=== PATIENT | male | born 1970 | race American Indian/Alaskan Native ===

== ENCOUNTER 2017-01-02 17:53 | Emergency (ER) | payer BC ==
[2017-01-02] MEDS ORDERED: Ketorolac 60 MG/2 ML SDV IM ONE (18:23)
--- NOTE | 2017-01-02 18:28 | EDM.PDOC ---
ED HPI GENERAL MEDICAL PROBLEM - General Chief Complaint: General Stated Complaint: PT HURT RT KNEE Time Seen by Provider: 01/02/17 18:15 - History of Present Illness INITIAL COMMENTS - FREE TEXT/NARRATIVE: HISTORY AND PHYSICAL: History of present illness: The patient is a 46-year-old male who has a history of gouty arthritis who gets flareups in his knees hands and wrists and presents with the start of what he believes to be a gouty flareup. The patient states he has right knee pain and feels discomfort but there is not any gross swelling redness or warmth but this is typically how he presents. He was on allopurinol but is off that medication for the last 2 months. He has not had any systemic complaints of fever chills chest pain shortness of breath and has no distal neurosensory changes. He has no tib-fib ankle or foot discomfort and no thigh or hip discomfort . The patient states that he usually is treated for this problem with a steroid injection into the knee Review of systems: As per history of present illness and below otherwise all systems reviewed and negative. Past medical history: As per history of present illness and as reviewed below otherwise noncontributory. Surgical history: As per history of present illness and as reviewed below otherwise noncontributory. Social history: No reported history of drug or alcohol abuse. Family history: As per history of present illness and as reviewed below otherwise noncontributory. Physical exam: General: Well-developed slightly overweight male who is nontoxic and vitals as reviewed by me HEENT: Atraumatic, normocephalic, negative for conjunctival pallor or scleral icterus, mucous membranes moist, throat clear, neck supple, nontender, trachea midline. Lungs: Clear to auscultation, breath sounds equal bilaterally, chest nontender. Heart: S1S2, regular rate and rhythm no overt murmurs Abdomen: Soft, nondistended, nontender. NABS. Pelvis: Stable nontender. No lateral hip tenderness on palpation Genitourinary: Deferred. Rectal: Deferred. Extremities: Atraumatic appearing throughout but there is some tenderness at the anterior aspect of the right knee without warmth erythema joint effusion or soft tissue swelling. There is some arthritic changes appreciated in the bony architecture of the knee. There is no distal tib-fib or ankle discomfort or deformities and no proximal thigh or hip tenderness or deformities., negative for cords or calf pain. Neurovascular unremarkable. Neuro: Awake, alert, oriented. Cranial nerves II through XII unremarkable. Cerebellum unremarkable. Motor and sensory unremarkable throughout. Exam nonfocal. Diagnostics: Therapeutics: Toradol I discussed with the patient that I do not do steroid injections into the knee and that he would have to followup in the clinic to see Dr. Hamilton for that. I will give him the appropriate for reformation. We will do a course of prednisone and diclofenac and I will give him a shot of Toradol here. I offered him an Nathaniel bandage and he declines. Impression: Right knee pain with history of gouty arthritis stable Definitive disposition and diagnosis as appropriate pending reevaluation and review of above. Right Knee Pain Score (Numeric/FACES): 6 - Related Data Allergies Allergy/AdvReac Type Severity Reaction Status Date / Time No Known Allergies Allergy Verified 01/02/17 18:07 Home Meds: Home Meds Allopurinol [Zyloprim] 300 mg PO DAILY 01/02/17 [History] Past Medical History - Infectious Disease History Infectious Disease History: Reports: Chicken pox - Past Surgical History Other Musculoskeletal Surgeries/Procedures:: right hip replacement Social & Family History - Family History Family Medical History: Noncontributory - Tobacco Use Smoking Status *Q: Current Every Day Smoker Years of Tobacco use: 15 Packs/Tins Daily: 0.1 Second Hand Smoke Exposure: No - Caffeine Use Caffeine Use: Reports: Soda Caffeine Use Comment: 2drinks/daily - Alcohol Use Days Per Week of Alcohol Use: 7 Number of Drinks Per Day: 3 Total Drinks Per Week: 21 - Recreational Drug Use Recreational Drug Use: No ED ROS GENERAL - Review of Systems Review Of Systems: ROS reveals no pertinent complaints other than HPI. ED EXAM, GENERAL - Physical Exam Exam: See Below (See dictation) Course - Vital Signs Last Recorded V/S: Last Vital Signs Temp 37.8 C 01/02/17 18:04 Pulse 92 01/02/17 18:04 Resp 18 01/02/17 18:04 BP 167/96 H 01/02/17 18:04 Pulse Ox 94 L 01/02/17 18:04 Departure - Departure Time of Disposition: 18:27 Disposition: Home, Self-Care 01 Condition: good Clinical Impression: Right knee pain Qualifiers: Chronicity: unspecified Qualified Code(s): M25.561 - Pain in right knee Forms: ED Department Discharge Additional Instructions: The following information is given to patients seen in the emergency department who are being discharged to home. This information is to outline your options for follow-up care. We provide all patients seen in our emergency department with a follow-up referral. The need for follow-up, as well as the timing and circumstances, are variable depending upon the specifics of your emergency department visit. If you don't have a primary care physician on staff, we will provide you with a referral. We always advise you to contact your personal physician following an emergency department visit to inform them of the circumstance of the visit and for follow-up with them and/or the need for any referrals to a consulting specialist. The emergency department will also refer you to a specialist when appropriate. This referral assures that you have the opportunity for followup care with a specialist. All of these measure are taken in an effort to provide you with optimal care, which includes your followup. Under all circumstances we always encourage you to contact your private physician who remains a resource for coordinating your care. When calling for followup care, please make the office aware that this follow-up is from your recent emergency room visit. If for any reason you are refused follow-up, please contact the [facility] emergency department at and ask to speak to the emergency department charge nurse. [facility] Primary care- Internal Medicine and Family [facility] [address] [place] [id number] [facility] Specialty Care--Orthopedic clinic Professional Building [address] [place] [id number] Ice and elevate the areas as possible and take medications as prescribed, prednisone and diclofenac. These call and followup in orthopedics clinic as well as primary care for further evaluation and treatment and return to ER as needed and as discussed
[2017-01-02 19:54] VITALS: BP 162/95
== END 2017-01-02 18:50 | disposition home or self-care (01) ==
LOC: MW.ED 17:53
DX: M25.561 Pain in right knee (principal); F17.210 Nicotine dependence, cigarettes, uncomplicated
CPT/HCPCS: 96372; 99283; J1885

== ENCOUNTER 2018-01-26 22:34 | Emergency (ER) | payer BC ==
[2018-01-26] MEDS ORDERED: Ondansetron 4 MG/2 ML SDV IVPUSH ONE (22:45)
[2018-01-26] MEDS ORDERED: Sodium Chloride 0.9% 1,000 ML IV ONE (22:45)
--- NOTE | 2018-01-26 22:54 | EDM.PDOC ---
ED HPI GENERAL MEDICAL PROBLEM - General Stated Complaint: DEHYDRATED/VOMITING/HEADACHE Time Seen by Provider: 01/26/18 22:44 - History of Present Illness INITIAL COMMENTS - FREE TEXT/NARRATIVE: HISTORY AND PHYSICAL: History of present illness: Patient 41 sutural male presents with concern of vomiting over last 2-3 days and dehydration. Similar episodes in the past also complains of mild headache he denies fever chills diarrhea or other concerns. Review of systems: As per history of present illness and below otherwise all systems reviewed and negative. Past medical history: As per history of present illness and as reviewed below otherwise noncontributory. Surgical history: As per history of present illness and as reviewed below otherwise noncontributory. Social history: No reported history of drug or alcohol abuse. Family history: As per history of present illness and as reviewed below otherwise noncontributory. Physical exam: HEENT: Atraumatic, normocephalic, pupils reactive, negative for conjunctival pallor or scleral icterus, mucous membranes dry, throat clear, neck supple, nontender, trachea midline. Lungs: Clear to auscultation, breath sounds equal bilaterally, chest nontender. Heart: S1S2, regular, negative for clicks, rubs, or JVD. Abdomen: Soft, nondistended, nontender. Negative for masses or hepatosplenomegaly. Negative for costovertebral tenderness. Pelvis: Stable nontender. Genitourinary: Deferred. Rectal: Deferred. Extremities: Atraumatic, negative for cords or calf pain. Neurovascular unremarkable. Neuro: Awake, alert, oriented. Cranial nerves II through XII unremarkable. Cerebellum unremarkable. Motor and sensory unremarkable throughout. Exam nonfocal. Diagnostics: CBC CMP lipase UA urine drug screen Therapeutics: Saline 1 L bolus Zofran 4 mg IV Impression: #1 vomiting with dehydration Definitive disposition and diagnosis as appropriate pending reevaluation and review of above. - Related Data Allergies Allergy/AdvReac Type Severity Reaction Status Date / Time No Known Allergies Allergy Verified 01/26/18 22:52 Home Meds: Home Meds Allopurinol [Zyloprim] 300 mg PO DAILY 01/02/17 [History] Past Medical History - Infectious Disease History Infectious Disease History: Reports: Chicken Pox - Past Surgical History Other Musculoskeletal Surgeries/Procedures:: right hip replacement Social & Family History - Family History Family Medical History: Noncontributory - Tobacco Use Smoking Status *Q: Current Every Day Smoker Years of Tobacco use: 15 Packs/Tins Daily: 0.1 Second Hand Smoke Exposure: No - Caffeine Use Caffeine Use: Reports: Soda Caffeine Use Comment: 2drinks/daily - Alcohol Use Days Per Week of Alcohol Use: 7 Number of Drinks Per Day: 3 Total Drinks Per Week: 21 - Recreational Drug Use Recreational Drug Use: No ED ROS GENERAL - Review of Systems Review Of Systems: ROS reveals no pertinent complaints other than HPI. ED EXAM, GENERAL - Physical Exam Exam: See Below (See dictation) Course - Vital Signs Text/Narrative:: I discussed with patient admission for observation IV hydration and further evaluation he declines request discharge states he feels markedly improved follow-up with private medical doctor Last Recorded V/S: Last Vital Signs Temp 36.6 C 01/26/18 22:53 Pulse 121 H 01/26/18 22:53 Resp 19 01/26/18 22:53 BP 158/123 H 01/26/18 22:53 Pulse Ox 98 01/26/18 22:53 - Orders/Labs/Meds Orders: Active Orders 24 hr Category Date Time Status DRUG SCREEN, URINE [URCHEM] Stat Lab 01/26/18 22:46 Ordered UA W/MICROSCOPIC [URIN] Stat Lab 01/26/18 22:45 Ordered Sodium Chloride 0.9% [Normal Saline] 1,000 ml Med 01/27/18 00:15 Active IV .Bolus Medication Orders Sodium Chloride (Normal Saline) 1,000 mls @ 999 mls/hr IV .Bolus ONE Stop: 01/27/18 01:15 Last Admin: 01/27/18 00:21 Dose: 999 mls/hr Labs: Laboratory Tests 01/26/18 01/26/18 01/26/18 Range/Units 22:55 22:55 22:55 WBC 6.30 (4.0-11.0) K/uL RBC 5.64 (4.50-5.90) M/uL Hgb 18.7 H (13.0-17.0) g/dL Hct 51.2 H (38.0-50.0) % MCV 90.8 (80.0-98.0) fL MCH 33.2 H (27.0-32.0) pg MCHC 36.5 (31.0-37.0) g/dL RDW Std Deviation 43.6 (28.0-62.0) fl RDW Coeff of Laney 13 (11.0-15.0) % Plt Count 187 (150-400) K/uL MPV 9.90 (7.40-12.00) fL Neut % (Auto) 49.3 (48.0-80.0) % Lymph % (Auto) 43.0 H (16.0-40.0) % Riley % (Auto) 5.2 (0.0-15.0) % Eos % (Auto) 2.2 (0.0-7.0) % Baso % (Auto) 0.3 (0.0-1.5) % Neut # (Auto) 3.1 (1.4-5.7) K/uL Lymph # (Auto) 2.7 H (0.6-2.4) K/uL Riley # (Auto) 0.3 (0.0-0.8) K/uL Eos # (Auto) 0.1 (0.0-0.7) K/uL Baso # (Auto) 0.0 (0.0-0.1) K/uL Nucleated RBC % 0.0 /100WBC Nucleated RBCs # 0 K/uL INR 1.10 Sodium 143 (136-148) mmol/L Potassium 3.6 (3.5-5.1) mmol/L Chloride 108 H (98-107) mmol/L Carbon Dioxide 23.1 (21.0-32.0) mmol/L BUN 13 (7.0-18.0) mg/dL Creatinine 1.0 (0.8-1.3) mg/dL Est Cr Clr Drug Dosing 89.30 mL/min Estimated GFR (MDRD) > 60.0 ml/min Glucose 128 H (74-106) mg/dL Calcium 8.5 (8.5-10.1) mg/dL Total Bilirubin 1.0 (0.2-1.0) mg/dL AST 85 H (15-37) IU/L ALT 107 H (14-63) IU/L Alkaline Phosphatase 77 (46-116) U/L Total Protein 8.0 (6.4-8.2) g/dL Albumin 4.2 (3.4-5.0) g/dL Globulin 3.8 H (2.0-3.5) g/dL Albumin/Globulin Ratio 1.1 L (1.3-2.8) Lipase 437 H (73-393) U/L Meds: Medications Generic Name Dose Route Start Last Admin Trade Name Justin PRN Reason Stop Dose Admin Sodium Chloride 1,000 mls @ 999 mls/hr 01/27/18 00:15 01/27/18 00:21 Normal Saline IV 01/27/18 01:15 999 mls/hr .Bolus ONE Administration Discontinued Medications Generic Name Dose Route Start Last Admin Trade Name Justin PRN Reason Stop Dose Admin Sodium Chloride 1,000 mls @ 999 mls/hr 01/26/18 22:45 01/26/18 23:16 Normal Saline IV 01/26/18 23:45 999 mls/hr STAT ONE Administration Ondansetron HCl 4 mg 01/26/18 22:45 01/26/18 23:18 Zofran IVPUSH 01/26/18 22:46 4 mg ONETIME ONE Administration Departure - Departure Time of Disposition: 00:36 Disposition: Home, Self-Care 01 Condition: Good Clinical Impression: Vomiting, Pancreatitis, Alcohol abuse, Dehydration - Discharge Information Referrals: PCP,None [Primary Care Provider] - - My Orders Last 24 Hours: My Active Orders 01/26/18 22:45 UA W/MICROSCOPIC [URIN] Stat 01/26/18 22:46 DRUG SCREEN, URINE [URCHEM] Stat 01/27/18 00:15 Sodium Chloride 0.9% [Normal Saline] 1,000 ml IV .Bolus - Assessment/Plan Last 24 Hours: My Active Orders 01/26/18 22:45 UA W/MICROSCOPIC [URIN] Stat 01/26/18 22:46 DRUG SCREEN, URINE [URCHEM] Stat 01/27/18 00:15 Sodium Chloride 0.9% [Normal Saline] 1,000 ml IV .Bolus
[2018-01-26 23:28] LABS: CHLORIDE,CL 108 mmol/L (98-107); SODIUM,NA 143 mmol/L (136-148)
[2018-01-27] MEDS ORDERED: Sodium Chloride 0.9% 1,000 ML IV ONE (00:15)
[2018-01-27 01:34] VITALS: BP 130/90
== END 2018-01-27 01:25 | disposition home or self-care (01) ==
LOC: MW.ED 22:34
DX: E86.0 Dehydration (principal); K85.90 Acute pancreatitis without necrosis or infection, unspecified; F10.10 Alcohol abuse, uncomplicated; F17.210 Nicotine dependence, cigarettes, uncomplicated; Z79.899 Other long term (current) drug therapy
CPT/HCPCS: 36415; 80053; 83690; 85025; 85610; 96361; 96374; 99284; J2405; J7040

== ENCOUNTER 2019-06-21 08:34 | Observation (INO) | payer BC ==
[2019-06-21] MEDS ORDERED: Sodium Chloride 0.9% 10 ML Syringe FLUSH PRN (08:39)
[2019-06-21] MEDS ORDERED: Sodium Chloride 0.9% 2.5 ML Syringe FLUSH PRN (08:39)
[2019-06-21] MEDS ORDERED: Sodium Chloride 0.9% 10 ML SDV IV PRN (08:39)
[2019-06-21] MEDS ORDERED: Labetalol 100 MG/20 ML MDV IVPUSH ONE (08:40)
[2019-06-21] MEDS ORDERED: Labetalol 100 MG/20 ML MDV ONE (08:42)
--- NOTE | 2019-06-21 08:42 | EDM.PDOC ---
ED HPI GENERAL MEDICAL PROBLEM - General Stated Complaint: LEFT ARM NUMBNESS, CHEST DISCOMFORT Time Seen by Provider: 06/21/19 08:35 Source of Information: Reports: Patient History Limitations: Reports: No Limitations - History of Present Illness INITIAL COMMENTS - FREE TEXT/NARRATIVE: History of present illness: []Patient started having numbness in his fingertips yesterday morning went to sleep last night and awoke at 1:00 in the morning with 3-4/10 chest pain radiating to his left arm with left arm tingling and profuse sweating . He shouldn't now complains of 2/10 chest pain and tingling in his left hand and toes. He does have a family history of heart disease. He denies any shortness of breath, dizziness or syncope. Patient did not take any medications throughout the night or when the symptoms began. Review of systems: As per history of present illness and below otherwise all systems reviewed and negative. Past medical history: As per history of present illness and as reviewed below otherwise noncontributory. Surgical history: As per history of present illness and as reviewed below otherwise noncontributory. Social history: No reported history of drug or alcohol abuse. Family history: As per history of present illness and as reviewed below otherwise noncontributory. Physical exam: General: Well developed, well nourished in NAD HEENT: Atraumatic, normocephalic, pupils reactive, negative for conjunctival pallor or scleral icterus, mucous membranes moist, throat clear, neck supple, nontender, trachea midline. Lungs: Clear to auscultation, breath sounds equal bilaterally, chest nontender. Heart: S1S2, regular, negative for clicks, rubs, or JVD. Abdomen: NABS, Soft, nondistended, nontender. Negative for masses or hepatosplenomegaly. Negative for costovertebral tenderness. Pelvis: Stable nontender. Genitourinary: Deferred. Rectal: Deferred. Extremities: Atraumatic, negative for cords or calf pain. Neurovascular unremarkable. Neuro: Awake, alert, oriented. Cranial nerves II through XII unremarkable. Cerebellum unremarkable. Motor and sensory unremarkable throughout. Exam nonfocal. Skin:warm and dry Diagnostics: EKG, CT head, bedside glucose, CBC, chemistry, troponin, TSH, coags Therapeutics: Sublingual nitroglycerin-alleviated chest pain completely ED Course: improved Impression: Chest pain, uncontrolled hypertension, left-sided numbness and tingling Prescriptions: None Plan: Admit to hospitalist with Dr. Lindquist, for observation and further workup Definitive disposition and diagnosis as appropriate pending reevaluation and review of above. - Related Data Allergies Allergy/AdvReac Type Severity Reaction Status Date / Time No Known Allergies Allergy Verified 06/21/19 08:51 Home Meds: Home Meds Allopurinol [Zyloprim] 300 mg PO DAILY 01/02/17 [History] Past Medical History HEENT History: Reports: None Cardiovascular History: Reports: Hypertension Respiratory History: Reports: None Gastrointestinal History: Reports: None Genitourinary History: Reports: None Musculoskeletal History: Reports: Gout Neurological History: Reports: None Psychiatric History: Reports: None Endocrine/Metabolic History: Reports: None Hematologic History: Reports: None Immunologic History: Reports: None Oncologic (Cancer) History: Reports: None Dermatologic History: Reports: None - Infectious Disease History Infectious Disease History: Reports: Chicken Pox - Past Surgical History Other Musculoskeletal Surgeries/Procedures:: right hip replacement Social & Family History - Family History Family Medical History: Noncontributory - Caffeine Use Caffeine Use: Reports: Soda Caffeine Use Comment: 2drinks/daily ED ROS GENERAL - Review of Systems Review Of Systems: See Below ED EXAM, NEURO - Physical Exam Exam: See Below Course - Vital Signs Last Recorded V/S: Last Vital Signs Temp 97.6 F 06/21/19 08:35 Pulse 83 06/21/19 09:22 Resp 18 06/21/19 09:22 BP 159/113 H 06/21/19 09:22 Pulse Ox 97 06/21/19 09:22 - Orders/Labs/Meds Orders: Active Orders 24 hr Category Date Time Status Patient Status [ADT] Stat ADT 06/21/19 09:54 Active Assess Neurological Status [RC] ASDIRECTED Care 06/21/19 08:39 Active Bedrest [RC] ASDIRECTED Care 06/21/19 08:39 Active Cardiac Monitoring [RC] . DIRECTED Care 06/21/19 08:39 Active Cardiac Monitoring [RC] . DIRECTED Care 06/21/19 08:39 Active EKG Documentation Completion [RC] STAT Care 06/21/19 08:39 Active EKG Documentation Completion [RC] STAT Care 06/21/19 08:39 Active Height and Weight [RC] UPON Care 06/21/19 08:39 Active Initiate Acute Stroke Protocol [RC] STAT Care 06/21/19 08:39 Active NIH Stroke Scale [RC] ASDIRECTED Care 06/21/19 08:39 Active Nursing Bedside Swallow Screen [RC] ASDIRECTED Care 06/21/19 08:39 Active Oxygen Therapy [RC] ASDIRECTED Care 06/21/19 08:39 Active Stroke Education, General [] Click to Edit Care 06/21/19 08:39 Active Vital Signs [RC] Q15M Care 06/21/19 08:39 Active Allopurinol [Zyloprim] Med 06/22/19 09:00 Ordered 300 mg PO DAILY Nitroglycerin [Nitrostat] Med 06/21/19 08:44 Active 0.4 mg SL Q5M PRN Sodium Chloride 0.9% [Normal Saline] Med 06/21/19 08:39 Active 10 ml IV ASDIRECTED PRN Sodium Chloride 0.9% [Saline Flush] Med 06/21/19 08:39 Active 10 ml FLUSH ASDIRECTED PRN Sodium Chloride 0.9% [Saline Flush] Med 06/21/19 08:39 Active 2.5 ml FLUSH ASDIRECTED PRN Peripheral IV Insertion Adult [OM.PC] Stat Oth 06/21/19 08:39 Ordered Peripheral IV Insertion Adult [OM.PC] Stat Oth 06/21/19 08:39 Ordered Saline Lock Insert [OM.PC] Stat Oth 06/21/19 08:39 Ordered Medication Orders Allopurinol (Zyloprim) 300 mg PO DAILY LISANDRA Nitroglycerin (Nitrostat) 0.4 mg SL Q5M PRN PRN Reason: Chest Pain Last Admin: 06/21/19 09:02 Dose: 0.4 mg Sodium Chloride (Saline Flush) 10 ml FLUSH ASDIRECTED PRN PRN Reason: Keep Vein Open Last Admin: 06/21/19 09:02 Dose: 10 ml Sodium Chloride (Saline Flush) 2.5 ml FLUSH ASDIRECTED PRN PRN Reason: Keep Vein Open Last Admin: 06/21/19 09:02 Dose: 2.5 ml Sodium Chloride (Normal Saline) 10 ml IV ASDIRECTED PRN PRN Reason: IV Use Labs: Laboratory Tests 09/09/2706/21/19 06/21/19 Range/Units 08:40 08:40 08:40 WBC 7.24 (4.0-11.0) K/uL RBC 5.45 (4.50-5.90) M/uL Hgb 18.2 H (13.0-17.0) g/dL Hct 52.0 H (38.0-50.0) % MCV 95.4 (80.0-98.0) fL MCH 33.4 H (27.0-32.0) pg MCHC 35.0 (31.0-37.0) g/dL RDW Std Deviation 45.4 (28.0-62.0) fl RDW Coeff of Laney 13 (11.0-15.0) % Plt Count 185 (150-400) K/uL MPV 10.10 (7.40-12.00) fL Neut % (Auto) 46.8 L (48.0-80.0) % Lymph % (Auto) 37.7 (16.0-40.0) % Osborne % (Auto) 10.6 (0.0-15.0) % Eos % (Auto) 4.3 (0.0-7.0) % Baso % (Auto) 0.6 (0.0-1.5) % Neut # (Auto) 3.4 (1.4-5.7) K/uL Lymph # (Auto) 2.7 H (0.6-2.4) K/uL Osborne # (Auto) 0.8 (0.0-0.8) K/uL Eos # (Auto) 0.3 (0.0-0.7) K/uL Baso # (Auto) 0.0 (0.0-0.1) K/uL Nucleated RBC % 0.0 /100WBC Nucleated RBCs # 0 K/uL INR 1.03 APTT 26.7 (18.6-31.3) SEC Sodium 142 (136-148) mmol/L Potassium 4.0 (3.5-5.1) mmol/L Chloride 104 (98-107) mmol/L Carbon Dioxide 25.4 (21.0-32.0) mmol/L BUN 12 (7.0-18.0) mg/dL Creatinine 1.3 (0.8-1.3) mg/dL Est Cr Clr Drug Dosing 67.96 mL/min Estimated GFR (MDRD) 59.2 ml/min Glucose 100 (74-106) mg/dL Calcium 8.6 (8.5-10.1) mg/dL Total Bilirubin 1.5 H (0.2-1.0) mg/dL AST 34 (15-37) IU/L ALT 48 (14-63) IU/L Alkaline Phosphatase 91 (46-116) U/L Troponin I < 0.050 (0.000-0.056) ng/mL Total Protein 7.5 (6.4-8.2) g/dL Albumin 3.8 (3.4-5.0) g/dL Globulin 3.7 (2.6-4.0) g/dL Albumin/Globulin Ratio 1.0 (0.9-1.6) TSH 3rd Generation 3.01 (0.36-3.74) uIU/mL Meds: Medications Generic Name Dose Route Start Last Admin Trade Name Freq PRN Reason Stop Dose Admin Allopurinol 300 mg 06/22/19 09:00 Zyloprim PO DAILY LISANDRA Nitroglycerin 0.4 mg 06/21/19 08:44 06/21/19 09:02 Nitrostat SL 0.4 mg Q5M PRN Administration Chest Pain Sodium Chloride 10 ml 06/21/19 08:39 06/21/19 09:02 Saline Flush FLUSH 10 ml ASDIRECTED PRN Administration Keep Vein Open Sodium Chloride 2.5 ml 06/21/19 08:39 06/21/19 09:02 Saline Flush FLUSH 2.5 ml ASDIRECTED PRN Administration Keep Vein Open Sodium Chloride 10 ml 06/21/19 08:39 Normal Saline IV ASDIRECTED PRN IV Use Discontinued Medications Generic Name Dose Route Start Last Admin Trade Name Freq PRN Reason Stop Dose Admin Labetalol HCl 20 mg 06/21/19 08:40 06/21/19 09:02 Normodyne IVPUSH 06/21/19 08:41 Not Given ONETIME ONE Protocol Labetalol HCl Confirm 06/21/19 08:42 06/21/19 09:03 Normodyne Administered 06/21/19 08:43 Not Given Dose 100 mg .ROUTE .STK-MED ONE Departure - Departure Time of Disposition: 10:24 Disposition: Refer to Observation Condition: Good Clinical Impression: Chest pain, Uncontrolled hypertension, Numbness and tingling of left arm and leg Clinical Impression: (Ruled Out): Numbness and tingling of left side of face, Numbness and tingling in left arm - Discharge Information *PRESCRIPTION DRUG MONITORING PROGRAM REVIEWED*: Not Applicable *COPY OF PRESCRIPTION DRUG MONITORING REPORT IN PATIENT YONY: Not Applicable Referrals: PCP,Unobtain [Primary Care Provider] - - My Orders Last 24 Hours: My Active Orders 06/21/19 08:39 Assess Neurological Status [RC] ASDIRECTED Bedrest [RC] ASDIRECTED Cardiac Monitoring [RC] . DIRECTED Cardiac Monitoring [RC] . DIRECTED EKG Documentation Completion [RC] STAT EKG Documentation Completion [RC] STAT Height and Weight [RC] UPON Initiate Acute Stroke Protocol [RC] STAT NIH Stroke Scale [RC] ASDIRECTED Nursing Bedside Swallow Screen [RC] ASDIRECTED Oxygen Therapy [RC] ASDIRECTED Stroke Education, General [RC] Click to Edit Vital Signs [RC] Q15M Sodium Chloride 0.9% [Normal Saline] 10 ml IV ASDIRECTED PRN Sodium Chloride 0.9% [Saline Flush] 10 ml FLUSH ASDIRECTED PRN Sodium Chloride 0.9% [Saline Flush] 2.5 ml FLUSH ASDIRECTED PRN Peripheral IV Insertion Adult [OM.PC] Stat Peripheral IV Insertion Adult [OM.PC] Stat Saline Lock Insert [OM.PC] Stat 06/21/19 08:44 Nitroglycerin [Nitrostat] 0.4 mg SL Q5M PRN 06/21/19 09:54 Patient Status [ADT] Stat - Assessment/Plan Last 24 Hours: My Active Orders 06/21/19 08:39 Assess Neurological Status [RC] ASDIRECTED Bedrest [RC] ASDIRECTED Cardiac Monitoring [RC] . DIRECTED Cardiac Monitoring [RC] . DIRECTED EKG Documentation Completion [RC] STAT EKG Documentation Completion [RC] STAT Height and Weight [RC] UPON Initiate Acute Stroke Protocol [RC] STAT NIH Stroke Scale [RC] ASDIRECTED Nursing Bedside Swallow Screen [RC] ASDIRECTED Oxygen Therapy [RC] ASDIRECTED Stroke Education, General [RC] Click to Edit Vital Signs [RC] Q15M Sodium Chloride 0.9% [Normal Saline] 10 ml IV ASDIRECTED PRN Sodium Chloride 0.9% [Saline Flush] 10 ml FLUSH ASDIRECTED PRN Sodium Chloride 0.9% [Saline Flush] 2.5 ml FLUSH ASDIRECTED PRN Peripheral IV Insertion Adult [OM.PC] Stat Peripheral IV Insertion Adult [OM.PC] Stat Saline Lock Insert [OM.PC] Stat 06/21/19 08:44 Nitroglycerin [Nitrostat] 0.4 mg SL Q5M PRN 06/21/19 09:54 Patient Status [ADT] Stat
[2019-06-21] MEDS ORDERED: Nitroglycerin 0.4 MG Tab.SL SL PRN (08:44)
--- NOTE | 2019-06-21 09:10 | CT ---
INDICATION: Left arm numbness the chest pain; stroke. COMPARISON: None. TECHNIQUE: CT head without intravenous contrast; coronal and sagittal reformats. FINDINGS: No evidence of intracranial hemorrhage. No mass lesions. No evidence of shift of the midline structures. The calvarium is unremarkable. The ventricular system, the subarachnoid cisterns and the cerebral sulci are unremarkable. IMPRESSION: Negative unenhanced head CT. Please note that all CT scans at this facility use dose modulation, iterative reconstruction, and/or weight-based dosing when appropriate to reduce radiation dose to as low as reasonably achievable. Dictated by Ana Sol MD @ Jun 21 2019 9:06AM Signed by Dr. Ana Sol @ Jun 21 2019 9:08AM
[2019-06-21 09:34] LABS: BLOOD UREA NITROGEN,BUN 12 mg/dL (7.0-18.0); CARBON DIOXIDE,CO2 25.4 mmol/L (21.0-32.0); CHLORIDE,CL 104 mmol/L (98-107); GLUCOSE RANDOM 100 mg/dL (74-106); SODIUM,NA 142 mmol/L (136-148)
--- NOTE | 2019-06-21 10:20 | PCM.HP.2 ---
H&P History of Present Illness - General Date of Service: 06/21/19 Admit Problem/Dx: Admission Diagnosis/Problem Admission Diagnosis/Problem Chest pain, atypical Source of Information: Patient History Limitations: Reports: No Limitations - History of Present Illness Initial Comments - Free Text/Narative: The patient is a 48-year-old gentleman who presented to the emergency department with a complaint of left-sided chest pain as well as tingling in his fingers. The patient reports that yesterday evening he started to have numbness of his fingers and toes while getting ready for bed. The patient reported that this had resolved and he had gone back to sleep. Patient woke up this morning with similar symptoms in addition to having left-sided chest pain. He also had been complaining of left arm numbness. The patient was admitted through the emergency department as a stroke code initially. The patient has said that his chest pain is resolved. The patient does have a previous history of alcohol consumption although he has denied any withdrawal type symptoms. The patient has denied any fever or chills. He's had no dizziness or lightheadedness. The patient also has a history of gout and is taking allopurinol as a home medication. Onset of Symptoms: Reports: Sudden Duration of Symptoms: Reports: Hour(s): Location: Reports: Chest Quality: Reports: Dull Severity: Mild Improves with: Reports: None Worsens with: Reports: None Associated Symptoms: Reports: No Other Symptoms - Related Data Allergies/Adverse Reactions: Allergies Allergy/AdvReac Type Severity Reaction Status Date / Time No Known Allergies Allergy Verified 06/21/19 08:51 Home Medications: Home Meds Allopurinol [Zyloprim] 300 mg PO DAILY 01/02/17 [History] Past Medical History HEENT History: Reports: None Cardiovascular History: Reports: Hypertension Respiratory History: Reports: None Gastrointestinal History: Reports: None Genitourinary History: Reports: None Musculoskeletal History: Reports: Gout Neurological History: Reports: None Psychiatric History: Reports: None Endocrine/Metabolic History: Reports: None Hematologic History: Reports: None Immunologic History: Reports: None Oncologic (Cancer) History: Reports: None Dermatologic History: Reports: None - Infectious Disease History Infectious Disease History: Reports: Chicken Pox - Past Surgical History Other Musculoskeletal Surgeries/Procedures:: right hip replacement Social & Family History - Family History Family Medical History: Noncontributory - Tobacco Use Smoking Status *Q: Unknown Ever Smoked - Caffeine Use Caffeine Use: Reports: Soda Caffeine Use Comment: 2drinks/daily - Recreational Drug Use Recreational Drug Use: No - Living Situation & Occupation Living situation: Reports: , with Family Occupation: Employed H&P Review of Systems - Review of Systems: Review Of Systems: See Below General: Reports: Diaphoresis HEENT: Reports: No Symptoms Pulmonary: Reports: Shortness of Breath Cardiovascular: Reports: Chest Pain Gastrointestinal: Reports: No Symptoms Genitourinary: Reports: No Symptoms Musculoskeletal: Reports: No Symptoms Skin: Reports: No Symptoms Psychiatric: Reports: No Symptoms Neurological: Reports: No Symptoms Hematologic/Lymphatic: Reports: No Symptoms Immunologic: Reports: No Symptoms Exam - Exam Exam: See Below - Vital Signs Vital Signs: Last Vital Signs Temp 36.4 C 06/21/19 08:35 Pulse 83 06/21/19 09:22 Resp 18 06/21/19 09:22 BP 159/113 H 06/21/19 09:22 Pulse Ox 97 06/21/19 09:22 Weight: 117.934 kg - Exam Quality Assessment: No: Supplemental Oxygen General: Alert, Oriented, Cooperative HEENT: Conjunctiva Clear, EACs Clear, EOMI, Hearing Intact, Pupils Equal, PERRLA. No: Mucosa Moist & [place] (Dry) Neck: Supple, Trachea Midline Lungs: Clear to Auscultation, Normal Respiratory Effort Cardiovascular: Regular Rate, Regular Rhythm, Other (Tender left-sided pectoralis) GI/Abdominal Exam: Normal Bowel Sounds, Soft, Non-Tender, No Distention. No: Guarding, Rigid, Rebound Back Exam: Normal Inspection, Full Range of Motion Extremities: Normal Inspection, No Pedal Edema Skin: Warm, Dry, Intact Neurological: Cranial Nerves Intact, Normal Gait, Normal Speech Neuro Extensive - Mental Status: Alert, Oriented x3 Psychiatric: Alert, Normal Affect, Normal Mood - Patient Data Lab Results Last 24 hrs: Laboratory Results - last 24 hr 06/21/19 06/21/19 06/21/19 Range/Units 08:40 08:40 08:40 WBC 7.24 (4.0-11.0) K/uL RBC 5.45 (4.50-5.90) M/uL Hgb 18.2 H (13.0-17.0) g/dL Hct 52.0 H (38.0-50.0) % MCV 95.4 (80.0-98.0) fL MCH 33.4 H (27.0-32.0) pg MCHC 35.0 (31.0-37.0) g/dL RDW Std Deviation 45.4 (28.0-62.0) fl RDW Coeff of [place] 13 (11.0-15.0) % Plt Count 185 (150-400) K/uL MPV 10.10 (7.40-12.00) fL Neut % (Auto) 46.8 L (48.0-80.0) % Lymph % (Auto) 37.7 (16.0-40.0) % [place] % (Auto) 10.6 (0.0-15.0) % Eos % (Auto) 4.3 (0.0-7.0) % Baso % (Auto) 0.6 (0.0-1.5) % Neut # (Auto) 3.4 (1.4-5.7) K/uL Lymph # (Auto) 2.7 H (0.6-2.4) K/uL [place] # (Auto) 0.8 (0.0-0.8) K/uL Eos # (Auto) 0.3 (0.0-0.7) K/uL Baso # (Auto) 0.0 (0.0-0.1) K/uL Nucleated RBC % 0.0 /100WBC Nucleated RBCs # 0 K/uL INR 1.03 APTT 26.7 (18.6-31.3) SEC Sodium 142 (136-148) mmol/L Potassium 4.0 (3.5-5.1) mmol/L Chloride 104 (98-107) mmol/L Carbon Dioxide 25.4 (21.0-32.0) mmol/L BUN 12 (7.0-18.0) mg/dL Creatinine 1.3 (0.8-1.3) mg/dL Est Cr Clr Drug Dosing 67.96 mL/min Estimated GFR (MDRD) 59.2 ml/min Glucose 100 (74-106) mg/dL Calcium 8.6 (8.5-10.1) mg/dL Total Bilirubin 1.5 H (0.2-1.0) mg/dL AST 34 (15-37) IU/L ALT 48 (14-63) IU/L Alkaline Phosphatase 91 (46-116) U/L Troponin I < 0.050 (0.000-0.056) ng/mL Total Protein 7.5 (6.4-8.2) g/dL Albumin 3.8 (3.4-5.0) g/dL Globulin 3.7 (2.6-4.0) g/dL Albumin/Globulin Ratio 1.0 (0.9-1.6) TSH 3rd Generation 3.01 (0.36-3.74) uIU/mL Result Diagrams: 06/21/19 08:40 06/21/19 08:40 - Problem List (1) Atypical chest pain SNOMED Code(s): 590862815 ICD Code: R07.89 - OTHER CHEST PAIN Status: Acute Priority: High Current Visit: Yes (2) Gout SNOMED Code(s): 16601920 ICD Code: M10.9 - GOUT, UNSPECIFIED Status: Chronic Priority: Medium Current Visit: Yes Qualifiers: Gout site: multiple sites Gout etiology: other secondary cause Chronicity : chronic Presence of tophus: without tophus Qualified Code(s): M1A.49X0 - Other secondary chronic gout, multiple sites, without tophus (tophi) (3) Hyperuricemia SNOMED Code(s): 54180821 ICD Code: E79.0 - HYPERURICEMIA W/O SIGNS OF INFLAM ARTHRIT AND TOPHACEOUS DIS Status: Chronic Priority: High Current Visit: Yes (4) Numbness and tingling of left arm and leg SNOMED Code(s): 00755851, 081264050, 528058949362 ICD Code: R20.0 - ANESTHESIA OF SKIN; R20.2 - PARESTHESIA OF SKIN Status: Acute Priority: High Current Visit: Yes (5) Obesity (BMI 30-39.9) SNOMED Code(s): 484198849, 396623139 ICD Code: E66.9 - OBESITY, UNSPECIFIED Status: Chronic Priority: High Current Visit: Yes (6) Uncontrolled hypertension SNOMED Code(s): 42156613, 53990189 ICD Code: I10 - ESSENTIAL (PRIMARY) HYPERTENSION Status: Chronic Priority : High Current Visit: Yes Problem List Initiated/Reviewed/Updated: Yes Orders Last 24hrs: Active Orders 24 hr Category Date Time Status Patient Status [ADT] Stat ADT 06/21/19 09:54 Active Assess Neurological Status [RC] ASDIRECTED Care 06/21/19 08:39 Active Bedrest [RC] ASDIRECTED Care 06/21/19 08:39 Active Cardiac Monitoring [RC] . DIRECTED Care 06/21/19 08:39 Active Cardiac Monitoring [RC] . DIRECTED Care 06/21/19 08:39 Active EKG Documentation Completion [RC] STAT Care 06/21/19 08:39 Active EKG Documentation Completion [RC] STAT Care 06/21/19 08:39 Active Height and Weight [RC] UPON Care 06/21/19 08:39 Active Initiate Acute Stroke Protocol [RC] STAT Care 06/21/19 08:39 Active NIH Stroke Scale [RC] ASDIRECTED Care 06/21/19 08:39 Active Nursing Bedside Swallow Screen [RC] ASDIRECTED Care 06/21/19 08:39 Active Oxygen Therapy [RC] ASDIRECTED Care 06/21/19 08:39 Active Stroke Education, General [RC] Click to Edit Care 06/21/19 08:39 Active Vital Signs [RC] Q15M Care 06/21/19 08:39 Active Nitroglycerin [Nitrostat] Med 06/21/19 08:44 Active 0.4 mg SL Q5M PRN Sodium Chloride 0.9% [Normal Saline] Med 06/21/19 08:39 Active 10 ml IV ASDIRECTED PRN Sodium Chloride 0.9% [Saline Flush] Med 06/21/19 08:39 Active 10 ml FLUSH ASDIRECTED PRN Sodium Chloride 0.9% [Saline Flush] Med 06/21/19 08:39 Active 2.5 ml FLUSH ASDIRECTED PRN Peripheral IV Insertion Adult [OM.PC] Stat Oth 06/21/19 08:39 Ordered Peripheral IV Insertion Adult [OM.PC] Stat Oth 06/21/19 08:39 Ordered Saline Lock Insert [OM.PC] Stat Oth 06/21/19 08:39 Ordered Medication Orders Nitroglycerin (Nitrostat) 0.4 mg SL Q5M PRN PRN Reason: Chest Pain Last Admin: 06/21/19 09:02 Dose: 0.4 mg Sodium Chloride (Saline Flush) 10 ml FLUSH ASDIRECTED PRN PRN Reason: Keep Vein Open Last Admin: 06/21/19 09:02 Dose: 10 ml Sodium Chloride (Saline Flush) 2.5 ml FLUSH ASDIRECTED PRN PRN Reason: Keep Vein Open Last Admin: 06/21/19 09:02 Dose: 2.5 ml Sodium Chloride (Normal Saline) 10 ml IV ASDIRECTED PRN PRN Reason: IV Use Assessment/Plan Comment:: The patient is an otherwise healthy 48-year-old gentleman who will be admitted to observation secondary to chest pain workup. I've ordered to other troponins 6 hours apart. Patient be kept on telemetry. I've also ordered the patient be kept on IV fluids normal saline at 100 milliliters per hour. The patient is somewhat dehydrated and he'll have repeat laboratory studies in the morning. Patient also be anticoagulated with the use of heparin as his creatinine is currently minimally elevated and I suspect this will resolve with the use of IV fluids. The patient will be kept on a heart healthy diet. I've also ordered repeat EKG for the morning. I suspect that the patient should be appropriate for discharge tomorrow. - Mortality Measure Prognosis:: Good
[2019-06-21] MEDS ORDERED: oxyCODONE 5 MG Tab PO PRN (10:21)
[2019-06-21] MEDS ORDERED: Acetaminophen 325 MG Tab PO PRN (10:21)
[2019-06-21] MEDS ORDERED: Docusate Sodium 100 MG Cap PO PRN (10:21)
[2019-06-21] MEDS ORDERED: Ondansetron 4 MG Tab.DIS PO PRN (10:21)
[2019-06-21] MEDS ORDERED: Sodium Chloride 0.9% 1,000 ML IV SCH (10:30)
[2019-06-21] MEDS ORDERED: Heparin Sodium 5,000 Units/ML Vial SUBCUT SCH (10:30)
--- NOTE | 2019-06-21 14:56 | CR ---
INDICATION: Stroke. COMPARISON: None. TECHNIQUE: Portable AP chest. FINDINGS: Normal size cardiac silhouette. Clear lung alegre with no evidence of acute pneumonic infiltrates or CHF. No pneumothorax or pleural effusion. IMPRESSION: Negative chest. Dictated by Ana Sol MD @ Jun 21 2019 2:53PM Signed by Dr. Ana Sol @ Jun 21 2019 2:54PM
[2019-06-21 16:02] VITALS: BP 144/97; PULSE 82
[2019-06-22] MEDS ORDERED: Allopurinol 300 MG Tab PO SCH (09:00)
== END 2019-06-21 18:01 | disposition left against medical advice (07) ==
LOC: MW.ED 08:34 → MW.MS 09:54
PROVIDERS: ADMIT Internal Medicine; ATTEND Internal Medicine
DX: R07.89 Other chest pain (principal); R20.0 Anesthesia of skin; R20.2 Paresthesia of skin; I10 Essential (primary) hypertension; M10.9 Gout, unspecified; Z82.49 Family history of ischemic heart disease and other diseases of the circulatory system; Z79.899 Other long term (current) drug therapy
CPT/HCPCS: 36415; 70450; 70450-26; 71045; 71045-26; 80053; 83735; 84443; 84484; 84550; 85025; 85610; 85730; 93005; 96372; 99285-25; A9270-GY; G0378; J1644; J7040

== ENCOUNTER 2020-04-20 09:16 | Emergency (ER) | payer BC, OTHER ==
[2020-04-20] MEDS ORDERED: Albuterol 8 GM Inhaler INH ONE (10:56)
--- NOTE | 2020-04-20 10:56 | EDM.PDOC ---
ED HPI GENERAL MEDICAL PROBLEM - General Chief Complaint: Respiratory Problem Stated Complaint: COUGH SOB Time Seen by Provider: 04/20/20 09:36 - History of Present Illness INITIAL COMMENTS - FREE TEXT/NARRATIVE: History of present illness: Patient presents with 3 or 4 days of cough congestion runny nose and difficulty breathing he has been around some other people who have similar illness he denies smoking he thinks he has a bronchitis he says he has had it before there is been no leg pain or leg swelling no chest pain nothing seems to make it better or worse Review of systems: As per history of present illness and below otherwise all systems reviewed and negative. Past medical history: As per history of present illness and as reviewed below otherwise noncontributory. Surgical history: As per history of present illness and as reviewed below otherwise noncontributory. Social history: No reported history of drug or alcohol abuse. Family history: As per history of present illness and as reviewed below otherwise noncontributory. Physical exam: HEENT: Atraumatic, normocephalic, pupils reactive, negative for conjunctival pallor or scleral icterus, mucous membranes moist, throat clear, neck supple, nontender, trachea midline. Nasal congestion is present Lungs: Clear to auscultation, breath sounds equal bilaterally, chest nontender. Heart: S1S2, regular, negative for clicks, rubs, or JVD. Abdomen: Soft, nondistended, nontender. Negative for masses or hepatosplenomegaly. Negative for costovertebral tenderness. Pelvis: Stable nontender. Genitourinary: Deferred. Rectal: Deferred. Extremities: Atraumatic, negative for cords or calf pain. Neurovascular unremarkable. Neuro: Awake, alert, oriented. Cranial nerves II through XII unremarkable. Cerebellum unremarkable. Motor and sensory unremarkable throughout. Exam nonfocal. Diagnostics: [] Therapeutics: [] Impression: [] Plan: Patient is counseled to remain home Motrin Tylenol for pain and fever provide him with an albuterol inhaler for his dyspnea and testing for COVID. [] Definitive disposition and diagnosis as appropriate pending reevaluation and review of above. Headache Pain Score (Numeric/FACES): 6 - Related Data Allergies Allergy/AdvReac Type Severity Reaction Status Date / Time No Known Allergies Allergy Verified 04/20/20 09:29 Home Meds: Home Meds Allopurinol [Zyloprim] 300 mg PO DAILY 01/02/17 [History] Multivitamin [Multivitamins] 1 each PO DAILY 04/20/20 [History] Past Medical History HEENT History: Reports: None Cardiovascular History: Reports: Hypertension Respiratory History: Reports: None Gastrointestinal History: Reports: None Genitourinary History: Reports: None Musculoskeletal History: Reports: Gout Neurological History: Reports: None Psychiatric History: Reports: None Endocrine/Metabolic History: Reports: None Hematologic History: Reports: None Immunologic History: Reports: None Oncologic (Cancer) History: Reports: None Dermatologic History: Reports: None - Infectious Disease History Infectious Disease History: Reports: Chicken Pox - Past Surgical History Head Surgeries/Procedures: Reports: None HEENT Surgical History: Reports: LASIK Respiratory Surgical History: Reports: None GI Surgical History: Reports: Appendectomy Male Surgical History: Reports: None Endocrine Surgical History: Reports: None Neurological Surgical History: Reports: None Other Musculoskeletal Surgeries/Procedures:: right hip replacement Oncologic Surgical History: Reports: None Dermatological Surgical History: Reports: None Social & Family History - Family History Family Medical History: Noncontributory - Tobacco Use Smoking Status *Q: Never Smoker Second Hand Smoke Exposure: No - Caffeine Use Caffeine Use: Reports: Coffee Caffeine Use Comment: 2drinks/daily - Alcohol Use Days Per Week of Alcohol Use: 7 Number of Drinks Per Day: 5 Total Drinks Per Week: 35 - Recreational Drug Use Recreational Drug Use: No - Living Situation & Occupation Living situation: Reports: , with Family Occupation: Employed ED ROS GENERAL - Review of Systems Review Of Systems: See Below ED EXAM, GENERAL - Physical Exam Exam: See Below Course - Vital Signs Text/Narrative:: COVID test is negative will order him an albuterol inhaler he is to isolate at home Motrin Tylenol for pain albuterol as needed return to the ED for respiratory distress. Last Recorded V/S: Last Vital Signs Temp 37.1 C 04/20/20 09:31 Pulse 100 04/20/20 09:31 Resp 16 04/20/20 09:31 BP 147/90 H 04/20/20 09:31 Pulse Ox 94 L 04/20/20 09:31 - Orders/Labs/Meds Labs: Laboratory Tests 04/20/20 Range/Units 09:58 COVID-19 ([facility]) NEGATIVE (NEGATIVE) Departure - Departure Time of Disposition: 10:53 Disposition: Home, Self-Care 01 Condition: Good Clinical Impression: Upper respiratory infection, viral - Discharge Information *PRESCRIPTION DRUG MONITORING PROGRAM REVIEWED*: Not Applicable *COPY OF PRESCRIPTION DRUG MONITORING REPORT IN PATIENT YONY: Not Applicable Instructions: Viral Respiratory Infection, [id number] Referrals: PCP,Not In Area [Primary Care Provider] - Sepsis Event Note (ED) - Evaluation Sepsis Screening Result: No Definite Risk - Focused Exam Vital Signs: Vital Signs Temp Pulse Resp BP Pulse Ox 04/20/20 09:31 37.1 C 100 16 147/90 H 94 L
[2020-04-20 11:08] VITALS: BP 133/89; PULSE 107
== END 2020-04-20 11:09 | disposition home or self-care (01) ==
LOC: MW.ED 09:16
DX: J06.9 Acute upper respiratory infection, unspecified (principal); I10 Essential (primary) hypertension; M10.9 Gout, unspecified; Z79.899 Other long term (current) drug therapy; Z20.828 Contact with and (suspected) exposure to other viral communicable diseases
CPT/HCPCS: 87635; 99283; A9270; 99282; U0002

== ENCOUNTER 2020-09-10 18:57 | Emergency (ER) | payer BC ==
[2020-09-10] MEDS ORDERED: Sodium Chloride 0.9% 2.5 ML Syringe FLUSH PRN (19:23)
[2020-09-10] MEDS ORDERED: Acetaminophen 500 MG Tab PO ONE (19:23)
[2020-09-10] MEDS ORDERED: Dexamethasone 10 MG/ML SDV IVPUSH ONE (19:23)
[2020-09-10] MEDS ORDERED: Sodium Chloride 0.9% 10 ML Syringe FLUSH PRN (19:23)
[2020-09-10] MEDS ORDERED: Sodium Chloride 0.9% 1,000 ML IV ONE ×2 (19:23→20:46)
[2020-09-10] MEDS ORDERED: Ondansetron 4 MG/2 ML SDV IVPUSH ONE (19:23)
[2020-09-10] MEDS ORDERED: Ketorolac 30 MG/ML SDV IVPUSH ONE (19:23)
[2020-09-10] MEDS: Albuterol HFA 18 Gm Inhaler INH SCH ×3 (19:56→21:49)
--- NOTE | 2020-09-10 19:59 | CR ---
INDICATION: Dyspnea COMPARISON: June 21, 2019 TECHNIQUE: Single-view portable chest as an AP upright study FINDINGS: TUBES AND LINES: None. HEART AND MEDIASTINUM: The heart size is normal. The mediastinal contour appears normal for patient age. LUNGS AND PLEURAL SPACES: Given apical lordotic positioning and poor inspiratory effort, the lungs are grossly clear.The pleural spaces are unremarkable. OSSEOUS STRUCTURES: Age-appropriate appearance. No acute focal finding. IMPRESSION: Limited study but grossly clear lungs. Dictated by Laron Maldonado MD @ Sep 10 2020 7:56PM Signed by Dr. Laron Maldonado @ Sep 10 2020 7:58PM
[2020-09-10 20:06] LABS: CARBON DIOXIDE,CO2 24.7 mmol/L (21.0-32.0); POTASSIUM,K 3.7 mmol/L (3.5-5.1)
[2020-09-10] MEDS ORDERED: Iopamidol 755 MG/ML 500 ML Multipack Bottle IVPUSH STA (21:07)
--- NOTE | 2020-09-10 21:46 | EDM.PDOC ---
ED HPI GENERAL MEDICAL PROBLEM - General Chief Complaint: Respiratory Problem Stated Complaint: COVID POSITIVE COMPLICATIONS Time Seen by Provider: 09/10/20 19:14 - History of Present Illness INITIAL COMMENTS - FREE TEXT/NARRATIVE: HISTORY AND PHYSICAL: History of present illness: Is a 49-year-old gentleman with no significant past medical history who presents ER today secondary to shortness of breath. Patient reports that he was diagnosed with coronavirus earlier today. Patient reports that he is been sick for several days now. Patient reports that he came into the ER today secondary to pain to his left and right sides as well as increasing shortness of breath. Patient reports that when his symptoms started he had a slight cough with rhinorrhea. Patient reports that yesterday he started feeling increasing shortn ess of breath while he was sleeping and therefore went to get his coronavirus test today. Patient reports that this evening his breathing got worse so he came to the ER. Patient reports tactile fevers at home. Patient reports decreased p.o. intake. Patient reports multiple episodes of diarrhea. Patient denies any dysuria, frequency, urgency, hematuria. Patient reports diminished urinary output secondary to multiple episodes of diarrhea today. Review of systems: As per history of present illness and below otherwise all systems reviewed and negative. Past medical history: As per history of present illness and as reviewed below otherwise noncontributory. Surgical history: As per history of present illness and as reviewed below otherwise noncontributory. Social history: No reported history of drug or alcohol abuse. Family history: As per history of present illness and as reviewed below otherwise noncontributory. Physical exam: HEENT: Atraumatic, normocephalic, pupils reactive, negative for conjunctival pallor or scleral icterus, mucous membranes moist, throat clear, neck supple, nontender, trachea midline. Lungs: breath sounds equal bilaterally, chest nontender. Slight end expiratory wheezing bilaterally Heart: S1S2, regular, negative for clicks, rubs, or JVD. Abd: Soft, nondistended, no rebound/guarding, no psoas or obturator signs, no tenderness at Mcberney's point, no Song's sign. Pt does not present with an exam that would be consistent with an acute surgical abdomen at this time Pelvis: Stable nontender. Genitourinary: Deferred. Rectal: Deferred. Extremities: Atraumatic, negative for cords or calf pain. Neurovascular unremarkable. Neuro: Awake, alert, oriented. Cranial nerves II through XII unremarkable. Cerebellum unremarkable. Motor and sensory unremarkable throughout. Exam nonfocal. Diagnostics: CBC, CMP within normal limits. Patient's lipase is slightly elevated but within acceptable range and not consistent with acute pancreatitis. Patient's presentation does not appear to be consistent with acute pancreatitis. D-dimer elevated. CTA reveals no evidence of PE. Chest x-ray unremarkable but with poor inspiratory effort. Patient's pulse ox 93 to 95% on room air after receiving albuterol MDI. Patient's pulse ox was 90 to 93% upon initial presentation to the ED. Therapeutics: 2 L NSS secondary to elevated BUN/creatinine which is likely secondary to dehydration from multiple episodes of diarrhea and decreased p.o. intake. Albuterol MDI Decadron IV Assessment and plan: This is a 49-year-old gentleman who presents ER today secondary to shortness of breath who is positive for coronavirus. Patient is clinically and hemodynamically stable with improved oxygenation after albuterol MDI. Patient has been given Decadron IV and will be discharged home with p.o. Decadron to take x5 days. Patient be given the albuterol MDI to take home with him and has been instructed to take 2 puffs every 4-6 hours as needed for shortness of b reath. Patient be started on Zithromax here in the ED and will be discharged with a Z-Javy. Patient is ambulating the ED without difficulty at this time and without shortness of breath. Patient no longer exhibits any evidence of hypoxia and his oxygenation is improved from 92% upon arrival now he is 93 to 95%. Reassessment at the time of disposition demonstrates that the patient is in no acute distress. The patient has remained stable throughout the entire ED visit and is without objective evidence for acute process requiring urgent intervention or hospitalization. The patient is stable for discharge, counseling is provided as documented above, discussed symptomatic treatment and specific conditions for return. I have spoken with the patient/caregiver and discussed todays findings, in addition to providing specific details for the plan of care. Questions are answered and there is agreement with the plan. Definitive disposition and diagnosis as appropriate pending reevaluation and review of above. R abdomen Pain Score (Numeric/FACES): 10 - Related Data Allergies Allergy/AdvReac Type Severity Reaction Status Date / Time No Known Allergies Allergy Verified 04/20/20 09:29 Home Meds: Home Meds Azithromycin [Zithromax] 250 mg PO DAILY #4 tablet 09/10/20 [Rx] Ibuprofen 600 mg PO Q6HR PRN #30 tablet 09/10/20 [Rx] Ondansetron [Zofran ODT] 4 mg PO Q6H PRN #12 tab.dis 09/10/20 [Rx] dexAMETHasone [Decadron] 6 mg PO DAILY #6 tablet 09/10/20 [Rx] Past Medical History HEENT History: Reports: None Cardiovascular History: Reports: Hypertension Respiratory History: Reports: None Gastrointestinal History: Reports: None Genitourinary History: Reports: None Musculoskeletal History: Reports: Gout Neurological History: Reports: None Psychiatric History: Reports: None Endocrine/Metabolic History: Reports: None Hematologic History: Reports: None Immunologic History: Reports: None Oncologic (Cancer) History: Reports: None Dermatologic History: Reports: None - Infectious Disease History Infectious Disease History: Reports: Chicken Pox - Past Surgical History Head Surgeries/Procedures: Reports: None HEENT Surgical History: Reports: LASIK Respiratory Surgical History: Reports: None GI Surgical History: Reports: Appendectomy Male Surgical History: Reports: None Endocrine Surgical History: Reports: None Neurological Surgical History: Reports: None Musculoskeletal Surgical History: Reports: Other (See Below) Other Musculoskeletal Surgeries/Procedures:: right hip replacement Oncologic Surgical History: Reports: None Dermatological Surgical History: Reports: None Social & Family History - Family History Family Medical History: No Pertinent Family History - Caffeine Use Caffeine Use: Reports: Energy Drinks, Tea Caffeine Use Comment: 2drinks/daily - Recreational Drug Use Recreational Drug Use: No - Living Situation & Occupation Living situation: Reports: , with Family Occupation: Employed ED ROS GENERAL - Review of Systems Review Of Systems: See Below ED EXAM, GENERAL - Physical Exam Exam: See Below Course - Vital Signs Last Recorded V/S: Last Vital Signs Temp 98.7 F 09/10/20 19:41 Pulse 98 09/10/20 19:55 Resp 20 09/10/20 19:55 BP 129/77 09/10/20 19:55 Pulse Ox 93 L 09/10/20 19:55 - Orders/Labs/Meds Orders: Active Orders 24 hr Category Date Time Status RT Post Treatment Assessment [RC] Click to Edit Care 09/10/20 19:28 Active RT Pre-Treatment Assessment [RC] Click to Edit Care 09/10/20 19:28 Active Ang Chest [CT] Stat Exams 09/10/20 20:14 Taken UA W/STEFANIE RFLX IF INDICATED [URIN] Stat Lab 09/10/20 19:23 Ordered Albuterol [Ventolin HFA] Med 09/10/20 19:30 Active 2 gm INH Q2H Sodium Chloride 0.9% [Normal Saline] 1,000 ml Med 09/10/20 20:46 Active IV .Bolus Sodium Chloride 0.9% [Saline Flush] Med 09/10/20 19:23 Active 10 ml FLUSH ASDIRECTED PRN Sodium Chloride 0.9% [Saline Flush] Med 09/10/20 19:23 Active 2.5 ml FLUSH ASDIRECTED PRN Saline Lock Insert [OM.PC] Stat Oth 09/10/20 19:23 Ordered Medication Orders Albuterol (Ventolin Hfa) 2 gm INH Q2H LISANDRA Last Admin: 09/10/20 19:56 Dose: 2 puff Documented by: JYOTHI Sodium Chloride (Normal Saline) 1,000 mls @ 999 mls/hr IV .Bolus ONE Stop: 09/10/20 21:46 Last Admin: 09/10/20 21:07 Dose: 999 mls/hr Documented by: JYOTHI Sodium Chloride (Saline Flush) 10 ml FLUSH ASDIRECTED PRN PRN Reason: Keep Vein Open Sodium Chloride (Saline Flush) 2.5 ml FLUSH ASDIRECTED PRN PRN Reason: Keep Vein Open Labs: Laboratory Tests 09/10/20 09/10/20 09/10/20 Range/Units 19:40 19:40 19:40 WBC 5.12 (4.0-11.0) K/uL RBC 5.21 (4.50-5.90) M/uL Hgb 17.2 H (13.0-17.0) g/dL Hct 48.3 (38.0-50.0) % MCV 92.7 (80.0-98.0) fL MCH 33.0 H (27.0-32.0) pg MCHC 35.6 (31.0-37.0) g/dL RDW Std Deviation 44.1 (28.0-62.0) fl RDW Coeff of Laney 13 (11.0-15.0) % Plt Count 111 L (150-400) K/uL MPV 10.40 (7.40-12.00) fL Neut % (Auto) 54.5 (48.0-80.0) % Lymph % (Auto) 29.5 (16.0-40.0) % [place] % (Auto) 15.8 H (0.0-15.0) % Eos % (Auto) 0.0 (0.0-7.0) % Baso % (Auto) 0.2 (0.0-1.5) % Neut # (Auto) 2.8 (1.4-5.7) K/uL Lymph # (Auto) 1.5 (0.6-2.4) K/uL [place] # (Auto) 0.8 (0.0-0.8) K/uL Eos # (Auto) 0.0 (0.0-0.7) K/uL Baso # (Auto) 0.0 (0.0-0.1) K/uL Nucleated RBC % 0.0 /100WBC Nucleated RBCs # 0 K/uL D-Dimer, Quantitative 0.89 H (0.0-0.50) mg/L FEU Sodium 128 L (136-148) mmol/L Potassium 3.7 (3.5-5.1) mmol/L Chloride 94 L (98-107) mmol/L Carbon Dioxide 24.7 (21.0-32.0) mmol/L BUN 25 H (7.0-18.0) mg/dL Creatinine 1.8 H (0.8-1.3) mg/dL Est Cr Clr Drug Dosing 48.56 mL/min Estimated GFR (MDRD) 40.5 ml/min Glucose 134 H (74-106) mg/dL Calcium 8.2 L (8.5-10.1) mg/dL Total Bilirubin 1.1 H (0.2-1.0) mg/dL AST 122 H (15-37) IU/L ALT 107 H (14-63) IU/L Alkaline Phosphatase 42 L (46-116) U/L Total Protein 7.9 (6.4-8.2) g/dL Albumin 3.5 (3.4-5.0) g/dL Globulin 4.4 H (2.6-4.0) g/dL Albumin/Globulin Ratio 0.8 L (0.9-1.6) Lipase 464 H (73-393) U/L Meds: Medications Generic Name Dose Route Start Last Admin Trade Name Freq PRN Reason Stop Dose Admin Albuterol 2 gm 09/10/20 19:30 09/10/20 19:56 Ventolin Hfa INH 2 puff Q2H LISANDRA Administration Sodium Chloride 1,000 mls @ 999 mls/hr 09/10/20 20:46 09/10/20 21:07 Normal Saline IV 09/10/20 21:46 999 mls/hr .Bolus ONE Administration Sodium Chloride 10 ml 09/10/20 19:23 Saline Flush FLUSH ASDIRECTED PRN Keep Vein Open Sodium Chloride 2.5 ml 09/10/20 19:23 Saline Flush FLUSH ASDIRECTED PRN Keep Vein Open Discontinued Medications Generic Name Dose Route Start Last Admin Trade Name Freq PRN Reason Stop Dose Admin Acetaminophen 1,000 mg 09/10/20 19:23 09/10/20 19:43 Tylenol Extra Strength PO 09/10/20 19:24 1,000 mg ONETIME ONE Administration Dexamethasone 6 mg 09/10/20 19:23 09/10/20 19:43 Decadron IVPUSH 09/10/20 19:24 6 mg ONETIME ONE Administration Sodium Chloride 1,000 mls @ 999 mls/hr 09/10/20 19:23 09/10/20 19:42 Normal Saline IV 09/10/20 20:23 999 mls/hr .Bolus ONE Administration Iopamidol 50 ml 09/10/20 21:07 09/10/20 21:09 Isovue Multipack-370 (76%) IVPUSH 09/10/20 21:08 50 ml ONETIME STA Administration Ketorolac Tromethamine 30 mg 09/10/20 19:23 09/10/20 19:43 Toradol IVPUSH 09/10/20 19:24 30 mg ONETIME ONE Administration Ondansetron HCl 4 mg 09/10/20 19:23 09/10/20 19:43 Zofran IVPUSH 09/10/20 19:24 4 mg ONETIME ONE Administration Departure - Departure Time of Disposition: 21:45 Disposition: Home, Self-Care 01 Condition: Good Clinical Impression: 2019 novel coronavirus disease (COVID-19), Dyspnea - Discharge Information Instructions: COVID-19 Frequently Asked Questions, COVID-19, Prevent the Spread of COVID-19 if You Are Sick - CDC, COVID-19: How to Protect Yourself and Others - [facility] Referrals: PCP,None [Primary Care Provider] - Additional Instructions: You were seen and evaluated in the ER today secondary to your shortness of breath and your coronavirus infection. Your work-up in the ER has been unremarkable except for evidence of dehydration that was identified on your kidney function test. Please take all medications as prescribed. You have been prescribed ibuprofen to assist you with muscle aches and pains as well as fevers. 600 mg every 6 hours as needed. You have been prescribed Zofran to assist you with nausea. You can take 1 tablet sublingual every 6 hours as needed for nausea. You have been prescribed Zithromax 1 pill daily for 4 more days. This is an antibiotic. You have prescribed Decadron 6 mg daily for 6 more days. This is a steroid You will be given an albuterol inhaler. Take 2 puffs every 4-6 hours as needed for shortness of breath. Please return to the ER if your shortness of breath worsens or if you have any new or concerning symptoms. The following information is given to patients seen in the emergency department who are being discharged to home. This information is to outline your options for follow-up care. We provide all patients seen in our emergency department with a follow-up referral. The need for follow-up, as well as the timing and circumstances, are variable depending upon the specifics of your emergency department visit. If you don't have a primary care physician on staff, we will provide you with a referral. We always advise you to contact your personal physician following an emergency department visit to inform them of the circumstance of the visit and for follow-up with them and/or the need for any referrals to a consulting specialist. The emergency department will also refer you to a specialist when appropriate. This referral assures that you have the opportunity for follow-up care with a specialist. All of these measure are taken in an effort to provide you with optimal care, which includes your follow-up. Under all circumstances we always encourage you to contact your private physician who remains a resource for coordinating your care. When calling for follow-up care, please make the office aware that this follow-up is from your recent emergency room visit. If for any reason you are refused follow-up, please contact the [facility] Emergency Department at and asked to speak to the emergency department charge nurse. [facility] - [facility] [address], [place] [address] [facility] [address] [place] [id number] Sepsis Event Note (ED) - Evaluation Sepsis Screening Result: No Definite Risk - Focused Exam Vital Signs: Vital Signs Temp Pulse Resp BP Pulse Ox 09/10/20 19:55 98 20 129/77 93 L 09/10/20 19:41 98.7 F 100 18 140/97 H 94 L - My Orders Last 24 Hours: My Active Orders 09/10/20 19:23 UA W/STEFANIE RFLX IF INDICATED [URIN] Stat Sodium Chloride 0.9% [Saline Flush] 10 ml FLUSH ASDIRECTED PRN Sodium Chloride 0.9% [Saline Flush] 2.5 ml FLUSH ASDIRECTED PRN Saline Lock Insert [OM.PC] Stat 09/10/20 19:28 RT Post Treatment Assessment [RC] Click to Edit RT Pre-Treatment Assessment [RC] Click to Edit 09/10/20 19:30 Albuterol [Ventolin HFA] 2 gm INH Q2H 09/10/20 20:14 Ang Chest [CT] Stat 09/10/20 20:46 Sodium Chloride 0.9% [Normal Saline] 1,000 ml IV .Bolus - Assessment/Plan Last 24 Hours: My Active Orders 09/10/20 19:23 UA W/STEFANIE RFLX IF INDICATED [URIN] Stat Sodium Chloride 0.9% [Saline Flush] 10 ml FLUSH ASDIRECTED PRN Sodium Chloride 0.9% [Saline Flush] 2.5 ml FLUSH ASDIRECTED PRN Saline Lock Insert [OM.PC] Stat 09/10/20 19:28 RT Post Treatment Assessment [RC] Click to Edit RT Pre-Treatment Assessment [RC] Click to Edit 09/10/20 19:30 Albuterol [Ventolin HFA] 2 gm INH Q2H 09/10/20 20:14 Ang Chest [CT] Stat 09/10/20 20:46 Sodium Chloride 0.9% [Normal Saline] 1,000 ml IV .Bolus
--- NOTE | 2020-09-10 21:47 | CT ---
INDICATION: Shortness of breath, positive D-dimer, COVID positive TECHNIQUE: CT chest pulmonary angiogram acquired with IV contrast. Approximately 50 cc of Isovue 370 contrast was administered intravenously. COMPARISON: Chest x-ray earlier same date 09/10/2020 FINDINGS: The heart is normal in size. There is no bowing of the intraventricular septum. The main pulmonary artery is normal in caliber.No large central filling defect is visualized, however evaluation of the segmental and subsegmental branches is essentially nondiagnostic due to poor opacification of the pulmonary arteries, respiratory motion and underlying lung pathology. There are bilateral ground glass opacities, predominantly peripheral based. There is mild enters septal lobular thickening within the bilateral lung bases. Negative for pleural effusion or pneumothorax. There are a few mildly prominent mediastinal lymph nodes, for example a right paratracheal node measures 1.0 cm in short axis. Within the partially visualized upper abdomen the liver demonstrates marked diffuse decreased attenuation, suggestive of hepatic steatosis. The remainder of the visualized upper abdomen is unremarkable. IMPRESSION: 1. No large central filling defect is visualized. Evaluation of the segmental and subsegmental branches is significantly limited due to poor opacification of the arteries, respiratory motion and underlying lung pathology. 2. Bilateral patchy peripheral based ground-glass opacities are consistent with patient history of COVID-19. 3. Mildly prominent mediastinal lymph nodes are nonspecific and may be reactive. 4. Hepatic steatosis. Please note that all CT scans at this facility use dose modulation, iterative reconstruction, and/or weight-based dosing when appropriate to reduce radiation dose to as low as reasonably achievable. Dictated by Felipa Sifuentes MD @ Sep 10 2020 9:35PM Signed by Dr. Felipa Sifuentes @ Sep 10 2020 9:45PM
[2020-09-10 21:50] VITALS: BP 125/79; PULSE 88
== END 2020-09-10 22:00 | disposition home or self-care (01) ==
LOC: MW.ED 18:57
DX: U07.1 COVID-19 (principal); I10 Essential (primary) hypertension; Z79.899 Other long term (current) drug therapy
CPT/HCPCS: 36415; 71045; 71275; 80053; 83690; 85025; 85379; 96374; 96375; 99285; A9270; J1100; J1885; J2405; J7030; Q9967; 99283; J3535-GY

== ENCOUNTER 2020-09-15 11:46 | Inpatient (IN) | payer BC ==
--- NOTE | 2020-09-15 11:56 | EDM.PDOC ---
ED HPI GENERAL MEDICAL PROBLEM - General Stated Complaint: TROUBLE BREATHING, COVID POSITIVE Time Seen by Provider: 09/15/20 11:52 Source of Information: Reports: Patient History Limitations: Reports: No Limitations - History of Present Illness INITIAL COMMENTS - FREE TEXT/NARRATIVE: HISTORY AND PHYSICAL: History of present illness: Patient is a 49-year-old male who presents to the emergency room with complaints of SOB related to his recent COVID-19 diagnosis. Patient was seen in the ER on 09/10/2020 when was diagnosed with COVID-19. He had basic lab work done; ultimately he was discharged to home with Albuterol inhaler, Dexamethasone and a Z-sheila. He states since his symptoms such as the sinus headache, body ache and cough have improved but the shortness of breath has worsened. Upon arrival the patient's oxygen saturation is 70 to 72% on room air. Asking him to take in deep breaths causes him to have "coughing fits". He states he has had these "coughing fits" to the point where he feels like he is going to pass out. He has never fallen or had any injury from these near syncopal events. He has a constant chest pressure which he believes is from his shortness of breath. This pressure does not radiate and nothing makes it better or worse. Patient denies any fever, chills, headache, change in vision, syncope or near syncope. Denies any abdominal pain, nausea, vomiting, diarrhea, constipation or dysuria. Has not noted any blood in urine or stool. Patient has been eating and drinking appropriately. Review of systems: As per history of present illness and below otherwise all systems reviewed and negative. Past medical history: As per history of present illness and as reviewed below otherwise noncontributory. Surgical history: As per history of present illness and as reviewed below otherwise noncontributory. Social history: See social history for further information Family history: As per history of present illness and as reviewed below otherwise noncontributory. Physical exam: General: Well developed and well nourished. Alert and orientated x 3. Nontoxic in appearance and in no acute distress. Vital signs are stable and have been reviewed by me. Nursing notes were reviewed. HEENT: Atraumatic, normocephalic, pupils equal and reactive bilaterally, negative for conjunctival pallor or scleral icterus, mucous membranes moist, trachea midline. No drooling or trismus noted. No meningeal signs. No hot potato voice noted. Lungs: Diminished to auscultation with poor air exchange throughout, chest nontender. Slightly work of breathing is noted. Heart: S1S2, regular rate and rhythm without overt murmur Abdomen: Soft, obese, nontender. Negative for masses or hepatosplenomegaly. Negative for costovertebral tenderness. Pelvis: Stable nontender. Skin: Intact, warm, dry. No lesions or rashes noted. Hematologic: No petechiae or purpra. Mucosa appropriate color and normal nail bed color and refill. Extremities: Atraumatic, moves all extremities per self without difficulty or deficits, negative for cords or calf pain. Neurovascular unremarkable. Neuro: Awake, alert, oriented. Cranial nerves II through XII unremarkable. Cerebellum unremarkable. Motor and sensory unremarkable throughout. Exam nonfocal. Psychiatric: Mood and affect are appropriate. Normal thought process. Answering questions appropriately. Notes: 09/10/2020: CTA of chest showed bilateral patchy groundglass opacities consistent with COVID-19 history. No evidence of PE. Reactive lymph nodes noted. Lab work is unremarkable with the exception of slightly elevated lipase. Upon arrival the patient is 70 to 72% on room air. RT has come down with the Vapotherm oxygen apparatus and he is now saturating above 90%. He states he does feel improved with the oxygen supplemental therapy. He is aware that he will likely have to be admitted due to his hypoxemia and sequela of COVID-19. He is agreeable to diagnostics and the likelihood of admission. Patient states he feels improved with the Vapotherm in place. His vital signs are stable. Chest x-ray shows overall diffusely increasing interstitial and airspace opacities likely representing worsening multifocal infiltrates versus pulmonary edema in the COVID-19 diagnoses. Patient has a leukocytosis. D-dimer is elevated, more elevated than the previous D-dimer that was drawn on 09/10/2020. I will repeat the CTA of the chest. The hospitalist, Dr. Abbott was consulted on this case as patient will need to be admitted for oxygen therapy and antibiotics. Would like Cordell haq at this time. Chest CT results are pending. Cori Bustillos NP - there to evaluate/talk with patient for admission. CT of the chest shows no evidence of PE. Moderate to severe diffuse multifocal groundglass opacification of the lungs which is significantly worse from the prior study, consistent with COVID related lung disease. Patient will be admitted, IV antibiotics are running. Patient remained stable, will continue to monitor. Diagnostics: CBC, CMP, Troponin, EKG, CXR, D.Dimer, CTA chest, lactate Therapeutics: VaporTherm (per RT), Levaquin Impression: Hypoxemia COVID-19 Plan: Inpatient admission with telemetry Definitive disposition and diagnosis as appropriate pending reevaluation and review of above. chest Pain Score (Numeric/FACES): 4 - Related Data Allergies Allergy/AdvReac Type Severity Reaction Status Date / Time No Known Allergies Allergy Verified 04/20/20 09:29 Home Meds: Home Meds Azithromycin [Zithromax] 250 mg PO DAILY #4 tablet 09/10/20 [Rx] Ibuprofen 600 mg PO Q6HR PRN #30 tablet 09/10/20 [Rx] Ondansetron [Zofran ODT] 4 mg PO Q6H PRN #12 tab.dis 09/10/20 [Rx] dexAMETHasone [Decadron] 6 mg PO DAILY #6 tablet 09/10/20 [Rx] Past Medical History HEENT History: Reports: None Cardiovascular History: Reports: Hypertension Respiratory History: Reports: None Gastrointestinal History: Reports: None Genitourinary History: Reports: None Musculoskeletal History: Reports: Gout Neurological History: Reports: None Psychiatric History: Reports: None Endocrine/Metabolic History: Reports: None Hematologic History: Reports: None Immunologic History: Reports: None Oncologic (Cancer) History: Reports: None Dermatologic History: Reports: None - Infectious Disease History Infectious Disease History: Reports: Chicken Pox - Past Surgical History Head Surgeries/Procedures: Reports: None HEENT Surgical History: Reports: LASIK Respiratory Surgical History: Reports: None GI Surgical History: Reports: Appendectomy Male Surgical History: Reports: None Endocrine Surgical History: Reports: None Neurological Surgical History: Reports: None Musculoskeletal Surgical History: Reports: Other (See Below) Other Musculoskeletal Surgeries/Procedures:: right hip replacement Oncologic Surgical History: Reports: None Dermatological Surgical History: Reports: None Social & Family History - Family History Family Medical History: No Pertinent Family History - Caffeine Use Caffeine Use: Reports: Energy Drinks, Tea Caffeine Use Comment: 2drinks/daily - Living Situation & Occupation Living situation: Reports: , with Family Occupation: Employed ED ROS GENERAL - Review of Systems Review Of Systems: Comprehensive ROS is negative, except as noted in HPI. ED EXAM, GENERAL - Physical Exam Exam: See Below (See dictation) Course - Vital Signs Last Recorded V/S: Last Vital Signs Temp 96.8 F L 09/15/20 11:50 Pulse 66 09/15/20 13:23 Resp 18 09/15/20 13:23 BP 126/59 L 09/15/20 13:23 Pulse Ox 95 09/15/20 13:23 - Orders/Labs/Meds Orders: Active Orders 24 hr Category Date Time Status Admission Status [Patient Status] [ADT] Stat ADT 09/15/20 13:31 Active Cardiac Monitoring [RC] . DIRECTED Care 09/15/20 13:31 Active EKG Documentation Completion [RC] STAT Care 09/15/20 12:13 Active Oxygen Therapy, ED [RC] ASDIRECTED Care 09/15/20 12:13 Active Verify Patient Consent Obtain [RC] ASDIRECTED Care 09/15/20 14:40 Active FRESH FROZEN PLASMA [BBK] Routine Lab 09/15/20 14:40 Ordered TYPE AND SCREEN [BBK] Routine Lab 09/15/20 14:40 Ordered UA RFX STEFANIE AND CULT IF INDIC [URIN] Stat Lab 09/15/20 12:13 Ordered Levofloxacin/Dextrose 5%-Water [Levaquin in D5W 750 MG/ Med 09/15/20 13:31 Active 150 ML] 750 mg Premix Bag 1 bag IV ONETIME Remdesivir 100 mg Med 09/16/20 14:45 Active Sodium Chloride 0.9% [Normal Saline] 100 ml IV Q24H Sodium Chloride 0.9% [Saline Flush] Med 09/15/20 12:15 Active 10 ml FLUSH ASDIRECTED PRN Sodium Chloride 0.9% [Saline Flush] Med 09/15/20 12:15 Active 2.5 ml FLUSH ASDIRECTED PRN Saline Lock Insert [OM.PC] Stat Oth 09/15/20 12:15 Ordered Transfuse Fresh Frozen Plasma [COMM] Routine Oth 09/15/20 14:40 Ordered Medication Orders Levofloxacin/Dextrose 750 mg/ (Premix) 150 mls @ 100 mls/hr IV ONETIME ONE Stop: 09/15/20 15:00 Remdesivir 100 mg/ Sodium (Chloride) 100 mls @ 100 mls/hr IV Q24H LISANDRA Stop: 09/19/20 15:44 Sodium Chloride (Saline Flush) 10 ml FLUSH ASDIRECTED PRN PRN Reason: Keep Vein Open Sodium Chloride (Saline Flush) 2.5 ml FLUSH ASDIRECTED PRN PRN Reason: Keep Vein Open Labs: Laboratory Tests 09/15/20 09/15/20 09/15/20 Range/Units 12:05 12:05 12:05 WBC 14.87 H (4.0-11.0) K/uL RBC 5.28 (4.50-5.90) M/uL Hgb 17.4 H (13.0-17.0) g/dL Hct 50.0 (38.0-50.0) % MCV 94.7 (80.0-98.0) fL MCH 33.0 H (27.0-32.0) pg MCHC 34.8 (31.0-37.0) g/dL RDW Std Deviation 46.6 (28.0-62.0) fl RDW Coeff of Laney 14 (11.0-15.0) % Plt Count 275 (150-400) K/uL MPV 10.60 (7.40-12.00) fL Add Manual Diff YES Neutrophils % (Manual) 68 (48.0-80.0) % Band Neutrophils % 3 % Lymphocytes % (Manual) 22 (16.0-40.0) % Monocytes % (Manual) 7 (0.0-15.0) % Nucleated RBC % 0.6 /100WBC Absolute Seg Neuts 10.1 H (1.4-5.7) Band Neutrophils # 0.4 Lymphocytes # (Manual) 3.3 H (0.6-2.4) Monocytes # (Manual) 1.0 H (0.0-0.8) Nucleated RBCs # 0 K/uL D-Dimer, Quantitative 3.48 H (0.0-0.50) mg/L FEU Lactate (0.20-2.00) mmol/L Sodium 142 (136-148) mmol/L Potassium 3.9 (3.5-5.1) mmol/L Chloride 105 (98-107) mmol/L Carbon Dioxide 24.5 (21.0-32.0) mmol/L BUN 19 H (7.0-18.0) mg/dL Creatinine 1.2 (0.8-1.3) mg/dL Est Cr Clr Drug Dosing 72.83 mL/min Estimated GFR (MDRD) > 60.0 ml/min Glucose 96 (74-106) mg/dL Calcium 8.8 (8.5-10.1) mg/dL Total Bilirubin 1.0 (0.2-1.0) mg/dL AST 46 H (15-37) IU/L ALT 67 H (14-63) IU/L Alkaline Phosphatase 69 (46-116) U/L Troponin I < 0.050 (0.000-0.056) ng/mL Total Protein 7.2 (6.4-8.2) g/dL Albumin 3.0 L (3.4-5.0) g/dL Globulin 4.2 H (2.6-4.0) g/dL Albumin/Globulin Ratio 0.7 L (0.9-1.6) 09/15/20 Range/Units 14:05 WBC (4.0-11.0) K/uL RBC (4.50-5.90) M/uL Hgb (13.0-17.0) g/dL Hct (38.0-50.0) % MCV (80.0-98.0) fL MCH (27.0-32.0) pg MCHC (31.0-37.0) g/dL RDW Std Deviation (28.0-62.0) fl RDW Coeff of Laney (11.0-15.0) % Plt Count (150-400) K/uL MPV (7.40-12.00) fL Add Manual Diff Neutrophils % (Manual) (48.0-80.0) % Band Neutrophils % % Lymphocytes % (Manual) (16.0-40.0) % Monocytes % (Manual) (0.0-15.0) % Nucleated RBC % /100WBC Absolute Seg Neuts (1.4-5.7) Band Neutrophils # Lymphocytes # (Manual) (0.6-2.4) Monocytes # (Manual) (0.0-0.8) Nucleated RBCs # K/uL D-Dimer, Quantitative (0.0-0.50) mg/L FEU Lactate 1.4 (0.20-2.00) mmol/L Sodium (136-148) mmol/L Potassium (3.5-5.1) mmol/L Chloride (98-107) mmol/L Carbon Dioxide (21.0-32.0) mmol/L BUN (7.0-18.0) mg/dL Creatinine (0.8-1.3) mg/dL Est Cr Clr Drug Dosing mL/min Estimated GFR (MDRD) ml/min Glucose (74-106) mg/dL Calcium (8.5-10.1) mg/dL Total Bilirubin (0.2-1.0) mg/dL AST (15-37) IU/L ALT (14-63) IU/L Alkaline Phosphatase (46-116) U/L Troponin I (0.000-0.056) ng/mL Total Protein (6.4-8.2) g/dL Albumin (3.4-5.0) g/dL Globulin (2.6-4.0) g/dL Albumin/Globulin Ratio (0.9-1.6) Meds: Medications Generic Name Dose Route Start Last Admin Trade Name Freq PRN Reason Stop Dose Admin Levofloxacin/Dextrose 750 mg/ 150 mls @ 100 mls/hr 09/15/20 13:31 Premix IV 09/15/20 15:00 ONETIME ONE Remdesivir 100 mg/ Sodium 100 mls @ 100 mls/hr 09/16/20 14:45 Chloride IV 09/19/20 15:44 Q24H LISANDRA Sodium Chloride 10 ml 09/15/20 12:15 Saline Flush FLUSH ASDIRECTED PRN Keep Vein Open Sodium Chloride 2.5 ml 09/15/20 12:15 Saline Flush FLUSH ASDIRECTED PRN Keep Vein Open Discontinued Medications Generic Name Dose Route Start Last Admin Trade Name Freq PRN Reason Stop Dose Admin Remdesivir 200 mg/ Sodium 250 mls @ 250 mls/hr 09/15/20 14:39 Chloride IV 09/15/20 14:40 ONETIME ONE Iopamidol 75 ml 09/15/20 14:18 09/15/20 14:19 Isovue Multipack-370 (76%) IVPUSH 09/15/20 14:19 75 ml ONETIME STA Administration Departure - Departure Time of Disposition: 14:56 Disposition: Admitted As Inpatient 67 Clinical Impression: Hypoxemia, COVID-19 - Discharge Information Sepsis Event Note (ED) - Focused Exam Vital Signs: Vital Signs Temp Pulse Resp BP Pulse Ox Pulse Ox 09/15/20 13:23 66 18 126/59 L 95 09/15/20 13:07 62 18 132/85 95 09/15/20 12:37 71 18 148/82 H 94 L 09/15/20 12:13 96 09/15/20 11:50 96.8 F L 77 20 131/77 72 L - My Orders Last 24 Hours: My Active Orders 09/15/20 12:13 EKG Documentation Completion [RC] STAT Oxygen Therapy, ED [RC] ASDIRECTED UA RFX STEFANIE AND CULT IF INDIC [URIN] Stat 09/15/20 12:15 Sodium Chloride 0.9% [Saline Flush] 10 ml FLUSH ASDIRECTED PRN Sodium Chloride 0.9% [Saline Flush] 2.5 ml FLUSH ASDIRECTED PRN Saline Lock Insert [OM.PC] Stat 09/15/20 13:31 Admission Status [Patient Status] [ADT] Stat Cardiac Monitoring [RC] . DIRECTED Levofloxacin/Dextrose 5%-Water [Levaquin in D5W 750 MG/150 ML] 750 mg Premix Bag 1 bag IV ONETIME - Assessment/Plan Last 24 Hours: My Active Orders 09/15/20 12:13 EKG Documentation Completion [RC] STAT Oxygen Therapy, ED [RC] ASDIRECTED UA RFX STEFANIE AND CULT IF INDIC [URIN] Stat 09/15/20 12:15 Sodium Chloride 0.9% [Saline Flush] 10 ml FLUSH ASDIRECTED PRN Sodium Chloride 0.9% [Saline Flush] 2.5 ml FLUSH ASDIRECTED PRN Saline Lock Insert [OM.PC] Stat 09/15/20 13:31 Admission Status [Patient Status] [ADT] Stat Cardiac Monitoring [RC] . DIRECTED Levofloxacin/Dextrose 5%-Water [Levaquin in D5W 750 MG/150 ML] 750 mg Premix Bag 1 bag IV ONETIME
[2020-09-15] MEDS ORDERED: Sodium Chloride 0.9% 2.5 ML Syringe FLUSH PRN ×2 (12:15→15:36)
[2020-09-15] MEDS ORDERED: Sodium Chloride 0.9% 10 ML Syringe FLUSH PRN (12:15)
[2020-09-15 12:57] LABS: BLOOD UREA NITROGEN,BUN 19 mg/dL (7.0-18.0); CARBON DIOXIDE,CO2 24.5 mmol/L (21.0-32.0); CHLORIDE,CL 105 mmol/L (98-107); GLUCOSE RANDOM 96 mg/dL (74-106); POTASSIUM,K 3.9 mmol/L (3.5-5.1); SODIUM,NA 142 mmol/L (136-148)
--- NOTE | 2020-09-15 13:13 | CR ---
Indication: Shortness of breath Comparison: Single view chest September 10, 2020 Technique: Single AP view chest Findings: There is hyperinflation and chronic interstitial change. There are overall diffusely increasing interstitial and airspace opacities seen throughout the bilateral hemithoraces likely representing worsening infiltrates and/or pulmonary edema. Stable cardiac silhouette enlargement. The bony thorax is grossly intact. Impression: Overall diffusely increasing interstitial and airspace opacities likely representing worsening multifocal infiltrates versus pulmonary edema in the setting of locke virus 19. Dictated by Ruben Leggett MD @ Sep 15 2020 1:10PM Signed by Dr. Ruben Leggett @ Sep 15 2020 1:12PM
[2020-09-15] MEDS ORDERED: Levofloxacin/Dextrose 5%-Water 750 MG in Premix Bag 1 BAG IV ONE (13:31)
[2020-09-15] MEDS ORDERED: Iopamidol 755 MG/ML 500 ML Multipack Bottle IVPUSH STA (14:18)
[2020-09-15] MEDS ORDERED: REMDESIVIR 200 MG in Sodium Chloride 0.9% 250 ML IV ONE ×2 (14:39→16:00)
--- NOTE | 2020-09-15 14:47 | PCM.HP.2 ---
H&P History of Present Illness - General Date of Service: 09/15/20 Admit Problem/Dx: Admission Diagnosis/Problem Admission Diagnosis/Problem acute hypoxic respiratory failure, COVID-19 pneumonia, possible CAP Source of Information: Patient History Limitations: Reports: No Limitations - History of Present Illness Initial Comments - Free Text/Narative: This 41-year-old male with past medical history of obesity presented to the ER with complaints of worsening shortness of breath. He reports he was diagnosed with COVID-19 on 09/10/2020. He was discharged home with albuterol inhaler along with dexamethasone and azithromycin. He reports that the fatigue malaise and fevers seem to improve. But over the last day the cough and shortness of breath have become very significant including having difficulties doing anything in the house without severe shortness of breath and coughing fits. He reports with the coughing fits he has noted hemoptysis. Reports chest heaviness all over along with back pain. He denies any abdominal pain or nausea vomiting. No diarrhea. No dysuria or frequency urgency. Denies any focal neurological deficits. He reports he had some history of hypertension but lost approximately 25 pounds which has appeared to help. He does not smoke on a regular basis. He does smoke immediately when he is out. Denies any chewing tobacco, no recreational drug use. Reports he does drink 3-4 beers nightly. But has not drank since before . Denies any withdrawal symptoms. CTA from 09/10 revealed no PE but did show bilateral groundglass opacities consistent with COVID-19 infection. In the ER leukocytosis noted at 14,000 hemoglobin 17.4, D-dimer elevated at 3.48. BUN 19 creatinine 1.2 AST ALT mildly elevated at 46 and 67 respectively. Troponin negative. Chest x-ray reveals worsening bilateral interstitial disease representing either COVID-19 or pulmonary edema. CTA obtained which reveals . On arrival to the ER he was noted to have oxygen saturations in the 70s. He was placed on Vapotherm 66% oxygen, sats increased to mid 90s. He was started on Levaquin for leukocytosis. He will be admitted inpatient for acute hypoxic respiratory failure secondary to COVID-19 and possible CAP. chest Pain Score (Numeric/FACES): 4 - Related Data Allergies/Adverse Reactions: Allergies Allergy/AdvReac Type Severity Reaction Status Date / Time No Known Allergies Allergy Verified 04/20/20 09:29 Home Medications: Home Meds Ibuprofen 600 mg PO Q6HR PRN #30 tablet 09/10/20 [Rx] Ondansetron [Zofran ODT] 4 mg PO Q6H PRN #12 tab.dis 09/10/20 [Rx] dexAMETHasone [Decadron] 6 mg PO DAILY #6 tablet 09/10/20 [Rx] Past Medical History HEENT History: Reports: None Cardiovascular History: Reports: Hypertension Respiratory History: Reports: None Gastrointestinal History: Reports: None Genitourinary History: Reports: None Musculoskeletal History: Reports: Gout Neurological History: Reports: None Psychiatric History: Reports: None Endocrine/Metabolic History: Reports: None Hematologic History: Reports: None Immunologic History: Reports: None Oncologic (Cancer) History: Reports: None Dermatologic History: Reports: None - Infectious Disease History Infectious Disease History: Reports: Chicken Pox - Past Surgical History Head Surgeries/Procedures: Reports: None HEENT Surgical History: Reports: LASIK Respiratory Surgical History: Reports: None GI Surgical History: Reports: Appendectomy Male Surgical History: Reports: None Endocrine Surgical History: Reports: None Neurological Surgical History: Reports: None Musculoskeletal Surgical History: Reports: Other (See Below) Other Musculoskeletal Surgeries/Procedures:: right hip replacement Oncologic Surgical History: Reports: None Dermatological Surgical History: Reports: None Social & Family History - Family History Family Medical History: No Pertinent Family History - Tobacco Use Tobacco Use Status *Q: Current Some Day Tobacco User Years of Tobacco use: 30 Packs/Tins Daily: 0.1 - Caffeine Use Caffeine Use: Reports: Soda Caffeine Use Comment: 2drinks/daily - Recreational Drug Use Recreational Drug Use: No - Living Situation & Occupation Living situation: Reports: , with Family Occupation: Employed H&P Review of Systems - Review of Systems: Review Of Systems: See Below General: Reports: Malaise, Weakness, Fatigue Pulmonary: Reports: Shortness of Breath, Pleuritic Chest Pain, Cough, Hemoptysis Cardiovascular: Reports: Dyspnea on Exertion, Lightheadedness. Denies: Chest Pain, Edema Gastrointestinal: Reports: No Symptoms. Denies: Abdominal Pain, Black Stool, Bloody Stool, Nausea, Vomiting Genitourinary: Reports: No Symptoms. Denies: Dysuria, Frequency, Burning Musculoskeletal: Reports: Back Pain (Upper back). Denies: Neck Pain Skin: Reports: No Symptoms Psychiatric: Reports: No Symptoms Neurological: Reports: No Symptoms Hematologic/Lymphatic: Reports: No Symptoms Immunologic: Reports: No Symptoms Exam - Exam Exam: See Below - Vital Signs Vital Signs: Last Vital Signs Temp 96.8 F L 09/15/20 11:50 Pulse 66 09/15/20 13:23 Resp 18 09/15/20 13:23 BP 126/59 L 09/15/20 13:23 Pulse Ox 95 09/15/20 13:23 Weight: 74.843 kg - Exam Quality Assessment: Supplemental Oxygen (Vapotherm 6 L 66% FiO2) General: Alert, Oriented, Cooperative HEENT: Conjunctiva Clear, Posterior Pharynx Clear. No: Mucosa Moist & Farina (Dry cracked oral mucosa) Lungs: Decreased Breath Sounds, Crackles (Fine crackles bibasilar). No: Normal Respiratory Effort (Dyspnea with exertion as well as speech) Cardiovascular: Regular Rate, Regular Rhythm GI/Abdominal Exam: Normal Bowel Sounds, Soft, Non-Tender Back Exam: Normal Inspection, Full Range of Motion Skin: Warm, Dry Neuro Extensive - Mental Status: Alert, Oriented x3 Neuro Extensive - Motor, Sensory, Reflexes: CN II-XII Intact Psychiatric: Alert, Normal Affect, Normal Mood - Patient Data Lab Results Last 24 hrs: Laboratory Results - last 24 hr 09/15/20 09/15/20 09/15/20 Range/Units 12:05 12:05 12:05 WBC 14.87 H (4.0-11.0) K/uL RBC 5.28 (4.50-5.90) M/uL Hgb 17.4 H (13.0-17.0) g/dL Hct 50.0 (38.0-50.0) % MCV 94.7 (80.0-98.0) fL MCH 33.0 H (27.0-32.0) pg MCHC 34.8 (31.0-37.0) g/dL RDW Std Deviation 46.6 (28.0-62.0) fl RDW Coeff of Laney 14 (11.0-15.0) % Plt Count 275 (150-400) K/uL MPV 10.60 (7.40-12.00) fL Add Manual Diff YES Neutrophils % (Manual) 68 (48.0-80.0) % Band Neutrophils % 3 % Lymphocytes % (Manual) 22 (16.0-40.0) % Monocytes % (Manual) 7 (0.0-15.0) % Nucleated RBC % 0.6 /100WBC Absolute Seg Neuts 10.1 H (1.4-5.7) Band Neutrophils # 0.4 Lymphocytes # (Manual) 3.3 H (0.6-2.4) Monocytes # (Manual) 1.0 H (0.0-0.8) Nucleated RBCs # 0 K/uL D-Dimer, Quantitative 3.48 H (0.0-0.50) mg/L FEU Lactate (0.20-2.00) mmol/L Sodium 142 (136-148) mmol/L Potassium 3.9 (3.5-5.1) mmol/L Chloride 105 (98-107) mmol/L Carbon Dioxide 24.5 (21.0-32.0) mmol/L BUN 19 H (7.0-18.0) mg/dL Creatinine 1.2 (0.8-1.3) mg/dL Est Cr Clr Drug Dosing 72.83 mL/min Estimated GFR (MDRD) > 60.0 ml/min Glucose 96 (74-106) mg/dL Calcium 8.8 (8.5-10.1) mg/dL Total Bilirubin 1.0 (0.2-1.0) mg/dL AST 46 H (15-37) IU/L ALT 67 H (14-63) IU/L Alkaline Phosphatase 69 (46-116) U/L Troponin I < 0.050 (0.000-0.056) ng/mL Total Protein 7.2 (6.4-8.2) g/dL Albumin 3.0 L (3.4-5.0) g/dL Globulin 4.2 H (2.6-4.0) g/dL Albumin/Globulin Ratio 0.7 L (0.9-1.6) 09/15/20 Range/Units 14:05 WBC (4.0-11.0) K/uL RBC (4.50-5.90) M/uL Hgb (13.0-17.0) g/dL Hct (38.0-50.0) % MCV (80.0-98.0) fL MCH (27.0-32.0) pg MCHC (31.0-37.0) g/dL RDW Std Deviation (28.0-62.0) fl RDW Coeff of Laney (11.0-15.0) % Plt Count (150-400) K/uL MPV (7.40-12.00) fL Add Manual Diff Neutrophils % (Manual) (48.0-80.0) % Band Neutrophils % % Lymphocytes % (Manual) (16.0-40.0) % Monocytes % (Manual) (0.0-15.0) % Nucleated RBC % /100WBC Absolute Seg Neuts (1.4-5.7) Band Neutrophils # Lymphocytes # (Manual) (0.6-2.4) Monocytes # (Manual) (0.0-0.8) Nucleated RBCs # K/uL D-Dimer, Quantitative (0.0-0.50) mg/L FEU Lactate 1.4 (0.20-2.00) mmol/L Sodium (136-148) mmol/L Potassium (3.5-5.1) mmol/L Chloride (98-107) mmol/L Carbon Dioxide (21.0-32.0) mmol/L BUN (7.0-18.0) mg/dL Creatinine (0.8-1.3) mg/dL Est Cr Clr Drug Dosing mL/min Estimated GFR (MDRD) ml/min Glucose (74-106) mg/dL Calcium (8.5-10.1) mg/dL Total Bilirubin (0.2-1.0) mg/dL AST (15-37) IU/L ALT (14-63) IU/L Alkaline Phosphatase (46-116) U/L Troponin I (0.000-0.056) ng/mL Total Protein (6.4-8.2) g/dL Albumin (3.4-5.0) g/dL Globulin (2.6-4.0) g/dL Albumin/Globulin Ratio (0.9-1.6) Result Diagrams: 09/15/20 12:05 09/15/20 12:05 Sepsis Event Note - Evaluation Sepsis Screening Result: No Definite Risk - Focused Exam Vital Signs: Vital Signs Temp Pulse Resp BP Pulse Ox Pulse Ox 09/15/20 13:23 66 18 126/59 L 95 09/15/20 13:07 62 18 132/85 95 09/15/20 12:37 71 18 148/82 H 94 L 09/15/20 12:13 96 09/15/20 11:50 96.8 F L 77 20 131/77 72 L - Problem List (1) Acute respiratory failure with hypoxia SNOMED Code(s): 58738413, 234134424 ICD Code: J96.01 - ACUTE RESPIRATORY FAILURE WITH HYPOXIA Status: Acute Current Visit: Yes (2) 2019 novel coronavirus disease (COVID-19) SNOMED Code(s): 570080689 ICD Code: U07.1 - COVID-19 Status: Acute Current Visit: No (3) Hemoptysis SNOMED Code(s): 45764021 ICD Code: R04.2 - HEMOPTYSIS Status: Acute Current Visit: Yes (4) Obesity (BMI 30-39.9) SNOMED Code(s): 592186653, 807815266 ICD Code: E66.9 - OBESITY, UNSPECIFIED Status: Chronic Priority: High Current Visit: No Problem List Initiated/Reviewed/Updated: Yes Orders Last 24hrs: Active Orders 24 hr Category Date Time Status Admission Status [Patient Status] [ADT] Stat ADT 09/15/20 13:31 Active Cardiac Monitoring [RC] . DIRECTED Care 09/15/20 13:31 Active EKG Documentation Completion [RC] STAT Care 09/15/20 12:13 Active Oxygen Therapy, ED [RC] ASDIRECTED Care 09/15/20 12:13 Active Verify Patient Consent Obtain [RC] ASDIRECTED Care 09/15/20 14:40 Active PE Chest [Ang Chest] [CT] Stat Exams 09/15/20 12:57 Taken FRESH FROZEN PLASMA [BBK] Routine Lab 09/15/20 14:40 Ordered INR,PT,PROTHROMBIN TIME [COAG] Routine Lab 09/15/20 14:40 Ordered PTT,PARTIAL THROMBOPLSTIN TIME [COAG] Routine Lab 09/15/20 14:40 Ordered TYPE AND SCREEN [BBK] Routine Lab 09/15/20 14:40 Ordered UA RFX STEFANIE AND CULT IF INDIC [URIN] Stat Lab 09/15/20 12:13 Ordered Levofloxacin/Dextrose 5%-Water [Levaquin in D5W 750 MG/ Med 09/15/20 13:31 Active 150 ML] 750 mg Premix Bag 1 bag IV ONETIME Remdesivir 100 mg Med 09/16/20 14:45 Active Sodium Chloride 0.9% [Normal Saline] 100 ml IV Q24H Sodium Chloride 0.9% [Saline Flush] Med 09/15/20 12:15 Active 10 ml FLUSH ASDIRECTED PRN Sodium Chloride 0.9% [Saline Flush] Med 09/15/20 12:15 Active 2.5 ml FLUSH ASDIRECTED PRN Saline Lock Insert [OM.PC] Stat Oth 09/15/20 12:15 Ordered Transfuse Fresh Frozen Plasma [COMM] Routine Oth 09/15/20 14:40 Ordered Medication Orders Levofloxacin/Dextrose 750 mg/ (Premix) 150 mls @ 100 mls/hr IV ONETIME ONE Stop: 09/15/20 15:00 Remdesivir 100 mg/ Sodium (Chloride) 100 mls @ 100 mls/hr IV Q24H LISANDRA Stop: 09/19/20 15:44 Sodium Chloride (Saline Flush) 10 ml FLUSH ASDIRECTED PRN PRN Reason: Keep Vein Open Sodium Chloride (Saline Flush) 2.5 ml FLUSH ASDIRECTED PRN PRN Reason: Keep Vein Open Assessment/Plan Comment:: This 49-year-old male admitted with acute hypoxic respiratory failure secondary to COVID-19 pneumonia and CAP 1. Acute hypoxic respiratory failure secondary to COVID-19 and CAP - We will start remdesivir 200 mg IV x1 then 400 mg IV daily x4 days - Dexamethasone 6 mg p.o. daily - Convalescent plasma 2 units to be given. I have spoken with Joao and provided information regarding convalescent plasma. I offered him the "fact sheet for patients and parents/caregivers" for COVID-19 convalescent plasma to read and review. As stated the therapy has been approved by emergency use authorization process and has not fully been FDA reviewed or approved. I shared potential risks from the therapy including transmission of blood-borne pathogen such as HIV and hepatitis C, allergic and transfusion related reactions, post transfusion purpura. Additionally theoretical risks include a phenomenon called antibody dependent enhancement of infection such as seen in dengue or attenuation of immune response that may make patients more susceptible to reinfection. I discussed there are other potential treatments options that are currently not FDA approved to treat COVID-19. All questions and concerns addressed and answered. Patient voiced understanding and agreed to proceed with treatment with convalescent plasma. Consent signed and placed in chart. -Continue Levaquin 750 IV daily -I-S and Acapella use encouraged coughing and deep breathing -Encouraged prone positioning or at least left side-lying 12 to 16 hours daily. -Combivent inhaler 4 times daily -Monitor sputum -Mild transaminitis not present 5 times normal limit. Will monitor daily with remdesivir treatments. VTE prophylaxis: Lovenox 40 daily CODE STATUS: Full code Dispo 2 to 3 days pending improvement - Mortality Measure Prognosis:: Good
--- NOTE | 2020-09-15 14:49 | CT ---
INDICATION: COVID positive. Hypoxemia. Positive D-dimer COMPARISON: September 10, 2020 TECHNIQUE: : CT examination of the chest was performed with the uneventful intravenous administration of 75 cc of Isovue 370 while thin axial sections were obtained from above the apices of the lungs to the lung bases. Please note that all CT scans at this facility use dose modulation, iterative reconstruction, and/or weight-based dosing when appropriate to reduce radiation dose to as low as reasonably achievable. FINDINGS: : HEART and MEDIASTINUM: The heart size is normal. Prominent mediastinal lymph nodes unchanged. These are likely reactive. PULMONARY ARTERIAL CIRCULATION: There is no visible intraluminal filling defect to suggest pulmonary embolus. LUNGS: Moderate to severe diffuse multifocal ground-glass opacification of the lungs. This has worsened significantly. PLEURAL SPACES: There is no pleural effusion, pneumothorax or pleural based mass. No pleural effusion or pneumothorax. VISUALIZED UPPER ABDOMEN: Hepatic steatosis. Otherwise, the limited visualized upper abdominal structures appear normal. OSSEOUS STRUCTURES: Age-appropriate appearance. No acute fracture or destructive process. TUBES and LINES: None. IMPRESSION: 1. No findings of pulmonary embolus. 2. Moderate to severe diffuse multifocal ground-glass opacification of the lungs significantly worsened since the prior study consistent with COVID related lung disease. 3. Hepatic steatosis Please note that all CT scans at this facility use dose modulation, iterative reconstruction, and/or weight-based dosing when appropriate to reduce radiation dose to as low as reasonably achievable. Dictated by Laron Maldonado MD @ Sep 15 2020 2:33PM Signed by Dr. Laron Maldonado @ Sep 15 2020 2:47PM
[2020-09-15] MEDS ORDERED: Ondansetron 4 MG/2 ML SDV IVPUSH PRN (15:36)
[2020-09-15] MEDS ORDERED: Benzonatate 100 MG Cap PO PRN (15:41)
[2020-09-15] MEDS ORDERED: Levofloxacin/Dextrose 5%-Water 150 ML IV ONE (15:53)
[2020-09-15] MEDS ORDERED: Dexamethasone 10 MG/ML SDV ONE (15:54)
[2020-09-15] MEDS ORDERED: Enoxaparin 40 MG/0.4 ML Syringe SUBCUT SCH ×2 (16:00→21:00)
[2020-09-15] MEDS ORDERED: Sodium Chloride 0.9% 500 ML IV SCH (16:00)
--- NOTE | 2020-09-15 16:16 | PCM.SN.2 ---
- Free Text/Narrative Note: Heart rate = 75 bpm, normal sinus rhythm, normal QRS interval, no STEMI. EKG and rhythm strip interpreted by me at 1615
[2020-09-15] MEDS: Dexamethasone 4 MG Tab PO SCH (16:44)
[2020-09-15] MEDS: Pantoprazole 40 MG in Sodium Chloride 0.9% 10 ML IV SCH (16:45)
[2020-09-15] MEDS: Albuterol/Ipratropium 4 GM Inhalation Spray INH SCH ×2 (17:43→23:22)
[2020-09-15] MEDS: Acetaminophen 325 MG Tab PO PRN (23:29)
[2020-09-16] MEDS: Albuterol/Ipratropium 4 GM Inhalation Spray INH SCH ×3 (06:18→18:59)
[2020-09-16 06:55] LABS: BLOOD UREA NITROGEN,BUN 18 mg/dL (7.0-18.0); CARBON DIOXIDE,CO2 25.2 mmol/L (21.0-32.0); CHLORIDE,CL 107 mmol/L (98-107); GLUCOSE RANDOM 105 mg/dL (74-106); POTASSIUM,K 4.7 mmol/L (3.5-5.1); SODIUM,NA 140 mmol/L (136-148)
--- NOTE | 2020-09-16 07:56 | PCM.PN ---
- General Info Date of Service: 09/16/20 Admission Dx/Problem (Free Text): Admission Diagnosis/Problem Admission Diagnosis/Problem acute hypoxic respiratory failure, COVID-19 pneumonia, possible CAP Subjective Update: Feeling mildly improved today. Continues to have coughing. Hemoptysis has improved there are times that he has just white mucus that he produces from cough. Otherwise the mucus is blood-tinged. No blood clots. No chest pain. Continues to have shortness of breath especially with any exertion. Denies any fevers chills. Confirms loss of smell and taste. Denies nausea or vomiting, he ate breakfast this morning which he was very hungry. Denies any other concerns. Functional Status: Reports: Pain Controlled, Tolerating Diet, Ambulating, Urinating - Review of Systems General: Reports: Weakness, Fatigue, Malaise HEENT: Reports: Sinus Congestion, Sore Throat Pulmonary: Reports: Shortness of Breath, Cough, Sputum, Hemoptysis (Continues to improve) Cardiovascular: Reports: Dyspnea on Exertion. Denies: Chest Pain, Palpitations Gastrointestinal: Reports: No Symptoms. Denies: Abdominal Pain, Nausea, Vomiting Genitourinary: Reports: No Symptoms. Denies: Dysuria, Frequency Musculoskeletal: Reports: Back Pain. Denies: Neck Pain Skin: Reports: No Symptoms Neurological: Reports: No Symptoms Psychiatric: Reports: No Symptoms - Patient Data Vitals - Most Recent: Last Vital Signs Temp 97.9 F 09/16/20 03:59 Pulse 55 L 09/16/20 03:59 Resp 19 09/16/20 03:59 BP 117/71 09/16/20 03:59 Pulse Ox 91 L 09/16/20 03:59 Weight - Most Recent: 122.6 kg I&O - Last 24 Hours: Intake & Output 09/15/20 09/16/20 09/16/20 22:59 06:59 14:59 Intake Total 1400 Output Total 1050 Balance 350 Lab Results Last 24 Hours: Laboratory Results - last 24 hr 09/15/20 09/15/20 09/15/20 Range/Units 12:05 12:05 12:05 WBC 14.87 H (4.0-11.0) K/uL RBC 5.28 (4.50-5.90) M/uL Hgb 17.4 H (13.0-17.0) g/dL Hct 50.0 (38.0-50.0) % MCV 94.7 (80.0-98.0) fL MCH 33.0 H (27.0-32.0) pg MCHC 34.8 (31.0-37.0) g/dL RDW Std Deviation 46.6 (28.0-62.0) fl RDW Coeff of [place] 14 (11.0-15.0) % Plt Count 275 (150-400) K/uL MPV 10.60 (7.40-12.00) fL Add Manual Diff YES Neutrophils % (Manual) 68 (48.0-80.0) % Band Neutrophils % 3 % Lymphocytes % (Manual) 22 (16.0-40.0) % Monocytes % (Manual) 7 (0.0-15.0) % Metamyelocytes % % Nucleated RBC % 0.6 /100WBC Absolute Seg Neuts 10.1 H (1.4-5.7) Band Neutrophils # 0.4 Lymphocytes # (Manual) 3.3 H (0.6-2.4) Monocytes # (Manual) 1.0 H (0.0-0.8) Absolute Metamyelocyte Nucleated RBCs # 0 K/uL D-Dimer, Quantitative 3.48 H (0.0-0.50) mg/L FEU Lactate (0.20-2.00) mmol/L Sodium 142 (136-148) mmol/L Potassium 3.9 (3.5-5.1) mmol/L Chloride 105 (98-107) mmol/L Carbon Dioxide 24.5 (21.0-32.0) mmol/L BUN 19 H (7.0-18.0) mg/dL Creatinine 1.2 (0.8-1.3) mg/dL Est Cr Clr Drug Dosing 72.83 mL/min Estimated GFR (MDRD) > 60.0 ml/min Glucose 96 (74-106) mg/dL Calcium 8.8 (8.5-10.1) mg/dL Magnesium (1.8-2.4) mg/dL Total Bilirubin 1.0 (0.2-1.0) mg/dL AST 46 H (15-37) IU/L ALT 67 H (14-63) IU/L Alkaline Phosphatase 69 (46-116) U/L Troponin I < 0.050 (0.000-0.056) ng/mL Total Protein 7.2 (6.4-8.2) g/dL Albumin 3.0 L (3.4-5.0) g/dL Globulin 4.2 H (2.6-4.0) g/dL Albumin/Globulin Ratio 0.7 L (0.9-1.6) Urine Color Urine Appearance Urine pH (5.0-8.0) Ur Specific [place] (1.001-1.035) Urine Protein (NEGATIVE) mg/dL Urine Glucose (UA) (NEGATIVE) mg/dL Urine Ketones (NEGATIVE) mg/dL Urine Occult Blood (NEGATIVE) Urine Nitrite (NEGATIVE) Urine Bilirubin (NEGATIVE) Urine Urobilinogen (<2.0) EU/dL Ur Leukocyte Esterase (NEGATIVE) Blood Type Antibody Screen 09/15/20 09/15/20 09/15/20 Range/Units 14:05 15:02 15:11 WBC (4.0-11.0) K/uL RBC (4.50-5.90) M/uL Hgb (13.0-17.0) g/dL Hct (38.0-50.0) % MCV (80.0-98.0) fL MCH (27.0-32.0) pg MCHC (31.0-37.0) g/dL RDW Std Deviation (28.0-62.0) fl RDW Coeff of [place] (11.0-15.0) % Plt Count (150-400) K/uL MPV (7.40-12.00) fL Add Manual Diff Neutrophils % (Manual) (48.0-80.0) % Band Neutrophils % % Lymphocytes % (Manual) (16.0-40.0) % Monocytes % (Manual) (0.0-15.0) % Metamyelocytes % % Nucleated RBC % /100WBC Absolute Seg Neuts (1.4-5.7) Band Neutrophils # Lymphocytes # (Manual) (0.6-2.4) Monocytes # (Manual) (0.0-0.8) Absolute Metamyelocyte Nucleated RBCs # K/uL D-Dimer, Quantitative (0.0-0.50) mg/L FEU Lactate 1.4 (0.20-2.00) mmol/L Sodium (136-148) mmol/L Potassium (3.5-5.1) mmol/L Chloride (98-107) mmol/L Carbon Dioxide (21.0-32.0) mmol/L BUN (7.0-18.0) mg/dL Creatinine (0.8-1.3) mg/dL Est Cr Clr Drug Dosing mL/min Estimated GFR (MDRD) ml/min Glucose (74-106) mg/dL Calcium (8.5-10.1) mg/dL Magnesium (1.8-2.4) mg/dL Total Bilirubin (0.2-1.0) mg/dL AST (15-37) IU/L ALT (14-63) IU/L Alkaline Phosphatase (46-116) U/L Troponin I (0.000-0.056) ng/mL Total Protein (6.4-8.2) g/dL Albumin (3.4-5.0) g/dL Globulin (2.6-4.0) g/dL Albumin/Globulin Ratio (0.9-1.6) Urine Color YELLOW Urine Appearance CLEAR Urine pH 7.0 (5.0-8.0) Ur Specific [place] <= 1.005 (1.001-1.035) Urine Protein NEGATIVE (NEGATIVE) mg/dL Urine Glucose (UA) NEGATIVE (NEGATIVE) mg/dL Urine Ketones NEGATIVE (NEGATIVE) mg/dL Urine Occult Blood NEGATIVE (NEGATIVE) Urine Nitrite NEGATIVE (NEGATIVE) Urine Bilirubin NEGATIVE (NEGATIVE) Urine Urobilinogen 0.2 (<2.0) EU/dL Ur Leukocyte Esterase NEGATIVE (NEGATIVE) Blood Type B POSITIVE Antibody Screen NEGATIVE 09/16/20 09/16/20 Range/Units 05:47 05:47 WBC 11.70 H (4.0-11.0) K/uL RBC 4.93 (4.50-5.90) M/uL Hgb 16.1 (13.0-17.0) g/dL Hct 47.2 (38.0-50.0) % MCV 95.7 (80.0-98.0) fL MCH 32.7 H (27.0-32.0) pg MCHC 34.1 (31.0-37.0) g/dL RDW Std Deviation 47.6 (28.0-62.0) fl RDW Coeff of [place] 14 (11.0-15.0) % Plt Count 260 (150-400) K/uL MPV 10.40 (7.40-12.00) fL Add Manual Diff YES Neutrophils % (Manual) 68 (48.0-80.0) % Band Neutrophils % 2 % Lymphocytes % (Manual) 20 (16.0-40.0) % Monocytes % (Manual) 9 (0.0-15.0) % Metamyelocytes % 1 % Nucleated RBC % 0.0 /100WBC Absolute Seg Neuts 8.0 H (1.4-5.7) Band Neutrophils # 0.2 Lymphocytes # (Manual) 2.3 (0.6-2.4) Monocytes # (Manual) 1.1 H (0.0-0.8) Absolute Metamyelocyte 0.1 Nucleated RBCs # 0 K/uL D-Dimer, Quantitative (0.0-0.50) mg/L FEU Lactate (0.20-2.00) mmol/L Sodium 140 (136-148) mmol/L Potassium 4.7 (3.5-5.1) mmol/L Chloride 107 (98-107) mmol/L Carbon Dioxide 25.2 (21.0-32.0) mmol/L BUN 18 (7.0-18.0) mg/dL Creatinine 1.2 (0.8-1.3) mg/dL Est Cr Clr Drug Dosing 72.83 mL/min Estimated GFR (MDRD) > 60.0 ml/min Glucose 105 (74-106) mg/dL Calcium 8.3 L (8.5-10.1) mg/dL Magnesium 2.4 (1.8-2.4) mg/dL Total Bilirubin 0.9 (0.2-1.0) mg/dL AST 32 (15-37) IU/L ALT 59 (14-63) IU/L Alkaline Phosphatase 58 (46-116) U/L Troponin I (0.000-0.056) ng/mL Total Protein 6.4 (6.4-8.2) g/dL Albumin 2.5 L (3.4-5.0) g/dL Globulin 3.9 (2.6-4.0) g/dL Albumin/Globulin Ratio 0.6 L (0.9-1.6) Urine Color Urine Appearance Urine pH (5.0-8.0) Ur Specific [place] (1.001-1.035) Urine Protein (NEGATIVE) mg/dL Urine Glucose (UA) (NEGATIVE) mg/dL Urine Ketones (NEGATIVE) mg/dL Urine Occult Blood (NEGATIVE) Urine Nitrite (NEGATIVE) Urine Bilirubin (NEGATIVE) Urine Urobilinogen (<2.0) EU/dL Ur Leukocyte Esterase (NEGATIVE) Blood Type Antibody Screen Med Orders - Current: Current Medications Acetaminophen (Tylenol) 650 mg PO Q4H PRN PRN Reason: Pain (Mild 1-3)/fever Last Admin: 09/15/20 23:29 Dose: 650 mg Documented by: Albuterol/Ipratropium (Combivent Respimat) 0 gm INH QID [facility] Last Admin: 09/16/20 06:18 Dose: 1 puff Documented by: Benzonatate (Tessalon Perles) 200 mg PO TID PRN PRN Reason: Cough Dexamethasone (Dexamethasone) 6 mg PO DAILY [facility] Last Admin: 09/15/20 16:44 Dose: 6 mg Documented by: Enoxaparin Sodium (Lovenox) 40 mg SUBCUT Q24H [facility] Guaifenesin/Codeine Phosphate (Robitussin Ac) 5 ml PO Q6H PRN PRN Reason: Cough Remdesivir 100 mg/ Sodium (Chloride) 100 mls @ 100 mls/hr IV Q24H [facility] Stop: 09/19/20 15:44 Levofloxacin/Dextrose 750 mg/ (Premix) 150 mls @ 100 mls/hr IV Q24H [facility] Pantoprazole Sodium 40 mg/ (Sodium Chloride) 10 mls @ 300 mls/hr IV Q24H [facility] Last Admin: 09/15/20 16:45 Dose: 300 mls/hr Documented by: Sodium Chloride (Normal Saline) 500 mls @ 999 mls/hr IV .BOLUS [facility] Ondansetron HCl (Zofran) 4 mg IVPUSH Q4H PRN PRN Reason: Nausea Sodium Chloride (Saline Flush) 2.5 ml FLUSH ASDIRECTED PRN PRN Reason: Keep Vein Open Discontinued Medications Dexamethasone (Decadron) Confirm Administered Dose 10 mg .ROUTE .STK-MED ONE Stop: 09/15/20 15:55 Last Admin: 09/15/20 15:58 Dose: Not Given Documented by: Enoxaparin Sodium (Lovenox) 40 mg SUBCUT Q12HR LISANDRA Enoxaparin Sodium (Lovenox) 40 mg SUBCUT DAILY [facility] Last Admin: 09/15/20 16:45 Dose: 40 mg Documented by: Levofloxacin/Dextrose 750 mg/ (Premix) 150 mls @ 100 mls/hr IV ONETIME ONE Stop: 09/15/20 15:00 Last Admin: 09/15/20 15:55 Dose: 100 mls/hr Documented by: Remdesivir 200 mg/ Sodium (Chloride) 250 mls @ 250 mls/hr IV ONETIME ONE Stop: 09/15/20 16:59 Last Admin: 09/15/20 17:54 Dose: 250 mls/hr Documented by: Levofloxacin/Dextrose (Levaquin In D5w 750 Mg/150 Ml) Confirm Administered Dose 150 mls @ as directed IV .STK-MED ONE Stop: 09/15/20 15:54 Last Admin: 09/15/20 16:46 Dose: Not Given Documented by: Iopamidol (Isovue Multipack-370 (76%)) 75 ml IVPUSH ONETIME STA Stop: 09/15/20 14:19 Last Admin: 09/15/20 14:19 Dose: 75 ml Documented by: Sodium Chloride (Saline Flush) 10 ml FLUSH ASDIRECTED PRN PRN Reason: Keep Vein Open Sodium Chloride (Saline Flush) 2.5 ml FLUSH ASDIRECTED PRN PRN Reason: Keep Vein Open - Exam Quality Assessment: Supplemental Oxygen (Remains on Vapotherm's 40 L flow 79% FiO2) General: Alert, Oriented Lungs: Decreased Breath Sounds (But is slightly improved from yesterday), Crackles. No: Normal Respiratory Effort (Dyspnea noted with speech) Cardiovascular: Regular Rate, Regular Rhythm GI/Abdominal Exam: Normal Bowel Sounds, Soft, Non-Tender Back Exam: Normal Inspection, Full Range of Motion Extremities: Normal Inspection, Normal Range of Motion, Non-Tender, No Pedal Edema Skin: Warm, Dry, Intact Neurological: No New Focal Deficit Psy/Mental Status: Alert, Normal Affect, Normal Mood Sepsis Event Note - Evaluation Sepsis Screening Result: No Definite Risk - Focused Exam Vital Signs: Vital Signs Temp Pulse Resp BP Pulse Ox 09/16/20 03:59 97.9 F 55 L 19 117/71 91 L 09/15/20 23:22 97.0 F 58 L 19 122/60 93 L 09/15/20 20:00 96.9 F 68 17 114/69 96 - Problem List & Annotations (1) Acute respiratory failure with hypoxia SNOMED Code(s): 20087867, 333620105 Code(s): J96.01 - ACUTE RESPIRATORY FAILURE WITH HYPOXIA Status: Acute Current Visit: Yes (2) 2019 novel coronavirus disease (COVID-19) SNOMED Code(s): 540302944 Code(s): U07.1 - COVID-19 Status: Acute Current Visit: No (3) Hemoptysis SNOMED Code(s): 50573613 Code(s): R04.2 - HEMOPTYSIS Status: Acute Current Visit: Yes (4) Obesity (BMI 30-39.9) SNOMED Code(s): 135577956, 368182127 Code(s): E66.9 - OBESITY, UNSPECIFIED Status: Chronic Priority: High Current Visit: No - Problem List Review Problem List Initiated/Reviewed/Updated: Yes - My Orders Last 24 Hours: My Active Orders 09/15/20 Lunch Regular Diet [DIET] 09/15/20 14:40 Verify Patient Consent Obtain [RC] ASDIRECTED Transfuse Fresh Frozen Plasma [COMM] Routine 09/15/20 15:02 FRESH FROZEN PLASMA [BBK] Routine TYPE AND SCREEN [BBK] Routine 09/15/20 15:36 Oxygen Therapy [RC] PRN Up With Assistance [RC] ASDIRECTED VTE/DVT Education [RC] PER UNIT ROUTINE Vital Signs [RC] Q4H Acetaminophen [TylenoL] 650 mg PO Q4H PRN Ondansetron [Zofran] 4 mg IVPUSH Q4H PRN Sodium Chloride 0.9% [Saline Flush] 2.5 ml FLUSH ASDIRECTED PRN Saline Lock Insert [OM.PC] Routine Resuscitation Status Routine 09/15/20 15:37 Intake and Output [RC] Q12H Pulse Oximetry [RC] CONTINUOUS 09/15/20 15:41 Benzonatate [Tessalon Perles] 200 mg PO TID PRN Codeine/guaiFENesin [Robitussin AC] 5 ml PO Q6H PRN 09/15/20 15:42 RT Incentive Spirometry [RC] Q1HWA RT Post Treatment Assessment [RC] Click to Edit RT Pre-Treatment Assessment [RC] Click to Edit RT Acapella [RESPCARE] Routine 09/15/20 15:45 dexAMETHasone 6 mg PO DAILY 09/15/20 15:57 Telemetry Monitoring [Cardiac Monitoring] [RC] Q8H 09/15/20 16:00 Pantoprazole [ProTONIX IV] 40 mg Sodium Chloride 0.9% [Normal Saline] 10 ml IV Q24H Sodium Chloride 0.9% [Normal Saline] 500 ml IV .BOLUS 09/15/20 18:00 Albuterol/Ipratropium [Combivent Respimat] See Dose Instructions INH QID 09/16/20 12:00 Levofloxacin/Dextrose 5%-Water [Levaquin in D5W 750 MG/150 ML] 750 mg Premix Bag 1 bag IV Q24H 09/16/20 14:45 Remdesivir 100 mg Sodium Chloride 0.9% [Normal Saline] 100 ml IV Q24H 09/16/20 16:00 Enoxaparin [Lovenox] 40 mg SUBCUT Q24H 09/17/20 05:11 CBC WITH AUTO DIFF [HEME] AM COMPREHENSIVE METABOLIC PN,CMP [CHEM] AM MAGNESIUM [CHEM] AM 09/18/20 05:11 CBC WITH AUTO DIFF [HEME] AM COMPREHENSIVE METABOLIC PN,CMP [CHEM] AM MAGNESIUM [CHEM] AM 09/19/20 05:11 CBC WITH AUTO DIFF [HEME] AM COMPREHENSIVE METABOLIC PN,CMP [CHEM] AM MAGNESIUM [CHEM] AM 09/20/20 05:11 CBC WITH AUTO DIFF [HEME] AM COMPREHENSIVE METABOLIC PN,CMP [CHEM] AM MAGNESIUM [CHEM] AM - Plan Plan:: This 49-year-old male admitted with acute hypoxic respiratory failure secondary to COVID-19 pneumonia and CAP 1. Acute hypoxic respiratory failure secondary to COVID-19 and CAP - Remains on vapotherm 79% FIO2, 40 L flow - Continue remdesivir 100 mg IV daily x4 days - Dexamethasone 6 mg p.o. daily - Convalescent plasma 2 units to be given. I have spoken with Joao and provided information regarding convalescent plasma. I offered him the "fact sheet for patients and parents/caregivers" for COVID-19 convalescent plasma to read and review. As stated the therapy has been approved by emergency use authorization process and has not fully been FDA reviewed or approved. I shared potential risks from the therapy including transmission of blood-borne pathogen such as HIV and hepatitis C, allergic and transfusion related reactions, post transfusion purpura. Additionally theoretical risks include a phenomenon called antibody dependent enhancement of infection such as seen in dengue or attenuation of immune response that may make patients more susceptible to reinfection. I discussed there are other potential treatments options that are currently not FDA approved to treat COVID-19. All questions and concerns addressed and answered. Patient voiced understanding and agreed to proceed with treatment with convalescent plasma. Consent signed and placed in chart. -Continue Levaquin 750 IV daily -I-S and Acapella use encouraged coughing and deep breathing. He reports the I- S worsens his cough. We discussed that the I-S is used for this as well as increasing lung movement. He should try to use this 10 times every 1 hour. -Encouraged prone positioning or at least left side-lying 12 to 16 hours daily. -Combivent inhaler 4 times daily -Monitor sputum -Mild transaminitis improved continue to monitor daily -Increase Lovenox to 40 mg twice daily as hemoptysis is improving. Continue to monitor closely VTE prophylaxis: Lovenox 40 twice daily CODE STATUS: Full code Dispo 2 to 3 days pending improvement
[2020-09-16] MEDS: Dexamethasone 4 MG Tab PO SCH (08:02)
[2020-09-16] MEDS: Benzonatate 100 MG Cap PO SCH ×3 (11:14→21:09)
[2020-09-16] MEDS: Enoxaparin 40 MG/0.4 ML Syringe SUBCUT SCH ×2 (11:15→21:09)
[2020-09-16] MEDS: Levofloxacin/Dextrose 5%-Water 750 MG in Premix Bag 1 BAG IV SCH (11:16)
[2020-09-16] MEDS: REMDESIVIR 100 MG in Sodium Chloride 0.9% 100 ML IV SCH (14:44)
[2020-09-16] MEDS: Pantoprazole 40 MG in Sodium Chloride 0.9% 10 ML IV SCH (15:52)
[2020-09-16] MEDS ORDERED: Enoxaparin 40 MG/0.4 ML Syringe SUBCUT SCH (16:00)
[2020-09-17] MEDS: Albuterol/Ipratropium 4 GM Inhalation Spray INH SCH ×5 (00:59→23:25)
[2020-09-17 05:52] LABS: BLOOD UREA NITROGEN,BUN 21 mg/dL (7.0-18.0); CARBON DIOXIDE,CO2 25.2 mmol/L (21.0-32.0); CHLORIDE,CL 106 mmol/L (98-107); GLUCOSE RANDOM 113 mg/dL (74-106); POTASSIUM,K 4.4 mmol/L (3.5-5.1); SODIUM,NA 139 mmol/L (136-148)
--- NOTE | 2020-09-17 08:03 | PCM.PN ---
- General Info Date of Service: 09/17/20 Admission Dx/Problem (Free Text): Admission Diagnosis/Problem Admission Diagnosis/Problem acute hypoxic respiratory failure, COVID-19 pneumonia, possible CAP Subjective Update: Appears in respiratory distress this morning, RR 35-40, RT in room to assist with Vapotherm. Currently on 50 L flow 85% FIO, just satting 92%. Patient reporting he feels tired and breathing heavily. He was just up to the bathroom and this is when saturations decreased. He denies chest pain. Continues to have mild blood streaking in sputum. No other concerns currently. - Review of Systems General: Reports: Fatigue, Malaise HEENT: Reports: No Symptoms. Denies: Headaches, Sinus Congestion, Sore Throat Pulmonary: Reports: Shortness of Breath, Cough, Sputum Cardiovascular: Reports: Dyspnea on Exertion. Denies: Chest Pain Gastrointestinal: Reports: No Symptoms. Denies: Abdominal Pain, Nausea, Vomiting Genitourinary: Reports: No Symptoms. Denies: Dysuria, Frequency, Burning Musculoskeletal: Reports: No Symptoms Skin: Reports: No Symptoms Neurological: Reports: No Symptoms Psychiatric: Reports: No Symptoms - Patient Data Vitals - Most Recent: Last Vital Signs Temp 97.9 F 09/17/20 05:00 Pulse 58 L 09/17/20 05:00 Resp 20 09/17/20 05:00 BP 119/73 09/17/20 05:00 Pulse Ox 91 L 09/17/20 05:00 Weight - Most Recent: 122.6 kg I&O - Last 24 Hours: Intake & Output 09/16/20 09/17/20 09/17/20 22:59 06:59 14:59 Intake Total 1042 701 Output Total 900 1300 Balance 142 -599 Lab Results Last 24 Hours: Laboratory Results - last 24 hr 09/15/20 09/17/20 09/17/20 Range/Units 15:02 05:02 05:02 WBC 11.54 H (4.0-11.0) K/uL RBC 4.98 (4.50-5.90) M/uL Hgb 16.1 (13.0-17.0) g/dL Hct 47.7 (38.0-50.0) % MCV 95.8 (80.0-98.0) fL MCH 32.3 H (27.0-32.0) pg MCHC 33.8 (31.0-37.0) g/dL RDW Std Deviation 47.3 (28.0-62.0) fl RDW Coeff of Laney 14 (11.0-15.0) % Plt Count 232 (150-400) K/uL MPV 10.30 (7.40-12.00) fL Add Manual Diff YES Neutrophils % (Manual) 71 (48.0-80.0) % Band Neutrophils % 13 % Lymphocytes % (Manual) 13 L (16.0-40.0) % Monocytes % (Manual) 3 (0.0-15.0) % Nucleated RBC % 0.0 /100WBC Absolute Seg Neuts 8.2 H (1.4-5.7) Band Neutrophils # 1.5 Lymphocytes # (Manual) 1.5 (0.6-2.4) Monocytes # (Manual) 0.3 (0.0-0.8) Nucleated RBCs # 0 K/uL Sodium 139 (136-148) mmol/L Potassium 4.4 (3.5-5.1) mmol/L Chloride 106 (98-107) mmol/L Carbon Dioxide 25.2 (21.0-32.0) mmol/L BUN 21 H (7.0-18.0) mg/dL Creatinine 1.0 (0.8-1.3) mg/dL Est Cr Clr Drug Dosing 87.40 mL/min Estimated GFR (MDRD) > 60.0 ml/min Glucose 113 H (74-106) mg/dL Calcium 8.8 (8.5-10.1) mg/dL Magnesium 2.2 (1.8-2.4) mg/dL Total Bilirubin 0.6 (0.2-1.0) mg/dL AST 24 (15-37) IU/L ALT 46 (14-63) IU/L Alkaline Phosphatase 71 (46-116) U/L Total Protein 6.5 (6.4-8.2) g/dL Albumin 2.6 L (3.4-5.0) g/dL Globulin 3.9 (2.6-4.0) g/dL Albumin/Globulin Ratio 0.7 L (0.9-1.6) Blood Type B POSITIVE Antibody Screen NEGATIVE Med Orders - Current: Current Medications Acetaminophen (Tylenol) 650 mg PO Q4H PRN PRN Reason: Pain (Mild 1-3)/fever Last Admin: 09/15/20 23:29 Dose: 650 mg Documented by: Albuterol/Ipratropium (Combivent Respimat) 0 gm INH QID [facility] Last Admin: 09/17/20 00:59 Dose: Not Given Documented by: Benzonatate (Tessalon Perles) 200 mg PO TID [facility] Last Admin: 09/16/20 21:09 Dose: 200 mg Documented by: Dexamethasone (Dexamethasone) 6 mg PO DAILY [facility] Last Admin: 09/16/20 08:02 Dose: 6 mg Documented by: Enoxaparin Sodium (Lovenox) 40 mg SUBCUT BID [facility] Last Admin: 09/16/20 21:09 Dose: 40 mg Documented by: Guaifenesin/Codeine Phosphate (Robitussin Ac) 5 ml PO Q6H PRN PRN Reason: Cough Remdesivir 100 mg/ Sodium (Chloride) 100 mls @ 100 mls/hr IV Q24H [facility] Stop: 09/19/20 15:44 Last Admin: 09/16/20 14:44 Dose: 100 mls/hr Documented by: Levofloxacin/Dextrose 750 mg/ (Premix) 150 mls @ 100 mls/hr IV Q24H [facility] Last Admin: 09/16/20 11:16 Dose: 100 mls/hr Documented by: Pantoprazole Sodium 40 mg/ (Sodium Chloride) 10 mls @ 300 mls/hr IV Q24H [facility] Last Admin: 09/16/20 15:52 Dose: 300 mls/hr Documented by: Sodium Chloride (Normal Saline) 500 mls @ 999 mls/hr IV .BOLUS [facility] Ondansetron HCl (Zofran) 4 mg IVPUSH Q4H PRN PRN Reason: Nausea Sodium Chloride (Saline Flush) 2.5 ml FLUSH ASDIRECTED PRN PRN Reason: Keep Vein Open Discontinued Medications Benzonatate (Tessalon Perles) 200 mg PO TID PRN PRN Reason: Cough Dexamethasone (Decadron) Confirm Administered Dose 10 mg .ROUTE .STK-MED ONE Stop: 09/15/20 15:55 Last Admin: 09/15/20 15:58 Dose: Not Given Documented by: Enoxaparin Sodium (Lovenox) 40 mg SUBCUT Q12HR [facility] Enoxaparin Sodium (Lovenox) 40 mg SUBCUT DAILY [facility] Last Admin: 09/15/20 16:45 Dose: 40 mg Documented by: Enoxaparin Sodium (Lovenox) 40 mg SUBCUT Q24H [facility] Levofloxacin/Dextrose 750 mg/ (Premix) 150 mls @ 100 mls/hr IV ONETIME ONE Stop: 09/15/20 15:00 Last Admin: 09/15/20 15:55 Dose: 100 mls/hr Documented by: Remdesivir 200 mg/ Sodium (Chloride) 250 mls @ 250 mls/hr IV ONETIME ONE Stop: 09/15/20 16:59 Last Admin: 09/15/20 17:54 Dose: 250 mls/hr Documented by: Levofloxacin/Dextrose (Levaquin In D5w 750 Mg/150 Ml) Confirm Administered Dose 150 mls @ as directed IV .STK-MED ONE Stop: 09/15/20 15:54 Last Admin: 09/15/20 16:46 Dose: Not Given Documented by: Iopamidol (Isovue Multipack-370 (76%)) 75 ml IVPUSH ONETIME STA Stop: 09/15/20 14:19 Last Admin: 09/15/20 14:19 Dose: 75 ml Documented by: Sodium Chloride (Saline Flush) 10 ml FLUSH ASDIRECTED PRN PRN Reason: Keep Vein Open Sodium Chloride (Saline Flush) 2.5 ml FLUSH ASDIRECTED PRN PRN Reason: Keep Vein Open - Exam General: Alert, Oriented, Cooperative, Moderate Distress Lungs: Decreased Breath Sounds (throughout). No: Normal Respiratory Effort (dyspnea) Cardiovascular: Regular Rate, Regular Rhythm, No Murmurs GI/Abdominal Exam: Normal Bowel Sounds, Soft, Non-Tender Back Exam: Normal Inspection, Full Range of Motion Extremities: Normal Inspection, Normal Range of Motion, Non-Tender, No Pedal Edema Neurological: No New Focal Deficit Psy/Mental Status: Alert, Normal Affect, Normal Mood Sepsis Event Note - Evaluation Sepsis Screening Result: No Definite Risk - Focused Exam Vital Signs: Vital Signs Temp Temp Pulse Resp BP Pulse Ox 09/17/20 05:00 97.9 F 58 L 20 119/73 91 L 09/17/20 00:43 97.1 F 50 L 18 131/82 94 L 09/16/20 23:02 97.0 F 56 L 18 128/72 93 L 09/16/20 22:40 97.1 F 19 113/70 95 09/16/20 21:16 97.0 F 66 20 131/65 91 L - Problem List & Annotations (1) Acute respiratory failure with hypoxia SNOMED Code(s): 35634953, 756930622 Code(s): J96.01 - ACUTE RESPIRATORY FAILURE WITH HYPOXIA Status: Acute Current Visit: Yes (2) 2019 novel coronavirus disease (COVID-19) SNOMED Code(s): 706781696 Code(s): U07.1 - COVID-19 Status: Acute Current Visit: No (3) Hemoptysis SNOMED Code(s): 51264681 Code(s): R04.2 - HEMOPTYSIS Status: Acute Current Visit: Yes (4) Obesity (BMI 30-39.9) SNOMED Code(s): 721703131, 931018030 Code(s): E66.9 - OBESITY, UNSPECIFIED Status: Chronic Priority: High Current Visit: No - Problem List Review Problem List Initiated/Reviewed/Updated: Yes - My Orders Last 24 Hours: My Active Orders 09/16/20 10:30 Enoxaparin [Lovenox] 40 mg SUBCUT BID 09/16/20 10:32 Benzonatate [Tessalon Perles] 200 mg PO TID 09/16/20 12:00 Levofloxacin/Dextrose 5%-Water [Levaquin in D5W 750 MG/150 ML] 750 mg Premix Bag 1 bag IV Q24H 09/16/20 14:45 Remdesivir 100 mg Sodium Chloride 0.9% [Normal Saline] 100 ml IV Q24H 09/18/20 05:11 CBC WITH AUTO DIFF [HEME] AM COMPREHENSIVE METABOLIC PN,CMP [CHEM] AM MAGNESIUM [CHEM] AM 09/19/20 05:11 CBC WITH AUTO DIFF [HEME] AM COMPREHENSIVE METABOLIC PN,CMP [CHEM] AM MAGNESIUM [CHEM] AM 09/20/20 05:11 CBC WITH AUTO DIFF [HEME] AM COMPREHENSIVE METABOLIC PN,CMP [CHEM] AM MAGNESIUM [CHEM] AM - Plan Plan:: This 49-year-old male admitted with acute hypoxic respiratory failure secondary to COVID-19 pneumonia and CAP 1. Acute hypoxic respiratory failure secondary to COVID-19 and CAP -Patient had worsening respiratory distress this morning Vapotherm was increased to 50 L flow with FiO2 85 to 90%. Patient was reporting significant shortness of breath and feeling tired. -Placed on BiPAP 10/ initially, increased to 12/. Patient was transferred to ICU for further monitoring. -ABG obtained which shows mild increase in pH likely secondary to hyperventilation. We will continue to monitor -Repeat chest x-ray shows worsening groundglass opacities bilaterally but greater in the right base. - Continue remdesivir 100 mg IV daily x4 days - Dexamethasone 6 mg p.o. daily - Convalescent plasma 2 units to be given, received 1 unit 09/16/2022, will receive another one this afternoon -Continue Levaquin 750 IV daily -I-S and Acapella use encouraged coughing and deep breathing. -He has been unable to tolerate self proning but has tried laying on his left side. I have continued to encouraged prone positioning or at least left side- lying 12 to 16 hours daily. -Combivent inhaler 4 times daily -Monitor sputum -Transaminitis continues to improve -Continue Lovenox to 40 mg twice daily as hemoptysis is improving. Continue to monitor closely VTE prophylaxis: Lovenox 40 twice daily CODE STATUS: Full code Dispo 2 to 3 days pending improvement We will contact eICU for update on patient as well as any recommendations they may have.
[2020-09-17] MEDS: Dexamethasone 4 MG Tab PO SCH (09:20)
[2020-09-17] MEDS: Benzonatate 100 MG Cap PO SCH ×3 (09:20→21:17)
[2020-09-17] MEDS: Enoxaparin 40 MG/0.4 ML Syringe SUBCUT SCH ×2 (09:21→21:16)
[2020-09-17] MEDS ORDERED: LORazepam 2 MG/ML SDV IVPUSH ONE (11:09)
[2020-09-17] MEDS: Levofloxacin/Dextrose 5%-Water 750 MG in Premix Bag 1 BAG IV SCH (11:39)
--- NOTE | 2020-09-17 11:54 | CR ---
INDICATION: Worsening hypoxia COMPARISON: A chest radiograph dated September 15, 2020 TECHNIQUE: Single-view portable study FINDINGS: TUBES AND LINES: None. HEART AND MEDIASTINUM: The heart size is normal. The mediastinal contour appears normal for patient age. LUNGS AND PLEURAL SPACES: Moderate to severe diffuse multifocal ground-glass opacification. The appearance has slightly worsened especially at the right base.The pleural spaces are unremarkable. OSSEOUS STRUCTURES: Age-appropriate appearance. No acute focal finding. IMPRESSION: Moderate to severe diffuse multifocal ground-glass opacification. The appearance is slightly worsened especially at the right base.. The findings are likely inflammatory Dictated by Laron Maldonado MD @ Sep 17 2020 11:50AM Signed by Dr. Laron Maldonado @ Sep 17 2020 11:52AM
[2020-09-17] MEDS ORDERED: Furosemide 20 MG/2 ML VIAL IVPUSH ONE (12:47)
--- NOTE | 2020-09-17 12:52 | PN ---
THC Physician - Brief Progress KxryJENYILHMY63/09/2020 12:44[facility] [place], JOVANNI [facility] - IFEANYI RUANOGERTRUDIS EcheverriaPreciousDate of Service 09/17/2020 12:44HPI/Events of Note eICU admission [id number] male with past history significant for HTN who presented [facility] with acute hypoxic respiratory failure secondary to COVID-19 on 02/14/2020. Since admission alexis t has been initiated on Decadron, remdesivir, convalescent plasma as well as Levaquin. Patient has h ad continued worsening in regards to hypoxia initially requiring heated high flow nasal cannula and s ubsequently being placed on BiPAP this morning given significant work of breathing with persistent hy poxia. After being placed on BiPAP 07/14 patient did report improvement in work of breathing but does remain overall tachypneic while on BiPAP.Patient seen on camera, sitting up in bed and does not appe ar to be in acute distress but is tachypneic at this time.Vital signs reviewedLab/EMR reviewedAcute h ypoxic respiratory failure-Secondary to COVID-19 infection. -PPE and isolation per institution policy -Agree with BiPAP given work of breathing. Currently on 07/14 recommend increasing to 09/15 if patient is able to tolerate given PaO2 of 65.-Agree with empiric antibiotic coverage for superimposed bacter ial infection-Agree with Decadron and Remdesivir to complete courses. Patient currently receiving pl asma as well.-Agree with self proning/laying on side if tolerated-Recommend keeping patient euvolemic as much as possible. Recommend trial of Lasix 20 mg a day to see if there is any improvement-Contin ue with DVT/GI prophylaxisThank you for allowing us to participate in the care of this patient.Interv entions Major-Hypoxemia - evaluation and management, Infection - evaluation and management, Respirato ry failure - evaluation and management 12 :51
[2020-09-17] MEDS: REMDESIVIR 100 MG in Sodium Chloride 0.9% 100 ML IV SCH (14:26)
[2020-09-17] MEDS: Pantoprazole 40 MG in Sodium Chloride 0.9% 10 ML IV SCH (15:51)
[2020-09-18] MEDS: Codeine/guaiFENesin 10-100 MG/5 ML Syrup 5 ML Cup PO PRN ×2 (02:32→19:55)
[2020-09-18] MEDS: Albuterol/Ipratropium 4 GM Inhalation Spray INH SCH (06:13)
[2020-09-18 06:55] LABS: BLOOD UREA NITROGEN,BUN 25 mg/dL (7.0-18.0); CARBON DIOXIDE,CO2 26.5 mmol/L (21.0-32.0); CHLORIDE,CL 103 mmol/L (98-107); GLUCOSE RANDOM 114 mg/dL (74-106); POTASSIUM,K 4.4 mmol/L (3.5-5.1); SODIUM,NA 138 mmol/L (136-148)
[2020-09-18] MEDS: Benzonatate 100 MG Cap PO SCH ×3 (07:01→21:34)
--- NOTE | 2020-09-18 07:55 | PCM.PN ---
- General Info Date of Service: 09/18/20 Admission Dx/Problem (Free Text): Admission Diagnosis/Problem Admission Diagnosis/Problem acute hypoxic respiratory failure, COVID-19 pneumonia, possible CAP Subjective Update: Appears improved today. Respirations have decreased to mid 20s. Continues to feel short of breath. Coughing with no sputum production now. Denies any chest pain or abdominal pain, no nausea or vomiting. Eating well. Tolerates Vapotherm for short periods of time while eating. Continues to be encouraged to self prone which he reports he is unable to. Functional Status: Reports: Pain Controlled, Tolerating Diet, Ambulating, Urinating - Review of Systems General: Reports: Fatigue, Malaise HEENT: Reports: No Symptoms. Denies: Headaches, Visual Changes Pulmonary: Reports: Shortness of Breath, Cough. Denies: Sputum, Hemoptysis, Wheezing Cardiovascular: Reports: Dyspnea on Exertion. Denies: Chest Pain Gastrointestinal: Reports: No Symptoms. Denies: Abdominal Pain, Nausea, Vomiting Genitourinary: Reports: No Symptoms. Denies: Dysuria, Frequency, Burning Musculoskeletal: Reports: No Symptoms Skin: Reports: No Symptoms Neurological: Reports: No Symptoms Psychiatric: Reports: No Symptoms - Patient Data Vitals - Most Recent: Last Vital Signs Temp 97.0 F 09/18/20 04:00 Pulse 63 09/17/20 09:13 Resp 26 H 09/18/20 06:00 BP 118/67 09/18/20 06:00 Pulse Ox 91 L 09/18/20 06:00 Weight - Most Recent: 122.6 kg I&O - Last 24 Hours: Intake & Output 09/17/20 09/18/20 09/18/20 22:59 06:59 14:59 Intake Total 680 450 Output Total 2460 800 Balance -1780 -350 Lab Results Last 24 Hours: Laboratory Results - last 24 hr 09/17/20 09/18/20 09/18/20 Range/Units 09:58 05:55 05:55 WBC 13.47 H (4.0-11.0) K/uL RBC 4.86 (4.50-5.90) M/uL Hgb 15.8 (13.0-17.0) g/dL Hct 46.7 (38.0-50.0) % MCV 96.1 (80.0-98.0) fL MCH 32.5 H (27.0-32.0) pg MCHC 33.8 (31.0-37.0) g/dL RDW Std Deviation 47.7 (28.0-62.0) fl RDW Coeff of Laney 14 (11.0-15.0) % Plt Count 185 (150-400) K/uL MPV 10.10 (7.40-12.00) fL Add Manual Diff YES Neutrophils % (Manual) 76 (48.0-80.0) % Band Neutrophils % 8 % Lymphocytes % (Manual) 9 L (16.0-40.0) % Monocytes % (Manual) 7 (0.0-15.0) % Nucleated RBC % 0.0 /100WBC Absolute Seg Neuts 10.2 H (1.4-5.7) Band Neutrophils # 1.1 Lymphocytes # (Manual) 1.2 (0.6-2.4) Monocytes # (Manual) 0.9 H (0.0-0.8) Nucleated RBCs # 0 K/uL ABG pH 7.483 H (7.35-7.45) ABG pCO2 32 L (35-45) mmHG ABG pO2 65 L (75-100) mmHG ABG HCO3 24 (22-26) mEq/L ABG Total CO2 19.8 ABG Base Excess 1.2 (-2.0-2.0) Sodium 138 (136-148) mmol/L Potassium 4.4 (3.5-5.1) mmol/L Chloride 103 (98-107) mmol/L Carbon Dioxide 26.5 (21.0-32.0) mmol/L BUN 25 H (7.0-18.0) mg/dL Creatinine 1.1 (0.8-1.3) mg/dL Est Cr Clr Drug Dosing 79.45 mL/min Estimated GFR (MDRD) > 60.0 ml/min Glucose 114 H (74-106) mg/dL Calcium 8.8 (8.5-10.1) mg/dL Magnesium 2.4 (1.8-2.4) mg/dL Total Bilirubin 0.8 (0.2-1.0) mg/dL AST 29 (15-37) IU/L ALT 34 (14-63) IU/L Alkaline Phosphatase 62 (46-116) U/L Total Protein 6.7 (6.4-8.2) g/dL Albumin 2.6 L (3.4-5.0) g/dL Globulin 4.1 H (2.6-4.0) g/dL Albumin/Globulin Ratio 0.6 L (0.9-1.6) Med Orders - Current: Current Medications Acetaminophen (Tylenol) 650 mg PO Q4H PRN PRN Reason: Pain (Mild 1-3)/fever Last Admin: 09/15/20 23:29 Dose: 650 mg Documented by: Albuterol/Ipratropium (Duoneb 3.0-0.5 Mg/3 Ml) 3 ml NEB Q4HRRT [facility] Benzonatate (Tessalon Perles) 200 mg PO TID [facility] Last Admin: 09/18/20 07:01 Dose: 200 mg Documented by: Dexamethasone (Dexamethasone) 6 mg PO DAILY [facility] Last Admin: 09/17/20 09:20 Dose: 6 mg Documented by: Enoxaparin Sodium (Lovenox) 40 mg SUBCUT BID [facility] Last Admin: 09/17/20 21:16 Dose: 40 mg Documented by: Guaifenesin/Codeine Phosphate (Robitussin Ac) 5 ml PO Q6H PRN PRN Reason: Cough Last Admin: 09/18/20 02:32 Dose: 5 ml Documented by: Remdesivir 100 mg/ Sodium (Chloride) 100 mls @ 100 mls/hr IV Q24H [facility] Stop: 09/19/20 15:44 Last Admin: 09/17/20 14:26 Dose: 100 mls/hr Documented by: Levofloxacin/Dextrose 750 mg/ (Premix) 150 mls @ 100 mls/hr IV Q24H [facility] Last Admin: 09/17/20 11:39 Dose: 100 mls/hr Documented by: Pantoprazole Sodium 40 mg/ (Sodium Chloride) 10 mls @ 300 mls/hr IV Q24H [facility] Last Admin: 09/17/20 15:51 Dose: 300 mls/hr Documented by: Sodium Chloride (Normal Saline) 500 mls @ 999 mls/hr IV .BOLUS [facility] Ondansetron HCl (Zofran) 4 mg IVPUSH Q4H PRN PRN Reason: Nausea Sodium Chloride (Saline Flush) 2.5 ml FLUSH ASDIRECTED PRN PRN Reason: Keep Vein Open Discontinued Medications Albuterol/Ipratropium (Combivent Respimat) 0 gm INH QID [facility] Last Admin: 09/18/20 06:13 Dose: 1 puff Documented by: Benzonatate (Tessalon Perles) 200 mg PO TID PRN PRN Reason: Cough Dexamethasone (Decadron) Confirm Administered Dose 10 mg .ROUTE .STK-MED ONE Stop: 09/15/20 15:55 Last Admin: 09/15/20 15:58 Dose: Not Given Documented by: Enoxaparin Sodium (Lovenox) 40 mg SUBCUT Q12HR [facility] Enoxaparin Sodium (Lovenox) 40 mg SUBCUT DAILY [facility] Last Admin: 09/15/20 16:45 Dose: 40 mg Documented by: Enoxaparin Sodium (Lovenox) 40 mg SUBCUT Q24H [facility] Furosemide (Lasix) 20 mg IVPUSH ONETIME ONE Stop: 09/17/20 12:48 Last Admin: 09/17/20 13:00 Dose: 20 mg Documented by: Levofloxacin/Dextrose 750 mg/ (Premix) 150 mls @ 100 mls/hr IV ONETIME ONE Stop: 09/15/20 15:00 Last Admin: 09/15/20 15:55 Dose: 100 mls/hr Documented by: Remdesivir 200 mg/ Sodium (Chloride) 250 mls @ 250 mls/hr IV ONETIME ONE Stop: 09/15/20 16:59 Last Admin: 09/15/20 17:54 Dose: 250 mls/hr Documented by: Levofloxacin/Dextrose (Levaquin In D5w 750 Mg/150 Ml) Confirm Administered Dose 150 mls @ as directed IV .STK-MED ONE Stop: 09/15/20 15:54 Last Admin: 09/15/20 16:46 Dose: Not Given Documented by: Iopamidol (Isovue Multipack-370 (76%)) 75 ml IVPUSH ONETIME STA Stop: 09/15/20 14:19 Last Admin: 09/15/20 14:19 Dose: 75 ml Documented by: Lorazepam (Ativan) 0.5 mg IVPUSH ONETIME ONE Stop: 09/17/20 11:10 Last Admin: 09/17/20 11:25 Dose: 0.5 mg Documented by: Sodium Chloride (Saline Flush) 10 ml FLUSH ASDIRECTED PRN PRN Reason: Keep Vein Open Sodium Chloride (Saline Flush) 2.5 ml FLUSH ASDIRECTED PRN PRN Reason: Keep Vein Open - Exam General: Alert, Oriented, Cooperative, No Acute Distress Lungs: Decreased Breath Sounds (Bibasilar). No: Normal Respiratory Effort (Dyspnea noted but improved since yesterday), Wheezing Cardiovascular: Regular Rate, Regular Rhythm GI/Abdominal Exam: Normal Bowel Sounds, Soft, Non-Tender Extremities: Normal Inspection, Normal Range of Motion, Non-Tender, No Pedal Edema Wound/Incisions: Healing Well Neurological: No New Focal Deficit Psy/Mental Status: Alert, Normal Affect, Normal Mood Sepsis Event Note - Evaluation Sepsis Screening Result: No Definite Risk - Focused Exam Vital Signs: Vital Signs Temp Resp BP Pulse Ox 09/18/20 06:00 26 H 118/67 91 L 09/18/20 05:00 26 H 116/69 87 L 09/18/20 04:00 97.0 F 25 H 116/51 L 90 L 09/18/20 03:00 20 124/74 92 L 09/18/20 02:00 18 128/78 89 L 09/18/20 01:00 28 H 108/67 91 L 09/18/20 00:00 96.8 F L 24 H 121/77 92 L 09/17/20 23:00 30 H 122/64 92 L 09/17/20 22:00 31 H 119/76 94 L 09/17/20 21:00 31 H 137/87 92 L 09/17/20 20:00 96.8 F L 26 H 120/69 93 L - Problem List & Annotations (1) Acute respiratory failure with hypoxia SNOMED Code(s): 04321242, 146934272 Code(s): J96.01 - ACUTE RESPIRATORY FAILURE WITH HYPOXIA Status: Acute Current Visit: Yes (2) 2019 novel coronavirus disease (COVID-19) SNOMED Code(s): 609705222 Code(s): U07.1 - COVID-19 Status: Acute Current Visit: No (3) Hemoptysis SNOMED Code(s): 81295802 Code(s): R04.2 - HEMOPTYSIS Status: Acute Current Visit: Yes (4) Obesity (BMI 30-39.9) SNOMED Code(s): 998699817, 839882985 Code(s): E66.9 - OBESITY, UNSPECIFIED Status: Chronic Priority: High Current Visit: No - Problem List Review Problem List Initiated/Reviewed/Updated: Yes - My Orders Last 24 Hours: My Active Orders 09/17/20 09:35 Transfer Patient (Change bed) [ADT] Routine 09/17/20 09:37 BIPAP Adult [RT BiPAP/CPAP] [RC] ASDIRECTED 09/18/20 07:48 RT Aerosol Therapy [RC] ASDIRECTED 09/18/20 10:00 Albuterol/Ipratropium [DuoNeb 3.0-0.5 MG/3 ML] 3 ml NEB Q4HRRT 09/19/20 05:11 CBC WITH AUTO DIFF [HEME] AM COMPREHENSIVE METABOLIC PN,CMP [CHEM] AM MAGNESIUM [CHEM] AM 09/20/20 05:11 CBC WITH AUTO DIFF [HEME] AM COMPREHENSIVE METABOLIC PN,CMP [CHEM] AM MAGNESIUM [CHEM] AM - Plan Plan:: This 49-year-old male admitted with acute hypoxic respiratory failure secondary to COVID-19 pneumonia and CAP 1. Acute hypoxic respiratory failure secondary to COVID-19 and CAP -Remains on BiPAP this morning, 09/15 60% FiO2 oxygen saturations above 90% and respiratory rate mid 20s to low 30s. Appears more comfortable than yesterday. - Continue remdesivir 100 mg IV daily x4 days, today is day 3 - Dexamethasone 6 mg p.o. daily -Has received 2 units of convalescent plasma on 09/16/2020 -Continue Levaquin 750 IV daily -I-S and Acapella use encouraged coughing and deep breathing. -He has been unable to tolerate self proning but has tried laying on his left side. I have continued to encouraged prone positioning or at least left side- lying 12 to 16 hours daily. -We will discontinue Combivent inhaler will add duo nebs which would be easier to deliver via BiPAP - Lovenox to 40 mg twice daily VTE prophylaxis: Lovenox 40 twice daily CODE STATUS: Full code Dispo 2 to 3 days pending improvement Appreciate eICU's recommendations and assistance with this patient. I will contact patient's stepmother Jaycee Nelson per request of patient. [phone]. I did speak with Ex- Donald, this morning upon request of Joao, she is updated on current condition.
[2020-09-18] MEDS: Enoxaparin 40 MG/0.4 ML Syringe SUBCUT SCH ×2 (08:49→21:35)
[2020-09-18] MEDS: Dexamethasone 4 MG Tab PO SCH (08:49)
[2020-09-18] MEDS: Albuterol/Ipratropium 3.0-0.5 MG/3 ML Neb Soln NEB SCH ×4 (09:34→21:12)
[2020-09-18] MEDS: Levofloxacin/Dextrose 5%-Water 750 MG in Premix Bag 1 BAG IV SCH (11:44)
[2020-09-18] MEDS: REMDESIVIR 100 MG in Sodium Chloride 0.9% 100 ML IV SCH (14:35)
[2020-09-18] MEDS: Pantoprazole 40 MG in Sodium Chloride 0.9% 10 ML IV SCH (15:45)
[2020-09-18] MEDS: Acetaminophen 325 MG Tab PO PRN (19:55)
[2020-09-19] MEDS: Albuterol/Ipratropium 3.0-0.5 MG/3 ML Neb Soln NEB SCH ×6 (01:54→21:06)
[2020-09-19] MEDS: Codeine/guaiFENesin 10-100 MG/5 ML Syrup 5 ML Cup PO PRN (03:08)
[2020-09-19] MEDS: Benzonatate 100 MG Cap PO SCH ×3 (05:58→21:07)
[2020-09-19 07:05] LABS: BLOOD UREA NITROGEN,BUN 23 mg/dL (7.0-18.0); CHLORIDE,CL 103 mmol/L (98-107); GLUCOSE RANDOM 126 mg/dL (74-106); POTASSIUM,K 4.2 mmol/L (3.5-5.1); SODIUM,NA 138 mmol/L (136-148)
[2020-09-19] MEDS ORDERED: Furosemide 20 MG/2 ML VIAL IVPUSH ONE (08:46)
--- NOTE | 2020-09-19 08:47 | PCM.PN ---
- General Info Date of Service: 09/19/20 Admission Dx/Problem (Free Text): Admission Diagnosis/Problem Admission Diagnosis/Problem acute hypoxic respiratory failure, COVID-19 pneumonia, possible CAP Subjective Update: Feeling a little bit improved. Denies any overt fatigue or tiredness. Reports shortness of breath. Reports cough has worsened no further hemoptysis but does have scant white to clear sputum production. Reports feeling congested in his chest. Denies any abdominal pain nausea vomiting. No fevers or chills. It is noted with any activity saturations do decrease to low 80s. Did not have any tachycardia along with this. Functional Status: Reports: Pain Controlled, Tolerating Diet, Ambulating, Urinating - Review of Systems General: Reports: Malaise. Denies: Fatigue HEENT: Reports: No Symptoms. Denies: Headaches, Visual Changes Pulmonary: Reports: Shortness of Breath, Cough, Sputum (Clear to light). Denies: Hemoptysis Cardiovascular: Reports: Dyspnea on Exertion. Denies: Chest Pain Gastrointestinal: Reports: No Symptoms. Denies: Abdominal Pain, Constipation, Nausea, Vomiting Genitourinary: Reports: No Symptoms. Denies: Dysuria, Frequency Musculoskeletal: Reports: No Symptoms Skin: Reports: No Symptoms Neurological: Reports: No Symptoms Psychiatric: Reports: No Symptoms - Patient Data Vitals - Most Recent: Last Vital Signs Temp 97.5 F 09/19/20 04:00 Pulse 74 09/19/20 06:47 Resp 32 H 09/19/20 06:47 BP 131/82 09/19/20 06:47 Pulse Ox 92 L 09/19/20 06:47 Weight - Most Recent: 120.157 kg I&O - Last 24 Hours: Intake & Output 09/18/20 09/19/20 09/19/20 22:59 06:59 14:59 Intake Total 1580 750 Output Total 1870 770 Balance -290 -20 Lab Results Last 24 Hours: Laboratory Results - last 24 hr 09/15/20 09/19/20 09/19/20 Range/Units 15:02 06:08 06:08 WBC 13.02 H (4.0-11.0) K/uL RBC 4.91 (4.50-5.90) M/uL Hgb 15.6 (13.0-17.0) g/dL Hct 47.1 (38.0-50.0) % MCV 95.9 (80.0-98.0) fL MCH 31.8 (27.0-32.0) pg MCHC 33.1 (31.0-37.0) g/dL RDW Std Deviation 47.6 (28.0-62.0) fl RDW Coeff of Laney 14 (11.0-15.0) % Plt Count 189 (150-400) K/uL MPV 10.20 (7.40-12.00) fL Neut % (Auto) 85.0 H (48.0-80.0) % Lymph % (Auto) 8.6 L (16.0-40.0) % [place] % (Auto) 6.2 (0.0-15.0) % Eos % (Auto) 0.0 (0.0-7.0) % Baso % (Auto) 0.2 (0.0-1.5) % Neut # (Auto) 11.1 H (1.4-5.7) K/uL Lymph # (Auto) 1.1 (0.6-2.4) K/uL [place] # (Auto) 0.8 (0.0-0.8) K/uL Eos # (Auto) 0.0 (0.0-0.7) K/uL Baso # (Auto) 0.0 (0.0-0.1) K/uL Nucleated RBC % 0.0 /100WBC Nucleated RBCs # 0 K/uL Sodium 138 (136-148) mmol/L Potassium 4.2 (3.5-5.1) mmol/L Chloride 103 (98-107) mmol/L Carbon Dioxide 26.0 (21.0-32.0) mmol/L BUN 23 H (7.0-18.0) mg/dL Creatinine 1.1 (0.8-1.3) mg/dL Est Cr Clr Drug Dosing 79.45 mL/min Estimated GFR (MDRD) > 60.0 ml/min Glucose 126 H (74-106) mg/dL Calcium 8.6 (8.5-10.1) mg/dL Magnesium 2.3 (1.8-2.4) mg/dL Total Bilirubin 0.8 (0.2-1.0) mg/dL AST 31 (15-37) IU/L ALT 31 (14-63) IU/L Alkaline Phosphatase 61 (46-116) U/L Total Protein 6.7 (6.4-8.2) g/dL Albumin 2.6 L (3.4-5.0) g/dL Globulin 4.1 H (2.6-4.0) g/dL Albumin/Globulin Ratio 0.6 L (0.9-1.6) Blood Type B POSITIVE Antibody Screen NEGATIVE Med Orders - Current: Current Medications Acetaminophen (Tylenol) 650 mg PO Q4H PRN PRN Reason: Pain (Mild 1-3)/fever Last Admin: 09/18/20 19:55 Dose: 650 mg Documented by: Albuterol/Ipratropium (Duoneb 3.0-0.5 Mg/3 Ml) 3 ml NEB Q4HRRT [facility] Last Admin: 09/19/20 05:47 Dose: 3 ml Documented by: Benzonatate (Tessalon Perles) 200 mg PO TID [facility] Last Admin: 09/19/20 05:58 Dose: 200 mg Documented by: Dexamethasone (Dexamethasone) 6 mg PO DAILY [facility] Stop: 09/24/20 09:01 Last Admin: 09/18/20 08:49 Dose: 6 mg Documented by: Enoxaparin Sodium (Lovenox) 40 mg SUBCUT BID [facility] Last Admin: 09/18/20 21:35 Dose: 40 mg Documented by: Furosemide (Lasix) 20 mg IVPUSH ONETIME ONE Stop: 09/19/20 08:47 Guaifenesin/Codeine Phosphate (Robitussin Ac) 5 ml PO Q6H PRN PRN Reason: Cough Last Admin: 09/19/20 03:08 Dose: 5 ml Documented by: Remdesivir 100 mg/ Sodium (Chloride) 100 mls @ 100 mls/hr IV Q24H [facility] Stop: 09/19/20 15:44 Last Admin: 09/18/20 14:35 Dose: 100 mls/hr Documented by: Levofloxacin/Dextrose 750 mg/ (Premix) 150 mls @ 100 mls/hr IV Q24H [facility] Last Admin: 09/18/20 11:44 Dose: 100 mls/hr Documented by: Pantoprazole Sodium 40 mg/ (Sodium Chloride) 10 mls @ 300 mls/hr IV Q24H [facility] Last Admin: 09/18/20 15:45 Dose: 300 mls/hr Documented by: Sodium Chloride (Normal Saline) 500 mls @ 999 mls/hr IV .BOLUS [facility] Ondansetron HCl (Zofran) 4 mg IVPUSH Q4H PRN PRN Reason: Nausea Sodium Chloride (Saline Flush) 2.5 ml FLUSH ASDIRECTED PRN PRN Reason: Keep Vein Open Discontinued Medications Albuterol/Ipratropium (Combivent Respimat) 0 gm INH QID [facility] Last Admin: 09/18/20 06:13 Dose: 1 puff Documented by: Benzonatate (Tessalon Perles) 200 mg PO TID PRN PRN Reason: Cough Dexamethasone (Decadron) Confirm Administered Dose 10 mg .ROUTE .STK-MED ONE Stop: 09/15/20 15:55 Last Admin: 09/15/20 15:58 Dose: Not Given Documented by: Enoxaparin Sodium (Lovenox) 40 mg SUBCUT Q12HR [facility] Enoxaparin Sodium (Lovenox) 40 mg SUBCUT DAILY [facility] Last Admin: 09/15/20 16:45 Dose: 40 mg Documented by: Enoxaparin Sodium (Lovenox) 40 mg SUBCUT Q24H [facility] Furosemide (Lasix) 20 mg IVPUSH ONETIME ONE Stop: 09/17/20 12:48 Last Admin: 09/17/20 13:00 Dose: 20 mg Documented by: Levofloxacin/Dextrose 750 mg/ (Premix) 150 mls @ 100 mls/hr IV ONETIME ONE Stop: 09/15/20 15:00 Last Admin: 09/15/20 15:55 Dose: 100 mls/hr Documented by: Remdesivir 200 mg/ Sodium (Chloride) 250 mls @ 250 mls/hr IV ONETIME ONE Stop: 09/15/20 16:59 Last Admin: 09/15/20 17:54 Dose: 250 mls/hr Documented by: Levofloxacin/Dextrose (Levaquin In D5w 750 Mg/150 Ml) Confirm Administered Dose 150 mls @ as directed IV .STK-MED ONE Stop: 09/15/20 15:54 Last Admin: 09/15/20 16:46 Dose: Not Given Documented by: Iopamidol (Isovue Multipack-370 (76%)) 75 ml IVPUSH ONETIME STA Stop: 09/15/20 14:19 Last Admin: 09/15/20 14:19 Dose: 75 ml Documented by: Lorazepam (Ativan) 0.5 mg IVPUSH ONETIME ONE Stop: 09/17/20 11:10 Last Admin: 09/17/20 11:25 Dose: 0.5 mg Documented by: Sodium Chloride (Saline Flush) 10 ml FLUSH ASDIRECTED PRN PRN Reason: Keep Vein Open Sodium Chloride (Saline Flush) 2.5 ml FLUSH ASDIRECTED PRN PRN Reason: Keep Vein Open - Exam Quality Assessment: Supplemental Oxygen (Currently remains on BiPAP settings 09/15 60% FiO2), DVT Prophylaxis (Lovenox twice daily) General: Alert, Oriented, Cooperative, No Acute Distress Lungs: Decreased Breath Sounds (Bibasilar), Crackles (Fine crackles bibasilar). No: Normal Respiratory Effort (Dyspnea noted) Cardiovascular: Regular Rate, Regular Rhythm, No Murmurs GI/Abdominal Exam: Normal Bowel Sounds, Soft, Non-Tender Extremities: Normal Inspection, Normal Range of Motion, Non-Tender, No Pedal Edema Neurological: No New Focal Deficit Psy/Mental Status: Alert, Normal Affect, Normal Mood Sepsis Event Note - Evaluation Sepsis Screening Result: Severe Sepsis Risk - Focused Exam Vital Signs: Vital Signs Temp Pulse Resp BP Pulse Ox 09/19/20 06:47 74 32 H 131/82 92 L 09/19/20 05:59 74 32 H 116/77 90 L 09/19/20 05:00 63 30 H 91 L 09/19/20 04:00 97.5 F 67 28 H 128/79 90 L 09/19/20 03:06 65 33 H 134/78 89 L 09/19/20 01:56 64 26 H 135/88 90 L 09/19/20 01:00 65 28 H 127/78 91 L 09/19/20 00:20 97.9 F 58 L 25 H 110/65 90 L 09/19/20 00:00 90 L 09/18/20 22:54 61 28 H 128/75 93 L 09/18/20 21:46 67 29 H 127/63 93 L - Problem List & Annotations (1) Acute respiratory failure with hypoxia SNOMED Code(s): 72887326, 668969204 Code(s): J96.01 - ACUTE RESPIRATORY FAILURE WITH HYPOXIA Status: Acute Current Visit: Yes (2) 2019 novel coronavirus disease (COVID-19) SNOMED Code(s): 380430001 Code(s): U07.1 - COVID-19 Status: Acute Current Visit: No (3) Hemoptysis SNOMED Code(s): 52335644 Code(s): R04.2 - HEMOPTYSIS Status: Acute Current Visit: Yes (4) Obesity (BMI 30-39.9) SNOMED Code(s): 789762488, 895215438 Code(s): E66.9 - OBESITY, UNSPECIFIED Status: Chronic Priority: High Current Visit: No - Problem List Review Problem List Initiated/Reviewed/Updated: Yes - My Orders Last 24 Hours: My Active Orders 09/18/20 07:48 RT Aerosol Therapy [RC] ASDIRECTED 09/18/20 10:00 Albuterol/Ipratropium [DuoNeb 3.0-0.5 MG/3 ML] 3 ml NEB Q4HRRT 09/19/20 08:46 Furosemide [Lasix] 20 mg IVPUSH ONETIME ONE 09/20/20 05:11 CBC WITH AUTO DIFF [HEME] AM COMPREHENSIVE METABOLIC PN,CMP [CHEM] AM MAGNESIUM [CHEM] AM - Plan Plan:: This 49-year-old male admitted with acute hypoxic respiratory failure secondary to COVID-19 pneumonia and CAP 1. Acute hypoxic respiratory failure secondary to COVID-19 and CAP - Remains on BiPAP this morning, 09/15 60% FiO2 oxygen saturations above 90% and respiratory rate mid 20s to low 30s. Appears more comfortable than yesterday. - Transitioned to Vapotherm heat high flow and appears much more relaxed and RR decreased. satting mid 90s 40 L flow FIO2 86% - Continue remdesivir 100 mg IV daily x4 days, today is day 4 - Dexamethasone 6 mg p.o. daily -Has received 2 units of convalescent plasma on 09/16/2020 -Continue Levaquin 750 IV daily -I-S and Acapella use encouraged coughing and deep breathing. -He has been unable to tolerate self proning but has tried laying on his left side. I have continued to encouraged prone positioning or at least left side- lying 12 to 16 hours daily. -We will discontinue Combivent inhaler will add duo nebs which would be easier to deliver via BiPAP - Lovenox to 40 mg twice daily - Will give another Lasix 20 mg IV today and monitor improvement VTE prophylaxis: Lovenox 40 twice daily CODE STATUS: Full code Dispo 2 to 3 days pending improvement Appreciate Ania's recommendations and assistance with this patient. stepmother Jaycee Nelson, .
[2020-09-19] MEDS: Dexamethasone 4 MG Tab PO SCH (08:49)
[2020-09-19] MEDS: Enoxaparin 40 MG/0.4 ML Syringe SUBCUT SCH ×2 (08:51→21:06)
[2020-09-19] MEDS: Levofloxacin/Dextrose 5%-Water 750 MG in Premix Bag 1 BAG IV SCH (12:46)
[2020-09-19] MEDS: REMDESIVIR 100 MG in Sodium Chloride 0.9% 100 ML IV SCH (14:50)
[2020-09-19] MEDS: Pantoprazole 40 MG in Sodium Chloride 0.9% 10 ML IV SCH (15:54)
[2020-09-19] MEDS: Acetaminophen 325 MG Tab PO PRN (15:59)
[2020-09-20] MEDS: Albuterol/Ipratropium 3.0-0.5 MG/3 ML Neb Soln NEB SCH ×6 (01:24→21:18)
[2020-09-20] MEDS: Codeine/guaiFENesin 10-100 MG/5 ML Syrup 5 ML Cup PO PRN ×3 (01:24→23:15)
[2020-09-20] MEDS: Benzonatate 100 MG Cap PO SCH ×3 (05:39→21:00)
[2020-09-20 06:43] LABS: BLOOD UREA NITROGEN,BUN 24 mg/dL (7.0-18.0); CARBON DIOXIDE,CO2 28.6 mmol/L (21.0-32.0); CHLORIDE,CL 102 mmol/L (98-107); GLUCOSE RANDOM 129 mg/dL (74-106); POTASSIUM,K 4.5 mmol/L (3.5-5.1); SODIUM,NA 136 mmol/L (136-148)
[2020-09-20] MEDS: Dexamethasone 4 MG Tab PO SCH (08:31)
[2020-09-20] MEDS: Enoxaparin 40 MG/0.4 ML Syringe SUBCUT SCH ×2 (08:32→20:57)
--- NOTE | 2020-09-20 10:25 | PCM.PN ---
- General Info Date of Service: 09/20/20 Subjective Update: Patient states right back pain due to coughing. Patient denies fever, chills, nausea, vomiting abdominal pain. Patient still states significant short of breath with ambulation. Patient also states significant coughing especially when using the incentive spirometer - Review of Systems General: Denies: Fever, Chills Pulmonary: Reports: Shortness of Breath, Cough Cardiovascular: Denies: Chest Pain Gastrointestinal: Denies: Abdominal Pain, Nausea, Vomiting Musculoskeletal: Reports: Back Pain (with coughing) Neurological: Denies: Confusion, Dizziness, Headache - Patient Data Vitals - Most Recent: Last Vital Signs Temp 98 F 09/20/20 08:24 Pulse 60 09/19/20 08:00 Resp 23 H 09/20/20 08:24 BP 126/90 09/20/20 08:24 Pulse Ox 85 L 09/20/20 08:24 Weight - Most Recent: 264 lb 14.4 oz I&O - Last 24 Hours: Intake & Output 09/19/20 09/20/20 09/20/20 22:59 06:59 14:59 Intake Total 1650 500 Output Total 1100 700 Balance 550 -200 Lab Results Last 24 Hours: Laboratory Results - last 24 hr 09/20/20 09/20/20 Range/Units 06:15 06:15 WBC 13.69 H (4.0-11.0) K/uL RBC 4.89 (4.50-5.90) M/uL Hgb 15.9 (13.0-17.0) g/dL Hct 46.6 (38.0-50.0) % MCV 95.3 (80.0-98.0) fL MCH 32.5 H (27.0-32.0) pg MCHC 34.1 (31.0-37.0) g/dL RDW Std Deviation 46.0 (28.0-62.0) fl RDW Coeff of Laney 13 (11.0-15.0) % Plt Count 221 (150-400) K/uL MPV 10.00 (7.40-12.00) fL Neut % (Auto) 88.0 H (48.0-80.0) % Lymph % (Auto) 5.7 L (16.0-40.0) % [place] % (Auto) 6.2 (0.0-15.0) % Eos % (Auto) 0.0 (0.0-7.0) % Baso % (Auto) 0.1 (0.0-1.5) % Neut # (Auto) 12.1 H (1.4-5.7) K/uL Lymph # (Auto) 0.8 (0.6-2.4) K/uL [place] # (Auto) 0.9 H (0.0-0.8) K/uL Eos # (Auto) 0.0 (0.0-0.7) K/uL Baso # (Auto) 0.0 (0.0-0.1) K/uL Nucleated RBC % 0.0 /100WBC Nucleated RBCs # 0 K/uL Sodium 136 (136-148) mmol/L Potassium 4.5 (3.5-5.1) mmol/L Chloride 102 (98-107) mmol/L Carbon Dioxide 28.6 (21.0-32.0) mmol/L BUN 24 H (7.0-18.0) mg/dL Creatinine 1.0 (0.8-1.3) mg/dL Est Cr Clr Drug Dosing 87.40 mL/min Estimated GFR (MDRD) > 60.0 ml/min Glucose 129 H (74-106) mg/dL Calcium 8.7 (8.5-10.1) mg/dL Magnesium 2.4 (1.8-2.4) mg/dL Total Bilirubin 0.7 (0.2-1.0) mg/dL AST 24 (15-37) IU/L ALT 29 (14-63) IU/L Alkaline Phosphatase 70 (46-116) U/L Total Protein 6.6 (6.4-8.2) g/dL Albumin 2.5 L (3.4-5.0) g/dL Globulin 4.1 H (2.6-4.0) g/dL Albumin/Globulin Ratio 0.6 L (0.9-1.6) Med Orders - Current: Current Medications Acetaminophen (Tylenol) 650 mg PO Q4H PRN PRN Reason: Pain (Mild 1-3)/fever Last Admin: 09/19/20 15:59 Dose: 650 mg Documented by: Albuterol/Ipratropium (Duoneb 3.0-0.5 Mg/3 Ml) 3 ml NEB Q4HRRT [facility] Last Admin: 09/20/20 09:52 Dose: 3 ml Documented by: Benzonatate (Tessalon Perles) 200 mg PO TID [facility] Last Admin: 09/20/20 05:39 Dose: 200 mg Documented by: Dexamethasone (Dexamethasone) 6 mg PO DAILY [facility] Stop: 09/24/20 09:01 Last Admin: 09/20/20 08:31 Dose: 6 mg Documented by: Enoxaparin Sodium (Lovenox) 40 mg SUBCUT BID [facility] Last Admin: 09/20/20 08:32 Dose: 40 mg Documented by: Guaifenesin/Codeine Phosphate (Robitussin Ac) 5 ml PO Q6H PRN PRN Reason: Cough Last Admin: 09/20/20 08:35 Dose: 5 ml Documented by: Levofloxacin/Dextrose 750 mg/ (Premix) 150 mls @ 100 mls/hr IV Q24H [facility] Last Admin: 09/19/20 12:46 Dose: 100 mls/hr Documented by: Pantoprazole Sodium 40 mg/ (Sodium Chloride) 10 mls @ 300 mls/hr IV Q24H [facility] Last Admin: 09/19/20 15:54 Dose: 300 mls/hr Documented by: Sodium Chloride (Normal Saline) 500 mls @ 999 mls/hr IV .BOLUS [facility] Ondansetron HCl (Zofran) 4 mg IVPUSH Q4H PRN PRN Reason: Nausea Sodium Chloride (Saline Flush) 2.5 ml FLUSH ASDIRECTED PRN PRN Reason: Keep Vein Open Discontinued Medications Albuterol/Ipratropium (Combivent Respimat) 0 gm INH QID [facility] Last Admin: 09/18/20 06:13 Dose: 1 puff Documented by: Benzonatate (Tessalon Perles) 200 mg PO TID PRN PRN Reason: Cough Dexamethasone (Decadron) Confirm Administered Dose 10 mg .ROUTE .STK-MED ONE Stop: 09/15/20 15:55 Last Admin: 09/15/20 15:58 Dose: Not Given Documented by: Enoxaparin Sodium (Lovenox) 40 mg SUBCUT Q12HR [facility] Enoxaparin Sodium (Lovenox) 40 mg SUBCUT DAILY [facility] Last Admin: 09/15/20 16:45 Dose: 40 mg Documented by: Enoxaparin Sodium (Lovenox) 40 mg SUBCUT Q24H [facility] Furosemide (Lasix) 20 mg IVPUSH ONETIME ONE Stop: 09/17/20 12:48 Last Admin: 09/17/20 13:00 Dose: 20 mg Documented by: Furosemide (Lasix) 20 mg IVPUSH ONETIME ONE Stop: 09/19/20 08:47 Last Admin: 09/19/20 08:56 Dose: 20 mg Documented by: Levofloxacin/Dextrose 750 mg/ (Premix) 150 mls @ 100 mls/hr IV ONETIME ONE Stop: 09/15/20 15:00 Last Admin: 09/15/20 15:55 Dose: 100 mls/hr Documented by: Remdesivir 100 mg/ Sodium (Chloride) 100 mls @ 100 mls/hr IV Q24H [facility] Stop: 09/19/20 15:44 Last Admin: 09/19/20 14:50 Dose: 100 mls/hr Documented by: Remdesivir 200 mg/ Sodium (Chloride) 250 mls @ 250 mls/hr IV ONETIME ONE Stop: 09/15/20 16:59 Last Admin: 09/15/20 17:54 Dose: 250 mls/hr Documented by: Levofloxacin/Dextrose (Levaquin In D5w 750 Mg/150 Ml) Confirm Administered Dose 150 mls @ as directed IV .STK-MED ONE Stop: 09/15/20 15:54 Last Admin: 09/15/20 16:46 Dose: Not Given Documented by: Iopamidol (Isovue Multipack-370 (76%)) 75 ml IVPUSH ONETIME STA Stop: 09/15/20 14:19 Last Admin: 09/15/20 14:19 Dose: 75 ml Documented by: Lorazepam (Ativan) 0.5 mg IVPUSH ONETIME ONE Stop: 09/17/20 11:10 Last Admin: 09/17/20 11:25 Dose: 0.5 mg Documented by: Sodium Chloride (Saline Flush) 10 ml FLUSH ASDIRECTED PRN PRN Reason: Keep Vein Open Sodium Chloride (Saline Flush) 2.5 ml FLUSH ASDIRECTED PRN PRN Reason: Keep Vein Open - Exam Quality Assessment: Supplemental Oxygen (BiPap) General: Alert, Oriented Lungs: Clear to Auscultation, Other (decreased inspiratory effort) Cardiovascular: Regular Rate, Regular Rhythm GI/Abdominal Exam: Normal Bowel Sounds, Soft, Non-Tender Back Exam: No: CVA Tenderness (L), CVA Tenderness (R) Extremities: No Pedal Edema Psy/Mental Status: Alert Sepsis Event Note - Evaluation Sepsis Screening Result: Severe Sepsis Risk - Focused Exam Vital Signs: Vital Signs Temp Resp BP Pulse Ox 09/20/20 08:24 98 F 23 H 126/90 85 L 09/20/20 07:00 19 95 09/20/20 06:00 35 H 94 L 09/20/20 05:00 33 H 137/80 92 L 09/20/20 04:00 20 119/81 92 L 09/20/20 03:00 31 H 90 L 09/20/20 02:00 32 H 89 L 09/20/20 01:00 27 H 91 L 09/20/20 00:00 97.8 F 33 H 134/79 93 L 09/19/20 23:00 31 H 92 L - Problem List & Annotations (1) Acute respiratory failure with hypoxia SNOMED Code(s): 50315865, 417446012 Code(s): J96.01 - ACUTE RESPIRATORY FAILURE WITH HYPOXIA Status: Acute Current Visit: Yes (2) COVID-19 SNOMED Code(s): 635540792 Code(s): U07.1 - COVID-19 Status: Acute Current Visit: Yes (3) Hypoxemia SNOMED Code(s): 971194024 Code(s): R09.02 - HYPOXEMIA Status: Acute Current Visit: Yes (4) Dyspnea SNOMED Code(s): 949316749 Code(s): R06.00 - DYSPNEA, UNSPECIFIED Status: Acute Current Visit: No (5) Upper respiratory infection, viral SNOMED Code(s): 668940862 Code(s): J06.9 - ACUTE UPPER RESPIRATORY INFECTION, UNSPECIFIED Status: Acute Current Visit: No (6) Obesity (BMI 30-39.9) SNOMED Code(s): 773686467, 013761633 Code(s): E66.9 - OBESITY, UNSPECIFIED Status: Chronic Priority: High Current Visit: No (7) Uncontrolled hypertension SNOMED Code(s): 06450967, 33569942 Code(s): I10 - ESSENTIAL (PRIMARY) HYPERTENSION Status: Chronic Priority: High Current Visit: No - Problem List Review Problem List Initiated/Reviewed/Updated: Yes - Plan Plan:: Acute hypoxic respiratory failure secondary to COVID-19 and CAP- BiPAP this morning, 09/15 55% FiO2 oxygen saturations above 90%, Continue remdesivir, Dexamethasone 6 mg p.o. daily, Has received 2 units of convalescent plasma on 09/16/2020, Continue Levaquin 750 IV daily, I-S and Acapella use encouraged coughing and deep breathing, continued to encouraged prone positioning,, Combivent inhaler, Lovenox to 40 mg twice daily
[2020-09-20] MEDS: Levofloxacin/Dextrose 5%-Water 750 MG in Premix Bag 1 BAG IV SCH (11:23)
[2020-09-20] MEDS: Pantoprazole 40 MG in Sodium Chloride 0.9% 10 ML IV SCH (15:07)
[2020-09-21] MEDS: Albuterol/Ipratropium 3.0-0.5 MG/3 ML Neb Soln NEB SCH ×6 (01:43→21:02)
[2020-09-21] MEDS: Benzonatate 100 MG Cap PO SCH ×3 (05:00→21:01)
[2020-09-21 06:19] LABS: BLOOD UREA NITROGEN,BUN 23 mg/dL (7.0-18.0); CHLORIDE,CL 104 mmol/L (98-107); GLUCOSE RANDOM 239 mg/dL (74-106); POTASSIUM,K 4.5 mmol/L (3.5-5.1); SODIUM,NA 139 mmol/L (136-148)
[2020-09-21] MEDS: Dexamethasone 4 MG Tab PO SCH (08:05)
[2020-09-21] MEDS: Enoxaparin 40 MG/0.4 ML Syringe SUBCUT SCH ×2 (08:07→21:02)
[2020-09-21] MEDS: Levofloxacin/Dextrose 5%-Water 750 MG in Premix Bag 1 BAG IV SCH (11:47)
--- NOTE | 2020-09-21 14:43 | PCM.PN ---
- General Info Date of Service: 09/21/20 - Review of Systems Systems Review Comment:: feeling better - Patient Data Vitals - Most Recent: Last Vital Signs Temp 36.6 C 09/21/20 12:00 Pulse 60 09/19/20 08:00 Resp 28 H 09/21/20 13:46 BP 134/81 09/21/20 12:00 Pulse Ox 95 09/21/20 13:46 Weight - Most Recent: 120.157 kg I&O - Last 24 Hours: Intake & Output 09/20/20 09/21/20 09/21/20 22:59 06:59 14:59 Intake Total 1072 1100 Output Total 750 800 Balance 322 300 Lab Results Last 24 Hours: Laboratory Results - last 24 hr 09/21/20 09/21/20 Range/Units 05:40 05:40 WBC 9.48 (4.0-11.0) K/uL RBC 4.66 (4.50-5.90) M/uL Hgb 15.1 (13.0-17.0) g/dL Hct 44.9 (38.0-50.0) % MCV 96.4 (80.0-98.0) fL MCH 32.4 H (27.0-32.0) pg MCHC 33.6 (31.0-37.0) g/dL RDW Std Deviation 47.3 (28.0-62.0) fl RDW Coeff of [place] 13 (11.0-15.0) % Plt Count 196 (150-400) K/uL MPV 10.10 (7.40-12.00) fL Neut % (Auto) 86.5 H (48.0-80.0) % Lymph % (Auto) 6.4 L (16.0-40.0) % [place] % (Auto) 7.0 (0.0-15.0) % Eos % (Auto) 0.0 (0.0-7.0) % Baso % (Auto) 0.1 (0.0-1.5) % Neut # (Auto) 8.2 H (1.4-5.7) K/uL Lymph # (Auto) 0.6 (0.6-2.4) K/uL [place] # (Auto) 0.7 (0.0-0.8) K/uL Eos # (Auto) 0.0 (0.0-0.7) K/uL Baso # (Auto) 0.0 (0.0-0.1) K/uL Nucleated RBC % 0.0 /100WBC Nucleated RBCs # 0 K/uL Sodium 139 (136-148) mmol/L Potassium 4.5 (3.5-5.1) mmol/L Chloride 104 (98-107) mmol/L Carbon Dioxide 29.0 (21.0-32.0) mmol/L BUN 23 H (7.0-18.0) mg/dL Creatinine 1.1 (0.8-1.3) mg/dL Est Cr Clr Drug Dosing 79.45 mL/min Estimated GFR (MDRD) > 60.0 ml/min Glucose 239 H (74-106) mg/dL Calcium 8.5 (8.5-10.1) mg/dL Magnesium 2.3 (1.8-2.4) mg/dL Total Bilirubin 0.5 (0.2-1.0) mg/dL AST 20 (15-37) IU/L ALT 31 (14-63) IU/L Alkaline Phosphatase 84 (46-116) U/L Total Protein 6.3 L (6.4-8.2) g/dL Albumin 2.4 L (3.4-5.0) g/dL Globulin 3.9 (2.6-4.0) g/dL Albumin/Globulin Ratio 0.6 L (0.9-1.6) Med Orders - Current: Current Medications Acetaminophen (Tylenol) 650 mg PO Q4H PRN PRN Reason: Pain (Mild 1-3)/fever Last Admin: 09/19/20 15:59 Dose: 650 mg Documented by: Albuterol/Ipratropium (Duoneb 3.0-0.5 Mg/3 Ml) 3 ml NEB Q4HRRT [facility] Last Admin: 09/21/20 13:38 Dose: 3 ml Documented by: Benzonatate (Tessalon Perles) 200 mg PO TID [facility] Last Admin: 09/21/20 14:13 Dose: 200 mg Documented by: Dexamethasone (Dexamethasone) 6 mg PO DAILY [facility] Stop: 09/24/20 09:01 Last Admin: 09/21/20 08:05 Dose: 6 mg Documented by: Enoxaparin Sodium (Lovenox) 40 mg SUBCUT BID [facility] Last Admin: 09/21/20 08:07 Dose: 40 mg Documented by: Guaifenesin/Codeine Phosphate (Robitussin Ac) 5 ml PO Q6H PRN PRN Reason: Cough Last Admin: 09/20/20 23:15 Dose: 5 ml Documented by: Levofloxacin/Dextrose 750 mg/ (Premix) 150 mls @ 100 mls/hr IV Q24H [facility] Last Admin: 09/21/20 11:47 Dose: 100 mls/hr Documented by: Pantoprazole Sodium 40 mg/ (Sodium Chloride) 10 mls @ 300 mls/hr IV Q24H [facility] Last Admin: 09/20/20 15:07 Dose: 300 mls/hr Documented by: Sodium Chloride (Normal Saline) 500 mls @ 999 mls/hr IV .BOLUS [facility] Ondansetron HCl (Zofran) 4 mg IVPUSH Q4H PRN PRN Reason: Nausea Sodium Chloride (Saline Flush) 2.5 ml FLUSH ASDIRECTED PRN PRN Reason: Keep Vein Open Discontinued Medications Albuterol/Ipratropium (Combivent Respimat) 0 gm INH QID [facility] Last Admin: 09/18/20 06:13 Dose: 1 puff Documented by: Benzonatate (Tessalon Perles) 200 mg PO TID PRN PRN Reason: Cough Dexamethasone (Decadron) Confirm Administered Dose 10 mg .ROUTE .STK-MED ONE Stop: 09/15/20 15:55 Last Admin: 09/15/20 15:58 Dose: Not Given Documented by: Enoxaparin Sodium (Lovenox) 40 mg SUBCUT Q12HR [facility] Enoxaparin Sodium (Lovenox) 40 mg SUBCUT DAILY [facility] Last Admin: 09/15/20 16:45 Dose: 40 mg Documented by: Enoxaparin Sodium (Lovenox) 40 mg SUBCUT Q24H [facility] Furosemide (Lasix) 20 mg IVPUSH ONETIME ONE Stop: 09/17/20 12:48 Last Admin: 09/17/20 13:00 Dose: 20 mg Documented by: Furosemide (Lasix) 20 mg IVPUSH ONETIME ONE Stop: 09/19/20 08:47 Last Admin: 09/19/20 08:56 Dose: 20 mg Documented by: Levofloxacin/Dextrose 750 mg/ (Premix) 150 mls @ 100 mls/hr IV ONETIME ONE Stop: 09/15/20 15:00 Last Admin: 09/15/20 15:55 Dose: 100 mls/hr Documented by: Remdesivir 100 mg/ Sodium (Chloride) 100 mls @ 100 mls/hr IV Q24H [facility] Stop: 09/19/20 15:44 Last Admin: 09/19/20 14:50 Dose: 100 mls/hr Documented by: Remdesivir 200 mg/ Sodium (Chloride) 250 mls @ 250 mls/hr IV ONETIME ONE Stop: 09/15/20 16:59 Last Admin: 09/15/20 17:54 Dose: 250 mls/hr Documented by: Levofloxacin/Dextrose (Levaquin In D5w 750 Mg/150 Ml) Confirm Administered Dose 150 mls @ as directed IV .STK-MED ONE Stop: 09/15/20 15:54 Last Admin: 09/15/20 16:46 Dose: Not Given Documented by: Iopamidol (Isovue Multipack-370 (76%)) 75 ml IVPUSH ONETIME STA Stop: 09/15/20 14:19 Last Admin: 09/15/20 14:19 Dose: 75 ml Documented by: Lorazepam (Ativan) 0.5 mg IVPUSH ONETIME ONE Stop: 09/17/20 11:10 Last Admin: 09/17/20 11:25 Dose: 0.5 mg Documented by: Sodium Chloride (Saline Flush) 10 ml FLUSH ASDIRECTED PRN PRN Reason: Keep Vein Open Sodium Chloride (Saline Flush) 2.5 ml FLUSH ASDIRECTED PRN PRN Reason: Keep Vein Open - Exam General: Alert, Oriented Neck: Supple Lungs: Clear to Auscultation, Decreased Breath Sounds Cardiovascular: Regular Rate, Regular Rhythm GI/Abdominal Exam: Soft, Non-Tender, No Distention Extremities: Non-Tender, No Pedal Edema Skin: Warm, Dry, Intact Neurological: No New Focal Deficit Sepsis Event Note - Evaluation Sepsis Screening Result: No Definite Risk - Focused Exam Vital Signs: Vital Signs Temp Resp BP Pulse Ox Pulse Ox 09/21/20 13:46 28 H 95 09/21/20 13:00 28 H 96 09/21/20 12:00 36.6 C 24 H 134/81 93 L 09/21/20 11:00 20 94 L 09/21/20 09:56 28 H 91 L 09/21/20 08:13 14 95 09/21/20 08:11 95 09/21/20 08:00 36.3 C 17 118/72 92 L 09/21/20 07:00 20 93 L 09/21/20 06:00 31 H 96 09/21/20 05:00 28 H 93 L 09/21/20 04:00 36.4 C 22 H 132/80 89 L 09/21/20 03:00 24 H 91 L - Problem List Review Problem List Initiated/Reviewed/Updated: Yes - Plan Plan:: 49 yo male admitted for acute hypoxic respiraotry failure due to COVID COVID: completed remdesivir and plasma therapy. Continue Levaquin and dexamethasone Weaning of BIPAP to high flow
[2020-09-21] MEDS: Pantoprazole 40 MG in Sodium Chloride 0.9% 10 ML IV SCH (15:53)
[2020-09-22] MEDS: Codeine/guaiFENesin 10-100 MG/5 ML Syrup 5 ML Cup PO PRN ×4 (00:45→23:32)
[2020-09-22] MEDS: Albuterol/Ipratropium 3.0-0.5 MG/3 ML Neb Soln NEB SCH ×6 (01:01→21:08)
[2020-09-22] MEDS: Benzonatate 100 MG Cap PO SCH ×3 (05:03→21:01)
--- NOTE | 2020-09-22 08:00 | PCM.PN ---
- General Info Date of Service: 09/22/20 Admission Dx/Problem (Free Text): Admission Diagnosis/Problem Admission Diagnosis/Problem acute hypoxic respiratory failure, COVID-19 pneumonia, possible CAP Subjective Update: Feeling improved today. Continues to have significant shortness of breath but overall better. Has dry congested cough. No chest pain. He is eating and drinking well. He is up to the bathroom. Functional Status: Reports: Pain Controlled, Tolerating Diet, Ambulating, Urinating - Review of Systems General: Reports: Weakness, Fatigue (improving) Pulmonary: Reports: Shortness of Breath, Cough Cardiovascular: Reports: No Symptoms. Denies: Chest Pain, Dyspnea on Exertion Gastrointestinal: Reports: No Symptoms. Denies: Abdominal Pain, Nausea, Vomiting Genitourinary: Reports: No Symptoms. Denies: Dysuria, Frequency, Burning Musculoskeletal: Reports: No Symptoms. Denies: Neck Pain, Back Pain Skin: Reports: No Symptoms Neurological: Reports: No Symptoms Psychiatric: Reports: No Symptoms - Patient Data Vitals - Most Recent: Last Vital Signs Temp 97.5 F 09/22/20 00:00 Pulse 60 09/19/20 08:00 Resp 18 09/22/20 07:00 BP 123/80 09/22/20 04:00 Pulse Ox 95 09/22/20 07:00 Weight - Most Recent: 120.157 kg I&O - Last 24 Hours: Intake & Output 09/21/20 09/22/20 09/22/20 22:59 06:59 14:59 Intake Total 1300 800 Output Total 1250 700 Balance 50 100 Med Orders - Current: Current Medications Acetaminophen (Tylenol) 650 mg PO Q4H PRN PRN Reason: Pain (Mild 1-3)/fever Last Admin: 09/19/20 15:59 Dose: 650 mg Documented by: Albuterol/Ipratropium (Duoneb 3.0-0.5 Mg/3 Ml) 3 ml NEB Q4HRRT [facility] Last Admin: 09/22/20 05:57 Dose: 3 ml Documented by: Benzonatate (Tessalon Perles) 200 mg PO TID [facility] Last Admin: 09/22/20 05:03 Dose: 200 mg Documented by: Dexamethasone (Dexamethasone) 6 mg PO DAILY [facility] Stop: 09/24/20 09:01 Last Admin: 09/21/20 08:05 Dose: 6 mg Documented by: Enoxaparin Sodium (Lovenox) 40 mg SUBCUT BID [facility] Last Admin: 09/21/20 21:02 Dose: 40 mg Documented by: Guaifenesin/Codeine Phosphate (Robitussin Ac) 5 ml PO Q6H PRN PRN Reason: Cough Last Admin: 09/22/20 00:45 Dose: 5 ml Documented by: Levofloxacin/Dextrose 750 mg/ (Premix) 150 mls @ 100 mls/hr IV Q24H [facility] Last Admin: 09/21/20 11:47 Dose: 100 mls/hr Documented by: Pantoprazole Sodium 40 mg/ (Sodium Chloride) 10 mls @ 300 mls/hr IV Q24H [facility] Last Admin: 09/21/20 15:53 Dose: 300 mls/hr Documented by: Sodium Chloride (Normal Saline) 500 mls @ 999 mls/hr IV .BOLUS [facility] Ondansetron HCl (Zofran) 4 mg IVPUSH Q4H PRN PRN Reason: Nausea Sodium Chloride (Saline Flush) 2.5 ml FLUSH ASDIRECTED PRN PRN Reason: Keep Vein Open Discontinued Medications Albuterol/Ipratropium (Combivent Respimat) 0 gm INH QID [facility] Last Admin: 09/18/20 06:13 Dose: 1 puff Documented by: Benzonatate (Tessalon Perles) 200 mg PO TID PRN PRN Reason: Cough Dexamethasone (Decadron) Confirm Administered Dose 10 mg .ROUTE .STK-MED ONE Stop: 09/15/20 15:55 Last Admin: 09/15/20 15:58 Dose: Not Given Documented by: Enoxaparin Sodium (Lovenox) 40 mg SUBCUT Q12HR [facility] Enoxaparin Sodium (Lovenox) 40 mg SUBCUT DAILY [facility] Last Admin: 09/15/20 16:45 Dose: 40 mg Documented by: Enoxaparin Sodium (Lovenox) 40 mg SUBCUT Q24H [facility] Furosemide (Lasix) 20 mg IVPUSH ONETIME ONE Stop: 09/17/20 12:48 Last Admin: 09/17/20 13:00 Dose: 20 mg Documented by: Furosemide (Lasix) 20 mg IVPUSH ONETIME ONE Stop: 09/19/20 08:47 Last Admin: 09/19/20 08:56 Dose: 20 mg Documented by: Levofloxacin/Dextrose 750 mg/ (Premix) 150 mls @ 100 mls/hr IV ONETIME ONE Stop: 09/15/20 15:00 Last Admin: 09/15/20 15:55 Dose: 100 mls/hr Documented by: Remdesivir 100 mg/ Sodium (Chloride) 100 mls @ 100 mls/hr IV Q24H [facility] Stop: 09/19/20 15:44 Last Admin: 09/19/20 14:50 Dose: 100 mls/hr Documented by: Remdesivir 200 mg/ Sodium (Chloride) 250 mls @ 250 mls/hr IV ONETIME ONE Stop: 09/15/20 16:59 Last Admin: 09/15/20 17:54 Dose: 250 mls/hr Documented by: Levofloxacin/Dextrose (Levaquin In D5w 750 Mg/150 Ml) Confirm Administered Dose 150 mls @ as directed IV .STK-MED ONE Stop: 09/15/20 15:54 Last Admin: 09/15/20 16:46 Dose: Not Given Documented by: Iopamidol (Isovue Multipack-370 (76%)) 75 ml IVPUSH ONETIME STA Stop: 09/15/20 14:19 Last Admin: 09/15/20 14:19 Dose: 75 ml Documented by: Lorazepam (Ativan) 0.5 mg IVPUSH ONETIME ONE Stop: 09/17/20 11:10 Last Admin: 09/17/20 11:25 Dose: 0.5 mg Documented by: Sodium Chloride (Saline Flush) 10 ml FLUSH ASDIRECTED PRN PRN Reason: Keep Vein Open Sodium Chloride (Saline Flush) 2.5 ml FLUSH ASDIRECTED PRN PRN Reason: Keep Vein Open - Exam Quality Assessment: Supplemental Oxygen, DVT Prophylaxis General: Alert, Oriented, Cooperative, No Acute Distress Lungs: Decreased Breath Sounds. No: Normal Respiratory Effort (dyspnea) Cardiovascular: Regular Rate, Regular Rhythm GI/Abdominal Exam: Normal Bowel Sounds, Soft, Non-Tender Back Exam: Normal Inspection, Full Range of Motion Extremities: Normal Inspection, Normal Range of Motion, Non-Tender Neurological: No New Focal Deficit Psy/Mental Status: Alert, Normal Affect, Normal Mood Sepsis Event Note - Evaluation Sepsis Screening Result: No Definite Risk - Focused Exam Vital Signs: Vital Signs Temp Resp BP Pulse Ox 09/22/20 07:00 18 95 09/22/20 06:00 27 H 90 L 09/22/20 05:00 22 H 96 09/22/20 04:00 27 H 123/80 95 09/22/20 03:00 20 95 09/22/20 02:00 30 H 92 L 09/22/20 01:00 31 H 126/77 92 L 09/22/20 00:00 97.5 F 19 89 L 09/21/20 23:00 21 H 122/75 88 L 09/21/20 22:00 29 H 95 09/21/20 21:00 31 H 93 L - Problem List & Annotations (1) Acute respiratory failure with hypoxia SNOMED Code(s): 05001201, 839048592 Code(s): J96.01 - ACUTE RESPIRATORY FAILURE WITH HYPOXIA Status: Acute Current Visit: Yes (2) 2019 novel coronavirus disease (COVID-19) SNOMED Code(s): 299215026 Code(s): U07.1 - COVID-19 Status: Acute Current Visit: No (3) Hemoptysis SNOMED Code(s): 06419194 Code(s): R04.2 - HEMOPTYSIS Status: Acute Current Visit: Yes (4) Obesity (BMI 30-39.9) SNOMED Code(s): 639035334, 929719579 Code(s): E66.9 - OBESITY, UNSPECIFIED Status: Chronic Priority: High Current Visit: No - Problem List Review Problem List Initiated/Reviewed/Updated: Yes - Plan Plan:: This 49-year-old male admitted with acute hypoxic respiratory failure secondary to COVID-19 pneumonia and CAP 1. Acute hypoxic respiratory failure secondary to COVID-19 and CAP - Has been weaned to heated high flow 40 L FiO2 50%, feeling much improved. - Completed Remdesivir course and received CCP - Continue Dexamethasone 6 mg p.o. daily - Continue Levaquin 750 IV daily, will continue for now - I-S and Acapella use encouraged coughing and deep breathing. - Prone as possible - Duonebs PRN - Lovenox to 40 mg twice daily VTE prophylaxis: Lovenox 40 twice daily CODE STATUS: Full code Dispo 2 to 3 days pending improvement, transition to Med/Surg status. [email or web address] Nelson, .
[2020-09-22] MEDS: Enoxaparin 40 MG/0.4 ML Syringe SUBCUT SCH ×2 (08:14→20:49)
[2020-09-22] MEDS: Dexamethasone 4 MG Tab PO SCH (08:14)
[2020-09-22 11:54] LABS: BLOOD UREA NITROGEN,BUN 21 mg/dL (7.0-18.0); CARBON DIOXIDE,CO2 25.7 mmol/L (21.0-32.0); CHLORIDE,CL 103 mmol/L (98-107); GLUCOSE RANDOM 252 mg/dL (74-106); POTASSIUM,K 4.4 mmol/L (3.5-5.1); SODIUM,NA 138 mmol/L (136-148)
[2020-09-22] MEDS: Levofloxacin/Dextrose 5%-Water 750 MG in Premix Bag 1 BAG IV SCH (12:51)
[2020-09-23] MEDS ORDERED: Albuterol/Ipratropium 3.0-0.5 MG/3 ML Neb Soln NEB ONE (02:12)
[2020-09-23] MEDS: Benzonatate 100 MG Cap PO SCH ×3 (06:19→22:09)
[2020-09-23] MEDS: Codeine/guaiFENesin 10-100 MG/5 ML Syrup 5 ML Cup PO PRN ×3 (06:19→22:10)
[2020-09-23] MEDS: Albuterol/Ipratropium 4 GM Inhalation Spray INH PRN ×4 (06:20→22:10)
[2020-09-23 06:47] LABS: BLOOD UREA NITROGEN,BUN 25 mg/dL (7.0-18.0); CARBON DIOXIDE,CO2 26.8 mmol/L (21.0-32.0); CHLORIDE,CL 103 mmol/L (98-107); GLUCOSE RANDOM 242 mg/dL (74-106); POTASSIUM,K 4.2 mmol/L (3.5-5.1); SODIUM,NA 138 mmol/L (136-148)
[2020-09-23] MEDS ORDERED: Glucagon,Human Recombinant 1 MG Vial IM PRN (08:08)
[2020-09-23] MEDS ORDERED: 50% Dextrose in Water 50 ML Syringe IV PRN (08:08)
[2020-09-23] MEDS: Pantoprazole 40 MG Tab.CR PO SCH (08:11)
[2020-09-23] MEDS: Enoxaparin 40 MG/0.4 ML Syringe SUBCUT SCH ×2 (08:12→22:09)
[2020-09-23] MEDS: Dexamethasone 4 MG Tab PO SCH (08:12)
--- NOTE | 2020-09-23 08:12 | PCM.PN ---
- General Info Date of Service: 09/23/20 Admission Dx/Problem (Free Text): Admission Diagnosis/Problem Admission Diagnosis/Problem acute hypoxic respiratory failure, COVID-19 pneumonia, possible CAP Subjective Update: Feeling improved today, continues to feel improved each day now. Continues to have mild cough nonproductive. No chest pain. Shortness of breath continues especially with exertion but reports recovery time is near a minute not greater than 5 minutes like it was previously. He is alert and oriented doing well asking about donating plasma in the future to help other Covid patients. We will find him information regarding this. Denies fevers chills abdominal pain he is eating and drinking well voiding well no diarrhea. Functional Status: Reports: Pain Controlled, Tolerating Diet, Ambulating, Urinating - Review of Systems General: Reports: Malaise (Continues to improve daily) HEENT: Reports: Other (Continues to have no distress mouth). Denies: Headaches, Sore Throat, Visual Changes Pulmonary: Reports: Shortness of Breath. Denies: Cough, Sputum Cardiovascular: Reports: Dyspnea on Exertion. Denies: Chest Pain Gastrointestinal: Reports: No Symptoms. Denies: Abdominal Pain, Diarrhea, Nausea, Vomiting Genitourinary: Reports: No Symptoms. Denies: Dysuria, Frequency Musculoskeletal: Reports: No Symptoms Skin: Reports: No Symptoms Neurological: Reports: No Symptoms Psychiatric: Reports: No Symptoms - Patient Data Vitals - Most Recent: Last Vital Signs Temp 97.5 F 09/23/20 07:59 Pulse 82 09/23/20 07:59 Resp 20 09/23/20 07:59 BP 137/78 09/23/20 07:59 Pulse Ox 92 L 09/23/20 08:03 Weight - Most Recent: 120.157 kg I&O - Last 24 Hours: Intake & Output 09/22/20 09/23/20 09/23/20 22:59 06:59 14:59 Intake Total 900 1200 Output Total 880 950 Balance 20 250 Lab Results Last 24 Hours: Laboratory Results - last 24 hr 09/22/20 09/22/20 09/23/20 Range/Units 11:05 11:05 06:23 WBC 12.34 H 10.99 (4.0-11.0) K/uL RBC 4.67 4.64 (4.50-5.90) M/uL Hgb 15.1 15.1 (13.0-17.0) g/dL Hct 45.4 44.5 (38.0-50.0) % MCV 97.2 95.9 (80.0-98.0) fL MCH 32.3 H 32.5 H (27.0-32.0) pg MCHC 33.3 33.9 (31.0-37.0) g/dL RDW Std Deviation 48.2 46.2 (28.0-62.0) fl RDW Coeff of [place] 14 13 (11.0-15.0) % Plt Count 196 197 (150-400) K/uL MPV 10.10 9.80 (7.40-12.00) fL Neut % (Auto) 89.9 H 85.8 H (48.0-80.0) % Lymph % (Auto) 4.0 L 7.7 L (16.0-40.0) % [place] % (Auto) 6.0 6.4 (0.0-15.0) % Eos % (Auto) 0.1 0.0 (0.0-7.0) % Baso % (Auto) 0.0 0.1 (0.0-1.5) % Neut # (Auto) 11.1 H 9.4 H (1.4-5.7) K/uL Lymph # (Auto) 0.5 L 0.9 (0.6-2.4) K/uL [place] # (Auto) 0.7 0.7 (0.0-0.8) K/uL Eos # (Auto) 0.0 0.0 (0.0-0.7) K/uL Baso # (Auto) 0.0 0.0 (0.0-0.1) K/uL Nucleated RBC % 0.0 0.1 /100WBC Nucleated RBCs # 0 0 K/uL Sodium 138 (136-148) mmol/L Potassium 4.4 (3.5-5.1) mmol/L Chloride 103 (98-107) mmol/L Carbon Dioxide 25.7 (21.0-32.0) mmol/L BUN 21 H (7.0-18.0) mg/dL Creatinine 1.1 (0.8-1.3) mg/dL Est Cr Clr Drug Dosing 79.45 mL/min Estimated GFR (MDRD) > 60.0 ml/min Glucose 252 H (74-106) mg/dL Calcium 8.2 L (8.5-10.1) mg/dL Magnesium (1.8-2.4) mg/dL Total Bilirubin 0.5 (0.2-1.0) mg/dL AST 32 (15-37) IU/L ALT 53 (14-63) IU/L Alkaline Phosphatase 74 (46-116) U/L Total Protein 6.1 L (6.4-8.2) g/dL Albumin 2.4 L (3.4-5.0) g/dL Globulin 3.7 (2.6-4.0) g/dL Albumin/Globulin Ratio 0.7 L (0.9-1.6) 09/23/20 Range/Units 06:23 WBC (4.0-11.0) K/uL RBC (4.50-5.90) M/uL Hgb (13.0-17.0) g/dL Hct (38.0-50.0) % MCV (80.0-98.0) fL MCH (27.0-32.0) pg MCHC (31.0-37.0) g/dL RDW Std Deviation (28.0-62.0) fl RDW Coeff of [place] (11.0-15.0) % Plt Count (150-400) K/uL MPV (7.40-12.00) fL Neut % (Auto) (48.0-80.0) % Lymph % (Auto) (16.0-40.0) % [place] % (Auto) (0.0-15.0) % Eos % (Auto) (0.0-7.0) % Baso % (Auto) (0.0-1.5) % Neut # (Auto) (1.4-5.7) K/uL Lymph # (Auto) (0.6-2.4) K/uL [place] # (Auto) (0.0-0.8) K/uL Eos # (Auto) (0.0-0.7) K/uL Baso # (Auto) (0.0-0.1) K/uL Nucleated RBC % /100WBC Nucleated RBCs # K/uL Sodium 138 (136-148) mmol/L Potassium 4.2 (3.5-5.1) mmol/L Chloride 103 (98-107) mmol/L Carbon Dioxide 26.8 (21.0-32.0) mmol/L BUN 25 H (7.0-18.0) mg/dL Creatinine 1.1 (0.8-1.3) mg/dL Est Cr Clr Drug Dosing 79.45 mL/min Estimated GFR (MDRD) > 60.0 ml/min Glucose 242 H (74-106) mg/dL Calcium 8.6 (8.5-10.1) mg/dL Magnesium 2.3 (1.8-2.4) mg/dL Total Bilirubin (0.2-1.0) mg/dL AST (15-37) IU/L ALT (14-63) IU/L Alkaline Phosphatase (46-116) U/L Total Protein (6.4-8.2) g/dL Albumin (3.4-5.0) g/dL Globulin (2.6-4.0) g/dL Albumin/Globulin Ratio (0.9-1.6) Med Orders - Current: Current Medications Acetaminophen (Tylenol) 650 mg PO Q4H PRN PRN Reason: Pain (Mild 1-3)/fever Last Admin: 09/19/20 15:59 Dose: 650 mg Documented by: Albuterol/Ipratropium (Combivent Respimat) 1 gm INH Q4H PRN PRN Reason: Dyspnea Last Admin: 09/23/20 06:20 Dose: 1 puff Documented by: Benzonatate (Tessalon Perles) 200 mg PO TID [facility] Last Admin: 09/23/20 06:19 Dose: 200 mg Documented by: Dexamethasone (Dexamethasone) 6 mg PO DAILY [facility] Stop: 09/24/20 09:01 Last Admin: 09/22/20 08:14 Dose: 6 mg Documented by: Dextrose/Water (Dextrose 50% In Water) 50 ml IV ASDIRECTED PRN PRN Reason: Hypoglycemia Enoxaparin Sodium (Lovenox) 40 mg SUBCUT BID [facility] Last Admin: 09/22/20 20:49 Dose: 40 mg Documented by: Glucagon (Glucagen) 1 mg IM ASDIRECTED PRN PRN Reason: Hypoglycemia Guaifenesin/Codeine Phosphate (Robitussin Ac) 5 ml PO Q6H PRN PRN Reason: Cough Last Admin: 09/23/20 06:19 Dose: 5 ml Documented by: Levofloxacin/Dextrose 750 mg/ (Premix) 150 mls @ 100 mls/hr IV Q24H [facility] Last Admin: 09/22/20 12:51 Dose: 100 mls/hr Documented by: Insulin Aspart (Novolog) 0 unit SUBCUT TIDAC [facility]; Protocol Ondansetron HCl (Zofran) 4 mg IVPUSH Q4H PRN PRN Reason: Nausea Pantoprazole Sodium (Protonix) 40 mg PO ACBREAKFAST [facility] Sodium Chloride (Saline Flush) 2.5 ml FLUSH ASDIRECTED PRN PRN Reason: Keep Vein Open Last Admin: 09/22/20 21:01 Dose: 2.5 ml Documented by: Discontinued Medications Albuterol/Ipratropium (Combivent Respimat) 0 gm INH QID [facility] Last Admin: 09/18/20 06:13 Dose: 1 puff Documented by: Albuterol/Ipratropium (Duoneb 3.0-0.5 Mg/3 Ml) 3 ml NEB Q4HRRT [facility] Stop: 09/22/20 23:59 Last Admin: 09/22/20 21:08 Dose: 3 ml Documented by: Albuterol/Ipratropium (Duoneb 3.0-0.5 Mg/3 Ml) 3 ml NEB ONETIME ONE Stop: 09/23/20 02:13 Last Admin: 09/23/20 02:29 Dose: 3 ml Documented by: Benzonatate (Tessalon Perles) 200 mg PO TID PRN PRN Reason: Cough Dexamethasone (Decadron) Confirm Administered Dose 10 mg .ROUTE .STK-MED ONE Stop: 09/15/20 15:55 Last Admin: 09/15/20 15:58 Dose: Not Given Documented by: Enoxaparin Sodium (Lovenox) 40 mg SUBCUT Q12HR [facility] Enoxaparin Sodium (Lovenox) 40 mg SUBCUT DAILY [facility] Last Admin: 09/15/20 16:45 Dose: 40 mg Documented by: Enoxaparin Sodium (Lovenox) 40 mg SUBCUT Q24H [facility] Furosemide (Lasix) 20 mg IVPUSH ONETIME ONE Stop: 09/17/20 12:48 Last Admin: 09/17/20 13:00 Dose: 20 mg Documented by: Furosemide (Lasix) 20 mg IVPUSH ONETIME ONE Stop: 09/19/20 08:47 Last Admin: 09/19/20 08:56 Dose: 20 mg Documented by: Levofloxacin/Dextrose 750 mg/ (Premix) 150 mls @ 100 mls/hr IV ONETIME ONE Stop: 09/15/20 15:00 Last Admin: 09/15/20 15:55 Dose: 100 mls/hr Documented by: Remdesivir 100 mg/ Sodium (Chloride) 100 mls @ 100 mls/hr IV Q24H [facility] Stop: 09/19/20 15:44 Last Admin: 09/19/20 14:50 Dose: 100 mls/hr Documented by: Pantoprazole Sodium 40 mg/ (Sodium Chloride) 10 mls @ 300 mls/hr IV Q24H [facility] Last Admin: 09/21/20 15:53 Dose: 300 mls/hr Documented by: Remdesivir 200 mg/ Sodium (Chloride) 250 mls @ 250 mls/hr IV ONETIME ONE Stop: 09/15/20 16:59 Last Admin: 09/15/20 17:54 Dose: 250 mls/hr Documented by: Levofloxacin/Dextrose (Levaquin In D5w 750 Mg/150 Ml) Confirm Administered Dose 150 mls @ as directed IV .STK-MED ONE Stop: 09/15/20 15:54 Last Admin: 09/15/20 16:46 Dose: Not Given Documented by: Sodium Chloride (Normal Saline) 500 mls @ 999 mls/hr IV .BOLUS [facility] Iopamidol (Isovue Multipack-370 (76%)) 75 ml IVPUSH ONETIME STA Stop: 09/15/20 14:19 Last Admin: 09/15/20 14:19 Dose: 75 ml Documented by: Lorazepam (Ativan) 0.5 mg IVPUSH ONETIME ONE Stop: 09/17/20 11:10 Last Admin: 09/17/20 11:25 Dose: 0.5 mg Documented by: Sodium Chloride (Saline Flush) 10 ml FLUSH ASDIRECTED PRN PRN Reason: Keep Vein Open Sodium Chloride (Saline Flush) 2.5 ml FLUSH ASDIRECTED PRN PRN Reason: Keep Vein Open - Exam Quality Assessment: Supplemental Oxygen (Continues on Vapotherm 35 L with 48% FiO2) General: Alert, Oriented, Cooperative HEENT: Pupils Equal Neck: Supple Lungs: Clear to Auscultation, Normal Respiratory Effort, Other (Nonproductive cough noted) Cardiovascular: Regular Rate, Regular Rhythm, No Murmurs GI/Abdominal Exam: Normal Bowel Sounds, Soft, Non-Tender Back Exam: Normal Inspection, Full Range of Motion Extremities: Normal Inspection, Normal Range of Motion, Non-Tender, No Pedal Edema Wound/Incisions: Healing Well Neurological: No New Focal Deficit Psy/Mental Status: Alert, Normal Affect, Normal Mood Sepsis Event Note - Evaluation Sepsis Screening Result: No Definite Risk - Focused Exam Vital Signs: Vital Signs Temp Pulse Resp BP BP Pulse Ox 09/23/20 08:03 92 L 09/23/20 07:59 97.5 F 82 20 137/78 90 L 09/23/20 04:19 98.1 F 88 17 138/86 91 L 09/23/20 02:59 90 L 09/22/20 23:33 97.1 F 92 20 133/89 93 L 09/22/20 20:50 96.6 F L 84 17 131/81 89 L - Problem List & Annotations (1) Acute respiratory failure with hypoxia SNOMED Code(s): 23853979, 371138136 Code(s): J96.01 - ACUTE RESPIRATORY FAILURE WITH HYPOXIA Status: Acute Current Visit: Yes (2) 2019 novel coronavirus disease (COVID-19) SNOMED Code(s): 981435405 Code(s): U07.1 - COVID-19 Status: Acute Current Visit: No (3) Hemoptysis SNOMED Code(s): 13241890 Code(s): R04.2 - HEMOPTYSIS Status: Acute Current Visit: Yes (4) Obesity (BMI 30-39.9) SNOMED Code(s): 489886180, 272565968 Code(s): E66.9 - OBESITY, UNSPECIFIED Status: Chronic Priority: High Current Visit: No - Problem List Review Problem List Initiated/Reviewed/Updated: Yes - My Orders Last 24 Hours: My Active Orders 09/22/20 10:51 Transfer Patient (Change bed) [ADT] Routine Cardiac Monitoring Discontinue [RC] Click to Edit 09/23/20 07:30 Pantoprazole [ProTONIX] 40 mg PO ACBREAKFAST 09/23/20 08:08 Blood Glucose Check, Bedside [RC] TIDAC Dextrose 50% in Water 50 ml IV ASDIRECTED PRN Glucagon,Human Recombinant [GlucaGen] 1 mg IM ASDIRECTED PRN Insulin Aspart [NovoLOG] See Protocol SUBCUT TIDAC 09/24/20 05:11 BASIC METABOLIC PANEL,BMP [CHEM] AM CBC WITH AUTO DIFF [HEME] AM MG [MAGNESIUM] [CHEM] AM 09/25/20 05:11 BASIC METABOLIC PANEL,BMP [CHEM] AM CBC WITH AUTO DIFF [HEME] AM MG [MAGNESIUM] [CHEM] AM 09/26/20 05:11 BASIC METABOLIC PANEL,BMP [CHEM] AM CBC WITH AUTO DIFF [HEME] AM MG [MAGNESIUM] [CHEM] AM 09/27/20 05:11 BASIC METABOLIC PANEL,BMP [CHEM] AM CBC WITH AUTO DIFF [HEME] AM MG [MAGNESIUM] [CHEM] AM - Plan Plan:: This 49-year-old male admitted with acute hypoxic respiratory failure secondary to COVID-19 pneumonia and CAP 1. Acute hypoxic respiratory failure secondary to COVID-19 and CAP - Has been weaned to heated high flow 35 L FiO2 40% feeling much improved. Continue to wean as possible - Completed Remdesivir course and received CCP S2 - Continue Dexamethasone 6 mg p.o. daily - Continue Levaquin 750 IV daily, will continue for now - I-S and Acapella use encouraged coughing and deep breathing. - Prone as possible - Duonebs PRN - Lovenox to 40 mg twice daily VTE prophylaxis: Lovenox 40 twice daily CODE STATUS: Full code Dispo 2 to 3 days pending improvement palma Nelson, .
[2020-09-23] MEDS: Insulin Aspart 100 Units/ML 3 ML Pen SUBCUT SCH ×3 (08:27→17:24)
[2020-09-23] MEDS: Levofloxacin/Dextrose 5%-Water 750 MG in Premix Bag 1 BAG IV SCH (11:28)
[2020-09-24] MEDS: Albuterol/Ipratropium 4 GM Inhalation Spray INH PRN ×2 (03:15→11:22)
[2020-09-24] MEDS: Codeine/guaiFENesin 10-100 MG/5 ML Syrup 5 ML Cup PO PRN (03:16)
[2020-09-24 06:11] LABS: BLOOD UREA NITROGEN,BUN 25 mg/dL (7.0-18.0); CARBON DIOXIDE,CO2 27.7 mmol/L (21.0-32.0); CHLORIDE,CL 107 mmol/L (98-107); GLUCOSE RANDOM 137 mg/dL (74-106); POTASSIUM,K 4.3 mmol/L (3.5-5.1); SODIUM,NA 143 mmol/L (136-148)
--- NOTE | 2020-09-24 07:53 | PCM.PN ---
- General Info Date of Service: 09/24/20 Admission Dx/Problem (Free Text): Admission Diagnosis/Problem Admission Diagnosis/Problem acute hypoxic respiratory failure, COVID-19 pneumonia, possible CAP Subjective Update: Reports he is continuing to feel improved today. Continues to have shortness of breath with exertion and nonproductive cough. No chest pain abdominal pain he is eating and drinking well. Remains on heated high flow nasal cannula tolerating this well Functional Status: Reports: Pain Controlled, Tolerating Diet, Ambulating, Urinating - Review of Systems General: Reports: Fatigue (Improving) HEENT: Reports: No Symptoms. Denies: Headaches, Sore Throat, Visual Changes Pulmonary: Reports: Shortness of Breath (Reports that shortness of breath with exertion is resolving quicker.), Cough. Denies: Sputum, Hemoptysis, Wheezing Cardiovascular: Reports: Dyspnea on Exertion. Denies: Chest Pain, Palpitations Gastrointestinal: Reports: No Symptoms. Denies: Abdominal Pain, Nausea, Vomiting Genitourinary: Reports: No Symptoms. Denies: Dysuria, Frequency, Burning Musculoskeletal: Reports: No Symptoms Skin: Reports: No Symptoms Neurological: Reports: No Symptoms Psychiatric: Reports: No Symptoms - Patient Data Vitals - Most Recent: Last Vital Signs Temp 98.1 F 09/23/20 23:41 Pulse 79 09/24/20 03:16 Resp 19 09/24/20 03:16 BP 144/90 H 09/24/20 03:16 Pulse Ox 90 L 09/24/20 03:16 Weight - Most Recent: 120.202 kg I&O - Last 24 Hours: Intake & Output 09/23/20 09/24/20 09/24/20 22:59 06:59 14:59 Intake Total 1740 Output Total 1120 Balance 620 Lab Results Last 24 Hours: Laboratory Results - last 24 hr 09/23/20 09/23/20 09/23/20 Range/Units 08:19 11:32 17:22 WBC (4.0-11.0) K/uL RBC (4.50-5.90) M/uL Hgb (13.0-17.0) g/dL Hct (38.0-50.0) % MCV (80.0-98.0) fL MCH (27.0-32.0) pg MCHC (31.0-37.0) g/dL RDW Std Deviation (28.0-62.0) fl RDW Coeff of [place] (11.0-15.0) % Plt Count (150-400) K/uL MPV (7.40-12.00) fL Neut % (Auto) (48.0-80.0) % Lymph % (Auto) (16.0-40.0) % [place] % (Auto) (0.0-15.0) % Eos % (Auto) (0.0-7.0) % Baso % (Auto) (0.0-1.5) % Neut # (Auto) (1.4-5.7) K/uL Lymph # (Auto) (0.6-2.4) K/uL [place] # (Auto) (0.0-0.8) K/uL Eos # (Auto) (0.0-0.7) K/uL Baso # (Auto) (0.0-0.1) K/uL Nucleated RBC % /100WBC Nucleated RBCs # K/uL Sodium (136-148) mmol/L Potassium (3.5-5.1) mmol/L Chloride (98-107) mmol/L Carbon Dioxide (21.0-32.0) mmol/L BUN (7.0-18.0) mg/dL Creatinine (0.8-1.3) mg/dL Est Cr Clr Drug Dosing mL/min Estimated GFR (MDRD) ml/min Glucose (74-106) mg/dL POC Glucose 239 H 238 H 317 H (60-110) mg/dL Calcium (8.5-10.1) mg/dL Magnesium (1.8-2.4) mg/dL 09/24/20 09/24/20 Range/Units 05:45 05:45 WBC 13.00 H (4.0-11.0) K/uL RBC 4.85 (4.50-5.90) M/uL Hgb 15.3 (13.0-17.0) g/dL Hct 46.2 (38.0-50.0) % MCV 95.3 (80.0-98.0) fL MCH 31.5 (27.0-32.0) pg MCHC 33.1 (31.0-37.0) g/dL RDW Std Deviation 45.9 (28.0-62.0) fl RDW Coeff of [place] 13 (11.0-15.0) % Plt Count 228 (150-400) K/uL MPV 9.60 (7.40-12.00) fL Neut % (Auto) 84.1 H (48.0-80.0) % Lymph % (Auto) 8.3 L (16.0-40.0) % [place] % (Auto) 7.5 (0.0-15.0) % Eos % (Auto) 0.0 (0.0-7.0) % Baso % (Auto) 0.1 (0.0-1.5) % Neut # (Auto) 10.9 H (1.4-5.7) K/uL Lymph # (Auto) 1.1 (0.6-2.4) K/uL [place] # (Auto) 1.0 H (0.0-0.8) K/uL Eos # (Auto) 0.0 (0.0-0.7) K/uL Baso # (Auto) 0.0 (0.0-0.1) K/uL Nucleated RBC % 0.0 /100WBC Nucleated RBCs # 0 K/uL Sodium 143 (136-148) mmol/L Potassium 4.3 (3.5-5.1) mmol/L Chloride 107 (98-107) mmol/L Carbon Dioxide 27.7 (21.0-32.0) mmol/L BUN 25 H (7.0-18.0) mg/dL Creatinine 1.0 (0.8-1.3) mg/dL Est Cr Clr Drug Dosing 87.40 mL/min Estimated GFR (MDRD) > 60.0 ml/min Glucose 137 H (74-106) mg/dL POC Glucose (60-110) mg/dL Calcium 8.3 L (8.5-10.1) mg/dL Magnesium 2.4 (1.8-2.4) mg/dL Med Orders - Current: Current Medications Acetaminophen (Tylenol) 650 mg PO Q4H PRN PRN Reason: Pain (Mild 1-3)/fever Last Admin: 09/19/20 15:59 Dose: 650 mg Documented by: Albuterol/Ipratropium (Combivent Respimat) 1 gm INH Q4H PRN PRN Reason: Dyspnea Last Admin: 09/24/20 03:15 Dose: 1 puff Documented by: Benzonatate (Tessalon Perles) 200 mg PO TID [facility] Last Admin: 09/23/20 22:09 Dose: 200 mg Documented by: Dexamethasone (Dexamethasone) 6 mg PO DAILY [facility] Stop: 09/24/20 09:01 Last Admin: 09/23/20 08:12 Dose: 6 mg Documented by: Dextrose/Water (Dextrose 50% In Water) 50 ml IV ASDIRECTED PRN PRN Reason: Hypoglycemia Enoxaparin Sodium (Lovenox) 40 mg SUBCUT BID [facility] Last Admin: 09/23/20 22:09 Dose: 40 mg Documented by: Glucagon (Glucagen) 1 mg IM ASDIRECTED PRN PRN Reason: Hypoglycemia Guaifenesin/Codeine Phosphate (Robitussin Ac) 5 ml PO Q6H PRN PRN Reason: Cough Last Admin: 09/24/20 03:16 Dose: 5 ml Documented by: Levofloxacin/Dextrose 750 mg/ (Premix) 150 mls @ 100 mls/hr IV Q24H [facility] Last Admin: 09/23/20 11:28 Dose: 100 mls/hr Documented by: Insulin Aspart (Novolog) 0 unit SUBCUT TIDAC [facility]; Protocol Last Admin: 09/23/20 17:24 Dose: 4 units Documented by: Ondansetron HCl (Zofran) 4 mg IVPUSH Q4H PRN PRN Reason: Nausea Pantoprazole Sodium (Protonix) 40 mg PO ACBREAKFAST [facility] Last Admin: 09/23/20 08:11 Dose: 40 mg Documented by: Sodium Chloride (Saline Flush) 2.5 ml FLUSH ASDIRECTED PRN PRN Reason: Keep Vein Open Last Admin: 09/22/20 21:01 Dose: 2.5 ml Documented by: Discontinued Medications Albuterol/Ipratropium (Combivent Respimat) 0 gm INH QID [facility] Last Admin: 09/18/20 06:13 Dose: 1 puff Documented by: Albuterol/Ipratropium (Duoneb 3.0-0.5 Mg/3 Ml) 3 ml NEB Q4HRRT [facility] Stop: 09/22/20 23:59 Last Admin: 09/22/20 21:08 Dose: 3 ml Documented by: Albuterol/Ipratropium (Duoneb 3.0-0.5 Mg/3 Ml) 3 ml NEB ONETIME ONE Stop: 09/23/20 02:13 Last Admin: 09/23/20 02:29 Dose: 3 ml Documented by: Benzonatate (Tessalon Perles) 200 mg PO TID PRN PRN Reason: Cough Dexamethasone (Decadron) Confirm Administered Dose 10 mg .ROUTE .STK-MED ONE Stop: 09/15/20 15:55 Last Admin: 09/15/20 15:58 Dose: Not Given Documented by: Enoxaparin Sodium (Lovenox) 40 mg SUBCUT Q12HR [facility] Enoxaparin Sodium (Lovenox) 40 mg SUBCUT DAILY [facility] Last Admin: 09/15/20 16:45 Dose: 40 mg Documented by: Enoxaparin Sodium (Lovenox) 40 mg SUBCUT Q24H [facility] Furosemide (Lasix) 20 mg IVPUSH ONETIME ONE Stop: 09/17/20 12:48 Last Admin: 09/17/20 13:00 Dose: 20 mg Documented by: Furosemide (Lasix) 20 mg IVPUSH ONETIME ONE Stop: 09/19/20 08:47 Last Admin: 09/19/20 08:56 Dose: 20 mg Documented by: Levofloxacin/Dextrose 750 mg/ (Premix) 150 mls @ 100 mls/hr IV ONETIME ONE Stop: 09/15/20 15:00 Last Admin: 09/15/20 15:55 Dose: 100 mls/hr Documented by: Remdesivir 100 mg/ Sodium (Chloride) 100 mls @ 100 mls/hr IV Q24H [facility] Stop: 09/19/20 15:44 Last Admin: 09/19/20 14:50 Dose: 100 mls/hr Documented by: Pantoprazole Sodium 40 mg/ (Sodium Chloride) 10 mls @ 300 mls/hr IV Q24H [facility] Last Admin: 09/21/20 15:53 Dose: 300 mls/hr Documented by: Remdesivir 200 mg/ Sodium (Chloride) 250 mls @ 250 mls/hr IV ONETIME ONE Stop: 09/15/20 16:59 Last Admin: 09/15/20 17:54 Dose: 250 mls/hr Documented by: Levofloxacin/Dextrose (Levaquin In D5w 750 Mg/150 Ml) Confirm Administered Dose 150 mls @ as directed IV .STK-MED ONE Stop: 09/15/20 15:54 Last Admin: 09/15/20 16:46 Dose: Not Given Documented by: Sodium Chloride (Normal Saline) 500 mls @ 999 mls/hr IV .BOLUS [facility] Iopamidol (Isovue Multipack-370 (76%)) 75 ml IVPUSH ONETIME [facility] Stop: 09/15/20 14:19 Last Admin: 09/15/20 14:19 Dose: 75 ml Documented by: Lorazepam (Ativan) 0.5 mg IVPUSH ONETIME ONE Stop: 09/17/20 11:10 Last Admin: 09/17/20 11:25 Dose: 0.5 mg Documented by: Sodium Chloride (Saline Flush) 10 ml FLUSH ASDIRECTED PRN PRN Reason: Keep Vein Open Sodium Chloride (Saline Flush) 2.5 ml FLUSH ASDIRECTED PRN PRN Reason: Keep Vein Open - Exam Quality Assessment: Supplemental Oxygen (Remains on heated high flow Vapotherm 48% FiO2 35 L flow) General: Alert, Oriented, Cooperative HEENT: Pupils Equal, Pupils Reactive Lungs: Decreased Breath Sounds. No: Normal Respiratory Effort (Noted dyspnea with exertion.) Cardiovascular: Regular Rate, Regular Rhythm GI/Abdominal Exam: Normal Bowel Sounds, Soft, Non-Tender Back Exam: Normal Inspection, Full Range of Motion Extremities: Normal Inspection, Normal Range of Motion, Non-Tender, No Pedal Edema Neurological: No New Focal Deficit Psy/Mental Status: Alert, Normal Affect, Normal Mood Sepsis Event Note - Evaluation Sepsis Screening Result: No Definite Risk - Focused Exam Vital Signs: Vital Signs Temp Pulse Resp BP BP Pulse Ox 09/24/20 03:16 79 19 144/90 H 90 L 09/24/20 02:00 90 L 09/23/20 23:41 98.1 F 77 19 147/91 H 91 L 09/23/20 20:12 22 H 90 L 09/23/20 20:00 97.6 F 96 22 H 144/79 H 79 L - Problem List & Annotations (1) Acute respiratory failure with hypoxia SNOMED Code(s): 85590361, 988443087 Code(s): J96.01 - ACUTE RESPIRATORY FAILURE WITH HYPOXIA Status: Acute Current Visit: Yes (2) 2019 novel coronavirus disease (COVID-19) SNOMED Code(s): 585652877 Code(s): U07.1 - COVID-19 Status: Acute Current Visit: No (3) Hemoptysis SNOMED Code(s): 95993221 Code(s): R04.2 - HEMOPTYSIS Status: Acute Current Visit: Yes (4) Obesity (BMI 30-39.9) SNOMED Code(s): 019372695, 967027394 Code(s): E66.9 - OBESITY, UNSPECIFIED Status: Chronic Priority: High Current Visit: No - Problem List Review Problem List Initiated/Reviewed/Updated: Yes - My Orders Last 24 Hours: My Active Orders 09/23/20 07:30 Pantoprazole [ProTONIX] 40 mg PO ACBREAKFAST 09/23/20 08:08 Blood Glucose Check, Bedside [RC] TIDAC Dextrose 50% in Water 50 ml IV ASDIRECTED PRN Glucagon,Human Recombinant [GlucaGen] 1 mg IM ASDIRECTED PRN Insulin Aspart [NovoLOG] See Protocol SUBCUT TIDAC 09/25/20 05:11 BASIC METABOLIC PANEL,BMP [CHEM] AM CBC WITH AUTO DIFF [HEME] AM MG [MAGNESIUM] [CHEM] AM 09/26/20 05:11 BASIC METABOLIC PANEL,BMP [CHEM] AM CBC WITH AUTO DIFF [HEME] AM MG [MAGNESIUM] [CHEM] AM 09/27/20 05:11 BASIC METABOLIC PANEL,BMP [CHEM] AM CBC WITH AUTO DIFF [HEME] AM MG [MAGNESIUM] [CHEM] AM - Plan Plan:: This 49-year-old male admitted with acute hypoxic respiratory failure secondary to COVID-19 pneumonia and CAP 1. Acute hypoxic respiratory failure secondary to COVID-19 and CAP - Has been weaned to heated high flow 35 L FiO2 40% feeling much improved. Continue to wean as possible - Completed Remdesivir course and received CCP S2 -Completed dexamethasone course - Continue Levaquin 750 IV daily, will continue for now, will continue for total of 10 days 2 doses left. - I-S and Acapella use encouraged coughing and deep breathing. - Prone as possible - Duonebs PRN - Lovenox to 40 mg twice daily -Continue NovoLog for elevated blood sugars not diabetic likely secondary to dexamethasone -Did some education on him removing high flow nasal cannula. He reports he been removing it and seeing how he does. Saturations have dropped to 70%. He was counseled this is stressing his body too much and he should not do this needs to remain on oxygen unless low in his nose. He verbalized understanding VTE prophylaxis: Lovenox 40 twice daily CODE STATUS: Full code Dispo 2 to 3 days pending improvement stepmother Jaycee Nelson, .
[2020-09-24] MEDS: Pantoprazole 40 MG Tab.CR PO SCH (08:28)
[2020-09-24] MEDS: Dexamethasone 4 MG Tab PO SCH (08:28)
[2020-09-24] MEDS: Enoxaparin 40 MG/0.4 ML Syringe SUBCUT SCH ×2 (08:28→20:47)
[2020-09-24] MEDS: Benzonatate 100 MG Cap PO SCH ×3 (08:28→22:05)
[2020-09-24] MEDS: Insulin Aspart 100 Units/ML 3 ML Pen SUBCUT SCH ×3 (08:29→16:08)
[2020-09-24] MEDS: Levofloxacin/Dextrose 5%-Water 750 MG in Premix Bag 1 BAG IV SCH (12:27)
--- NOTE | 2020-09-24 14:25 | ECHO ---
EXAM DATE: 09/15/20 PATIENT'S AGE: 49 The ECHO report has been scanned into [employer] and can be seen in this patient's EMR (Electronic Medical Record) under the REPORTS section. The report has also been scanned into PACS. [facility]
[2020-09-24] MEDS: Albuterol/Ipratropium 4 GM Inhalation Spray INH SCH ×2 (17:18→21:05)
[2020-09-25] MEDS: Albuterol/Ipratropium 4 GM Inhalation Spray INH SCH ×6 (01:42→21:16)
[2020-09-25] MEDS: Codeine/guaiFENesin 10-100 MG/5 ML Syrup 5 ML Cup PO PRN (01:42)
[2020-09-25] MEDS: Benzonatate 100 MG Cap PO SCH ×3 (04:59→21:16)
[2020-09-25 05:57] LABS: BLOOD UREA NITROGEN,BUN 23 mg/dL (7.0-18.0); CARBON DIOXIDE,CO2 25.3 mmol/L (21.0-32.0); CHLORIDE,CL 103 mmol/L (98-107); GLUCOSE RANDOM 309 mg/dL (74-106); POTASSIUM,K 4.2 mmol/L (3.5-5.1); SODIUM,NA 139 mmol/L (136-148)
[2020-09-25 05:58] LABS: HEMOGLOBIN A1C 6.5 %
[2020-09-25] MEDS: Insulin Aspart 100 Units/ML 3 ML Pen SUBCUT SCH ×3 (06:30→16:15)
[2020-09-25] MEDS: Pantoprazole 40 MG Tab.CR PO SCH (07:38)
--- NOTE | 2020-09-25 07:56 | PCM.PN ---
- General Info Date of Service: 09/25/20 Admission Dx/Problem (Free Text): Admission Diagnosis/Problem Admission Diagnosis/Problem acute hypoxic respiratory failure, COVID-19 pneumonia, possible CAP Subjective Update: Continues to feel improved. Breathing remains approximately the same recovery is much improved. He reports when he removes oxygen he does feel lightheaded from low oxygen saturations. Denies any chest pain. Reports shortness of breath with exertion especially. Reports continued nonproductive cough. Feels slightly congested in his chest. No diarrhea, he is eating and drinking well and urinating well with no concerns. Functional Status: Reports: Pain Controlled, Tolerating Diet, Ambulating, Urinating - Review of Systems General: Reports: Malaise (Continue to improve every day) Pulmonary: Reports: Shortness of Breath, Cough. Denies: Sputum, Hemoptysis, Wheezing Cardiovascular: Reports: Dyspnea on Exertion, Lightheadedness (When he removes oxygen) Gastrointestinal: Reports: No Symptoms. Denies: Abdominal Pain, Nausea, Vomiting Genitourinary: Reports: No Symptoms. Denies: Dysuria, Frequency, Burning Musculoskeletal: Reports: No Symptoms Skin: Reports: No Symptoms Neurological: Reports: No Symptoms Psychiatric: Reports: No Symptoms - Patient Data Vitals - Most Recent: Last Vital Signs Temp 96.8 F L 09/25/20 07:45 Pulse 70 09/25/20 07:45 Resp 20 09/25/20 07:45 BP 121/82 09/25/20 07:45 Pulse Ox 98 09/25/20 07:45 Weight - Most Recent: 120.202 kg I&O - Last 24 Hours: Intake & Output 09/24/20 09/25/20 09/25/20 22:59 06:59 14:59 Intake Total 1999 1300 Balance 1999 1300 Lab Results Last 24 Hours: Laboratory Results - last 24 hr 09/24/20 09/24/20 09/24/20 Range/Units 08:22 12:04 16:05 WBC (4.0-11.0) K/uL RBC (4.50-5.90) M/uL Hgb (13.0-17.0) g/dL Hct (38.0-50.0) % MCV (80.0-98.0) fL MCH (27.0-32.0) pg MCHC (31.0-37.0) g/dL RDW Std Deviation (28.0-62.0) fl RDW Coeff of Laney (11.0-15.0) % Plt Count (150-400) K/uL MPV (7.40-12.00) fL Neut % (Auto) (48.0-80.0) % Lymph % (Auto) (16.0-40.0) % [place] % (Auto) (0.0-15.0) % Eos % (Auto) (0.0-7.0) % Baso % (Auto) (0.0-1.5) % Neut # (Auto) (1.4-5.7) K/uL Lymph # (Auto) (0.6-2.4) K/uL [place] # (Auto) (0.0-0.8) K/uL Eos # (Auto) (0.0-0.7) K/uL Baso # (Auto) (0.0-0.1) K/uL Nucleated RBC % /100WBC Nucleated RBCs # K/uL Sodium (136-148) mmol/L Potassium (3.5-5.1) mmol/L Chloride (98-107) mmol/L Carbon Dioxide (21.0-32.0) mmol/L BUN (7.0-18.0) mg/dL Creatinine (0.8-1.3) mg/dL Est Cr Clr Drug Dosing mL/min Estimated GFR (MDRD) ml/min Glucose (74-106) mg/dL POC Glucose 110 236 H 340 H (60-110) mg/dL Hemoglobin A1c (4.5 - 6.2) % Calcium (8.5-10.1) mg/dL Magnesium (1.8-2.4) mg/dL 09/25/20 09/25/20 09/25/20 Range/Units 05:14 05:23 05:23 WBC 10.25 (4.0-11.0) K/uL RBC 4.71 (4.50-5.90) M/uL Hgb 15.2 (13.0-17.0) g/dL Hct 45.2 (38.0-50.0) % MCV 96.0 (80.0-98.0) fL MCH 32.3 H (27.0-32.0) pg MCHC 33.6 (31.0-37.0) g/dL RDW Std Deviation 47.2 (28.0-62.0) fl RDW Coeff of Laney 13 (11.0-15.0) % Plt Count 204 (150-400) K/uL MPV 10.00 (7.40-12.00) fL Neut % (Auto) 83.2 H (48.0-80.0) % Lymph % (Auto) 9.0 L (16.0-40.0) % [place] % (Auto) 7.7 (0.0-15.0) % Eos % (Auto) 0.0 (0.0-7.0) % Baso % (Auto) 0.1 (0.0-1.5) % Neut # (Auto) 8.5 H (1.4-5.7) K/uL Lymph # (Auto) 0.9 (0.6-2.4) K/uL [place] # (Auto) 0.8 (0.0-0.8) K/uL Eos # (Auto) 0.0 (0.0-0.7) K/uL Baso # (Auto) 0.0 (0.0-0.1) K/uL Nucleated RBC % 0.0 /100WBC Nucleated RBCs # 0 K/uL Sodium 139 (136-148) mmol/L Potassium 4.2 (3.5-5.1) mmol/L Chloride 103 (98-107) mmol/L Carbon Dioxide 25.3 (21.0-32.0) mmol/L BUN 23 H (7.0-18.0) mg/dL Creatinine 1.2 (0.8-1.3) mg/dL Est Cr Clr Drug Dosing 72.83 mL/min Estimated GFR (MDRD) > 60.0 ml/min Glucose 309 H (74-106) mg/dL POC Glucose 295 H (60-110) mg/dL Hemoglobin A1c (4.5 - 6.2) % Calcium 8.4 L (8.5-10.1) mg/dL Magnesium 2.4 (1.8-2.4) mg/dL 09/25/20 Range/Units 05:23 WBC (4.0-11.0) K/uL RBC (4.50-5.90) M/uL Hgb (13.0-17.0) g/dL Hct (38.0-50.0) % MCV (80.0-98.0) fL MCH (27.0-32.0) pg MCHC (31.0-37.0) g/dL RDW Std Deviation (28.0-62.0) fl RDW Coeff of Laney (11.0-15.0) % Plt Count (150-400) K/uL MPV (7.40-12.00) fL Neut % (Auto) (48.0-80.0) % Lymph % (Auto) (16.0-40.0) % [place] % (Auto) (0.0-15.0) % Eos % (Auto) (0.0-7.0) % Baso % (Auto) (0.0-1.5) % Neut # (Auto) (1.4-5.7) K/uL Lymph # (Auto) (0.6-2.4) K/uL [place] # (Auto) (0.0-0.8) K/uL Eos # (Auto) (0.0-0.7) K/uL Baso # (Auto) (0.0-0.1) K/uL Nucleated RBC % /100WBC Nucleated RBCs # K/uL Sodium (136-148) mmol/L Potassium (3.5-5.1) mmol/L Chloride (98-107) mmol/L Carbon Dioxide (21.0-32.0) mmol/L BUN (7.0-18.0) mg/dL Creatinine (0.8-1.3) mg/dL Est Cr Clr Drug Dosing mL/min Estimated GFR (MDRD) ml/min Glucose (74-106) mg/dL POC Glucose (60-110) mg/dL Hemoglobin A1c 6.5 H (4.5 - 6.2) % Calcium (8.5-10.1) mg/dL Magnesium (1.8-2.4) mg/dL Med Orders - Current: Current Medications Acetaminophen (Tylenol) 650 mg PO Q4H PRN PRN Reason: Pain (Mild 1-3)/fever Last Admin: 09/19/20 15:59 Dose: 650 mg Documented by: Albuterol/Ipratropium (Combivent Respimat) 0 gm INH Q4HRRT [facility] Last Admin: 09/25/20 04:59 Dose: 1 puff Documented by: Benzonatate (Tessalon Perles) 200 mg PO TID [facility] Last Admin: 09/25/20 04:59 Dose: 200 mg Documented by: Dextrose/Water (Dextrose 50% In Water) 50 ml IV ASDIRECTED PRN PRN Reason: Hypoglycemia Enoxaparin Sodium (Lovenox) 40 mg SUBCUT BID [facility] Last Admin: 09/24/20 20:47 Dose: 40 mg Documented by: Glucagon (Glucagen) 1 mg IM ASDIRECTED PRN PRN Reason: Hypoglycemia Guaifenesin/Codeine Phosphate (Robitussin Ac) 5 ml PO Q6H PRN PRN Reason: Cough Last Admin: 09/25/20 01:42 Dose: 5 ml Documented by: Levofloxacin/Dextrose 750 mg/ (Premix) 150 mls @ 100 mls/hr IV Q24H [facility] Stop: 09/25/20 13:29 Last Admin: 09/24/20 12:27 Dose: 100 mls/hr Documented by: Insulin Aspart (Novolog) 0 unit SUBCUT TIDAC [facility]; Protocol Last Admin: 09/25/20 06:30 Dose: 3 units Documented by: Ondansetron HCl (Zofran) 4 mg IVPUSH Q4H PRN PRN Reason: Nausea Pantoprazole Sodium (Protonix) 40 mg PO ACBREAKFAST [facility] Last Admin: 09/25/20 07:38 Dose: 40 mg Documented by: Sodium Chloride (Saline Flush) 2.5 ml FLUSH ASDIRECTED PRN PRN Reason: Keep Vein Open Last Admin: 09/22/20 21:01 Dose: 2.5 ml Documented by: Discontinued Medications Albuterol/Ipratropium (Combivent Respimat) 0 gm INH QID [facility] Last Admin: 09/18/20 06:13 Dose: 1 puff Documented by: Albuterol/Ipratropium (Duoneb 3.0-0.5 Mg/3 Ml) 3 ml NEB Q4HRRT [facility] Stop: 09/22/20 23:59 Last Admin: 09/22/20 21:08 Dose: 3 ml Documented by: Albuterol/Ipratropium (Combivent Respimat) 1 gm INH Q4H PRN PRN Reason: Dyspnea Last Admin: 09/24/20 11:22 Dose: 1 puff Documented by: Albuterol/Ipratropium (Duoneb 3.0-0.5 Mg/3 Ml) 3 ml NEB ONETIME ONE Stop: 09/23/20 02:13 Last Admin: 09/23/20 02:29 Dose: 3 ml Documented by: Benzonatate (Tessalon Perles) 200 mg PO TID PRN PRN Reason: Cough Dexamethasone (Dexamethasone) 6 mg PO DAILY [facility] Stop: 09/24/20 09:01 Last Admin: 09/24/20 08:28 Dose: 6 mg Documented by: Dexamethasone (Decadron) Confirm Administered Dose 10 mg .ROUTE .STK-MED ONE Stop: 09/15/20 15:55 Last Admin: 09/15/20 15:58 Dose: Not Given Documented by: Enoxaparin Sodium (Lovenox) 40 mg SUBCUT Q12HR [facility] Enoxaparin Sodium (Lovenox) 40 mg SUBCUT DAILY [facility] Last Admin: 09/15/20 16:45 Dose: 40 mg Documented by: Enoxaparin Sodium (Lovenox) 40 mg SUBCUT Q24H [facility] Furosemide (Lasix) 20 mg IVPUSH ONETIME ONE Stop: 09/17/20 12:48 Last Admin: 09/17/20 13:00 Dose: 20 mg Documented by: Furosemide (Lasix) 20 mg IVPUSH ONETIME ONE Stop: 09/19/20 08:47 Last Admin: 09/19/20 08:56 Dose: 20 mg Documented by: Levofloxacin/Dextrose 750 mg/ (Premix) 150 mls @ 100 mls/hr IV ONETIME ONE Stop: 09/15/20 15:00 Last Admin: 09/15/20 15:55 Dose: 100 mls/hr Documented by: Remdesivir 100 mg/ Sodium (Chloride) 100 mls @ 100 mls/hr IV Q24H [facility] Stop: 09/19/20 15:44 Last Admin: 09/19/20 14:50 Dose: 100 mls/hr Documented by: Pantoprazole Sodium 40 mg/ (Sodium Chloride) 10 mls @ 300 mls/hr IV Q24H [facility] Last Admin: 09/21/20 15:53 Dose: 300 mls/hr Documented by: Remdesivir 200 mg/ Sodium (Chloride) 250 mls @ 250 mls/hr IV ONETIME ONE Stop: 09/15/20 16:59 Last Admin: 09/15/20 17:54 Dose: 250 mls/hr Documented by: Levofloxacin/Dextrose (Levaquin In D5w 750 Mg/150 Ml) Confirm Administered Dose 150 mls @ as directed IV .STK-MED ONE Stop: 09/15/20 15:54 Last Admin: 09/15/20 16:46 Dose: Not Given Documented by: Sodium Chloride (Normal Saline) 500 mls @ 999 mls/hr IV .BOLUS [facility] Iopamidol (Isovue Multipack-370 (76%)) 75 ml IVPUSH ONETIME STA Stop: 09/15/20 14:19 Last Admin: 09/15/20 14:19 Dose: 75 ml Documented by: Lorazepam (Ativan) 0.5 mg IVPUSH ONETIME ONE Stop: 09/17/20 11:10 Last Admin: 09/17/20 11:25 Dose: 0.5 mg Documented by: Sodium Chloride (Saline Flush) 10 ml FLUSH ASDIRECTED PRN PRN Reason: Keep Vein Open Sodium Chloride (Saline Flush) 2.5 ml FLUSH ASDIRECTED PRN PRN Reason: Keep Vein Open - Exam Quality Assessment: Supplemental Oxygen (Remains on heated high flow 35 L flow and 40% FiO2) General: Alert, Oriented, Cooperative Lungs: Decreased Breath Sounds, Crackles (Fine crackles noted to right and left lower bases), Other (Nonproductive cough noted) Cardiovascular: Regular Rate, Regular Rhythm, No Murmurs GI/Abdominal Exam: Normal Bowel Sounds, Soft, Non-Tender Back Exam: Normal Inspection, Full Range of Motion Extremities: Normal Inspection, Normal Range of Motion, Non-Tender Neurological: No New Focal Deficit Psy/Mental Status: Alert, Normal Affect, Normal Mood Sepsis Event Note - Evaluation Sepsis Screening Result: No Definite Risk - Focused Exam Vital Signs: Vital Signs Temp Pulse Resp BP Pulse Ox 09/25/20 07:45 96.8 F L 70 20 121/82 98 09/25/20 04:00 97.0 F 81 19 122/72 93 L 09/25/20 02:00 95 09/25/20 00:00 97.5 F 82 19 119/75 95 09/24/20 20:00 97.5 F 84 20 141/84 H 91 L - Problem List & Annotations (1) Acute respiratory failure with hypoxia SNOMED Code(s): 92320000, 773421182 Code(s): J96.01 - ACUTE RESPIRATORY FAILURE WITH HYPOXIA Status: Acute Current Visit: Yes (2) 2019 novel coronavirus disease (COVID-19) SNOMED Code(s): 608018289 Code(s): U07.1 - COVID-19 Status: Acute Current Visit: No (3) Hemoptysis SNOMED Code(s): 56374861 Code(s): R04.2 - HEMOPTYSIS Status: Acute Current Visit: Yes (4) Obesity (BMI 30-39.9) SNOMED Code(s): 884453649, 976324815 Code(s): E66.9 - OBESITY, UNSPECIFIED Status: Chronic Priority: High Current Visit: No - Problem List Review Problem List Initiated/Reviewed/Updated: Yes - My Orders Last 24 Hours: My Active Orders 09/24/20 18:00 Albuterol/Ipratropium [Combivent Respimat] See Dose Instructions INH Q4HRRT 09/26/20 05:11 BASIC METABOLIC PANEL,BMP [CHEM] AM CBC WITH AUTO DIFF [HEME] AM MG [MAGNESIUM] [CHEM] AM 09/27/20 05:11 BASIC METABOLIC PANEL,BMP [CHEM] AM CBC WITH AUTO DIFF [HEME] AM MG [MAGNESIUM] [CHEM] AM - Plan Plan:: This 49-year-old male admitted with acute hypoxic respiratory failure secondary to COVID-19 pneumonia and CAP 1. Acute hypoxic respiratory failure secondary to COVID-19 and CAP - Has been weaned to heated high flow 35 L FiO2 40% feeling much improved. Continue to wean as possible - Completed Remdesivir course, received CCP x2, dexamethasone 10-day course - Continue Levaquin 750 IV daily, will continue for now, will continue for total of 10 days 2 doses left. - I-S and Acapella use encouraged coughing and deep breathing. - Prone as possible -Combivent scheduled - Lovenox to 40 mg twice daily -We will give Lasix 40 mg IV today and monitor output. Along with monitoring ability to wean oxygen further. -Echo results returned no significant findings. Poor windows made for poor quality study. 2. New onset diabetes type 2 -A1c 6.5 -He was counseled on diet changes along with blood sugars being elevated likely secondary to dexamethasone therapy -Continue NovoLog sliding scale -Monitor blood sugars 3 times daily AC -We will also consider discharge home with Metformin. VTE prophylaxis: Lovenox 40 twice daily CODE STATUS: Full code Dispo 2 to 3 days pending improvement stepmother Jaycee Nelson, .
[2020-09-25] MEDS: Enoxaparin 40 MG/0.4 ML Syringe SUBCUT SCH ×2 (08:01→21:17)
[2020-09-25] MEDS ORDERED: Furosemide 40 MG/4 ML VIAL IVPUSH ONE (10:53)
[2020-09-25] MEDS: Levofloxacin/Dextrose 5%-Water 750 MG in Premix Bag 1 BAG IV SCH (12:04)
[2020-09-26] MEDS: Codeine/guaiFENesin 10-100 MG/5 ML Syrup 5 ML Cup PO PRN (00:46)
[2020-09-26] MEDS: Albuterol/Ipratropium 4 GM Inhalation Spray INH SCH ×6 (02:11→21:09)
[2020-09-26] MEDS: Benzonatate 100 MG Cap PO SCH ×3 (05:27→21:09)
[2020-09-26 06:18] LABS: CARBON DIOXIDE,CO2 29.7 mmol/L (21.0-32.0); POTASSIUM,K 3.7 mmol/L (3.5-5.1)
--- NOTE | 2020-09-26 07:55 | PCM.PN ---
- General Info Date of Service: 09/26/20 Admission Dx/Problem (Free Text): Admission Diagnosis/Problem Admission Diagnosis/Problem acute hypoxic respiratory failure, COVID-19 pneumonia, possible CAP Subjective Update: Continues to need heated high flow nasal cannula. He repeatedly takes this off and has been educated to keep this on no matter what. We again reeducated him and counseled that continued or intermittent hypoxia can be detrimental and worsen his course. He then verbally understood that he should be keeping nasal cannula on entire time even with getting up to the bathroom. He is continuing to cough no chest pain continues to have shortness of breath with activity. Feeling like he is not getting a lot of sleep at night has requested medication to help him sleep. No other complaints Functional Status: Reports: Pain Controlled, Tolerating Diet, Ambulating, Urinating - Review of Systems General: Reports: Fatigue HEENT: Reports: No Symptoms. Denies: Headaches, Visual Changes Pulmonary: Reports: Shortness of Breath, Cough. Denies: Sputum Cardiovascular: Reports: Dyspnea on Exertion. Denies: Chest Pain, Edema, Lightheadedness Gastrointestinal: Reports: No Symptoms. Denies: Abdominal Pain, Nausea, Vomiting Genitourinary: Reports: No Symptoms. Denies: Dysuria, Frequency Musculoskeletal: Reports: No Symptoms Skin: Reports: No Symptoms Neurological: Reports: No Symptoms Psychiatric: Reports: No Symptoms - Patient Data Vitals - Most Recent: Last Vital Signs Temp 97.5 F 09/26/20 04:00 Pulse 89 09/26/20 04:00 Resp 19 09/26/20 04:00 BP 117/76 09/26/20 00:45 Pulse Ox 95 09/26/20 04:00 Weight - Most Recent: 120.202 kg I&O - Last 24 Hours: Intake & Output 09/25/20 09/26/20 09/26/20 22:59 06:59 14:59 Intake Total 3000 1650 Balance 3000 1650 Lab Results Last 24 Hours: Laboratory Results - last 24 hr 09/25/20 09/25/20 09/26/20 Range/Units 12:01 16:13 05:40 WBC 10.13 (4.0-11.0) K/uL RBC 4.76 (4.50-5.90) M/uL Hgb 15.5 (13.0-17.0) g/dL Hct 45.8 (38.0-50.0) % MCV 96.2 (80.0-98.0) fL MCH 32.6 H (27.0-32.0) pg MCHC 33.8 (31.0-37.0) g/dL RDW Std Deviation 48.0 (28.0-62.0) fl RDW Coeff of Laney 14 (11.0-15.0) % Plt Count 191 (150-400) K/uL MPV 9.50 (7.40-12.00) fL Neut % (Auto) 73.5 (48.0-80.0) % Lymph % (Auto) 14.9 L (16.0-40.0) % [place] % (Auto) 9.7 (0.0-15.0) % Eos % (Auto) 1.8 (0.0-7.0) % Baso % (Auto) 0.1 (0.0-1.5) % Neut # (Auto) 7.5 H (1.4-5.7) K/uL Lymph # (Auto) 1.5 (0.6-2.4) K/uL Howard # (Auto) 1.0 H (0.0-0.8) K/uL Eos # (Auto) 0.2 (0.0-0.7) K/uL Baso # (Auto) 0.0 (0.0-0.1) K/uL Nucleated RBC % 0.0 /100WBC Nucleated RBCs # 0 K/uL Sodium (136-148) mmol/L Potassium (3.5-5.1) mmol/L Chloride (98-107) mmol/L Carbon Dioxide (21.0-32.0) mmol/L BUN (7.0-18.0) mg/dL Creatinine (0.8-1.3) mg/dL Est Cr Clr Drug Dosing mL/min Estimated GFR (MDRD) ml/min Glucose (74-106) mg/dL POC Glucose 164 H 165 H (60-110) mg/dL Calcium (8.5-10.1) mg/dL Magnesium (1.8-2.4) mg/dL 09/26/20 Range/Units 05:40 WBC (4.0-11.0) K/uL RBC (4.50-5.90) M/uL Hgb (13.0-17.0) g/dL Hct (38.0-50.0) % MCV (80.0-98.0) fL MCH (27.0-32.0) pg MCHC (31.0-37.0) g/dL RDW Std Deviation (28.0-62.0) fl RDW Coeff of Laney (11.0-15.0) % Plt Count (150-400) K/uL MPV (7.40-12.00) fL Neut % (Auto) (48.0-80.0) % Lymph % (Auto) (16.0-40.0) % [place] % (Auto) (0.0-15.0) % Eos % (Auto) (0.0-7.0) % Baso % (Auto) (0.0-1.5) % Neut # (Auto) (1.4-5.7) K/uL Lymph # (Auto) (0.6-2.4) K/uL Howard # (Auto) (0.0-0.8) K/uL Eos # (Auto) (0.0-0.7) K/uL Baso # (Auto) (0.0-0.1) K/uL Nucleated RBC % /100WBC Nucleated RBCs # K/uL Sodium 141 (136-148) mmol/L Potassium 3.7 (3.5-5.1) mmol/L Chloride 105 (98-107) mmol/L Carbon Dioxide 29.7 (21.0-32.0) mmol/L BUN 26 H (7.0-18.0) mg/dL Creatinine 1.3 (0.8-1.3) mg/dL Est Cr Clr Drug Dosing 67.23 mL/min Estimated GFR (MDRD) 58.9 ml/min Glucose 97 (74-106) mg/dL POC Glucose (60-110) mg/dL Calcium 8.2 L (8.5-10.1) mg/dL Magnesium 2.3 (1.8-2.4) mg/dL Med Orders - Current: Current Medications Acetaminophen (Tylenol) 650 mg PO Q4H PRN PRN Reason: Pain (Mild 1-3)/fever Last Admin: 09/19/20 15:59 Dose: 650 mg Documented by: Albuterol/Ipratropium (Combivent Respimat) 0 gm INH Q4HRRT [facility] Last Admin: 09/26/20 05:27 Dose: 1 puff Documented by: Benzonatate (Tessalon Perles) 200 mg PO TID [facility] Last Admin: 09/26/20 05:27 Dose: 200 mg Documented by: Dextrose/Water (Dextrose 50% In Water) 50 ml IV ASDIRECTED PRN PRN Reason: Hypoglycemia Enoxaparin Sodium (Lovenox) 40 mg SUBCUT BID [facility] Last Admin: 09/25/20 21:17 Dose: 40 mg Documented by: Glucagon (Glucagen) 1 mg IM ASDIRECTED PRN PRN Reason: Hypoglycemia Guaifenesin/Codeine Phosphate (Robitussin Ac) 5 ml PO Q6H PRN PRN Reason: Cough Last Admin: 09/26/20 00:46 Dose: 5 ml Documented by: Insulin Aspart (Novolog) 0 unit SUBCUT TIDAC [facility]; Protocol Last Admin: 09/25/20 16:15 Dose: 1 units Documented by: Ondansetron HCl (Zofran) 4 mg IVPUSH Q4H PRN PRN Reason: Nausea Pantoprazole Sodium (Protonix) 40 mg PO ACBREAKFAST [facility] Last Admin: 09/25/20 07:38 Dose: 40 mg Documented by: Sodium Chloride (Saline Flush) 2.5 ml FLUSH ASDIRECTED PRN PRN Reason: Keep Vein Open Last Admin: 09/22/20 21:01 Dose: 2.5 ml Documented by: Discontinued Medications Albuterol/Ipratropium (Combivent Respimat) 0 gm INH QID [facility] Last Admin: 09/18/20 06:13 Dose: 1 puff Documented by: Albuterol/Ipratropium (Duoneb 3.0-0.5 Mg/3 Ml) 3 ml NEB Q4HRRT [facility] Stop: 09/22/20 23:59 Last Admin: 09/22/20 21:08 Dose: 3 ml Documented by: Albuterol/Ipratropium (Combivent Respimat) 1 gm INH Q4H PRN PRN Reason: Dyspnea Last Admin: 09/24/20 11:22 Dose: 1 puff Documented by: Albuterol/Ipratropium (Duoneb 3.0-0.5 Mg/3 Ml) 3 ml NEB ONETIME ONE Stop: 09/23/20 02:13 Last Admin: 09/23/20 02:29 Dose: 3 ml Documented by: Benzonatate (Tessalon Perlsom) 200 mg PO TID PRN PRN Reason: Cough Dexamethasone (Dexamethasone) 6 mg PO DAILY [facility] Stop: 09/24/20 09:01 Last Admin: 09/24/20 08:28 Dose: 6 mg Documented by: Dexamethasone (Decadron) Confirm Administered Dose 10 mg .ROUTE .STK-MED ONE Stop: 09/15/20 15:55 Last Admin: 09/15/20 15:58 Dose: Not Given Documented by: Enoxaparin Sodium (Lovenox) 40 mg SUBCUT Q12HR [facility] Enoxaparin Sodium (Lovenox) 40 mg SUBCUT DAILY [facility] Last Admin: 09/15/20 16:45 Dose: 40 mg Documented by: Enoxaparin Sodium (Lovenox) 40 mg SUBCUT Q24H [facility] Furosemide (Lasix) 20 mg IVPUSH ONETIME ONE Stop: 09/17/20 12:48 Last Admin: 09/17/20 13:00 Dose: 20 mg Documented by: Furosemide (Lasix) 20 mg IVPUSH ONETIME ONE Stop: 09/19/20 08:47 Last Admin: 09/19/20 08:56 Dose: 20 mg Documented by: Furosemide (Lasix) 40 mg IVPUSH NOW ONE Stop: 09/25/20 10:54 Last Admin: 09/25/20 12:03 Dose: 40 mg Documented by: Levofloxacin/Dextrose 750 mg/ (Premix) 150 mls @ 100 mls/hr IV ONETIME ONE Stop: 09/15/20 15:00 Last Admin: 09/15/20 15:55 Dose: 100 mls/hr Documented by: Remdesivir 100 mg/ Sodium (Chloride) 100 mls @ 100 mls/hr IV Q24H [facility] Stop: 09/19/20 15:44 Last Admin: 09/19/20 14:50 Dose: 100 mls/hr Documented by: Levofloxacin/Dextrose 750 mg/ (Premix) 150 mls @ 100 mls/hr IV Q24H [facility] Stop: 09/25/20 13:29 Last Admin: 09/25/20 12:04 Dose: 100 mls/hr Documented by: Pantoprazole Sodium 40 mg/ (Sodium Chloride) 10 mls @ 300 mls/hr IV Q24H [facility] Last Admin: 09/21/20 15:53 Dose: 300 mls/hr Documented by: Remdesivir 200 mg/ Sodium (Chloride) 250 mls @ 250 mls/hr IV ONETIME ONE Stop: 09/15/20 16:59 Last Admin: 09/15/20 17:54 Dose: 250 mls/hr Documented by: Levofloxacin/Dextrose (Levaquin In D5w 750 Mg/150 Ml) Confirm Administered Dose 150 mls @ as directed IV .STK-MED ONE Stop: 09/15/20 15:54 Last Admin: 09/15/20 16:46 Dose: Not Given Documented by: Sodium Chloride (Normal Saline) 500 mls @ 999 mls/hr IV .BOLUS [facility]ISANDRA Iopamidol (Isovue Multipack-370 (76%)) 75 ml IVPUSH ONETIME STA Stop: 09/15/20 14:19 Last Admin: 09/15/20 14:19 Dose: 75 ml Documented by: Lorazepam (Ativan) 0.5 mg IVPUSH ONETIME ONE Stop: 09/17/20 11:10 Last Admin: 09/17/20 11:25 Dose: 0.5 mg Documented by: Sodium Chloride (Saline Flush) 10 ml FLUSH ASDIRECTED PRN PRN Reason: Keep Vein Open Sodium Chloride (Saline Flush) 2.5 ml FLUSH ASDIRECTED PRN PRN Reason: Keep Vein Open - Exam Quality Assessment: Supplemental Oxygen, DVT Prophylaxis General: Alert, Oriented, Cooperative, No Acute Distress Lungs: Decreased Breath Sounds, Crackles (5 crackles bibasilar). No: Normal Respiratory Effort (Dyspnea noted) Cardiovascular: Regular Rate, Regular Rhythm GI/Abdominal Exam: Normal Bowel Sounds, Soft, Non-Tender Back Exam: Normal Inspection, Full Range of Motion Extremities: Normal Inspection, Normal Range of Motion, Non-Tender, No Pedal Edema Neurological: No New Focal Deficit Psy/Mental Status: Alert, Normal Affect, Normal Mood Sepsis Event Note - Evaluation Sepsis Screening Result: No Definite Risk - Focused Exam Vital Signs: Vital Signs Temp Pulse Resp BP Pulse Ox 09/26/20 04:00 97.5 F 89 19 95 09/26/20 02:00 92 L 09/26/20 00:45 97.2 F 87 20 117/76 94 L 09/25/20 23:00 97.2 F 87 20 123/48 L 90 L - Problem List & Annotations (1) Acute respiratory failure with hypoxia SNOMED Code(s): 79313045, 080519313 Code(s): J96.01 - ACUTE RESPIRATORY FAILURE WITH HYPOXIA Status: Acute Current Visit: Yes (2) 2019 novel coronavirus disease (COVID-19) SNOMED Code(s): 900543192 Code(s): U07.1 - COVID-19 Status: Acute Current Visit: No (3) Hemoptysis SNOMED Code(s): 75535534 Code(s): R04.2 - HEMOPTYSIS Status: Acute Current Visit: Yes (4) Obesity (BMI 30-39.9) SNOMED Code(s): 578438447, 490961589 Code(s): E66.9 - OBESITY, UNSPECIFIED Status: Chronic Priority: High Current Visit: No - Problem List Review Problem List Initiated/Reviewed/Updated: Yes - My Orders Last 24 Hours: My Active Orders 09/27/20 05:11 BASIC METABOLIC PANEL,BMP [CHEM] AM CBC WITH AUTO DIFF [HEME] AM MG [MAGNESIUM] [CHEM] AM - Plan Plan:: This 49-year-old male admitted with acute hypoxic respiratory failure secondary to COVID-19 pneumonia and CAP 1. Acute hypoxic respiratory failure secondary to COVID-19 and CAP - Has been weaned to heated high flow 35 L FiO2 40% feeling much improved. Continue to wean as possible - Completed Remdesivir course, received CCP x2, dexamethasone 10-day course -Has completed 10 days of Levaquin 750 milligrams - I-S and Acapella use encouraged coughing and deep breathing. - Prone as possible -Combivent scheduled - Lovenox to 40 mg twice daily -We will give Lasix 20 mg IV and monitor output today. -Echo results returned no significant findings. Poor windows made for poor quality study. 2. New onset diabetes type 2 -A1c 6.5 -He was counseled on diet changes along with blood sugars being elevated likely secondary to dexamethasone therapy -Continue NovoLog sliding scale -Monitor blood sugars 3 times daily AC -We will also consider discharge home with Metformin. VTE prophylaxis: Lovenox 40 twice daily CODE STATUS: Full code Dispo 2 to 3 days pending improvement stepmother Jaycee Nelson, .
[2020-09-26] MEDS: Insulin Aspart 100 Units/ML 3 ML Pen SUBCUT SCH ×3 (08:12→21:07)
[2020-09-26] MEDS: Pantoprazole 40 MG Tab.CR PO SCH (08:13)
[2020-09-26] MEDS: Enoxaparin 40 MG/0.4 ML Syringe SUBCUT SCH ×2 (08:14→21:09)
[2020-09-26] MEDS ORDERED: Furosemide 20 MG/2 ML VIAL IVPUSH ONE (10:55)
[2020-09-26] MEDS: Melatonin 3 MG Tab PO SCH (21:09)
[2020-09-26] MEDS: Acetaminophen 325 MG Tab PO PRN (21:11)
[2020-09-27] MEDS: Albuterol/Ipratropium 4 GM Inhalation Spray INH SCH ×6 (02:39→21:56)
[2020-09-27 06:27] LABS: CARBON DIOXIDE,CO2 30.7 mmol/L (21.0-32.0); POTASSIUM,K 3.6 mmol/L (3.5-5.1)
[2020-09-27] MEDS: Benzonatate 100 MG Cap PO SCH ×3 (06:39→21:55)
[2020-09-27] MEDS: Acetaminophen 325 MG Tab PO PRN (06:39)
[2020-09-27] MEDS: Pantoprazole 40 MG Tab.CR PO SCH (06:39)
[2020-09-27] MEDS: Insulin Aspart 100 Units/ML 3 ML Pen SUBCUT SCH ×3 (07:55→16:12)
[2020-09-27] MEDS: Enoxaparin 40 MG/0.4 ML Syringe SUBCUT SCH ×2 (08:14→20:29)
--- NOTE | 2020-09-27 15:14 | PCM.PN ---
- General Info Date of Service: 09/27/20 - Review of Systems Systems Review Comment:: feeling the same over the past three days, reports dyspnea with walking to bathroom. - Patient Data Vitals - Most Recent: Last Vital Signs Temp 36.3 C 09/27/20 14:47 Pulse 80 09/27/20 14:47 Resp 20 09/27/20 14:47 BP 123/80 09/27/20 14:47 Pulse Ox 94 L 09/27/20 14:47 Weight - Most Recent: 120.202 kg I&O - Last 24 Hours: Intake & Output 09/27/20 09/27/20 09/27/20 06:59 14:59 22:59 Intake Total 700 Output Total 1600 Balance -900 Lab Results Last 24 Hours: Laboratory Results - last 24 hr 09/26/20 09/27/20 09/27/20 Range/Units 17:34 05:52 05:52 WBC 7.39 (4.0-11.0) K/uL RBC 4.66 (4.50-5.90) M/uL Hgb 14.9 (13.0-17.0) g/dL Hct 45.1 (38.0-50.0) % MCV 96.8 (80.0-98.0) fL MCH 32.0 (27.0-32.0) pg MCHC 33.0 (31.0-37.0) g/dL RDW Std Deviation 49.0 (28.0-62.0) fl RDW Coeff of [place] 14 (11.0-15.0) % Plt Count 169 (150-400) K/uL MPV 9.70 (7.40-12.00) fL Neut % (Auto) 67.8 (48.0-80.0) % Lymph % (Auto) 19.9 (16.0-40.0) % [place] % (Auto) 9.2 (0.0-15.0) % Eos % (Auto) 3.1 (0.0-7.0) % Baso % (Auto) 0.0 (0.0-1.5) % Neut # (Auto) 5.0 (1.4-5.7) K/uL Lymph # (Auto) 1.5 (0.6-2.4) K/uL [place] # (Auto) 0.7 (0.0-0.8) K/uL Eos # (Auto) 0.2 (0.0-0.7) K/uL Baso # (Auto) 0.0 (0.0-0.1) K/uL Nucleated RBC % 0.0 /100WBC Nucleated RBCs # 0 K/uL Sodium 142 (136-148) mmol/L Potassium 3.6 (3.5-5.1) mmol/L Chloride 105 (98-107) mmol/L Carbon Dioxide 30.7 (21.0-32.0) mmol/L BUN 24 H (7.0-18.0) mg/dL Creatinine 1.3 (0.8-1.3) mg/dL Est Cr Clr Drug Dosing 67.23 mL/min Estimated GFR (MDRD) 58.9 ml/min Glucose 141 H (74-106) mg/dL POC Glucose 92 (60-110) mg/dL Calcium 8.3 L (8.5-10.1) mg/dL Magnesium 2.3 (1.8-2.4) mg/dL 09/27/20 09/27/20 Range/Units 06:45 11:11 WBC (4.0-11.0) K/uL RBC (4.50-5.90) M/uL Hgb (13.0-17.0) g/dL Hct (38.0-50.0) % MCV (80.0-98.0) fL MCH (27.0-32.0) pg MCHC (31.0-37.0) g/dL RDW Std Deviation (28.0-62.0) fl RDW Coeff of [place] (11.0-15.0) % Plt Count (150-400) K/uL MPV (7.40-12.00) fL Neut % (Auto) (48.0-80.0) % Lymph % (Auto) (16.0-40.0) % [place] % (Auto) (0.0-15.0) % Eos % (Auto) (0.0-7.0) % Baso % (Auto) (0.0-1.5) % Neut # (Auto) (1.4-5.7) K/uL Lymph # (Auto) (0.6-2.4) K/uL [place] # (Auto) (0.0-0.8) K/uL Eos # (Auto) (0.0-0.7) K/uL Baso # (Auto) (0.0-0.1) K/uL Nucleated RBC % /100WBC Nucleated RBCs # K/uL Sodium (136-148) mmol/L Potassium (3.5-5.1) mmol/L Chloride (98-107) mmol/L Carbon Dioxide (21.0-32.0) mmol/L BUN (7.0-18.0) mg/dL Creatinine (0.8-1.3) mg/dL Est Cr Clr Drug Dosing mL/min Estimated GFR (MDRD) ml/min Glucose (74-106) mg/dL POC Glucose 122 H 150 H (60-110) mg/dL Calcium (8.5-10.1) mg/dL Magnesium (1.8-2.4) mg/dL Med Orders - Current: Current Medications Acetaminophen (Tylenol) 650 mg PO Q4H PRN PRN Reason: Pain (Mild 1-3)/fever Last Admin: 09/27/20 06:39 Dose: 650 mg Documented by: Albuterol/Ipratropium (Combivent Respimat) 0 gm INH Q4HRRT [facility] Last Admin: 09/27/20 13:14 Dose: 1 puff Documented by: Benzonatate (Tessalon Perles) 200 mg PO TID [facility] Last Admin: 09/27/20 13:14 Dose: 200 mg Documented by: Dextrose/Water (Dextrose 50% In Water) 50 ml IV ASDIRECTED PRN PRN Reason: Hypoglycemia Enoxaparin Sodium (Lovenox) 40 mg SUBCUT BID [facility] Last Admin: 09/27/20 08:14 Dose: 40 mg Documented by: Glucagon (Glucagen) 1 mg IM ASDIRECTED PRN PRN Reason: Hypoglycemia Guaifenesin/Codeine Phosphate (Robitussin Ac) 5 ml PO Q6H PRN PRN Reason: Cough Last Admin: 09/26/20 00:46 Dose: 5 ml Documented by: Insulin Aspart (Novolog) 0 unit SUBCUT TIDAC [facility]; Protocol Last Admin: 09/27/20 11:12 Dose: 1 units Documented by: Melatonin (Melatonin) 6 mg PO BEDTIME [facility] Last Admin: 09/26/20 21:09 Dose: 6 mg Documented by: Ondansetron HCl (Zofran) 4 mg IVPUSH Q4H PRN PRN Reason: Nausea Pantoprazole Sodium (Protonix) 40 mg PO ACBREAKFAST [facility] Last Admin: 09/27/20 06:39 Dose: 40 mg Documented by: Sodium Chloride (Saline Flush) 2.5 ml FLUSH ASDIRECTED PRN PRN Reason: Keep Vein Open Last Admin: 09/22/20 21:01 Dose: 2.5 ml Documented by: Discontinued Medications Albuterol/Ipratropium (Combivent Respimat) 0 gm INH QID [facility] Last Admin: 09/18/20 06:13 Dose: 1 puff Documented by: Albuterol/Ipratropium (Duoneb 3.0-0.5 Mg/3 Ml) 3 ml NEB Q4HRRT [facility] Stop: 09/22/20 23:59 Last Admin: 09/22/20 21:08 Dose: 3 ml Documented by: Albuterol/Ipratropium (Combivent Respimat) 1 gm INH Q4H PRN PRN Reason: Dyspnea Last Admin: 09/24/20 11:22 Dose: 1 puff Documented by: Albuterol/Ipratropium (Duoneb 3.0-0.5 Mg/3 Ml) 3 ml NEB ONETIME ONE Stop: 09/23/20 02:13 Last Admin: 09/23/20 02:29 Dose: 3 ml Documented by: Benzonatate (Tessalon Perles) 200 mg PO TID PRN PRN Reason: Cough Dexamethasone (Dexamethasone) 6 mg PO DAILY [facility] Stop: 09/24/20 09:01 Last Admin: 09/24/20 08:28 Dose: 6 mg Documented by: Dexamethasone (Decadron) Confirm Administered Dose 10 mg .ROUTE .STK-MED ONE Stop: 09/15/20 15:55 Last Admin: 09/15/20 15:58 Dose: Not Given Documented by: Enoxaparin Sodium (Lovenox) 40 mg SUBCUT Q12HR [facility] Enoxaparin Sodium (Lovenox) 40 mg SUBCUT DAILY [facility] Last Admin: 09/15/20 16:45 Dose: 40 mg Documented by: Enoxaparin Sodium (Lovenox) 40 mg SUBCUT Q24H [facility] Furosemide (Lasix) 20 mg IVPUSH ONETIME ONE Stop: 09/17/20 12:48 Last Admin: 09/17/20 13:00 Dose: 20 mg Documented by: Furosemide (Lasix) 20 mg IVPUSH ONETIME ONE Stop: 09/19/20 08:47 Last Admin: 09/19/20 08:56 Dose: 20 mg Documented by: Furosemide (Lasix) 40 mg IVPUSH NOW ONE Stop: 09/25/20 10:54 Last Admin: 09/25/20 12:03 Dose: 40 mg Documented by: Furosemide (Lasix) 20 mg IVPUSH NOW ONE Stop: 09/26/20 10:56 Last Admin: 09/26/20 11:47 Dose: 20 mg Documented by: Levofloxacin/Dextrose 750 mg/ (Premix) 150 mls @ 100 mls/hr IV ONETIME ONE Stop: 09/15/20 15:00 Last Admin: 09/15/20 15:55 Dose: 100 mls/hr Documented by: Remdesivir 100 mg/ Sodium (Chloride) 100 mls @ 100 mls/hr IV Q24H [facility] Stop: 09/19/20 15:44 Last Admin: 09/19/20 14:50 Dose: 100 mls/hr Documented by: Levofloxacin/Dextrose 750 mg/ (Premix) 150 mls @ 100 mls/hr IV Q24H [facility] Stop: 09/25/20 13:29 Last Admin: 09/25/20 12:04 Dose: 100 mls/hr Documented by: Pantoprazole Sodium 40 mg/ (Sodium Chloride) 10 mls @ 300 mls/hr IV Q24H [facility] Last Admin: 09/21/20 15:53 Dose: 300 mls/hr Documented by: Remdesivir 200 mg/ Sodium (Chloride) 250 mls @ 250 mls/hr IV ONETIME ONE Stop: 09/15/20 16:59 Last Admin: 09/15/20 17:54 Dose: 250 mls/hr Documented by: Levofloxacin/Dextrose (Levaquin In D5w 750 Mg/150 Ml) Confirm Administered Dose 150 mls @ as directed IV .STK-MED ONE Stop: 09/15/20 15:54 Last Admin: 09/15/20 16:46 Dose: Not Given Documented by: Sodium Chloride (Normal Saline) 500 mls @ 999 mls/hr IV .BOLUS [facility] Iopamidol (Isovue Multipack-370 (76%)) 75 ml IVPUSH ONETIME STA Stop: 09/15/20 14:19 Last Admin: 09/15/20 14:19 Dose: 75 ml Documented by: Lorazepam (Ativan) 0.5 mg IVPUSH ONETIME ONE Stop: 09/17/20 11:10 Last Admin: 09/17/20 11:25 Dose: 0.5 mg Documented by: Sodium Chloride (Saline Flush) 10 ml FLUSH ASDIRECTED PRN PRN Reason: Keep Vein Open Sodium Chloride (Saline Flush) 2.5 ml FLUSH ASDIRECTED PRN PRN Reason: Keep Vein Open - Exam General: Alert, Oriented Neck: Supple Lungs: Clear to Auscultation, Normal Respiratory Effort Cardiovascular: Regular Rate, Regular Rhythm GI/Abdominal Exam: Normal Bowel Sounds, Soft, Non-Tender Extremities: Non-Tender, No Pedal Edema Skin: Warm, Dry, Intact Neurological: No New Focal Deficit Sepsis Event Note - Evaluation Sepsis Screening Result: No Definite Risk - Focused Exam Vital Signs: Vital Signs Temp Pulse Resp BP Pulse Ox Pulse Ox 09/27/20 14:47 36.3 C 80 20 123/80 94 L 09/27/20 11:16 36.3 C 78 20 99/65 96 09/27/20 08:00 36.1 C 86 20 126/53 L 96 09/27/20 07:21 90 L 09/27/20 04:00 36.1 C 88 20 105/68 96 - Problem List Review Problem List Initiated/Reviewed/Updated: Yes - Plan Plan:: This 49-year-old male admitted with acute hypoxic respiratory failure secondary to COVID-19 pneumonia and CAP 1. Acute hypoxic respiratory failure secondary to COVID-19 and CAP - Has been weaned to heated high flow 30 L FiO2 90% feeling much improved. Continue to wean as possible - Completed Remdesivir course, received CCP x2, dexamethasone 10-day course -Has completed 10 days of Levaquin 750 milligrams - I-S and Acapella use encouraged coughing and deep breathing. - Prone as possible -Combivent scheduled - Lovenox to 40 mg twice daily 2. New onset diabetes type 2 -A1c 6.5 -He was counseled on diet changes along with blood sugars being elevated likely secondary to dexamethasone therapy -Continue NovoLog sliding scale -Monitor blood sugars 3 times daily AC -We will also consider discharge home with Metformin. VTE prophylaxis: Lovenox 40 twice daily CODE STATUS: Full code Dispo 2 to 3 days pending improvement stepmother Jaycee Nelson, .
[2020-09-27] MEDS: Codeine/guaiFENesin 10-100 MG/5 ML Syrup 5 ML Cup PO PRN ×2 (16:20→22:49)
[2020-09-27] MEDS: Melatonin 3 MG Tab PO SCH (21:56)
[2020-09-28] MEDS: Albuterol/Ipratropium 4 GM Inhalation Spray INH SCH ×6 (02:56→21:38)
[2020-09-28] MEDS: Benzonatate 100 MG Cap PO SCH ×3 (05:52→21:38)
[2020-09-28 06:45] LABS: BLOOD UREA NITROGEN,BUN 19 mg/dL (7.0-18.0); CARBON DIOXIDE,CO2 30.6 mmol/L (21.0-32.0); CHLORIDE,CL 104 mmol/L (98-107); GLUCOSE RANDOM 127 mg/dL (74-106); POTASSIUM,K 4.4 mmol/L (3.5-5.1); SODIUM,NA 141 mmol/L (136-148)
--- NOTE | 2020-09-28 09:15 | PCM.PN ---
- General Info Date of Service: 09/28/20 - Review of Systems Systems Review Comment:: reports shortness of breath with exertion - Patient Data Vitals - Most Recent: Last Vital Signs Temp 37.0 C 09/28/20 03:04 Pulse 99 09/28/20 03:04 Resp 19 09/28/20 03:04 BP 112/70 09/28/20 03:04 Pulse Ox 94 L 09/28/20 03:04 Weight - Most Recent: 120.202 kg I&O - Last 24 Hours: Intake & Output 09/27/20 09/28/20 09/28/20 22:59 06:59 14:59 Intake Total 2000 1800 Output Total 1500 1000 Balance 500 800 Lab Results Last 24 Hours: Laboratory Results - last 24 hr 09/27/20 09/27/20 09/28/20 Range/Units 11:11 16:11 05:58 WBC 8.48 (4.0-11.0) K/uL RBC 4.50 (4.50-5.90) M/uL Hgb 14.3 (13.0-17.0) g/dL Hct 43.9 (38.0-50.0) % MCV 97.6 (80.0-98.0) fL MCH 31.8 (27.0-32.0) pg MCHC 32.6 (31.0-37.0) g/dL RDW Std Deviation 48.8 (28.0-62.0) fl RDW Coeff of [place] 14 (11.0-15.0) % Plt Count 150 (150-400) K/uL MPV 9.90 (7.40-12.00) fL Neut % (Auto) 69.5 (48.0-80.0) % Lymph % (Auto) 17.1 (16.0-40.0) % [place] % (Auto) 9.3 (0.0-15.0) % Eos % (Auto) 4.0 (0.0-7.0) % Baso % (Auto) 0.1 (0.0-1.5) % Neut # (Auto) 5.9 H (1.4-5.7) K/uL Lymph # (Auto) 1.5 (0.6-2.4) K/uL [place] # (Auto) 0.8 (0.0-0.8) K/uL Eos # (Auto) 0.3 (0.0-0.7) K/uL Baso # (Auto) 0.0 (0.0-0.1) K/uL Nucleated RBC % 0.0 /100WBC Nucleated RBCs # 0 K/uL Sodium (136-148) mmol/L Potassium (3.5-5.1) mmol/L Chloride (98-107) mmol/L Carbon Dioxide (21.0-32.0) mmol/L BUN (7.0-18.0) mg/dL Creatinine (0.8-1.3) mg/dL Est Cr Clr Drug Dosing mL/min Estimated GFR (MDRD) ml/min Glucose (74-106) mg/dL POC Glucose 150 H 183 H (60-110) mg/dL Calcium (8.5-10.1) mg/dL 09/28/20 Range/Units 05:58 WBC (4.0-11.0) K/uL RBC (4.50-5.90) M/uL Hgb (13.0-17.0) g/dL Hct (38.0-50.0) % MCV (80.0-98.0) fL MCH (27.0-32.0) pg MCHC (31.0-37.0) g/dL RDW Std Deviation (28.0-62.0) fl RDW Coeff of [place] (11.0-15.0) % Plt Count (150-400) K/uL MPV (7.40-12.00) fL Neut % (Auto) (48.0-80.0) % Lymph % (Auto) (16.0-40.0) % [place] % (Auto) (0.0-15.0) % Eos % (Auto) (0.0-7.0) % Baso % (Auto) (0.0-1.5) % Neut # (Auto) (1.4-5.7) K/uL Lymph # (Auto) (0.6-2.4) K/uL [place] # (Auto) (0.0-0.8) K/uL Eos # (Auto) (0.0-0.7) K/uL Baso # (Auto) (0.0-0.1) K/uL Nucleated RBC % /100WBC Nucleated RBCs # K/uL Sodium 141 (136-148) mmol/L Potassium 4.4 (3.5-5.1) mmol/L Chloride 104 (98-107) mmol/L Carbon Dioxide 30.6 (21.0-32.0) mmol/L BUN 19 H (7.0-18.0) mg/dL Creatinine 1.2 (0.8-1.3) mg/dL Est Cr Clr Drug Dosing 72.83 mL/min Estimated GFR (MDRD) > 60.0 ml/min Glucose 127 H (74-106) mg/dL POC Glucose (60-110) mg/dL Calcium 8.6 (8.5-10.1) mg/dL Med Orders - Current: Current Medications Acetaminophen (Tylenol) 650 mg PO Q4H PRN PRN Reason: Pain (Mild 1-3)/fever Last Admin: 09/27/20 06:39 Dose: 650 mg Documented by: Albuterol/Ipratropium (Combivent Respimat) 0 gm INH Q4HRRT [facility] Last Admin: 09/28/20 05:52 Dose: 1 puff Documented by: Benzonatate (Tessalon Perles) 200 mg PO TID [facility] Last Admin: 09/28/20 05:52 Dose: 200 mg Documented by: Dextrose/Water (Dextrose 50% In Water) 50 ml IV ASDIRECTED PRN PRN Reason: Hypoglycemia Enoxaparin Sodium (Lovenox) 40 mg SUBCUT BID [facility] Last Admin: 09/27/20 20:29 Dose: 40 mg Documented by: Glucagon (Glucagen) 1 mg IM ASDIRECTED PRN PRN Reason: Hypoglycemia Guaifenesin/Dextromethorphan (Robitussin Dm) 10 ml PO Q6H PRN PRN Reason: COUGH Insulin Aspart (Novolog) 0 unit SUBCUT TIDAC [facility]; Protocol Last Admin: 09/27/20 16:12 Dose: 1 units Documented by: Melatonin (Melatonin) 6 mg PO BEDTIME [facility] Last Admin: 09/27/20 21:56 Dose: 6 mg Documented by: Ondansetron HCl (Zofran) 4 mg IVPUSH Q4H PRN PRN Reason: Nausea Pantoprazole Sodium (Protonix) 40 mg PO ACBREAKFAST [facility] Last Admin: 09/27/20 06:39 Dose: 40 mg Documented by: Sodium Chloride (Saline Flush) 2.5 ml FLUSH ASDIRECTED PRN PRN Reason: Keep Vein Open Last Admin: 09/22/20 21:01 Dose: 2.5 ml Documented by: Discontinued Medications Albuterol/Ipratropium (Combivent Respimat) 0 gm INH QID [facility] Last Admin: 09/18/20 06:13 Dose: 1 puff Documented by: Albuterol/Ipratropium (Duoneb 3.0-0.5 Mg/3 Ml) 3 ml NEB Q4HRRT [facility] Stop: 09/22/20 23:59 Last Admin: 09/22/20 21:08 Dose: 3 ml Documented by: Albuterol/Ipratropium (Combivent Respimat) 1 gm INH Q4H PRN PRN Reason: Dyspnea Last Admin: 09/24/20 11:22 Dose: 1 puff Documented by: Albuterol/Ipratropium (Duoneb 3.0-0.5 Mg/3 Ml) 3 ml NEB ONETIME ONE Stop: 09/23/20 02:13 Last Admin: 09/23/20 02:29 Dose: 3 ml Documented by: Benzonatate (Tessalon Perles) 200 mg PO TID PRN PRN Reason: Cough Dexamethasone (Dexamethasone) 6 mg PO DAILY [facility] Stop: 09/24/20 09:01 Last Admin: 09/24/20 08:28 Dose: 6 mg Documented by: Dexamethasone (Decadron) Confirm Administered Dose 10 mg .ROUTE .STK-MED ONE Stop: 09/15/20 15:55 Last Admin: 09/15/20 15:58 Dose: Not Given Documented by: Enoxaparin Sodium (Lovenox) 40 mg SUBCUT Q12HR [facility] Enoxaparin Sodium (Lovenox) 40 mg SUBCUT DAILY [facility] Last Admin: 09/15/20 16:45 Dose: 40 mg Documented by: Enoxaparin Sodium (Lovenox) 40 mg SUBCUT Q24H [facility] Furosemide (Lasix) 20 mg IVPUSH ONETIME ONE Stop: 09/17/20 12:48 Last Admin: 09/17/20 13:00 Dose: 20 mg Documented by: Furosemide (Lasix) 20 mg IVPUSH ONETIME ONE Stop: 09/19/20 08:47 Last Admin: 09/19/20 08:56 Dose: 20 mg Documented by: Furosemide (Lasix) 40 mg IVPUSH NOW ONE Stop: 09/25/20 10:54 Last Admin: 09/25/20 12:03 Dose: 40 mg Documented by: Furosemide (Lasix) 20 mg IVPUSH NOW ONE Stop: 09/26/20 10:56 Last Admin: 09/26/20 11:47 Dose: 20 mg Documented by: Guaifenesin/Codeine Phosphate (Robitussin Ac) 5 ml PO Q6H PRN PRN Reason: Cough Last Admin: 09/27/20 22:49 Dose: 5 ml Documented by: Levofloxacin/Dextrose 750 mg/ (Premix) 150 mls @ 100 mls/hr IV ONETIME ONE Stop: 09/15/20 15:00 Last Admin: 09/15/20 15:55 Dose: 100 mls/hr Documented by: Remdesivir 100 mg/ Sodium (Chloride) 100 mls @ 100 mls/hr IV Q24H [facility] Stop: 09/19/20 15:44 Last Admin: 09/19/20 14:50 Dose: 100 mls/hr Documented by: Levofloxacin/Dextrose 750 mg/ (Premix) 150 mls @ 100 mls/hr IV Q24H [facility] Stop: 09/25/20 13:29 Last Admin: 09/25/20 12:04 Dose: 100 mls/hr Documented by: Pantoprazole Sodium 40 mg/ (Sodium Chloride) 10 mls @ 300 mls/hr IV Q24H [facility] Last Admin: 09/21/20 15:53 Dose: 300 mls/hr Documented by: Remdesivir 200 mg/ Sodium (Chloride) 250 mls @ 250 mls/hr IV ONETIME ONE Stop: 09/15/20 16:59 Last Admin: 09/15/20 17:54 Dose: 250 mls/hr Documented by: Levofloxacin/Dextrose (Levaquin In D5w 750 Mg/150 Ml) Confirm Administered Dose 150 mls @ as directed IV .STK-MED ONE Stop: 09/15/20 15:54 Last Admin: 09/15/20 16:46 Dose: Not Given Documented by: Sodium Chloride (Normal Saline) 500 mls @ 999 mls/hr IV .BOLUS [facility] Iopamidol (Isovue Multipack-370 (76%)) 75 ml IVPUSH ONETIME STA Stop: 09/15/20 14:19 Last Admin: 09/15/20 14:19 Dose: 75 ml Documented by: Lorazepam (Ativan) 0.5 mg IVPUSH ONETIME ONE Stop: 09/17/20 11:10 Last Admin: 09/17/20 11:25 Dose: 0.5 mg Documented by: Sodium Chloride (Saline Flush) 10 ml FLUSH ASDIRECTED PRN PRN Reason: Keep Vein Open Sodium Chloride (Saline Flush) 2.5 ml FLUSH ASDIRECTED PRN PRN Reason: Keep Vein Open - Exam General: Alert, Oriented Neck: Supple Lungs: Clear to Auscultation, Normal Respiratory Effort Cardiovascular: Regular Rate, Regular Rhythm GI/Abdominal Exam: Soft, Non-Tender, No Distention Extremities: Non-Tender, No Pedal Edema Sepsis Event Note - Evaluation Sepsis Screening Result: No Definite Risk - Focused Exam Vital Signs: Vital Signs Temp Pulse Resp BP Pulse Ox 09/28/20 03:04 37.0 C 99 19 112/70 94 L 09/28/20 02:00 95 09/27/20 23:27 36.4 C 88 19 101/52 L 96 - Problem List Review Problem List Initiated/Reviewed/Updated: Yes - My Orders Last 24 Hours: My Active Orders 09/28/20 09:00 Dextromethorphan/guaiFENesin [Robitussin DM] 10 ml PO Q6H PRN 09/29/20 05:11 BASIC METABOLIC PANEL,BMP [CHEM] AM CBC WITH AUTO DIFF [HEME] AM - Plan Plan:: This 49-year-old male admitted with acute hypoxic respiratory failure secondary to COVID-19 pneumonia and CAP 1. Acute hypoxic respiratory failure secondary to COVID-19 and CAP - Has been weaned to heated high flow 30 L FiO2 90% feeling much improved. Continue to wean as possible - Completed Remdesivir course, received CCP x2, dexamethasone 10-day course -Has completed 10 days of Levaquin 750 milligrams - I-S and Acapella use encouraged coughing and deep breathing. - Prone as possible -Combivent scheduled - Lovenox to 40 mg twice daily 2. New onset diabetes type 2 -A1c 6.5 -He was counseled on diet changes along with blood sugars being elevated likely secondary to dexamethasone therapy -Continue NovoLog sliding scale -Monitor blood sugars 3 times daily AC -We will also consider discharge home with Metformin. VTE prophylaxis: Lovenox 40 twice daily CODE STATUS: Full code Dispo 2 to 3 days pending improvement stepmother Jaycee Nelson, .
[2020-09-28] MEDS: Enoxaparin 40 MG/0.4 ML Syringe SUBCUT SCH ×2 (10:19→21:37)
[2020-09-28] MEDS: Pantoprazole 40 MG Tab.CR PO SCH (10:19)
[2020-09-28] MEDS: Insulin Aspart 100 Units/ML 3 ML Pen SUBCUT SCH ×3 (10:22→16:20)
[2020-09-28] MEDS: guaiFENesin/Dextromethorphan 100-10 MG/5 ML Soln 10 ML Cup PO PRN ×2 (12:31→23:43)
[2020-09-28] MEDS: Melatonin 3 MG Tab PO SCH (21:38)
[2020-09-29] MEDS: Albuterol/Ipratropium 4 GM Inhalation Spray INH SCH ×6 (02:26→21:16)
[2020-09-29] MEDS: Benzonatate 100 MG Cap PO SCH ×3 (05:08→21:16)
[2020-09-29 06:43] LABS: BLOOD UREA NITROGEN,BUN 14 mg/dL (7.0-18.0); CARBON DIOXIDE,CO2 29.4 mmol/L (21.0-32.0); CHLORIDE,CL 104 mmol/L (98-107); GLUCOSE RANDOM 120 mg/dL (74-106); POTASSIUM,K 4.2 mmol/L (3.5-5.1); SODIUM,NA 139 mmol/L (136-148)
[2020-09-29] MEDS: Enoxaparin 40 MG/0.4 ML Syringe SUBCUT SCH ×2 (08:54→20:34)
[2020-09-29] MEDS: Pantoprazole 40 MG Tab.CR PO SCH (08:54)
[2020-09-29] MEDS: Insulin Aspart 100 Units/ML 3 ML Pen SUBCUT SCH ×2 (08:54→11:13)
[2020-09-29] MEDS: guaiFENesin/Dextromethorphan 100-10 MG/5 ML Soln 10 ML Cup PO PRN ×2 (09:40→22:22)
--- NOTE | 2020-09-29 10:04 | CR ---
Indication: Hypoxia. COVID positive. Technique: Chest 1 view Comparison: September 17, 2020. Findings/Impression: Cardiovascular and mediastinum: Heart size remains normal. Lungs and pleural space: Interval worsening of severe diffuse bilateral pulmonary infiltrates. No significant effusion and no pneumothorax. Bones and soft tissues: No acute findings. Dictated by Magdy Nix MD @ Sep 29 2020 10:00AM Signed by Dr. Mgady Nix @ Sep 29 2020 10:02AM
--- NOTE | 2020-09-29 10:17 | PCM.PN ---
- General Info Date of Service: 09/29/20 Admission Dx/Problem (Free Text): Admission Diagnosis/Problem Admission Diagnosis/Problem acute hypoxic respiratory failure, COVID-19 pneumonia, possible CAP Subjective Update: Reports he is having some worsening shortness of breath. Cough continues but is productive. Denies any fevers or chills. He does report that he is very tired and has not been able to sleep longer than 30 minutes at a time in the last multiple days. Denies any chest pain. No diarrhea. He is eating and drinking well. Has not been able to prone for extended period times. He has been good about using I-S and flutter valve. Functional Status: Reports: Pain Controlled, Tolerating Diet, Ambulating, Urinating - Review of Systems General: Reports: Fatigue, Malaise HEENT: Reports: No Symptoms. Denies: Headaches, Sore Throat, Visual Changes Pulmonary: Reports: Shortness of Breath, Cough, Sputum (Clear to yellow) Cardiovascular: Reports: No Symptoms. Denies: Chest Pain Gastrointestinal: Reports: No Symptoms. Denies: Abdominal Pain, Nausea, Vomiting Genitourinary: Reports: No Symptoms. Denies: Dysuria, Frequency Musculoskeletal: Reports: No Symptoms Skin: Reports: No Symptoms Neurological: Reports: No Symptoms Psychiatric: Reports: No Symptoms - Patient Data Vitals - Most Recent: Last Vital Signs Temp 97.8 F 09/29/20 05:05 Pulse 89 09/29/20 05:05 Resp 19 09/29/20 05:05 BP 118/72 09/29/20 05:05 Pulse Ox 94 L 09/29/20 05:05 Weight - Most Recent: 120.202 kg I&O - Last 24 Hours: Intake & Output 09/28/20 09/29/20 09/29/20 22:59 06:59 14:59 Intake Total 2000 1350 Output Total 1300 1100 Balance 700 250 Lab Results Last 24 Hours: Laboratory Results - last 24 hr 09/28/20 09/28/20 09/28/20 Range/Units 10:22 12:32 16:20 WBC (4.0-11.0) K/uL RBC (4.50-5.90) M/uL Hgb (13.0-17.0) g/dL Hct (38.0-50.0) % MCV (80.0-98.0) fL MCH (27.0-32.0) pg MCHC (31.0-37.0) g/dL RDW Std Deviation (28.0-62.0) fl RDW Coeff of Laney (11.0-15.0) % Plt Count (150-400) K/uL MPV (7.40-12.00) fL Neut % (Auto) (48.0-80.0) % Lymph % (Auto) (16.0-40.0) % Slope % (Auto) (0.0-15.0) % Eos % (Auto) (0.0-7.0) % Baso % (Auto) (0.0-1.5) % Neut # (Auto) (1.4-5.7) K/uL Lymph # (Auto) (0.6-2.4) K/uL Slope # (Auto) (0.0-0.8) K/uL Eos # (Auto) (0.0-0.7) K/uL Baso # (Auto) (0.0-0.1) K/uL Nucleated RBC % /100WBC Nucleated RBCs # K/uL Sodium (136-148) mmol/L Potassium (3.5-5.1) mmol/L Chloride (98-107) mmol/L Carbon Dioxide (21.0-32.0) mmol/L BUN (7.0-18.0) mg/dL Creatinine (0.8-1.3) mg/dL Est Cr Clr Drug Dosing mL/min Estimated GFR (MDRD) ml/min Glucose (74-106) mg/dL POC Glucose 118 H 104 128 H (60-110) mg/dL Calcium (8.5-10.1) mg/dL 09/29/20 09/29/20 09/29/20 Range/Units 06:02 06:02 08:52 WBC 7.16 (4.0-11.0) K/uL RBC 4.46 L (4.50-5.90) M/uL Hgb 14.3 (13.0-17.0) g/dL Hct 43.1 (38.0-50.0) % MCV 96.6 (80.0-98.0) fL MCH 32.1 H (27.0-32.0) pg MCHC 33.2 (31.0-37.0) g/dL RDW Std Deviation 48.8 (28.0-62.0) fl RDW Coeff of Laney 14 (11.0-15.0) % Plt Count 132 L (150-400) K/uL MPV 9.40 (7.40-12.00) fL Neut % (Auto) 67.5 (48.0-80.0) % Lymph % (Auto) 19.0 (16.0-40.0) % Slope % (Auto) 8.5 (0.0-15.0) % Eos % (Auto) 4.9 (0.0-7.0) % Baso % (Auto) 0.1 (0.0-1.5) % Neut # (Auto) 4.8 (1.4-5.7) K/uL Lymph # (Auto) 1.4 (0.6-2.4) K/uL Slope # (Auto) 0.6 (0.0-0.8) K/uL Eos # (Auto) 0.4 (0.0-0.7) K/uL Baso # (Auto) 0.0 (0.0-0.1) K/uL Nucleated RBC % 0.0 /100WBC Nucleated RBCs # 0 K/uL Sodium 139 (136-148) mmol/L Potassium 4.2 (3.5-5.1) mmol/L Chloride 104 (98-107) mmol/L Carbon Dioxide 29.4 (21.0-32.0) mmol/L BUN 14 (7.0-18.0) mg/dL Creatinine 1.1 (0.8-1.3) mg/dL Est Cr Clr Drug Dosing 79.45 mL/min Estimated GFR (MDRD) > 60.0 ml/min Glucose 120 H (74-106) mg/dL POC Glucose 95 (60-110) mg/dL Calcium 8.4 L (8.5-10.1) mg/dL Med Orders - Current: Current Medications Acetaminophen (Tylenol) 650 mg PO Q4H PRN PRN Reason: Pain (Mild 1-3)/fever Last Admin: 09/27/20 06:39 Dose: 650 mg Documented by: Albuterol/Ipratropium (Combivent Respimat) 0 gm INH Q4HRRT [facility] Last Admin: 09/29/20 09:02 Dose: 1 puff Documented by: Benzonatate (Tessalon Perles) 200 mg PO TID [facility] Last Admin: 09/29/20 05:08 Dose: 200 mg Documented by: Dextrose/Water (Dextrose 50% In Water) 50 ml IV ASDIRECTED PRN PRN Reason: Hypoglycemia Enoxaparin Sodium (Lovenox) 40 mg SUBCUT BID [facility] Last Admin: 09/29/20 08:54 Dose: 40 mg Documented by: Glucagon (Glucagen) 1 mg IM ASDIRECTED PRN PRN Reason: Hypoglycemia Guaifenesin/Dextromethorphan (Robitussin Dm) 10 ml PO Q6H PRN PRN Reason: COUGH Last Admin: 09/29/20 09:40 Dose: 10 ml Documented by: Insulin Aspart (Novolog) 0 unit SUBCUT TIDAC [facility]; Protocol Last Admin: 09/29/20 08:54 Dose: Not Given Documented by: Melatonin (Melatonin) 6 mg PO BEDTIME [facility] Last Admin: 09/28/20 21:38 Dose: 6 mg Documented by: Ondansetron HCl (Zofran) 4 mg IVPUSH Q4H PRN PRN Reason: Nausea Pantoprazole Sodium (Protonix) 40 mg PO ACBREAKFAST [facility] Last Admin: 09/29/20 08:54 Dose: 40 mg Documented by: Sodium Chloride (Saline Flush) 2.5 ml FLUSH ASDIRECTED PRN PRN Reason: Keep Vein Open Last Admin: 09/22/20 21:01 Dose: 2.5 ml Documented by: Discontinued Medications Albuterol/Ipratropium (Combivent Respimat) 0 gm INH QID [facility] Last Admin: 09/18/20 06:13 Dose: 1 puff Documented by: Albuterol/Ipratropium (Duoneb 3.0-0.5 Mg/3 Ml) 3 ml NEB Q4HRRT [facility] Stop: 09/22/20 23:59 Last Admin: 09/22/20 21:08 Dose: 3 ml Documented by: Albuterol/Ipratropium (Combivent Respimat) 1 gm INH Q4H PRN PRN Reason: Dyspnea Last Admin: 09/24/20 11:22 Dose: 1 puff Documented by: Albuterol/Ipratropium (Duoneb 3.0-0.5 Mg/3 Ml) 3 ml NEB ONETIME ONE Stop: 09/23/20 02:13 Last Admin: 09/23/20 02:29 Dose: 3 ml Documented by: Benzonatate (Tessalon Perlsom) 200 mg PO TID PRN PRN Reason: Cough Dexamethasone (Dexamethasone) 6 mg PO DAILY L[facility]AN[facility] Stop: 09/24/20 09:01 Last Admin: 09/24/20 08:28 Dose: 6 mg Documented by: Dexamethasone (Decadron) Confirm Administered Dose 10 mg .ROUTE .STK-MED ONE Stop: 09/15/20 15:55 Last Admin: 09/15/20 15:58 Dose: Not Given Documented by: Enoxaparin Sodium (Lovenox) 40 mg SUBCUT Q12HR [facility] Enoxaparin Sodium (Lovenox) 40 mg SUBCUT DAILY [facility] Last Admin: 09/15/20 16:45 Dose: 40 mg Documented by: Enoxaparin Sodium (Lovenox) 40 mg SUBCUT Q24H [facility] Furosemide (Lasix) 20 mg IVPUSH ONETIME ONE Stop: 09/17/20 12:48 Last Admin: 09/17/20 13:00 Dose: 20 mg Documented by: Furosemide (Lasix) 20 mg IVPUSH ONETIME ONE Stop: 09/19/20 08:47 Last Admin: 09/19/20 08:56 Dose: 20 mg Documented by: Furosemide (Lasix) 40 mg IVPUSH NOW ONE Stop: 09/25/20 10:54 Last Admin: 09/25/20 12:03 Dose: 40 mg Documented by: Furosemide (Lasix) 20 mg IVPUSH NOW ONE Stop: 09/26/20 10:56 Last Admin: 09/26/20 11:47 Dose: 20 mg Documented by: Guaifenesin/Codeine Phosphate (Robitussin Ac) 5 ml PO Q6H PRN PRN Reason: Cough Last Admin: 09/27/20 22:49 Dose: 5 ml Documented by: Levofloxacin/Dextrose 750 mg/ (Premix) 150 mls @ 100 mls/hr IV ONETIME ONE Stop: 09/15/20 15:00 Last Admin: 09/15/20 15:55 Dose: 100 mls/hr Documented by: Remdesivir 100 mg/ Sodium (Chloride) 100 mls @ 100 mls/hr IV Q24H [facility] Stop: 09/19/20 15:44 Last Admin: 09/19/20 14:50 Dose: 100 mls/hr Documented by: Levofloxacin/Dextrose 750 mg/ (Premix) 150 mls @ 100 mls/hr IV Q24H [facility] Stop: 09/25/20 13:29 Last Admin: 09/25/20 12:04 Dose: 100 mls/hr Documented by: Pantoprazole Sodium 40 mg/ (Sodium Chloride) 10 mls @ 300 mls/hr IV Q24H [facility] Last Admin: 09/21/20 15:53 Dose: 300 mls/hr Documented by: Remdesivir 200 mg/ Sodium (Chloride) 250 mls @ 250 mls/hr IV ONETIME ONE Stop: 09/15/20 16:59 Last Admin: 09/15/20 17:54 Dose: 250 mls/hr Documented by: Levofloxacin/Dextrose (Levaquin In D5w 750 Mg/150 Ml) Confirm Administered Dose 150 mls @ as directed IV .STK-MED ONE Stop: 09/15/20 15:54 Last Admin: 09/15/20 16:46 Dose: Not Given Documented by: Sodium Chloride (Normal Saline) 500 mls @ 999 mls/hr IV .BOLUS LISANDRA Iopamidol (Isovue Multipack-370 (76%)) 75 ml IVPUSH ONETIME STA Stop: 09/15/20 14:19 Last Admin: 09/15/20 14:19 Dose: 75 ml Documented by: Lorazepam (Ativan) 0.5 mg IVPUSH ONETIME ONE Stop: 09/17/20 11:10 Last Admin: 09/17/20 11:25 Dose: 0.5 mg Documented by: Sodium Chloride (Saline Flush) 10 ml FLUSH ASDIRECTED PRN PRN Reason: Keep Vein Open Sodium Chloride (Saline Flush) 2.5 ml FLUSH ASDIRECTED PRN PRN Reason: Keep Vein Open - Exam Quality Assessment: Supplemental Oxygen (Continues on Vapotherm 35 L flow with 80% FiO2) General: Alert, Oriented, Cooperative, No Acute Distress Lungs: Crackles ( bibasilar). No: Normal Respiratory Effort (Dyspnea noted worsening cough with talking) Cardiovascular: Regular Rate, Regular Rhythm GI/Abdominal Exam: Normal Bowel Sounds, Soft, Non-Tender Back Exam: Normal Inspection, Full Range of Motion Extremities: Normal Inspection, Normal Range of Motion, Non-Tender, No Pedal Edema Neurological: No New Focal Deficit Psy/Mental Status: Alert, Normal Affect, Normal Mood Sepsis Event Note - Evaluation Sepsis Screening Result: No Definite Risk - Focused Exam Vital Signs: Vital Signs Temp Pulse Resp BP BP Pulse Ox 09/29/20 05:05 97.8 F 89 19 118/72 94 L 09/29/20 02:00 90 L 09/28/20 23:45 98.0 F 71 20 133/76 94 L - Problem List & Annotations (1) Acute respiratory failure with hypoxia SNOMED Code(s): 68004264, 944142349 Code(s): J96.01 - ACUTE RESPIRATORY FAILURE WITH HYPOXIA Status: Acute Current Visit: Yes (2) 2019 novel coronavirus disease (COVID-19) SNOMED Code(s): 627954142 Code(s): U07.1 - COVID-19 Status: Acute Current Visit: No (3) Hemoptysis SNOMED Code(s): 46445575 Code(s): R04.2 - HEMOPTYSIS Status: Acute Current Visit: Yes (4) Obesity (BMI 30-39.9) SNOMED Code(s): 065614820, 542709734 Code(s): E66.9 - OBESITY, UNSPECIFIED Status: Chronic Priority: High Current Visit: No - Problem List Review Problem List Initiated/Reviewed/Updated: Yes - Plan Plan:: This 49-year-old male admitted with acute hypoxic respiratory failure secondary to COVID-19 pneumonia and CAP 1. Acute hypoxic respiratory failure secondary to COVID-19 and CAP -This morning he appears fatigued reporting he has not slept much -Dyspnea with tachypnea noted will trial BiPAP and monitor. -BiPAP was placed / with FiO2 75%. Respiratory rates are in the 40s and SPO2 91%. Will transition patient to ICU for closer monitoring at this time consider Ativan with BiPAP. -We will give Lasix 40 mg IV and monitor closely. - I-S and Acapella use encouraged coughing and deep breathing. - Prone as possible, he is not able to prone much. We did discuss that this is of high importance. He will attempt to try this more frequently. I did discuss that 12 to 16 hours a day would be a goal. -Combivent scheduled - Lovenox to 40 mg twice daily - Completed Remdesivir course, received CCP x2, dexamethasone 10-day course as well as 10 days of Levaquin IV therapy. 2. New onset diabetes type 2 /elevated blood sugars -A1c 6.5 -He was counseled on diet changes along with blood sugars being elevated likely secondary to dexamethasone therapy - sliding scale insulin will be discontinued blood sugars have been well controlled and under 150 for 2 days. VTE prophylaxis: Lovenox 40 twice daily CODE STATUS: Full code Dispo 2 to 3 days pending improvement stepmother Jaycee Nelson, . I spoke with Jaycee this morning regarding status change and moving to ICU. She appreciated update.
[2020-09-29] MEDS ORDERED: Temazepam 15 MG Cap PO PRN (10:46)
[2020-09-29] MEDS ORDERED: Furosemide 40 MG/4 ML VIAL IVPUSH ONE (10:46)
[2020-09-29] MEDS ORDERED: LORazepam 2 MG/ML SDV IVPUSH ONE (12:13)
[2020-09-29 13:19] VITALS: PULSE 79
[2020-09-29] MEDS ORDERED: Albuterol/Ipratropium 3.0-0.5 MG/3 ML Neb Soln NEB PRN (13:27)
[2020-09-29] MEDS ORDERED: Ibuprofen 600 MG Tab PO PRN (16:33)
--- NOTE | 2020-09-29 17:51 | PN ---
THC Physician - Brief Progress [id number]/21/2020 17:34[facility] [place] [place] [facility] - MWN GERTRUDIS MARIANO, COVID +Date of Service 09/29/2020 17:34HPI/E vents of Note eICU Re- Admission NotePt is a 49 yo M originally admitted to the ICU on 09/17 after an initial diagnosis of COVID-19 on 09/10. He has completed courses of Decadron, Remdesivir, Convalescent Plasma and Levaquin. Despite receiving all therapies, his CXR demonstrates worsening infiltrates and his is having increased O2 demand again. he has been transferred back to the ICU for BIPAP therapy. he has been started on 23/06 and is currently satting 96% with a RR of 21 and a HR of 103. They are wo rking on diuresis with close monitoring. He is currently sitting up in bed in no significant distress . Case was discussed with his nurse Patricia.eICU Recommendations:1) Agree with diuresis as tolerated2) Monitor renal function3) BiPAP at HS with trial off in the am after diuresis, may need HFNC for suppo rt until adequately net negative4) PRN Nebs5) BG control6) GI/DVT prophylaxisThank you for allowing u s to participate in the care of your patient.Interventions Major-Hypoxemia - evaluation and managemen t, Infection - evaluation and [id number] therapies (e.g. VTE, beta cindy, etc.), Communication with other healthcare providers and/or family, Hypervolemia - evaluation and ma nagement
[2020-09-29] MEDS ORDERED: LORazepam 2 MG/ML SDV IVPUSH PRN (18:16)
[2020-09-29] MEDS ORDERED: Vancomycin/Water for INJ (PEG) 2 GM in Premix Bag 1 BAG IV ONE (19:00)
[2020-09-29] MEDS: Cefepime 1 GM in Premix Bag 1 BAG IV SCH (19:30)
[2020-09-29] MEDS: Melatonin 3 MG Tab PO SCH (20:41)
[2020-09-30] MEDS: Albuterol/Ipratropium 4 GM Inhalation Spray INH SCH ×4 (01:25→13:28)
[2020-09-30] MEDS: Cefepime 1 GM in Premix Bag 1 BAG IV SCH (02:26)
[2020-09-30] MEDS ORDERED: Vancomycin 1.5 GM in Sodium Chloride 0.9% 500 ML IV SCH (03:00)
[2020-09-30 05:57] LABS: BLOOD UREA NITROGEN,BUN 19 mg/dL (7.0-18.0); CARBON DIOXIDE,CO2 29.4 mmol/L (21.0-32.0); CHLORIDE,CL 102 mmol/L (98-107); GLUCOSE RANDOM 157 mg/dL (74-106); POTASSIUM,K 3.7 mmol/L (3.5-5.1); SODIUM,NA 139 mmol/L (136-148)
[2020-09-30] MEDS: Benzonatate 100 MG Cap PO SCH ×2 (06:00→14:45)
[2020-09-30] MEDS: Pantoprazole 40 MG Tab.CR PO SCH (06:36)
[2020-09-30] MEDS ORDERED: Furosemide 40 MG/4 ML VIAL IVPUSH ONE (08:06)
[2020-09-30] MEDS ORDERED: Potassium Chloride 20 MEQ Tab.ER PO ONE (08:07)
--- NOTE | 2020-09-30 08:08 | PCM.PN ---
- General Info Date of Service: 09/30/20 Admission Dx/Problem (Free Text): Admission Diagnosis/Problem Admission Diagnosis/Problem acute hypoxic respiratory failure, COVID-19 pneumonia, possible CAP Subjective Update: Continues to have shortness of breath today. Feels improved off of BiPAP. Tolerating high flow nasal cannula. Continues to cough which is more productive today. Denies any chest pain. No fevers or chills. Eager to start feeling better. Reports having streaks of blood in his stool reports he was straining quite a bit to have a bowel movement last night and this morning. No further bleeding. Functional Status: Reports: Pain Controlled, Tolerating Diet, Ambulating, Urinating - Review of Systems General: Reports: Fatigue, Malaise. Denies: Fever HEENT: Reports: No Symptoms. Denies: Headaches, Visual Changes Pulmonary: Reports: Shortness of Breath, Pleuritic Chest Pain, Cough, Sputum. Denies: Hemoptysis, Wheezing Cardiovascular: Reports: Dyspnea on Exertion. Denies: Edema, Lightheadedness Gastrointestinal: Reports: Constipation, Flatus. Denies: Abdominal Pain, Diarrh ea, Nausea, Vomiting Genitourinary: Reports: No Symptoms. Denies: Dysuria, Frequency, Burning Musculoskeletal: Reports: No Symptoms Skin: Reports: No Symptoms Neurological: Reports: No Symptoms Psychiatric: Reports: No Symptoms - Patient Data Vitals - Most Recent: Last Vital Signs Temp 98.3 F 09/30/20 04:00 Pulse 79 09/29/20 11:03 Resp 30 H 09/30/20 07:00 BP 124/86 09/30/20 07:00 Pulse Ox 93 L 09/30/20 07:00 Weight - Most Recent: 118 kg I&O - Last 24 Hours: Intake & Output 09/29/20 09/30/20 09/30/20 22:59 06:59 14:59 Intake Total 1430 1700 Output Total 2250 850 Balance -820 850 Lab Results Last 24 Hours: Laboratory Results - last 24 hr 09/29/20 09/29/20 09/29/20 Range/Units 08:52 11:13 16:15 WBC (4.0-11.0) K/uL RBC (4.50-5.90) M/uL Hgb (13.0-17.0) g/dL Hct (38.0-50.0) % MCV (80.0-98.0) fL MCH (27.0-32.0) pg MCHC (31.0-37.0) g/dL RDW Std Deviation (28.0-62.0) fl RDW Coeff of [place] (11.0-15.0) % Plt Count (150-400) K/uL MPV (7.40-12.00) fL Neut % (Auto) (48.0-80.0) % Lymph % (Auto) (16.0-40.0) % [place] % (Auto) (0.0-15.0) % Eos % (Auto) (0.0-7.0) % Baso % (Auto) (0.0-1.5) % Neut # (Auto) (1.4-5.7) K/uL Lymph # (Auto) (0.6-2.4) K/uL [place] # (Auto) (0.0-0.8) K/uL Eos # (Auto) (0.0-0.7) K/uL Baso # (Auto) (0.0-0.1) K/uL Nucleated RBC % /100WBC Nucleated RBCs # K/uL ABG pH 7.431 (7.35-7.45) ABG pCO2 47 H (35-45) mmHG ABG pO2 27 L* (75-100) mmHG ABG HCO3 31 H (22-26) mEq/L ABG Total CO2 27.0 ABG Base Excess 5.4 H (-2.0-2.0) Sodium (136-148) mmol/L Potassium (3.5-5.1) mmol/L Chloride (98-107) mmol/L Carbon Dioxide (21.0-32.0) mmol/L BUN (7.0-18.0) mg/dL Creatinine (0.8-1.3) mg/dL Est Cr Clr Drug Dosing mL/min Estimated GFR (MDRD) ml/min Glucose (74-106) mg/dL POC Glucose 95 97 (60-110) mg/dL Calcium (8.5-10.1) mg/dL Magnesium (1.8-2.4) mg/dL 09/29/20 09/30/20 09/30/20 Range/Units 16:38 05:12 05:12 WBC 6.86 (4.0-11.0) K/uL RBC 4.30 L (4.50-5.90) M/uL Hgb 14.0 (13.0-17.0) g/dL Hct 41.8 (38.0-50.0) % MCV 97.2 (80.0-98.0) fL MCH 32.6 H (27.0-32.0) pg MCHC 33.5 (31.0-37.0) g/dL RDW Std Deviation 49.2 (28.0-62.0) fl RDW Coeff of [place] 14 (11.0-15.0) % Plt Count 140 L (150-400) K/uL MPV 9.60 (7.40-12.00) fL Neut % (Auto) 65.6 (48.0-80.0) % Lymph % (Auto) 18.7 (16.0-40.0) % [place] % (Auto) 10.5 (0.0-15.0) % Eos % (Auto) 5.2 (0.0-7.0) % Baso % (Auto) 0.0 (0.0-1.5) % Neut # (Auto) 4.5 (1.4-5.7) K/uL Lymph # (Auto) 1.3 (0.6-2.4) K/uL [place] # (Auto) 0.7 (0.0-0.8) K/uL Eos # (Auto) 0.4 (0.0-0.7) K/uL Baso # (Auto) 0.0 (0.0-0.1) K/uL Nucleated RBC % 0.0 /100WBC Nucleated RBCs # 0 K/uL ABG pH 7.471 H (7.35-7.45) ABG pCO2 38 (35-45) mmHG ABG pO2 78 (75-100) mmHG ABG HCO3 28 H (22-26) mEq/L ABG Total CO2 23.8 ABG Base Excess 4.1 H (-2.0-2.0) Sodium 139 (136-148) mmol/L Potassium 3.7 (3.5-5.1) mmol/L Chloride 102 (98-107) mmol/L Carbon Dioxide 29.4 (21.0-32.0) mmol/L BUN 19 H (7.0-18.0) mg/dL Creatinine 1.2 (0.8-1.3) mg/dL Est Cr Clr Drug Dosing 73.10 mL/min Estimated GFR (MDRD) > 60.0 ml/min Glucose 157 H (74-106) mg/dL POC Glucose (60-110) mg/dL Calcium 8.5 (8.5-10.1) mg/dL Magnesium 2.1 (1.8-2.4) mg/dL Med Orders - Current: Current Medications Acetaminophen (Tylenol) 650 mg PO Q4H PRN PRN Reason: Pain (Mild 1-3)/fever Last Admin: 09/27/20 06:39 Dose: 650 mg Documented by: Albuterol/Ipratropium (Combivent Respimat) 0 gm INH Q4HRRT [facility] Last Admin: 09/30/20 05:51 Dose: 1 puff Documented by: Albuterol/Ipratropium (Duoneb 3.0-0.5 Mg/3 Ml) 3 ml NEB Q4HRRT PRN PRN Reason: dyspnea/wheezing Benzonatate (Tessalon Perles) 200 mg PO TID [facility] Last Admin: 09/30/20 06:00 Dose: 200 mg Documented by: Dextrose/Water (Dextrose 50% In Water) 50 ml IV ASDIRECTED PRN PRN Reason: Hypoglycemia Enoxaparin Sodium (Lovenox) 40 mg SUBCUT BID [facility] Last Admin: 09/29/20 20:34 Dose: 40 mg Documented by: Furosemide (Lasix) 40 mg IVPUSH NOW ONE Stop: 09/30/20 08:07 Glucagon (Glucagen) 1 mg IM ASDIRECTED PRN PRN Reason: Hypoglycemia Guaifenesin/Dextromethorphan (Robitussin Dm) 10 ml PO Q6H PRN PRN Reason: COUGH Last Admin: 09/29/20 22:22 Dose: 10 ml Documented by: Vancomycin HCl 1.5 gm/ Premix 300 mls @ 300 mls/hr IV Q8H [facility] Cefepime HCl 2 gm/ Premix 50 mls @ 100 mls/hr IV Q8H [facility] Lorazepam (Ativan) 1 mg IVPUSH Q6H PRN PRN Reason: Anxiety Melatonin (Melatonin) 6 mg PO BEDTIME [facility] Last Admin: 09/29/20 20:41 Dose: Not Given Documented by: Ondansetron HCl (Zofran) 4 mg IVPUSH Q4H PRN PRN Reason: Nausea Pantoprazole Sodium (Protonix) 40 mg PO ACBREAKFAST [facility] Last Admin: 09/30/20 06:36 Dose: 40 mg Documented by: Potassium Chloride (Klor-Con M20) 40 meq PO ONETIME ONE Stop: 09/30/20 08:08 Sodium Chloride (Saline Flush) 2.5 ml FLUSH ASDIRECTED PRN PRN Reason: Keep Vein Open Last Admin: 09/22/20 21:01 Dose: 2.5 ml Documented by: Temazepam (Restoril) 15 mg PO BEDTIME PRN PRN Reason: Insomnia Last Admin: 09/29/20 21:16 Dose: 15 mg Documented by: Vancomycin HCl (Pharmacy To Dose - Vancomycin) 1 dose .XX ASDIRECTED [facility] Discontinued Medications Albuterol/Ipratropium (Combivent Respimat) 0 gm INH QID [facility] Last Admin: 09/18/20 06:13 Dose: 1 puff Documented by: Albuterol/Ipratropium (Duoneb 3.0-0.5 Mg/3 Ml) 3 ml NEB Q4HRRT [facility] Stop: 09/22/20 23:59 Last Admin: 09/22/20 21:08 Dose: 3 ml Documented by: Albuterol/Ipratropium (Combivent Respimat) 1 gm INH Q4H PRN PRN Reason: Dyspnea Last Admin: 09/24/20 11:22 Dose: 1 puff Documented by: Albuterol/Ipratropium (Duoneb 3.0-0.5 Mg/3 Ml) 3 ml NEB ONETIME ONE Stop: 09/23/20 02:13 Last Admin: 09/23/20 02:29 Dose: 3 ml Documented by: Benzonatate (Tessalon Perles) 200 mg PO TID PRN PRN Reason: Cough Dexamethasone (Dexamethasone) 6 mg PO DAILY [facility] Stop: 09/24/20 09:01 Last Admin: 09/24/20 08:28 Dose: 6 mg Documented by: Dexamethasone (Decadron) Confirm Administered Dose 10 mg .ROUTE .STK-MED ONE Stop: 09/15/20 15:55 Last Admin: 09/15/20 15:58 Dose: Not Given Documented by: Enoxaparin Sodium (Lovenox) 40 mg SUBCUT Q12HR LISANDRA Enoxaparin Sodium (Lovenox) 40 mg SUBCUT DAILY [facility] Last Admin: 09/15/20 16:45 Dose: 40 mg Documented by: Enoxaparin Sodium (Lovenox) 40 mg SUBCUT Q24H LISANDRA Furosemide (Lasix) 20 mg IVPUSH ONETIME ONE Stop: 09/17/20 12:48 Last Admin: 09/17/20 13:00 Dose: 20 mg Documented by: Furosemide (Lasix) 20 mg IVPUSH ONETIME ONE Stop: 09/19/20 08:47 Last Admin: 09/19/20 08:56 Dose: 20 mg Documented by: Furosemide (Lasix) 40 mg IVPUSH NOW ONE Stop: 09/25/20 10:54 Last Admin: 09/25/20 12:03 Dose: 40 mg Documented by: Furosemide (Lasix) 20 mg IVPUSH NOW ONE Stop: 09/26/20 10:56 Last Admin: 09/26/20 11:47 Dose: 20 mg Documented by: Furosemide (Lasix) 40 mg IVPUSH NOW ONE Stop: 09/29/20 10:47 Last Admin: 09/29/20 11:10 Dose: 40 mg Documented by: Guaifenesin/Codeine Phosphate (Robitussin Ac) 5 ml PO Q6H PRN PRN Reason: Cough Last Admin: 09/27/20 22:49 Dose: 5 ml Documented by: Levofloxacin/Dextrose 750 mg/ (Premix) 150 mls @ 100 mls/hr IV ONETIME ONE Stop: 09/15/20 15:00 Last Admin: 09/15/20 15:55 Dose: 100 mls/hr Documented by: Remdesivir 100 mg/ Sodium (Chloride) 100 mls @ 100 mls/hr IV Q24H LISANDRA Stop: 09/19/20 15:44 Last Admin: 09/19/20 14:50 Dose: 100 mls/hr Documented by: Levofloxacin/Dextrose 750 mg/ (Premix) 150 mls @ 100 mls/hr IV Q24H [facility] Stop: 09/25/20 13:29 Last Admin: 09/25/20 12:04 Dose: 100 mls/hr Documented by: Pantoprazole Sodium 40 mg/ (Sodium Chloride) 10 mls @ 300 mls/hr IV Q24H [facility] Last Admin: 09/21/20 15:53 Dose: 300 mls/hr Documented by: Remdesivir 200 mg/ Sodium (Chloride) 250 mls @ 250 mls/hr IV ONETIME ONE Stop: 09/15/20 16:59 Last Admin: 09/15/20 17:54 Dose: 250 mls/hr Documented by: Levofloxacin/Dextrose (Levaquin In D5w 750 Mg/150 Ml) Confirm Administered Dose 150 mls @ as directed IV .STK-MED ONE Stop: 09/15/20 15:54 Last Admin: 09/15/20 16:46 Dose: Not Given Documented by: Sodium Chloride (Normal Saline) 500 mls @ 999 mls/hr IV .BOLUS [facility] Cefepime HCl 1 gm/ Premix 50 mls @ 100 mls/hr IV Q8H [facility] Last Admin: 09/30/20 02:26 Dose: 100 mls/hr Documented by: Vancomycin HCl 2 gm/ Premix 400 mls @ 200 mls/hr IV STAT ONE Stop: 09/29/20 20:59 Last Admin: 09/29/20 20:36 Dose: 200 mls/hr Documented by: Vancomycin HCl 1.5 gm/ Premix 300 mls @ 300 mls/hr IV Q8HR [facility] Last Admin: 09/30/20 05:16 Dose: Not Given Documented by: Ibuprofen (Motrin) 600 mg PO Q6HR PRN PRN Reason: Pain Insulin Aspart (Novolog) 0 unit SUBCUT TIDAC [facility]; Protocol Last Admin: 09/29/20 11:13 Dose: Not Given Documented by: Iopamidol (Isovue Multipack-370 (76%)) 75 ml IVPUSH ONETIME STA Stop: 09/15/20 14:19 Last Admin: 09/15/20 14:19 Dose: 75 ml Documented by: Lorazepam (Ativan) 0.5 mg IVPUSH ONETIME ONE Stop: 09/17/20 11:10 Last Admin: 09/17/20 11:25 Dose: 0.5 mg Documented by: Lorazepam (Ativan) 1 mg IVPUSH ONETIME ONE Stop: 09/29/20 12:14 Last Admin: 09/29/20 13:25 Dose: 1 mg Documented by: Sodium Chloride (Saline Flush) 10 ml FLUSH ASDIRECTED PRN PRN Reason: Keep Vein Open Sodium Chloride (Saline Flush) 2.5 ml FLUSH ASDIRECTED PRN PRN Reason: Keep Vein Open - Exam Quality Assessment: Supplemental Oxygen (Heated high flow nasal cannula 45 L flow 95% FiO2), DVT Prophylaxis General: Alert, Oriented Lungs: Decreased Breath Sounds, Crackles (Crackles noted to right lower base). No: Normal Respiratory Effort (Dyspnea noted especially with exertion) Cardiovascular: Regular Rate, Regular Rhythm GI/Abdominal Exam: Normal Bowel Sounds, Soft, Non-Tender Extremities: Normal Inspection, Normal Range of Motion, Non-Tender, No Pedal Edema Wound/Incisions: Healing Well Neurological: No New Focal Deficit Psy/Mental Status: Alert, Normal Affect, Normal Mood Sepsis Event Note - Evaluation Sepsis Screening Result: No Definite Risk - Focused Exam Vital Signs: Vital Signs Temp Resp BP Pulse Ox 09/30/20 07:00 30 H 124/86 93 L 09/30/20 06:00 35 H 132/83 93 L 09/30/20 05:00 38 H 116/56 L 92 L 09/30/20 04:00 98.3 F 35 H 117/80 94 L 09/30/20 03:00 29 H 114/73 91 L 09/30/20 02:00 28 H 112/83 93 L 09/30/20 01:00 26 H 116/74 95 09/30/20 00:00 98.3 F 33 H 112/78 93 L 09/29/20 23:00 30 H 116/73 94 L 09/29/20 22:00 35 H 116/72 94 L 09/29/20 21:00 34 H 132/83 88 L - Problem List & Annotations (1) Acute respiratory failure with hypoxia SNOMED Code(s): 33191580, 553848923 Code(s): J96.01 - ACUTE RESPIRATORY FAILURE WITH HYPOXIA Status: Acute Current Visit: Yes (2) 2019 novel coronavirus disease (COVID-19) SNOMED Code(s): 188380051 Code(s): U07.1 - COVID-19 Status: Acute Current Visit: No (3) Hemoptysis SNOMED Code(s): 82260277 Code(s): R04.2 - HEMOPTYSIS Status: Acute Current Visit: Yes (4) Obesity (BMI 30-39.9) SNOMED Code(s): 234894552, 128299924 Code(s): E66.9 - OBESITY, UNSPECIFIED Status: Chronic Priority: High Current Visit: No - Problem List Review Problem List Initiated/Reviewed/Updated: No - My Orders Last 24 Hours: My Active Orders 09/29/20 10:46 Temazepam [Restoril] 15 mg PO BEDTIME PRN 09/29/20 10:47 BIPAP Adult [RT BiPAP/CPAP] [RC] ASDIRECTED 09/29/20 11:03 Transfer Patient (Change bed) [ADT] Routine Cardiac Monitoring [RC] Q8H 09/29/20 13:27 RT Aerosol Therapy [RC] ASDIRECTED Albuterol/Ipratropium [DuoNeb 3.0-0.5 MG/3 ML] 3 ml NEB Q4HRRT PRN 09/30/20 08:06 Furosemide [Lasix] 40 mg IVPUSH NOW ONE 09/30/20 08:07 Potassium Chloride [Klor-Con M20] 40 meq PO ONETIME ONE 10/01/20 05:11 BASIC METABOLIC PANEL,BMP [CHEM] AM CBC WITH AUTO DIFF [HEME] AM MAGNESIUM [CHEM] AM 10/02/20 05:11 BASIC METABOLIC PANEL,BMP [CHEM] AM CBC WITH AUTO DIFF [HEME] AM MAGNESIUM [CHEM] AM 10/03/20 05:11 BASIC METABOLIC PANEL,BMP [CHEM] AM CBC WITH AUTO DIFF [HEME] AM MAGNESIUM [CHEM] AM 10/04/20 05:11 BASIC METABOLIC PANEL,BMP [CHEM] AM CBC WITH AUTO DIFF [HEME] AM MAGNESIUM [CHEM] AM - Plan Plan:: This 49-year-old male admitted with acute hypoxic respiratory failure secondary to COVID-19 pneumonia and CAP 1. Acute hypoxic respiratory failure secondary to COVID-19 and CAP -Slight improvement from yesterday. -Did not tolerate BiPAP well yesterday. Transitioned over to heated high flow nasal cannula. Tolerating this better -Continue Lasix 40 mg IV today. We did discuss 2 L fluid restriction as yesterday he was net +30 mls but yet voided 3300. He understands the concept of wanting to be net negative will monitor today with fluid restriction - I-S and Acapella use encouraged coughing and deep breathing. - Prone as possible, he is not able to prone much. Continue to discuss importance of proning he agreed he will attempt to try this further -Combivent scheduled - Lovenox to 40 mg twice daily, reports streaks of blood in his stool from straining. Will hold Lovenox this morning. -We will obtain CTA of the chest due to worsening bilateral infiltrates on chest x-ray. - Completed Remdesivir course, received CCP x2, dexamethasone 10-day course as well as 10 days of Levaquin IV therapy. VTE prophylaxis: Lovenox 40 twice daily CODE STATUS: Full code Dispo 2 to 3 days pending improvement stepmother Jaycee Nelson, .
[2020-09-30] MEDS: Enoxaparin 40 MG/0.4 ML Syringe SUBCUT SCH (08:59)
[2020-09-30] MEDS ORDERED: Docusate Sodium 100 MG Cap PO SCH (10:00)
[2020-09-30] MEDS ORDERED: Cefepime 2 GM in Premix Bag 1 BAG IV SCH (10:00)
[2020-09-30] MEDS ORDERED: Iopamidol 755 MG/ML 500 ML Multipack Bottle IVPUSH STA (11:54)
--- NOTE | 2020-09-30 12:43 | CT ---
INDICATION: Shortness of breath. Hypoxia. COVID. Pulmonary embolism. TECHNIQUE: Contrast-enhanced CT angiogram of the chest. 100 cc nonionic Isovue-370 administered. COMPARISON: September 15, 2020. September 10, 2020. FINDINGS: Again noted are diffuse widespread predominantly ground-glass pulmonary opacities scattered throughout both lungs. There has not been an improvement when compared to September 15, 2020 and clinically there has been progression when compared to September 10, 2020. There is more consolidation within the lower lobes with air bronchograms right greater than left as well as some consolidation within the posterior right upper lobes and lingular left upper lobe. The pattern and appearance suggests a persistent COVID-19 pattern of infection with progressive consolidation. A superimposed bacterial pneumonia could not be entirely excluded. Please note however there is no evidence for pleural or pericardial effusions. Few mildly prominent right paratracheal/precarinal lymph nodes mildly increased in overall size. These may be reactive. There is clearly respiratory motion artifact degrading image quality and sensitivity for acute pulmonary emboli. No overt evidence for acute central pulmonary emboli. Small peripheral pulmonary emboli could not be excluded given the degree of respiratory motion artifact. There is some degree of interventricular straightening and the right ventricular to left ventricular ratio is greater than 1.0. This would suggest right heart strain. Normal adrenal glands. No splenomegaly. The upper pole of each kidney is within normal limits. Hepatic fatty infiltration. The included skeleton is negative for acute fractures. IMPRESSION: 1. Right pulmonary infiltrates likely related to COVID-19 infection. There is more consolidation within the lower lobes and less so the posterior upper lobes and lingular left upper lobe with air bronchograms. This was suggests some degree of progression of infection. A superimposed bacterial infection could not be entirely excluded. Please note however there is no evidence for any significant pleural or pericardial effusion. 2. No acute pulmonary emboli are appreciated. The sensitivity of the study is degraded by respiratory motion artifact. Please note however there does appear to be some degree of right heart strain with the right ventricular to left ventricular ratio greater than 1.0. 3. Hepatic fatty infiltration. Please note that all CT scans at this facility use dose modulation, iterative reconstruction, and/or weight-based dosing when appropriate to reduce radiation dose to as low as reasonably achievable. Dictated by Raul Soler MD @ Sep 30 2020 12:26PM Signed by Dr. Raul Soler @ Sep 30 2020 12:41PM
--- NOTE | 2020-09-30 15:01 | PCM.DCSUM1 ---
Discharge Summary - Hospital Course Brief History: This 41-year-old male with past medical history of obesity presented to the ER with complaints of worsening shortness of breath. He reports he was diagnosed with COVID-19 on 09/10/2020. He was discharged home with albuterol inhaler along with dexamethasone and azithromycin. He reports that the fatigue malaise and fevers seem to improve. But over the last day the cough and shortness of breath have become very significant including having difficulties doing anything in the house without severe shortness of breath and coughing fits. He reports with the coughing fits he has noted hemoptysis. Reports chest heaviness all over along with back pain. He denies any abdominal pain or nausea vomiting. No diarrhea. No dysuria or frequency urgency. Denies any focal neurological deficits. He reports he had some history of hypertension but lost approximately 25 pounds which has appeared to help. He does not smoke on a regular basis. He does smoke immediately when he is out. Denies any chewing tobacco, no recreational drug use. Reports he does drink 3-4 beers nightly. But has not drank since before . Denies any withdrawal symptoms. CTA from 09/10 revealed no PE but did show bilateral groundglass opacities consistent with COVID-19 infection. In the ER leukocytosis noted at 14,000 hemoglobin 17.4, D-dimer elevated at 3.48. BUN 19 creatinine 1.2 AST ALT mildly elevated at 46 and 67 respectively. Troponin negative. Chest x-ray reveals worsening bilateral interstitial disease representing either COVID-19 or pulmonary edema. CTA obtained which reveals. . On arrival to the ER he was noted to have oxygen saturations in the 70s. He was placed on Vapotherm 66% oxygen, sats increased to mid 90s. He was started on Levaquin for leukocytosis. He will be admitted inpatient for acute hypoxic respiratory failure secondary to COVID-19 and possible CAP. - Discharge Data Discharge Date: 09/30/20 Discharge Disposition: DC/Tfer to Acute Hospital 02 Condition: Fair - Referral to Home Health Primary Care Physician: PCP None - Discharge Diagnosis/Problem(s) (1) Acute respiratory failure with hypoxia SNOMED Code(s): 52549019, 585526898 ICD Code: J96.01 - ACUTE RESPIRATORY FAILURE WITH HYPOXIA Status: Acute Current Visit: Yes (2) 2018 novel coronavirus disease (COVID-19) SNOMED Code(s): 338226918 ICD Code: U07.1 - COVID-19 Status: Acute Current Visit: No (3) Hemoptysis SNOMED Code(s): 29245899 ICD Code: R04.2 - HEMOPTYSIS Status: Acute Current Visit: Yes (4) Obesity (BMI 30-39.9) SNOMED Code(s): 063327163, 180918284 ICD Code: E66.9 - OBESITY, UNSPECIFIED Status: Chronic Priority: High Current Visit: No - Patient Summary/Data Hospital Course: Admission diagnoses; COVID-19 Acute hypoxic respiratory failure Possible CAP Discharge diagnoses: Worsening acute hypoxic respiratory failure COVID-19 Possible superimposed bacterial lung infection Right heart strain Other PMH: Obesity HTN, not currently treated Joao was admitted initially on 09/15/2020 with COVID-19 pneumonia and acute hypoxic respiratory failure. He was treated with dexamethasone 6 mg p.o. daily x10 days, remdesivir 5-day treatment course, 2 units of convalescent plasma and Lovenox 40 mg twice daily. He was also treated on 10-day course of Levaquin 750 mg. Acute hypoxic respiratory failure was treated with BiPAP, heated humidified high flow nasal cannula which she tolerated well. BiPAP placement worsens tachypnea and anxiety. He does seem to improve with Ativan administration on BiPAP. He was in our ICU and monitored closely. He was weaned down to 30 L flow and 40% FiO2 on heated humidified high flow nasal cannula. Over the weekend he has continued to slowly increase oxygen needs. He was given Lasix 40 mg IV to help diurese on 09/29/2020 after chest x-ray showed worsening bilateral groundglass opacities. Today February 09, 2020 he continues to have worsening respiratory failure needing increased needs of oxygen. Again he does not tolerate BiPAP well due to tachypnea and anxiety. He has been on the humidified heated high flow nasal cannula at 45 L flow and 80% FiO2. Maintaining sats around 92 to 94%. CTA was repeated today which shows right pulmonary infiltrates likely secondary to COVID-19 infection. There is more consolidation within the lower lobes and less so the posterior upper lobes and lingular left upper lobe with air milligrams suggesting worsening degree of infection. Suggestion of possible superimposed bacterial infection is not excluded there is no acute pulmonary emboli appreciated but the study was degraded due to respiratory motion artifact. There is some mild right heart strain with right ventricular to left ventricular ratio greater than 1.0. I discussed these findings with Dr. Chapa as well as Dr. Spivey our eICU veterans service representative consulting physician. eICU was recommending transfer to higher level of care due to his age and otherwise worsening acute hypoxic respiratory failure. He agrees with starting cefepime and vancomycin along with azithromycin for superimposed bacterial pneumonia infection. We also gave another dose of Lasix 40 mg IV today. I spoke with Joao regarding the need for higher level of care and possible pulmonology consultation. He is agreeable to transfer. I did speak to him regarding the need for possible intubation in the future and he is agreeable to this understanding that his respiratory status continues to worsen. I also spoke with palma Champion, and updated her on transfer. I initially spoke with ER provider Dr. Nickerson in my [facility]. He was agreeable to admitting patient but we were notified they have no bed availability via their nursing record press supervisor. He will be transferred via ground ambulance ALS to [facility]. I did speak with Dr. Kumar, hospitalist who is agreeable and excepting patient. palma Nelson, . - Discharge Plan *PRESCRIPTION DRUG MONITORING PROGRAM REVIEWED*: Not Applicable *COPY OF PRESCRIPTION DRUG MONITORING REPORT IN PATIENT YONY: Not Applicable Home Medications: Home Meds Ibuprofen 600 mg PO Q6HR PRN #30 tablet 09/10/20 [Rx] Ondansetron [Zofran ODT] 4 mg PO Q6H PRN #12 tab.dis 09/10/20 [Rx] dexAMETHasone [Decadron] 6 mg PO DAILY #6 tablet 09/10/20 [Rx] Cefepime [Maxipime in D5W 2 GM/50 ML] 2 gm IV Q8H bag 09/30/20 [Rx] Enoxaparin [Lovenox] 40 mg SUBCUT BID syringe 09/30/20 [Rx] VANCOmycin/Water for INJ (PEG) [VANCOmycin 1.5 GM/300 ML Premix] 1.5 gm IV Q8H bag 09/30/20 [Rx] Oxygen Therapy Mode: High Humidity, High Flow Therapy Patient Handouts: COVID-19 Frequently Asked Questions, COVID-19, COVID-19: How to Protect Yourself and Others - CDC, Coronavirus Information 12/24/19 Referrals: Shey Earl PA [Physician Literacy Specialist] - 10/07/20 10:30 am (Please arrive 30mins early and bring ID, insurance info and own mask.) - Discharge Summary/Plan Comment DC Time >30 min.: No - Patient Data Vitals - Most Recent: Last Vital Signs Temp 98.7 F 09/30/20 11:47 Pulse 79 09/29/20 11:03 Resp 29 H 09/30/20 13:00 BP 124/85 09/30/20 11:47 Pulse Ox 92 L 09/30/20 13:00 Weight - Most Recent: 118 kg I&O - Last 24 hours: Intake & Output 09/29/20 09/30/20 09/30/20 22:59 06:59 14:59 Intake Total 1430 1700 Output Total 2250 850 Balance -820 850 Lab Results - Last 24 hrs: Laboratory Results - last 24 hr 09/29/20 09/29/20 09/30/20 Range/Units 16:15 16:38 05:12 WBC 6.86 (4.0-11.0) K/uL RBC 4.30 L (4.50-5.90) M/uL Hgb 14.0 (13.0-17.0) g/dL Hct 41.8 (38.0-50.0) % MCV 97.2 (80.0-98.0) fL MCH 32.6 H (27.0-32.0) pg MCHC 33.5 (31.0-37.0) g/dL RDW Std Deviation 49.2 (28.0-62.0) fl RDW Coeff of Laney 14 (11.0-15.0) % Plt Count 140 L (150-400) K/uL MPV 9.60 (7.40-12.00) fL Neut % (Auto) 65.6 (48.0-80.0) % Lymph % (Auto) 18.7 (16.0-40.0) % [place] % (Auto) 10.5 (0.0-15.0) % Eos % (Auto) 5.2 (0.0-7.0) % Baso % (Auto) 0.0 (0.0-1.5) % Neut # (Auto) 4.5 (1.4-5.7) K/uL Lymph # (Auto) 1.3 (0.6-2.4) K/uL Assumption # (Auto) 0.7 (0.0-0.8) K/uL Eos # (Auto) 0.4 (0.0-0.7) K/uL Baso # (Auto) 0.0 (0.0-0.1) K/uL Nucleated RBC % 0.0 /100WBC Nucleated RBCs # 0 K/uL ABG pH 7.431 7.471 H (7.35-7.45) ABG pCO2 47 H 38 (35-45) mmHG ABG pO2 27 L* 78 (75-100) mmHG ABG HCO3 31 H 28 H (22-26) mEq/L ABG Total CO2 27.0 23.8 ABG Base Excess 5.4 H 4.1 H (-2.0-2.0) Sodium (136-148) mmol/L Potassium (3.5-5.1) mmol/L Chloride (98-107) mmol/L Carbon Dioxide (21.0-32.0) mmol/L BUN (7.0-18.0) mg/dL Creatinine (0.8-1.3) mg/dL Est Cr Clr Drug Dosing mL/min Estimated GFR (MDRD) ml/min Glucose (74-106) mg/dL Calcium (8.5-10.1) mg/dL Magnesium (1.8-2.4) mg/dL 09/30/20 Range/Units 05:12 WBC (4.0-11.0) K/uL RBC (4.50-5.90) M/uL Hgb (13.0-17.0) g/dL Hct (38.0-50.0) % MCV (80.0-98.0) fL MCH (27.0-32.0) pg MCHC (31.0-37.0) g/dL RDW Std Deviation (28.0-62.0) fl RDW Coeff of Laney (11.0-15.0) % Plt Count (150-400) K/uL MPV (7.40-12.00) fL Neut % (Auto) (48.0-80.0) % Lymph % (Auto) (16.0-40.0) % [place] % (Auto) (0.0-15.0) % Eos % (Auto) (0.0-7.0) % Baso % (Auto) (0.0-1.5) % Neut # (Auto) (1.4-5.7) K/uL Lymph # (Auto) (0.6-2.4) K/uL [place] # (Auto) (0.0-0.8) K/uL Eos # (Auto) (0.0-0.7) K/uL Baso # (Auto) (0.0-0.1) K/uL Nucleated RBC % /100WBC Nucleated RBCs # K/uL ABG pH (7.35-7.45) ABG pCO2 (35-45) mmHG ABG pO2 (75-100) mmHG ABG HCO3 (22-26) mEq/L ABG Total CO2 ABG Base Excess (-2.0-2.0) Sodium 139 (136-148) mmol/L Potassium 3.7 (3.5-5.1) mmol/L Chloride 102 (98-107) mmol/L Carbon Dioxide 29.4 (21.0-32.0) mmol/L BUN 19 H (7.0-18.0) mg/dL Creatinine 1.2 (0.8-1.3) mg/dL Est Cr Clr Drug Dosing 73.10 mL/min Estimated GFR (MDRD) > 60.0 ml/min Glucose 157 H (74-106) mg/dL Calcium 8.5 (8.5-10.1) mg/dL Magnesium 2.1 (1.8-2.4) mg/dL Med Orders - Current: Current Medications Acetaminophen (Tylenol) 650 mg PO Q4H PRN PRN Reason: Pain (Mild 1-3)/fever Last Admin: 09/27/20 06:39 Dose: 650 mg Documented by: Albuterol/Ipratropium (Combivent Respimat) 0 gm INH Q4HRRT LISANDRA Last Admin: 09/30/20 13:28 Dose: 1 puff Documented by: Albuterol/Ipratropium (Duoneb 3.0-0.5 Mg/3 Ml) 3 ml NEB Q4HRRT PRN PRN Reason: dyspnea/wheezing Benzonatate (Tessalon Perles) 200 mg PO TID [facility] Last Admin: 09/30/20 06:00 Dose: 200 mg Documented by: Dextrose/Water (Dextrose 50% In Water) 50 ml IV ASDIRECTED PRN PRN Reason: Hypoglycemia Docusate Sodium (Colace) 100 mg PO BID [facility] Last Admin: 09/30/20 11:02 Dose: 100 mg Documented by: Enoxaparin Sodium (Lovenox) 40 mg SUBCUT BID [facility] Last Admin: 09/30/20 08:59 Dose: Not Given Documented by: Glucagon (Glucagen) 1 mg IM ASDIRECTED PRN PRN Reason: Hypoglycemia Guaifenesin/Dextromethorphan (Robitussin Dm) 10 ml PO Q6H PRN PRN Reason: COUGH Last Admin: 09/29/20 22:22 Dose: 10 ml Documented by: Vancomycin HCl 1.5 gm/ Premix 300 mls @ 300 mls/hr IV Q8H [facility] Last Admin: 09/30/20 13:18 Dose: 300 mls/hr Documented by: Cefepime HCl 2 gm/ Premix 50 mls @ 100 mls/hr IV Q8H [facility] Last Admin: 09/30/20 10:00 Dose: 100 mls/hr Documented by: Lorazepam (Ativan) 1 mg IVPUSH Q6H PRN PRN Reason: Anxiety Last Admin: 09/30/20 11:03 Dose: 1 mg Documented by: Melatonin (Melatonin) 6 mg PO BEDTIME [facility] Last Admin: 09/29/20 20:41 Dose: Not Given Documented by: Ondansetron HCl (Zofran) 4 mg IVPUSH Q4H PRN PRN Reason: Nausea Pantoprazole Sodium (Protonix) 40 mg PO ACBREAKFAST [facility] Last Admin: 09/30/20 06:36 Dose: 40 mg Documented by: Sodium Chloride (Saline Flush) 2.5 ml FLUSH ASDIRECTED PRN PRN Reason: Keep Vein Open Last Admin: 09/22/20 21:01 Dose: 2.5 ml Documented by: Temazepam (Restoril) 15 mg PO BEDTIME PRN PRN Reason: Insomnia Last Admin: 09/29/20 21:16 Dose: 15 mg Documented by: Vancomycin HCl (Pharmacy To Dose - Vancomycin) 1 dose .XX ASDIRECTED [facility] Discontinued Medications Albuterol/Ipratropium (Combivent Respimat) 0 gm INH QID LISANDRA Last Admin: 09/18/20 06:13 Dose: 1 puff Documented by: Albuterol/Ipratropium (Duoneb 3.0-0.5 Mg/3 Ml) 3 ml NEB Q4HRRT LISANDRA Stop: 09/22/20 23:59 Last Admin: 09/22/20 21:08 Dose: 3 ml Documented by: Albuterol/Ipratropium (Combivent Respimat) 1 gm INH Q4H PRN PRN Reason: Dyspnea Last Admin: 09/24/20 11:22 Dose: 1 puff Documented by: Albuterol/Ipratropium (Duoneb 3.0-0.5 Mg/3 Ml) 3 ml NEB ONETIME ONE Stop: 09/23/20 02:13 Last Admin: 09/23/20 02:29 Dose: 3 ml Documented by: Benzonatate (Tessalon Perles) 200 mg PO TID PRN PRN Reason: Cough Dexamethasone (Dexamethasone) 6 mg PO DAILY [facility] Stop: 09/24/20 09:01 Last Admin: 09/24/20 08:28 Dose: 6 mg Documented by: Dexamethasone (Decadron) Confirm Administered Dose 10 mg .ROUTE .STK-MED ONE Stop: 09/15/20 15:55 Last Admin: 09/15/20 15:58 Dose: Not Given Documented by: Enoxaparin Sodium (Lovenox) 40 mg SUBCUT Q12HR [facility] Enoxaparin Sodium (Lovenox) 40 mg SUBCUT DAILY [facility] Last Admin: 09/15/20 16:45 Dose: 40 mg Documented by: Enoxaparin Sodium (Lovenox) 40 mg SUBCUT Q24H [facility] Furosemide (Lasix) 20 mg IVPUSH ONETIME ONE Stop: 09/17/20 12:48 Last Admin: 09/17/20 13:00 Dose: 20 mg Documented by: Furosemide (Lasix) 20 mg IVPUSH ONETIME ONE Stop: 09/19/20 08:47 Last Admin: 09/19/20 08:56 Dose: 20 mg Documented by: Furosemide (Lasix) 40 mg IVPUSH NOW ONE Stop: 09/25/20 10:54 Last Admin: 09/25/20 12:03 Dose: 40 mg Documented by: Furosemide (Lasix) 20 mg IVPUSH NOW ONE Stop: 09/26/20 10:56 Last Admin: 09/26/20 11:47 Dose: 20 mg Documented by: Furosemide (Lasix) 40 mg IVPUSH NOW ONE Stop: 09/29/20 10:47 Last Admin: 09/29/20 11:10 Dose: 40 mg Documented by: Furosemide (Lasix) 40 mg IVPUSH NOW ONE Stop: 09/30/20 08:07 Last Admin: 09/30/20 09:45 Dose: 40 mg Documented by: Guaifenesin/Codeine Phosphate (Robitussin Ac) 5 ml PO Q6H PRN PRN Reason: Cough Last Admin: 09/27/20 22:49 Dose: 5 ml Documented by: Levofloxacin/Dextrose 750 mg/ (Premix) 150 mls @ 100 mls/hr IV ONETIME ONE Stop: 09/15/20 15:00 Last Admin: 09/15/20 15:55 Dose: 100 mls/hr Documented by: Remdesivir 100 mg/ Sodium (Chloride) 100 mls @ 100 mls/hr IV Q24H LISADNRA Stop: 09/19/20 15:44 Last Admin: 09/19/20 14:50 Dose: 100 mls/hr Documented by: Levofloxacin/Dextrose 750 mg/ (Premix) 150 mls @ 100 mls/hr IV Q24H [facility] Stop: 09/25/20 13:29 Last Admin: 09/25/20 12:04 Dose: 100 mls/hr Documented by: Pantoprazole Sodium 40 mg/ (Sodium Chloride) 10 mls @ 300 mls/hr IV Q24H [facility] Last Admin: 09/21/20 15:53 Dose: 300 mls/hr Documented by: Remdesivir 200 mg/ Sodium (Chloride) 250 mls @ 250 mls/hr IV ONETIME ONE Stop: 09/15/20 16:59 Last Admin: 09/15/20 17:54 Dose: 250 mls/hr Documented by: Levofloxacin/Dextrose (Levaquin In D5w 750 Mg/150 Ml) Confirm Administered Dose 150 mls @ as directed IV .STK-MED ONE Stop: 09/15/20 15:54 Last Admin: 09/15/20 16:46 Dose: Not Given Documented by: Sodium Chloride (Normal Saline) 500 mls @ 999 mls/hr IV .BOLUS LISANDRA Cefepime HCl 1 gm/ Premix 50 mls @ 100 mls/hr IV Q8H [facility] Last Admin: 09/30/20 02:26 Dose: 100 mls/hr Documented by: Vancomycin HCl 2 gm/ Premix 400 mls @ 200 mls/hr IV STAT ONE Stop: 09/29/20 20:59 Last Admin: 09/29/20 20:36 Dose: 200 mls/hr Documented by: Vancomycin HCl 1.5 gm/ Premix 300 mls @ 300 mls/hr IV Q8HR [facility] Last Admin: 09/30/20 05:16 Dose: Not Given Documented by: Ibuprofen (Motrin) 600 mg PO Q6HR PRN PRN Reason: Pain Insulin Aspart (Novolog) 0 unit SUBCUT TIDAC [facility]; Protocol Last Admin: 09/29/20 11:13 Dose: Not Given Documented by: Iopamidol (Isovue Multipack-370 (76%)) 75 ml IVPUSH ONETIME STA Stop: 09/15/20 14:19 Last Admin: 09/15/20 14:19 Dose: 75 ml Documented by: Iopamidol (Isovue Multipack-370 (76%)) 100 ml IVPUSH ONETIME STA Stop: 09/30/20 11:55 Last Admin: 09/30/20 11:55 Dose: 100 ml Documented by: Lorazepam (Ativan) 0.5 mg IVPUSH ONETIME ONE Stop: 09/17/20 11:10 Last Admin: 09/17/20 11:25 Dose: 0.5 mg Documented by: Lorazepam (Ativan) 1 mg IVPUSH ONETIME ONE Stop: 09/29/20 12:14 Last Admin: 09/29/20 13:25 Dose: 1 mg Documented by: Potassium Chloride (Klor-Con M20) 40 meq PO ONETIME ONE Stop: 09/30/20 08:08 Last Admin: 09/30/20 09:47 Dose: 40 meq Documented by: Sodium Chloride (Saline Flush) 10 ml FLUSH ASDIRECTED PRN PRN Reason: Keep Vein Open Sodium Chloride (Saline Flush) 2.5 ml FLUSH ASDIRECTED PRN PRN Reason: Keep Vein Open - Exam Quality Assessment: Reports: Supplemental Oxygen (Heated humidified high flow nasal cannula 45 L flow 80% FiO2), DVT Prophylaxis (Lovenox twice daily) General: Reports: Alert, Oriented, Cooperative Lungs: Reports: Decreased Breath Sounds, Crackles (Right lower lobe). Denies: Normal Respiratory Effort (Dyspnea) Cardiovascular: Reports: Regular Rate, Regular Rhythm GI/Abdominal Exam: Normal Bowel Sounds, Soft, Non-Tender Extremities: Normal Inspection, Normal Range of Motion, Non-Tender, No Pedal Edema Neurological: Reports: No New Focal Deficit Psy/Mental Status: Reports: Alert, Normal Affect, Normal Mood
[2020-09-30] MEDS ORDERED: Azithromycin 250 MG Tab PO ONE (15:10)
--- NOTE | 2020-09-30 15:24 | PN ---
THC Physician - Brief Progress [id number]/22/2020 15:09[facility] [place] - IFEANYI (OSMAR) - IFEANYI GERTRUDIS MARIANO, COVID +Date of Service 09/30/2020 15:09HPI/E vents of Note The patient was discussed with Aurora Bustillos NPThe patient is a 49-year-old male, morbidl y obese but otherwise without comorbidities except hypertension, who originally was admitted on Decem florina 7 COVID-19 pneumonia and ARDS. He received treatment with convalescent plasma x2 doses, 10 days of Decadron and remdesivir. This resulted in improvement went to regular floor. He was transferred back to the ICU yesterday for worsening oxygen requirementsPatient was seen over, and his laboratory exported to [facility] hosp[facility] home care coordinator were reviewed. Currently he is o45L 70-80% HHFNC sitting up in bed, and a ppears comfortable at rest. Proning with previously, the patient is not on prone proning. Currently his CT scan shows worsening infiltrates, which are more consolidative in some areas. Also his echo is suggestive of some right ventricular strain. Reportedly no pulmonary emboli.The patient was diure sed but he is fluid balance did not he was drinking generously. Patient was started on cefepime vanc omycin and azithromycinAt this point is seems to be subacute Covid 19/ARDS picture, is a potential co mplication with infection, including opportunistic.Suggest to send pneumonia PCR panel, as he likely will need more diagnostic work-up such as bronchoscopy to obtain samples from the more affected areas We discussed that it would be most appropriate to transfer the patient to higher level of care, which would be [facility] Laura excuse any mistakes in syntax and contextual errors t hat this report may contain, as it is created by equine breeder softwareInterventions Major-Hypoxemia - evaluation and managementIntermediate-Communication with other healthcare providers and/or familyEl ectronically Signed by: OBEY DOOLEY) on 09/30/2020 15:23
[2020-09-30 16:13] VITALS: BP 134/76
== END 2020-09-30 16:00 | DRG 137 ==
LOC: MW.ED 11:46 → MW.MS 15:33 → MW.ICU 09-17 09:42 → MW.MS 09-22 16:30 → MW.ICU 09-29 12:40
PROVIDERS: ADMIT Student in an Organized Health Care Education/Training Program; ATTEND Student in an Organized Health Care Education/Training Program
PROC: XW033E5 Introduction of Remdesivir Anti-infective into Peripheral Vein, Percutaneous Approach, New Technology Group 5 (ICD-10-PCS; principal; 2020-09-15)
PROC: 5A0945A Assistance with Respiratory Ventilation, 24-96 Consecutive Hours, High Flow/Velocity Cannula (ICD-10-PCS; 2020-09-15)
PROC: 5A09457 Assistance with Respiratory Ventilation, 24-96 Consecutive Hours, Continuous Positive Airway Pressure (ICD-10-PCS; 2020-09-15)
DX: U07.1 COVID-19 (principal); J96.01 Acute respiratory failure with hypoxia; E66.9 Obesity, unspecified; I10 Essential (primary) hypertension; J18.9 Pneumonia, unspecified organism; J15.9 Unspecified bacterial pneumonia; F41.9 Anxiety disorder, unspecified; Z79.899 Other long term (current) drug therapy; M10.9 Gout, unspecified; Z96.641 Presence of right artificial hip joint; F17.210 Nicotine dependence, cigarettes, uncomplicated; E11.9 Type 2 diabetes mellitus without complications
CPT/HCPCS: 36415; 36430; 36600; 71045; 71045-26; 71275; 71275-26; 80048; 80053; 81003; 82803; 82962; 83036; 83605; 83735; 84484; 85025; 85379; 86850; 86900; 86901; 93005; 93010; 93306; 94640; 94660; 94667; 99284; 99285-25; A9270-GY; C9113; J0692; J1650; J1815-GY; J1940; J1956; J2060; J3370; J7050; J7620-GY; J8540; P9017; Q9967

== ENCOUNTER 2020-10-29 06:55 | Emergency (ER) | payer BC ==
[2020-10-29 07:12] VITALS: PULSE 128
[2020-10-29 07:15] VITALS: BP 131/78
--- NOTE | 2020-10-29 07:27 | EDM.PDOC ---
ED HPI GENERAL MEDICAL PROBLEM - General Chief Complaint: Lower Extremity Injury/Pain Stated Complaint: GOUT IN RT FOOT Time Seen by Provider: 10/29/20 07:15 Source of Information: Reports: Patient History Limitations: Reports: No Limitations - History of Present Illness INITIAL COMMENTS - FREE TEXT/NARRATIVE: 50-year-old male with history of gout presents with right ankle gouty flareup for 2 days. Pain is localized to his right ankle, moderate, nonradiating, constant, exacerbated with palpation and range of motion, no alleviating factors. He took his previous prescribed colchicine. He denies fever, chills, trauma. ROS: A 10-point review of systems, other than pertinent positives and negatives as stated per HPI, is otherwise negative Past medical history: No additional pertinent history Past Surgical history: No additional pertinent history Social history: No additional pertinent history Family history: No additional pertinent history PHYSICAL EXAM General: AOx4, GCS = 15, mild distress HEENT: dry mucous membrane Neck: supple, no meningismus, no Kernig or Brudzinski Cardiac: S1S2 RRR Respiratory: CTAB, no crackles or rales, no wheezing Abdomen: Soft, nontender, no rebound or guarding, nondistended, no pulsatile mass. Back: nontender Musculoskeletal: NVI distally, right ankle ttp/warm, no deformity Neuro: No focal deficits, CN 2 - 12 WNL. right foot Pain Score (Numeric/FACES): 9 - Related Data Allergies Allergy/AdvReac Type Severity Reaction Status Date / Time No Known Allergies Allergy Verified 10/29/20 07:09 Home Meds: Home Meds Ibuprofen 600 mg PO Q6HR PRN #30 tablet 09/10/20 [Rx] Ondansetron [Zofran ODT] 4 mg PO Q6H PRN #12 tab.dis 09/10/20 [Rx] dexAMETHasone [Decadron] 6 mg PO DAILY #6 tablet 09/10/20 [Rx] Cefepime [Maxipime in D5W 2 GM/50 ML] 2 gm IV Q8H bag 09/30/20 [Rx] Enoxaparin [Lovenox] 40 mg SUBCUT BID syringe 09/30/20 [Rx] VANCOmycin/Water for INJ (PEG) [VANCOmycin 1.5 GM/300 ML Premix] 1.5 gm IV Q8H bag 09/30/20 [Rx] Indomethacin 50 mg PO TID #21 capsule 10/29/20 [Rx] predniSONE [Prednisone] 50 mg PO DAILY #5 tablet 10/29/20 [Rx] Past Medical History HEENT History: Reports: None Cardiovascular History: Reports: Hypertension Respiratory History: Reports: None Gastrointestinal History: Reports: None Genitourinary History: Reports: None Musculoskeletal History: Reports: Gout Neurological History: Reports: None Psychiatric History: Reports: None Endocrine/Metabolic History: Reports: None 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 Hematologic History: Reports: None Immunologic History: Reports: None Oncologic (Cancer) History: Reports: None Dermatologic History: Reports: None - Infectious Disease History Infectious Disease History: Reports: Chicken Pox - Past Surgical History Head Surgeries/Procedures: Reports: None HEENT Surgical History: Reports: LASIK Cardiovascular Surgical History: Reports: None Respiratory Surgical History: Reports: None GI Surgical History: Reports: Appendectomy Male Surgical History: Reports: None Endocrine Surgical History: Reports: None Neurological Surgical History: Reports: None Musculoskeletal Surgical History: Reports: Other (See Below) Other Musculoskeletal Surgeries/Procedures:: right hip replacement Oncologic Surgical History: Reports: None Dermatological Surgical History: Reports: None Social & Family History - Family History Family Medical History: No Pertinent Family History - Tobacco Use Tobacco Use Status *Q: Never Tobacco User - Caffeine Use Caffeine Use: Reports: Soda Caffeine Use Comment: 2drinks/daily - Recreational Drug Use Recreational Drug Use: No - Living Situation & Occupation Living situation: Reports: , with Family Occupation: Employed Review of Systems - Review of Systems Review Of Systems: See Below (see dictation) ED EXAM, GENERAL - Physical Exam Exam: See Below (see dictation) Course - Vital Signs Last Recorded V/S: Last Vital Signs Temp 96.5 F L 10/29/20 07:00 Pulse 128 H 10/29/20 07:00 Resp 24 H 10/29/20 07:00 BP 131/78 10/29/20 07:00 Pulse Ox 96 10/29/20 07:00 - Re-Assessments/Exams Free Text/Narrative Re-Assessment/Exam: 10/29/20 08:00 He is currently stable for discharge. I performed a repeat exam and did not appreciate new abnormal findings. Patient exhibits normal vital signs and has a normal gait on road test. I advised the patient to return to the ER for reeva luation if symptoms worsened, including fever, worsening pain, or any other worrisome symptoms. I instructed the patient to follow up with their PCP within 2-3 days. MEDICAL DECISION MAKING: I reviewed the patients past medical records, lab and radiographic findings. I discussed the case with the patient. My differential diagnosis included: Gouty arthritis, no suspicion for fracture, dislocation, septic arthritis. He had no fever, no trauma, I do not suspect septic arthritis or fracture or dislocation. He has had history of gout in his right ankle before and he states this feels the same. The right ankle does feel warm but there is no effusion or swelling to concern for septic arthritis needing arthrocentesis. Departure - Departure Time of Disposition: 08:02 Disposition: Home, Self-Care 01 Condition: Good Clinical Impression: Gouty arthritis of right ankle - Discharge Information *PRESCRIPTION DRUG MONITORING PROGRAM REVIEWED*: Not Applicable *COPY OF PRESCRIPTION DRUG MONITORING REPORT IN PATIENT YONY: Not Applicable Prescriptions: Indomethacin 50 mg PO TID #21 capsule predniSONE [Prednisone] 50 mg PO DAILY #5 tablet Instructions: Calcium Pyrophosphate Deposition Referrals: PCP,None [Primary Care Provider] - 1 Week Forms: ED Department Discharge Additional Instructions: The need for follow-up, as well as the timing and circumstances, are variable depending upon the specifics of your emergency department visit. If you don't have a primary care physician on staff, we will provide you with a referral. We always advise you to contact your personal physician following an emergency department visit to inform them of the circumstance of the visit and for follow-up with them and/or the need for any referrals to a consulting specialist. The emergency department will also refer you to a specialist when appropriate. This referral assures that you have the opportunity for follow-up care with a specialist. All of these measure are taken in an effort to provide you with optimal care, which includes your follow-up. Under all circumstances we always encourage you to contact your private physician who remains a resource for coordinating your care. When calling for follow-up care, please make the office aware that this follow-up is from your recent emergency room visit. If for any reason you are refused follow-up, please contact the [facility] Emergency Department at and asked to speak to the emergency department charge nurse. If you do not have a primary care doctor, please follow up with the clinics below within 3-5 days. [facility] - Primary Care [address] [place] [id number] [address] Sepsis Event Note (ED) - Evaluation Sepsis Screening Result: No Definite Risk - Focused Exam Vital Signs: Vital Signs Temp Pulse Resp BP Pulse Ox 10/29/20 07:00 96.5 F L 128 H 24 H 131/78 96
== END 2020-10-29 08:17 | disposition home or self-care (01) ==
LOC: MW.ED 06:55
DX: M10.9 Gout, unspecified (principal); I10 Essential (primary) hypertension; Z79.899 Other long term (current) drug therapy
CPT/HCPCS: 99282; 99283

== ENCOUNTER 2020-11-04 18:04 | Emergency (ER) | payer BC ==
[2020-11-04] MEDS ORDERED: Acetaminophen 500 MG Tab PO ONE (18:19)
[2020-11-04] MEDS ORDERED: Metoclopramide 10 MG/2 ML SDV IVPUSH ONE (18:19)
[2020-11-04] MEDS ORDERED: diphenhydrAMINE 50 MG/ML SDV IVPUSH ONE (18:19)
[2020-11-04] MEDS ORDERED: Sodium Chloride 0.9% 1,000 ML IV ONE (18:20)
[2020-11-04] MEDS ORDERED: Magnesium Sulfate/Water 2 GM in Premix Bag 1 BAG IV ONE (18:20)
--- NOTE | 2020-11-04 18:26 | EDM.PDOC ---
<FrankManuel Jessica - Last Filed: 11/04/20 23:53> ED HPI GENERAL MEDICAL PROBLEM - General Chief Complaint: Headache Stated Complaint: MIGRAINE Time Seen by Provider: 11/04/20 18:07 - History of Present Illness INITIAL COMMENTS - FREE TEXT/NARRATIVE: Patient was signed out to me by Dr. Hammond pending CT head and CTA at 7PM I did reevaluate the patient and patient was reporting improvement in his headac he. On my examination he had no focal neurological deficit and had stable vital signs. Labs reviewed CBC is unremarkable, coags are within normal limits. CMP reveals hyperchloremia at 110 hyperglycemia at 150 and no other abnormalities. The radiological images were viewed by myself along with reading the report from the radiologist. CT head without contrast does not reveal any acute intracranial abnormality. CTA of the head and neck reveals patent arterial system with no signs of intracranial aneurysm. There is thrombosis of the dominant right transverse sinus, right sigmoid sinus and visualized superior internal jugular vein. The superior sagittal sinus the nondominant left transverse sinus and the nondominant left sigmoid sinus are patent. As is the nondominant left IJ. The deep venous drainage of the brain is unremarkable. After imaging I did discuss the results with the patient. I did discuss him I like to speak with a neurologist. At this time I did contact [facility] in [place] and spoke with Dr. Camejo regarding the imaging. He discussed with me that he would like him started on heparin and transition to warfarin. He states that given he has no focal deficit other than the headache that he be stable for admission here and transition to warfarin and obtain an MRI/MRV of the brain. He stated that he could follow-up with him in 1 month and he would likely need to be on anticoagulation for 6 months. I discussed this with the patient. He was amenable to this plan. Therefore I contacted Dr. Chapa who accepted the admission. After placing the admission the patient informed us that he has been having bleeding in his stool which she describes as black and red. He states that he does have a history of GI bleed after a surgery in the past. On further review of the chart the patient was just seen for a gout flare. He was given indomethacin and prednisone. This does increase his risk of upper GI bleed. We did perform a rectal examination which was guaiac positive with some bright red blood. At this time I did discuss with the patient that at this time given the upper GI bleed he would likely need to be transferred. He was amenable to this plan. I contacted Dr. Chapa and he was amenable to transfer at this time given that we do not have GI. I contacted [facility] in [place] and spoke with Dr. Landeros who accepted the transfer. He stated that given his hemoglobin is stable he does not have any tachycardia that we should start the heparin and he will reevaluate his hemoglobin when he gets to [facility] in [place]. The patient will be started on heparin here. The patient will be transferred via ALS. DISPOSITION: The patient will be transferred to [facility] in stable condition CONDITION: Serious PROCEDURES: None FINAL IMPRESSION(S)/DIAGNOSES: 1. Acute right-sided headache and neck pain secondary to thrombosed internal jugular vein, transverse venous sinus and sigmoid sinus 2. Acute upper GI bleed likely secondary to NSAIDs and prednisone Manuel Marie M.D. - Related Data Allergies Allergy/AdvReac Type Severity Reaction Status Date / Time No Known Allergies Allergy Verified 11/04/20 18:13 Home Meds: Home Meds . [No Known Home Meds] 11/04/20 [History] ED ROS GENERAL - Review of Systems Review Of Systems: See Below Departure - Departure Time of Disposition: 22:15 Disposition: DC/Tfer to Acute Hospital 02 Condition: Fair Clinical Impression: Intracranial venous thrombosis, Upper GI bleed - Discharge Information *PRESCRIPTION DRUG MONITORING PROGRAM REVIEWED*: No *COPY OF PRESCRIPTION DRUG MONITORING REPORT IN PATIENT YONY: No Referrals: Wali Rodgers [Primary Care Provider] - Forms: ED Department Discharge <Boyd Hammond - Last Filed: 11/05/20 17:11> ED HPI GENERAL MEDICAL PROBLEM - General Source of Information: Reports: Patient History Limitations: Reports: No Limitations - History of Present Illness INITIAL COMMENTS - FREE TEXT/NARRATIVE: 50-year-old male past medical history obesity, hypertension, gout, recent COVID- 19 infection requiring hospitalization discharged roughly 3 weeks ago presents for headache. Patient notes that he had a right neck (suspect IJ) central line during his hospitalization. He notes that ever since having a central line he has had on and off mild right-sided neck pain radiating into his right retro- orbital area. Last night he developed a similar but worse headache that worsened throughout the evening to the point that he had difficulty sleeping. Pain continued this morning so he went to a chiropractor and had his neck "adjusted". He had minimal relief afterwards but now the pain has returned and worsened. He denies any muscle weakness, sensory changes, dizziness or lightheadedness, vertigo, nausea, vomiting, fever. He tried Tylenol at home with minimal relief. 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 Hematologic History: Reports: None Immunologic History: Reports: None Oncologic (Cancer) History: Reports: None Dermatologic History: Reports: None - Infectious Disease History Infectious Disease History: Reports: Chicken Pox - Past Surgical History Head Surgeries/Procedures: Reports: None HEENT Surgical History: Reports: LASIK Cardiovascular Surgical History: Reports: None Respiratory Surgical History: Reports: None GI Surgical History: Reports: Appendectomy Male Surgical History: Reports: None Endocrine Surgical History: Reports: None Neurological Surgical History: Reports: None Musculoskeletal Surgical History: Reports: Other (See Below) Other Musculoskeletal Surgeries/Procedures:: right hip replacement Oncologic Surgical History: Reports: None Dermatological Surgical History: Reports: None Social & Family History - Family History Family Medical History: No Pertinent Family History - Tobacco Use Tobacco Use Status *Q: Unknown Ever Used Tobacco - Caffeine Use Caffeine Use: Reports: Soda Caffeine Use Comment: 2drinks/daily - Recreational Drug Use Recreational Drug Use: No - Living Situation & Occupation Living situation: Reports: , with Family Occupation: Employed ED ROS GENERAL - Review of Systems Review Of Systems: Comprehensive ROS is negative, except as noted in HPI. ED EXAM, GENERAL - Physical Exam Exam: See Below Exam Limited By: No Limitations General Appearance: Alert, WD/WN, Other (uncomfortable appearing) Eye Exam: Bilateral Eye: EOMI, PERRL Throat/Mouth: Normal Voice, No Airway Compromise Head: Atraumatic, Normocephalic Neck: Normal Inspection, Supple, Non-Tender, Full Range of Motion Respiratory/Chest: No Respiratory Distress, No Accessory Muscle Use Cardiovascular: Normal Peripheral Pulses, Regular Rate, Rhythm Extremities: Normal Inspection Neurological: Alert, Oriented, CN II-XII Intact, Normal Cognition, Normal Gait, No Motor/Sensory Deficits Psychiatric: Normal Affect, Normal Mood Skin Exam: Warm, Dry, Intact, Normal Color Course - Vital Signs Last Recorded V/S: Last Vital Signs Temp 97.3 F 11/04/20 18:13 Pulse 100 11/04/20 22:18 Resp 18 11/04/20 22:18 BP 150/75 H 11/04/20 22:18 Pulse Ox 94 L 11/04/20 22:18 - Orders/Labs/Meds Orders: Active Orders 24 hr Category Date Time Status Ang Head w wo Cont [MR] Stat Exams 11/04/20 20:49 Ordered Ang Neck w wo Cont [MR] Stat Exams 11/04/20 20:49 Ordered Labs: Laboratory Tests 11/04/20 11/04/20 11/04/20 Range/Units 18:22 18:22 21:00 WBC 7.23 (4.0-11.0) K/uL RBC 4.72 (4.50-5.90) M/uL Hgb 14.6 (13.0-17.0) g/dL Hct 43.4 (38.0-50.0) % MCV 91.9 (80.0-98.0) fL MCH 30.9 (27.0-32.0) pg MCHC 33.6 (31.0-37.0) g/dL RDW Std Deviation 46.3 (28.0-62.0) fl RDW Coeff of Laney 14 (11.0-15.0) % Plt Count 361 (150-400) K/uL MPV 8.90 (7.40-12.00) fL Add Manual Diff YES Neutrophils % (Manual) 37 L (48.0-80.0) % Band Neutrophils % 2 % Lymphocytes % (Manual) 46 H (16.0-40.0) % Monocytes % (Manual) 10 (0.0-15.0) % Eosinophils % (Manual) 3 (0.0-7.0) % Basophils % (Manual) 1 (0.0-1.5) % Metamyelocytes % 1 % Nucleated RBC % 0.0 /100WBC Absolute Seg Neuts 2.7 (1.4-5.7) Band Neutrophils # 0.1 Lymphocytes # (Manual) 3.3 H (0.6-2.4) Monocytes # (Manual) 0.7 (0.0-0.8) Eosinophils # (Manual) 0.2 (0.0-0.7) Basophils # (Manual) 0.1 (0.0-0.1) Absolute Metamyelocyte 0.1 Nucleated RBCs # 0 K/uL INR 1.04 APTT (18.6-31.3) SEC Sodium 145 (136-148) mmol/L Potassium 3.8 (3.5-5.1) mmol/L Chloride 110 H (98-107) mmol/L Carbon Dioxide 25.1 (21.0-32.0) mmol/L BUN 16 (7.0-18.0) mg/dL Creatinine 1.2 (0.8-1.3) mg/dL Est Cr Clr Drug Dosing 74.46 mL/min Estimated GFR (MDRD) > 60.0 ml/min Glucose 150 H (74-106) mg/dL Calcium 9.1 (8.5-10.1) mg/dL Magnesium 1.9 (1.8-2.4) mg/dL Total Bilirubin 0.7 (0.2-1.0) mg/dL AST 7 L (15-37) IU/L ALT 44 (14-63) IU/L Alkaline Phosphatase 73 (46-116) U/L Total Protein 6.7 (6.4-8.2) g/dL Albumin 3.5 (3.4-5.0) g/dL Globulin 3.2 (2.6-4.0) g/dL Albumin/Globulin Ratio 1.1 (0.9-1.6) Blood Type Antibody Screen 11/04/20 11/04/20 Range/Units 21:00 21:00 WBC (4.0-11.0) K/uL RBC (4.50-5.90) M/uL Hgb (13.0-17.0) g/dL Hct (38.0-50.0) % MCV (80.0-98.0) fL MCH (27.0-32.0) pg MCHC (31.0-37.0) g/dL RDW Std Deviation (28.0-62.0) fl RDW Coeff of Laney (11.0-15.0) % Plt Count (150-400) K/uL MPV (7.40-12.00) fL Add Manual Diff Neutrophils % (Manual) (48.0-80.0) % Band Neutrophils % % Lymphocytes % (Manual) (16.0-40.0) % Monocytes % (Manual) (0.0-15.0) % Eosinophils % (Manual) (0.0-7.0) % Basophils % (Manual) (0.0-1.5) % Metamyelocytes % % Nucleated RBC % /100WBC Absolute Seg Neuts (1.4-5.7) Band Neutrophils # Lymphocytes # (Manual) (0.6-2.4) Monocytes # (Manual) (0.0-0.8) Eosinophils # (Manual) (0.0-0.7) Basophils # (Manual) (0.0-0.1) Absolute Metamyelocyte Nucleated RBCs # K/uL INR APTT 23.2 (18.6-31.3) SEC Sodium (136-148) mmol/L Potassium (3.5-5.1) mmol/L Chloride (98-107) mmol/L Carbon Dioxide (21.0-32.0) mmol/L BUN (7.0-18.0) mg/dL Creatinine (0.8-1.3) mg/dL Est Cr Clr Drug Dosing mL/min Estimated GFR (MDRD) ml/min Glucose (74-106) mg/dL Calcium (8.5-10.1) mg/dL Magnesium (1.8-2.4) mg/dL Total Bilirubin (0.2-1.0) mg/dL AST (15-37) IU/L ALT (14-63) IU/L Alkaline Phosphatase (46-116) U/L Total Protein (6.4-8.2) g/dL Albumin (3.4-5.0) g/dL Globulin (2.6-4.0) g/dL Albumin/Globulin Ratio (0.9-1.6) Blood Type B POSITIVE Antibody Screen NEGATIVE Meds: Medications Discontinued Medications Generic Name Dose Route Start Last Admin Trade Name Freq PRN Reason Stop Dose Admin Acetaminophen 1,000 mg 11/04/20 18:19 11/04/20 18:35 Tylenol Extra Strength PO 11/04/20 18:20 1,000 mg ONETIME ONE Administration Diphenhydramine HCl 25 mg 11/04/20 18:19 11/04/20 18:34 Benadryl IVPUSH 11/04/20 18:20 25 mg ONETIME ONE Administration Famotidine 20 mg 11/04/20 22:16 11/04/20 22:29 Pepcid IVPUSH 11/04/20 22:17 20 mg ONETIME ONE Administration Heparin Sodium (Porcine) 5,000 units 11/04/20 21:00 11/04/20 21:08 Heparin Sodium IVPUSH 11/04/20 21:01 5,000 units ONETIME ONE Administration Magnesium Sulfate 2 gm/ Premix 50 mls @ 50 mls/hr 11/04/20 18:20 11/04/20 18:34 IV 11/04/20 19:19 50 mls/hr ONETIME ONE Administration Sodium Chloride 1,000 mls @ 999 mls/hr 11/04/20 18:20 11/04/20 18:34 Normal Saline IV 11/04/20 19:20 999 mls/hr .Bolus ONE Administration Heparin Sodium/Sodium Chloride 500 mls @ 41.64 mls/hr 11/04/20 21:00 11/04/20 21:09 Heparin 25,000 Units In 1/2 Ns 500 Ml IV 18 units/kg/hr TITRATE LISANDRA 41.64 mls/hr Administration Protocol 18 UNITS/KG/HR Heparin Sodium/Sodium Chloride Confirm 11/04/20 21:05 11/04/20 21:09 Heparin 25,000 Units In 1/2 Ns 500 Ml Administered 11/04/20 21:06 Not Given Dose 500 mls @ as directed .ROUTE .STK-MED ONE Pantoprazole Sodium 80 mg/ 20 mls @ 420 mls/hr 11/04/20 22:16 11/04/20 22:28 Sodium Chloride IVPUSH 11/04/20 22:18 420 mls/hr ONETIME ONE Administration Iopamidol 100 ml 11/04/20 19:24 11/04/20 19:30 Isovue Multipack-370 (76%) IVPUSH 11/04/20 19:25 100 ml ONETIME STA Administration Metoclopramide HCl 10 mg 11/04/20 18:19 11/04/20 18:34 Reglan IVPUSH 11/04/20 18:20 10 mg ONETIME ONE Administration Morphine Sulfate 4 mg 11/04/20 22:03 11/04/20 22:10 Morphine IVPUSH 11/04/20 22:04 4 mg ONETIME ONE Administration - Re-Assessments/Exams Free Text/Narrative Re-Assessment/Exam: 11/04/20 18:25 Patient appears uncomfortable. Will give analgesic, Reglan, Benadryl, IV fluid bolus, magnesium for migraine headache. Considering patient's recent cervical manipulation will get CTA head and neck as well as noncontrast CT of the head. We will follow up results and reassessment and disposition accordingly. 11/04/20 18:52 Will sign out to night-team ED physician for lab/imaging review and reassessment. Sepsis Event Note (ED) - Evaluation Sepsis Screening Result: No Definite Risk
[2020-11-04 18:53] LABS: BLOOD UREA NITROGEN,BUN 16 mg/dL (7.0-18.0); CARBON DIOXIDE,CO2 25.1 mmol/L (21.0-32.0); CHLORIDE,CL 110 mmol/L (98-107); GLUCOSE RANDOM 150 mg/dL (74-106); POTASSIUM,K 3.8 mmol/L (3.5-5.1); SODIUM,NA 145 mmol/L (136-148)
[2020-11-04] MEDS ORDERED: Iopamidol 755 MG/ML 500 ML Multipack Bottle IVPUSH STA (19:24)
--- NOTE | 2020-11-04 19:59 | CT ---
INDICATION: Headache. Status post chiropractic manipulation today. COMPARISON: CT of the head from 06/21/2019 TECHNIQUE: CT examination of the head was performed with 5 mm thick axial and 2 millimeter thick sagittal and coronal sections without intravenous contrast. Images were obtained from the vertex of the skull through the skull base, and I examined the images with the brain and bone windows. Please note that all CT scans at this facility use dose modulation, iterative reconstruction, and/or weight-based dosing when appropriate to reduce radiation dose to as low as reasonably achievable. FINDINGS: The brain is normal in appearance for the patient`s age on today`s study, with no sign of mass lesion, mass effect, hemorrhage, or edema. The ventricles and sulci are normal in appearance for the patient`s age. The visualized portions of the orbits are normal in appearance. The visualized paranasal sinuses and mastoids are clear. The osseous structures are normal in their appearance with no sign of abnormality in the skull base or calvarium. There has been no interval change. IMPRESSION: Normal noncontrast CT of the head for the patient`s age. Nothing seen to correlate with the history of headache. Please note that all CT scans at this facility use dose modulation, iterative reconstruction, and/or weight-based dosing when appropriate to reduce radiation dose to as low as reasonably achievable. Dictated by Jose Torres MD @ Nov 04 2020 7:53PM Signed by Dr. Jose Torres @ Nov 04 2020 7:56PM
--- NOTE | 2020-11-04 20:11 | CT ---
DATE: 11/04/2020 CLINICAL HISTORY: Patient with headache. TECHNIQUE: Standard helical CT image acquisition through the head and neck was performed after intravenous contrast bolus enhancement. Multiplanar reconstructed images were performed and interpreted. 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 The origins of the great vessels from the aortic arch are patent. The origin of the right vertebral artery is patent. The origin of the left vertebral artery is patent. The common carotid arteries are patent There is no stenosis at the origin of the right internal carotid artery. There is no stenosis at the origin of the left internal carotid artery. The rest of the cervical segments of the internal carotid arteries are patent up to their intracranial segments. The intracranial segments of the internal carotid arteries are patent. The left vertebral artery is dominant. The cervical segments of the vertebral arteries are patent. The intracranial segments of the vertebral arteries are patent. The middle cerebral arteries are normal without aneurysm or proximal occlusion identified. The anterior cerebral arteries are normal without aneurysm or proximal occlusion identified. The anterior communicating artery is well visualized and appears normal. The basilar artery is normal without aneurysm or occlusion. The posterior cerebral arteries are normal without aneurysm or proximal occlusion The visualized lung apices are unremarkable The thyroid gland is unremarkable. The soft tissues of the neck are unremarkable. There are degenerative changes in the cervical spine. IMPRESSION: 1. Patent cervical and proximal intracranial vasculature. 2. 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 Please note that all CT scans at this facility use dose modulation, iterative reconstruction, and/or weight-based dosing when appropriate to reduce radiation dose to as low as reasonably achievable. Dictated by Georgi Davenport MD @ Nov 04 2020 10:27PM Signed by Dr. Georgi Davenport @ Nov 04 2020 10:35PM
[2020-11-04] MEDS ORDERED: Heparin Sodium 5,000 Units/ML Vial IVPUSH ONE (21:00)
[2020-11-04] MEDS ORDERED: Heparin Sodium/0.45% NaCl 500 ML IV SCH (21:00)
[2020-11-04] MEDS ORDERED: Heparin Sodium/0.45% NaCl 500 ML ONE (21:05)
[2020-11-04] MEDS ORDERED: Morphine 4 MG/ML Syringe IVPUSH ONE (22:03)
[2020-11-04] MEDS ORDERED: Famotidine 20 MG/2 ML SDV IVPUSH ONE (22:16)
[2020-11-04] MEDS ORDERED: Pantoprazole 80 MG in Sodium Chloride 0.9% 20 ML IVPUSH ONE (22:16)
[2020-11-04 22:19] VITALS: BP 150/75; PULSE 100
== END 2020-11-04 22:45 ==
LOC: MW.ED 18:04
DX: G08 Intracranial and intraspinal phlebitis and thrombophlebitis (principal); K92.2 Gastrointestinal hemorrhage, unspecified; I10 Essential (primary) hypertension
CPT/HCPCS: 36415; 70450; 70496; 70498; 80053; 83735; 85025; 85610; 85730; 86850; 86900; 86901; 96365; 96366; 96367; 96375; 99285; A9270; C9113; J1200; J1644; J2270; J2765; J3475; J3490; J7030; Q9967; 99284

== ENCOUNTER 2021-01-15 13:12 | Emergency (ER) | payer BC ==
[2021-01-15] MEDS ORDERED: Sodium Chloride 0.9% 1,000 ML IV ONE (13:49)
[2021-01-15] MEDS ORDERED: Sodium Chloride 0.9% 10 ML Syringe FLUSH PRN (13:49)
[2021-01-15] MEDS ORDERED: Sodium Chloride 0.9% 2.5 ML Syringe FLUSH PRN (13:49)
[2021-01-15] MEDS ORDERED: Ondansetron 4 MG/2 ML SDV IVPUSH ONE (13:49)
[2021-01-15 14:44] LABS: CARBON DIOXIDE,CO2 22.6 mmol/L (21.0-32.0)
--- NOTE | 2021-01-15 16:09 | US ---
INDICATION: Transaminitis with elevated bilirubin TECHNIQUE: Ultrasound abdomen limited. Sonographic images of the right upper quadrant were obtained using sarmiento-scale and color Doppler images. COMPARISON: None FINDINGS: Liver: The liver measures 20 cm in length. Heterogeneous echotexture throughout the liver. No masses. No intrahepatic biliary dilatation. Gallbladder: No stones or sludge. Normal wall thickness. No pericholecystic fluid. Negative sonographic Song`s sign. Common bile duct: 2 mm. Pancreas: Incompletely visualized. Right kidney: 9.9 x 5.5 x 8.3 cm. Normal echotexture and cortex. No masses, stones, or hydronephrosis. Vasculature: Proximal abdominal aorta and IVC are normal. IMPRESSION: No evidence for acute cholecystitis. Hepatomegaly with hepatic steatosis. Pancreas is incompletely visualized on this exam. Dictated by Yolande Cochran MD @ Jan 15 2021 4:05PM Signed by Dr. Yolande Cochran @ Jan 15 2021 4:08PM
--- NOTE | 2021-01-15 16:26 | EDM.PDOC ---
ED HPI GENERAL MEDICAL PROBLEM - General Chief Complaint: Gastrointestinal Problem Stated Complaint: 2nd covid shot Time Seen by Provider: 01/15/21 13:22 Source of Information: Reports: Patient History Limitations: Reports: No Limitations - History of Present Illness INITIAL COMMENTS - FREE TEXT/NARRATIVE: HISTORY AND PHYSICAL: History of present illness: Patient is a 50-year-old male who presents emergency room today with concern of diarrhea, nausea and vomiting after receiving a Covid vaccine yesterday. Patient states he received his first dose of his Covid vaccine in approximately 3 to 4 hours after receiving the vaccine, he began having diarrhea. Patient states following the diarrhea he started feeling nauseous and has been vomiting since yesterday. Patient states he has had a few episodes of vomiting today his last episode being 1 hour prior to arrival to the emergency room. Patient denies any associated pain with the symptoms. Patient states he feels a little dehydrated which is what brought him to the emergency room. Patient denies any other symptoms or concerns. Patient states he has a history of appendectomy but denies any other abdominal surgeries. Patient states he had Covid back in September. And has a history of hypertension. Patient denies fever, chills, chest pain, shortness of breath, or cough. Denies headache, neck stiff ness, change in vision, syncope, or near syncope. Denies abdominal pain, or dysuria. Has not noted any blood in urine or stool. Review of systems: As per history of present illness and below otherwise all systems reviewed and negative. Past medical history: As per history of present illness and as reviewed below otherwise noncontributory. Surgical history: As per history of present illness and as reviewed below otherwise noncontributory. Social history: See social history for further information Family history: As per history of present illness and as reviewed below otherwise noncontributory. Physical exam: General: Patient is alert, oriented, and in no acute distress. Patient sitting comfortably on exam table. Vitals stable and reviewed by me. HEENT: Atraumatic, normocephalic, pupils equal and reactive bilaterally, negative for conjunctival pallor or scleral icterus, mucous membranes moist, TMs normal bilaterally, throat clear, neck supple, nontender, trachea midline. No drooling or trismus noted. No meningeal signs. No hot potato voice noted. Lungs: Clear to auscultation, breath sounds equal bilaterally, chest nontender. Heart: S1S2, regular rate and rhythm without overt murmur Abdomen: Soft, nondistended, nontender. Negative for masses or hepatosplenomegaly. Negative for costovertebral tenderness. Pelvis: Stable nontender. Genitourinary: Deferred. Rectal: Deferred. Skin: Intact, warm, dry. No lesions or rashes noted. Extremities: Atraumatic, negative for cords or calf pain. Neurovascular unremarkable. Neuro: Awake, alert, oriented. Cranial nerves II through XII unremarkable. Cerebellum unremarkable. Motor and sensory unremarkable throughout. Exam nonfocal. Notes: Dr. Hammond verbally involved in patient care. On initial exam, patient is vitally stable and well-appearing. He is not actively vomiting today in the ED. He does not have any abdominal pain on exam and negative for CVA tenderness. We will perform routine lab work as well as give patient Zofran and fluids today. We will try to obtain a stool sample if patient is able to have an episode of diarrhea today in the ED. C BC is unremarkable. CMP does show a new elevation in creatinine at 2.1, basel ine prior was 1.1. And an elevation in BUN of 22, baseline of 14 prior. Patient also has a new elevation in bilirubin at 2.4, prior being 0.6 and mild elevation of AST at 46, prior being 25. Although patient does not have any abdominal pain, will obtain a right upper quadrant ultrasound due to elevation in bilirubin level. Right upper quadrant ultrasound shows no evidence for acute cholecystitis. Hepatomegaly with hepatic steatosis. Pancreas is incompletely visualized. On reevaluation of patient, he remains vitally stable and comfortable throughout stay in ED. He has not had any episodes of vomiting today in the ED and is able to tolerate p.o. intake in the ED. Strict return precautions thoroughly discussed with patient. Discussed importance for follow-up with a primary care provider and the need for repeat lab evaluation. Voices understanding and is agreeable to plan of care. Denies any further questions or concerns at this time. Diagnostics: CBC, CMP, Lipase, UA, Abd US, (she was unable to leave a stool sample today in the ED. He has been sent home with stool collection supplies to collect at home and return to our lab for further diagnostics) Therapeutics: NS, Zofran Prescription: Zofran, Stool studies Impression: Diarrhea Nausea and vomiting Elevated renal function testing Plan: 1. Encourage small but frequent sips of fluid to prevent dehydration. Take medication as prescribed. 2. Stool collection supplies have been provided to you. Once you are able to leave a stool sample, return this to our lab for further evaluation. 3. Follow-up with your primary care provider and for repeat lab work as discussed. Return to the ED as needed and as discussed. Definitive disposition and diagnosis as appropriate pending reevaluation and review of above. muscles Pain Score (Numeric/FACES): 5 - Related Data Allergies Allergy/AdvReac Type Severity Reaction Status Date / Time No Known Allergies Allergy Verified 01/15/21 13:45 Home Meds: Home Meds Apixaban [Eliquis] 5 mg PO BID 01/15/21 [History] Escitalopram [Lexapro] 10 mg PO DAILY 01/15/21 [History] atorvaSTATin [Lipitor] 40 mg PO BEDTIME 01/15/21 [History] lisinopriL [Lisinopril] 10 mg PO DAILY 01/15/21 [History] Past Medical History HEENT History: Reports: None Cardiovascular History: Reports: Hypertension Respiratory History: Reports: None Gastrointestinal History: Reports: None Genitourinary History: Reports: None Musculoskeletal History: Reports: Gout Neurological History: Reports: None Psychiatric History: Reports: None Endocrine/Metabolic History: Reports: None Insulin Pump Model and Medical Service Representative: None Hematologic History: Reports: None Immunologic History: Reports: None Oncologic (Cancer) History: Reports: None Dermatologic History: Reports: None - Infectious Disease History Infectious Disease History: Reports: Chicken Pox, Novel Coronavirus - Past Surgical History Head Surgeries/Procedures: Reports: None HEENT Surgical History: Reports: LASIK Cardiovascular Surgical History: Reports: None Respiratory Surgical History: Reports: None GI Surgical History: Reports: Appendectomy Male Surgical History: Reports: None Endocrine Surgical History: Reports: None Neurological Surgical History: Reports: None Musculoskeletal Surgical History: Reports: Other (See Below) Other Musculoskeletal Surgeries/Procedures:: right hip replacement Oncologic Surgical History: Reports: None Dermatological Surgical History: Reports: None Social & Family History - Family History Family Medical History: No Pertinent Family History - Caffeine Use Caffeine Use: Reports: None Caffeine Use Comment: 2drinks/daily - Recreational Drug Use Recreational Drug Use: No - Living Situation & Occupation Living situation: Reports: , with Family Occupation: Employed ED ROS GENERAL - Review of Systems Review Of Systems: Comprehensive ROS is negative, except as noted in HPI. ED EXAM, GENERAL - Physical Exam Exam: See Below (see dictation) Course - Vital Signs Last Recorded V/S: Last Vital Signs Temp 97.5 F 01/15/21 16:54 Pulse 93 01/15/21 16:54 Resp 16 01/15/21 16:54 BP 131/85 01/15/21 16:54 Pulse Ox 94 L 01/15/21 16:54 - Orders/Labs/Meds Orders: Active Orders 24 hr Category Date Time Status Saline Lock Insert [OM.PC] Stat Oth 01/15/21 13:49 Ordered Labs: Laboratory Tests 01/15/21 01/15/21 Range/Units 14:00 14:00 WBC 9.62 (4.0-11.0) K/uL RBC 5.54 (4.50-5.90) M/uL Hgb 17.5 H (13.0-17.0) g/dL Hct 49.8 (38.0-50.0) % MCV 89.9 (80.0-98.0) fL MCH 31.6 (27.0-32.0) pg MCHC 35.1 (31.0-37.0) g/dL RDW Std Deviation 48.1 (28.0-62.0) fl RDW Coeff of Laney 15 (11.0-15.0) % Plt Count 187 (150-400) K/uL MPV 9.50 (7.40-12.00) fL Neut % (Auto) 75.2 (48.0-80.0) % Lymph % (Auto) 14.9 L (16.0-40.0) % Amite % (Auto) 9.4 (0.0-15.0) % Eos % (Auto) 0.3 (0.0-7.0) % Baso % (Auto) 0.2 (0.0-1.5) % Neut # (Auto) 7.2 H (1.4-5.7) K/uL Lymph # (Auto) 1.4 (0.6-2.4) K/uL Amite # (Auto) 0.9 H (0.0-0.8) K/uL Eos # (Auto) 0.0 (0.0-0.7) K/uL Baso # (Auto) 0.0 (0.0-0.1) K/uL Nucleated RBC % 0.0 /100WBC Nucleated RBCs # 0 K/uL Sodium 133 L (136-148) mmol/L Potassium 4.0 (3.5-5.1) mmol/L Chloride 96 L (98-107) mmol/L Carbon Dioxide 22.6 (21.0-32.0) mmol/L BUN 22 H (7.0-18.0) mg/dL Creatinine 2.1 H (0.8-1.3) mg/dL Est Cr Clr Drug Dosing 42.55 mL/min Estimated GFR (MDRD) 33.7 ml/min Glucose 101 (74-106) mg/dL Calcium 9.4 (8.5-10.1) mg/dL Magnesium 2.2 (1.8-2.4) mg/dL Total Bilirubin 2.4 H (0.2-1.0) mg/dL AST 46 H (15-37) IU/L ALT 48 (14-63) IU/L Alkaline Phosphatase 87 (46-116) U/L Creatine Kinase 166 (26-308) U/L Total Protein 8.7 H (6.4-8.2) g/dL Albumin 4.6 (3.4-5.0) g/dL Globulin 4.1 H (2.6-4.0) g/dL Albumin/Globulin Ratio 1.1 (0.9-1.6) Lipase 201 (73-393) U/L Meds: Medications Discontinued Medications Generic Name Dose Route Start Last Admin Trade Name Freq PRN Reason Stop Dose Admin Sodium Chloride 1,000 mls @ 999 mls/hr 01/15/21 13:49 01/15/21 14:04 Normal Saline IV 01/15/21 14:49 999 mls/hr BOLUS ONE Administration Ondansetron HCl 4 mg 01/15/21 13:49 01/15/21 14:04 Ondansetron 4 Mg/2 Ml Sdv IVPUSH 01/15/21 13:50 4 mg ONETIME ONE Administration Sodium Chloride 10 ml 01/15/21 13:49 01/15/21 14:05 Sodium Chloride 0.9% 10 Ml Syringe FLUSH 10 ml ASDIRECTED PRN Administration Keep Vein Open Sodium Chloride 2.5 ml 01/15/21 13:49 01/15/21 14:05 Sodium Chloride 0.9% 2.5 Ml Syringe FLUSH 2.5 ml ASDIRECTED PRN Administration Keep Vein Open Departure - Departure Time of Disposition: 16:24 Disposition: Home, Self-Care 01 Clinical Impression: Dehydration, Kidney function abnormal Diarrhea Qualifiers: Diarrhea type: unspecified type Qualified Code(s): R19.7 - Diarrhea, unspecified Nausea & vomiting Qualifiers: Vomiting type: unspecified Vomiting Intractability: non-intractable Qualified Code(s): R11.2 - Nausea with vomiting, unspecified - Discharge Information Instructions: Food Choices to Help Relieve Diarrhea, Adult, Nausea and Vomiting, Adult, [id number], Dehydration, Adult, [id number], Diarrhea, Adult, [id number] Referrals: PCP,None [Primary Care Provider] - Forms: ED Department Discharge Additional Instructions: The following information is given to patients seen in the emergency department who are being discharged to home. This information is to outline your options for follow-up care. We provide all patients seen in our emergency department with a follow-up referral. The need for follow-up, as well as the timing and circumstances, are variable depending upon the specifics of your emergency department visit. If you don't have a primary care physician on staff, we will provide you with a referral. We always advise you to contact your personal physician following an emergency department visit to inform them of the circumstance of the visit and for follow-up with them and/or the need for any referrals to a consulting specialist. The emergency department will also refer you to a specialist when appropriate. This referral assures that you have the opportunity for follow-up care with a specialist. All of these measure are taken in an effort to provide you with optimal care, which includes your follow-up. Under all circumstances we always encourage you to contact your private physician who remains a resource for coordinating your care. When calling for follow-up care, please make the office aware that this follow-up is from your recent emergency room visit. If for any reason you are refused follow-up, please contact the Emergency Department at and asked to speak to the emergency department charge nurse. Primary Care [address] [place] [address] [facility] [address] [place] [address] 1. Encourage small but frequent sips of fluid to prevent dehydration. Take medication as prescribed. 2. Stool collection supplies have been provided to you. Once you are able to leave a stool sample, return this to our lab for further evaluation. 3. Follow-up with your primary care provider and for repeat lab work as discussed. Return to the ED as needed and as discussed. Sepsis Event Note (ED) - Evaluation Sepsis Screening Result: No Definite Risk - Focused Exam Vital Signs: Vital Signs Temp Pulse Resp BP Pulse Ox 01/15/21 16:54 97.5 F 93 16 131/85 94 L 01/15/21 13:41 97.5 F 92 16 139/79 95 - My Orders Last 24 Hours: My Active Orders 01/15/21 13:49 Saline Lock Insert [OM.PC] Stat - Assessment/Plan Last 24 Hours: My Active Orders 01/15/21 13:49 Saline Lock Insert [OM.PC] Stat
[2021-01-15 17:06] VITALS: BP 131/85; PULSE 93
== END 2021-01-15 16:54 | disposition home or self-care (01) ==
LOC: MW.ED 13:12
DX: E86.0 Dehydration (principal); R11.2 Nausea with vomiting, unspecified; R19.7 Diarrhea, unspecified; R94.4 Abnormal results of kidney function studies; I10 Essential (primary) hypertension; Z79.01 Long term (current) use of anticoagulants; Z79.899 Other long term (current) drug therapy
CPT/HCPCS: 36415; 76705; 80053; 82550; 83690; 83735; 85025; 96374; 99284; J2405; J7030; 99283

== ENCOUNTER 2021-06-29 09:21 | Emergency (ER) | payer BC ==
[2021-06-29] MEDS ORDERED: Ondansetron 4 MG Tab.DIS PO ONE (09:46)
--- NOTE | 2021-06-29 09:53 | EDM.PDOC ---
ED HPI GENERAL MEDICAL PROBLEM - General Chief Complaint: Gastrointestinal Problem Stated Complaint: UPSET STOMACH Time Seen by Provider: 06/29/21 09:33 Source of Information: Reports: Patient History Limitations: Reports: No Limitations - History of Present Illness INITIAL COMMENTS - FREE TEXT/NARRATIVE: Patient is a 50-year-old male who presents today for nausea vomiting diarrhea. States that has not been keeping the down for the past 2 days. He reports he has not had any recent travel has not had any new foods and no one in his household has similar symptoms. He denies any abdominal pain chest pain fevers or chills. He states he has similar symptoms when he received his maternal vaccine in the past was make sure he does not have Covid. - Related Data Allergies Allergy/AdvReac Type Severity Reaction Status Date / Time No Known Allergies Allergy Verified 06/29/21 09:50 Home Meds: Home Meds Apixaban [Eliquis] 5 mg PO BID 01/15/21 [History] Escitalopram [Lexapro] 10 mg PO DAILY 01/15/21 [History] atorvaSTATin [Lipitor] 40 mg PO BEDTIME 01/15/21 [History] lisinopriL [Lisinopril] 10 mg PO DAILY 01/15/21 [History] Allopurinol [Zyloprim] 300 mg PO DAILY 06/29/21 [History] Ondansetron [Zofran Odt] 8 mg PO Q6H PRN 5 Days #20 tab.rapdis 06/29/21 [Rx] Past Medical History HEENT History: Reports: None Cardiovascular History: Reports: Hypertension Respiratory History: Reports: None Gastrointestinal History: Reports: None Genitourinary History: Reports: None Musculoskeletal History: Reports: Gout Neurological History: Reports: None Psychiatric History: Reports: None Endocrine/Metabolic History: Reports: None Insulin Pump Model and Emt: None Hematologic History: Reports: None Immunologic History: Reports: None Oncologic (Cancer) History: Reports: None Dermatologic History: Reports: None - Infectious Disease History Infectious Disease History: Reports: Chicken Pox, Novel Coronavirus - Past Surgical History Head Surgeries/Procedures: Reports: None HEENT Surgical History: Reports: LASIK Cardiovascular Surgical History: Reports: None Respiratory Surgical History: Reports: None GI Surgical History: Reports: Appendectomy Male Surgical History: Reports: None Endocrine Surgical History: Reports: None Neurological Surgical History: Reports: None Musculoskeletal Surgical History: Reports: Other (See Below) Other Musculoskeletal Surgeries/Procedures:: right hip replacement Oncologic Surgical History: Reports: None Dermatological Surgical History: Reports: None Social & Family History - Family History Family Medical History: No Pertinent Family History - Tobacco Use Tobacco Use Status *Q: Never Tobacco User - Caffeine Use Caffeine Use: Reports: None Caffeine Use Comment: 2drinks/daily - Recreational Drug Use Recreational Drug Use: No - Living Situation & Occupation Living situation: Reports: , with Family Occupation: Employed ED ROS GENERAL - Review of Systems Review Of Systems: See Below Constitutional: Reports: No Symptoms HEENT: Reports: No Symptoms Respiratory: Reports: No Symptoms Cardiovascular: Reports: No Symptoms Endocrine: Reports: No Symptoms GI/Abdominal: Reports: Diarrhea, Vomiting : Reports: No Symptoms Musculoskeletal: Reports: No Symptoms Skin: Reports: No Symptoms Neurological: Reports: No Symptoms Psychiatric: Reports: No Symptoms Hematologic/Lymphatic: Reports: No Symptoms Immunologic: Reports: No Symptoms ED EXAM, GI/ABD - Physical Exam Exam: See Below Exam Limited By: No Limitations General Appearance: Alert, WD/WN, No Apparent Distress Head: Atraumatic Neck: Normal Inspection Respiratory/Chest: No Respiratory Distress, Lungs Clear, Normal Breath Sounds Cardiovascular: Normal Peripheral Pulses, Regular Rate, Rhythm GI/Abdominal Exam: Normal Bowel Sounds, Soft, Non-Tender Extremities: Normal Inspection, Normal Range of Motion Neurological: Alert, Oriented, Normal Cognition, Normal Gait Course - Vital Signs Last Recorded V/S: Last Vital Signs Temp 97.7 F 06/29/21 09:33 Pulse 66 06/29/21 09:33 Resp 16 06/29/21 09:33 BP 141/91 H 06/29/21 09:33 Pulse Ox 94 L 06/29/21 09:33 - Orders/Labs/Meds Labs: Laboratory Tests 06/29/21 06/29/21 Range/Units 10:15 10:15 WBC 3.93 L (4.0-11.0) K/uL RBC 5.14 (4.50-5.90) M/uL Hgb 16.7 (13.0-17.0) g/dL Hct 46.6 (38.0-50.0) % MCV 90.7 (80.0-98.0) fL MCH 32.5 H (27.0-32.0) pg MCHC 35.8 (31.0-37.0) g/dL RDW Std Deviation 45.5 (28.0-62.0) fl RDW Coeff of Laney 14 (11.0-15.0) % Plt Count 184 (150-400) K/uL MPV 9.40 (7.40-12.00) fL Neut % (Auto) 52.6 (48.0-80.0) % Lymph % (Auto) 38.2 (16.0-40.0) % Morrison % (Auto) 7.9 (0.0-15.0) % Eos % (Auto) 0.8 (0.0-7.0) % Baso % (Auto) 0.5 (0.0-1.5) % Neut # (Auto) 2.1 (1.4-5.7) K/uL Lymph # (Auto) 1.5 (0.6-2.4) K/uL Morrison # (Auto) 0.3 (0.0-0.8) K/uL Eos # (Auto) 0.0 (0.0-0.7) K/uL Baso # (Auto) 0.0 (0.0-0.1) K/uL Nucleated RBC % 0.0 /100WBC Nucleated RBCs # 0 K/uL Sodium 142 (136-148) mmol/L Potassium 4.1 (3.5-5.1) mmol/L Chloride 104 (98-107) mmol/L Carbon Dioxide 27.3 (21.0-32.0) mmol/L BUN 17 (7.0-18.0) mg/dL Creatinine 1.2 (0.8-1.3) mg/dL Est Cr Clr Drug Dosing 74.46 mL/min Estimated GFR (MDRD) > 60.0 ml/min Glucose 133 H (74-106) mg/dL Calcium 8.4 L (8.5-10.1) mg/dL Total Bilirubin 0.9 (0.2-1.0) mg/dL AST 14 L (15-37) IU/L ALT 34 (14-63) IU/L Alkaline Phosphatase 76 (46-116) U/L Total Protein 7.4 (6.4-8.2) g/dL Albumin 3.8 (3.4-5.0) g/dL Globulin 3.6 (2.6-4.0) g/dL Albumin/Globulin Ratio 1.1 (0.9-1.6) Meds: Medications Discontinued Medications Generic Name Dose Route Start Last Admin Trade Name Justin PRN Reason Stop Dose Admin Ondansetron HCl 4 mg 06/29/21 09:46 06/29/21 10:03 Ondansetron 4 Mg Tab.Dis PO 06/29/21 09:47 4 mg ONETIME ONE Administration - Re-Assessments/Exams Free Text/Narrative Re-Assessment/Exam: 06/29/21 11:01 Patient is labs reviewed patient tolerating p.o. will be discharged home. Departure - Departure Time of Disposition: 11:01 Disposition: Home, Self-Care 01 Condition: Good Clinical Impression: Diarrhea Qualifiers: Diarrhea type: unspecified type Qualified Code(s): R19.7 - Diarrhea, unspecified - Discharge Information *PRESCRIPTION DRUG MONITORING PROGRAM REVIEWED*: Not Applicable *COPY OF PRESCRIPTION DRUG MONITORING REPORT IN PATIENT YONY: Not Applicable Instructions: Dehydration, Adult, [id number] Referrals: Shey Earl PA [Primary Care Provider] - Forms: ED Department Discharge Additional Instructions: The following information is given to patients seen in the emergency department who are being discharged to home. This information is to outline your options for follow-up care. We provide all patients seen in our emergency department with a follow-up referral. The need for follow-up, as well as the timing and circumstances, are variable depending upon the specifics of your emergency department visit. If you don't have a primary care physician on staff, we will provide you with a referral. We always advise you to contact your personal physician following an emergency department visit to inform them of the circumstance of the visit and for follow-up with them and/or the need for any referrals to a consulting specialist. The emergency department will also refer you to a specialist when appropriate. This referral assures that you have the opportunity for follow-up care with a specialist. All of these measure are taken in an effort to provide you with optimal care, which includes your follow-up. Under all circumstances we always encourage you to contact your private physician who remains a resource for coordinating your care. When calling for follow-up care, please make the office aware that this follow-up is from your recent emergency room visit. If for any reason you are refused follow-up, please contact the [facility] Emergency Department at and asked to speak to the emergency department charge nurse. Please follow up with your primary care physician. If you do not have a primary care physician, see below: [facility] [address] [place] [id number] [facility] [address] [place] [address] You were seen today for nausea vomiting diarrhea. We gave you Zofran to help and able to eat or drink. We did labs within normal range also the chest x-ray did not show any sign of pneumonia or any signs of Covid. We recommend you continue to follow your primary care physician. We also sent you some Zofran to your pharmacy to help out which your nausea. Sepsis Event Note (ED) - Evaluation Sepsis Screening Result: No Definite Risk - Focused Exam Vital Signs: Vital Signs Temp Pulse Resp BP Pulse Ox 06/29/21 09:33 97.7 F 66 16 141/91 H 94 L - Assessment/Plan Plan: Patient is a 50-year-old male presents today for nausea vomiting diarrhea concerns of Covid. Patient oxygen level is greater than 95% room air patient looks well. Patient has no abdominal tenderness. We will obtain basic labs provide Zofran and reassess.
--- NOTE | 2021-06-29 10:44 | CR ---
INDICATION: Nausea/vomiting/diarrhea, possible COVID. TECHNIQUE: Chest 1 view. COMPARISON: Chest radiograph 09/29/2020. FINDINGS: Resolution of the previously seen bilateral pulmonary infiltrates. Probable postinfectious scarring in the left lower lung. No new focal consolidation. No pleural effusion or pneumothorax. Normal heart size and pulmonary vascularity. The bones are unremarkable. IMPRESSION: 1. No acute cardiopulmonary findings. 2. Resolution of the previously seen bilateral pulmonary infiltrates with probable postinfectious scarring in the left lower lung. Dictated by Kavita Suárez MD @ 06/29/2021 10:44:18 AM (Electronically Signed)
[2021-06-29 10:48] LABS: BLOOD UREA NITROGEN,BUN 17 mg/dL (7.0-18.0); CARBON DIOXIDE,CO2 27.3 mmol/L (21.0-32.0); CHLORIDE,CL 104 mmol/L (98-107); GLUCOSE RANDOM 133 mg/dL (74-106); POTASSIUM,K 4.1 mmol/L (3.5-5.1); SODIUM,NA 142 mmol/L (136-148)
[2021-06-29 11:18] VITALS: BP 159/96; PULSE 73
== END 2021-06-29 11:19 | disposition home or self-care (01) ==
LOC: MW.ED 09:21
DX: R19.7 Diarrhea, unspecified (principal); R11.2 Nausea with vomiting, unspecified; M10.9 Gout, unspecified; I10 Essential (primary) hypertension; Z79.01 Long term (current) use of anticoagulants; Z79.899 Other long term (current) drug therapy; Z86.16 Personal history of COVID-19
CPT/HCPCS: 36415; 71045; 80053; 85025; 99284; A9270

== ENCOUNTER 2022-04-28 09:30 | Emergency (ER) | payer SELFPAY ==
[2022-04-28 10:59] LABS: CORONAVIRUS COVID-19 NAA NEGATIVE (NEGATIVE); INFLUENZA A NAA NEGATIVE (NEGATIVE); INFLUENZA B NAA NEGATIVE (NEGATIVE)
[2022-04-28 11:44] VITALS: BP 126/90; PULSE 66
== END 2022-04-28 11:43 | disposition home or self-care (01) ==
LOC: MW.ED 09:30
DX: J02.9 Acute pharyngitis, unspecified (principal); I10 Essential (primary) hypertension; M10.9 Gout, unspecified; Z86.16 Personal history of COVID-19; Z79.01 Long term (current) use of anticoagulants; Z79.899 Other long term (current) drug therapy; Z20.822 Contact with and (suspected) exposure to COVID-19
CPT/HCPCS: 0240U; 87651; 99284; 99283

== ENCOUNTER 2022-06-16 11:31 | Emergency (ER) | payer SELFPAY ==
[2022-06-16] MEDS ORDERED: Sodium Chloride 0.9% 1,000 ML IV ONE (12:00)
[2022-06-16] MEDS ORDERED: LORazepam 2 MG/ML SDV IVPUSH ONE (12:06)
[2022-06-16 13:28] LABS: CARBON DIOXIDE,CO2 13.1 mmol/L (21.0-32.0)
[2022-06-16 19:04] VITALS: BP 144/91; PULSE 79
== END 2022-06-16 13:56 | disposition home or self-care (01) ==
LOC: MW.ED 11:31
DX: R10.84 Generalized abdominal pain (principal); I10 Essential (primary) hypertension; Z79.01 Long term (current) use of anticoagulants; Z79.899 Other long term (current) drug therapy; Z86.16 Personal history of COVID-19; Z90.49 Acquired absence of other specified parts of digestive tract
CPT/HCPCS: 36415; 80053; 83690; 85025; 96361; 96374; 99284; J2060; J7030

== ENCOUNTER 2022-09-14 14:50 | Emergency (ER) | payer SELFPAY | END 2022-09-14 17:00 | disposition left against medical advice (07) | LOC: MW.ED 14:50 | DX: Z53.21 Procedure and treatment not carried out due to patient leaving prior to being seen by health care provider (principal) ==

== ENCOUNTER 2022-09-28 10:34 | Emergency (ER) | payer SELFPAY ==
[2022-09-28] MEDS ORDERED: Ondansetron 4 MG/2 ML SDV IVPUSH ONE (11:21)
[2022-09-28] MEDS ORDERED: LORazepam 2 MG/ML SDV IVPUSH ONE (11:21)
[2022-09-28] MEDS ORDERED: Sodium Chloride 0.9% 1,000 ML IV ONE (11:21)
[2022-09-28 12:11] VITALS: BP 150/102; PULSE 89
[2022-09-28 13:02] LABS: BLOOD UREA NITROGEN,BUN 13 mg/dL (7.0-18.0); CARBON DIOXIDE,CO2 25.3 mmol/L (21.0-32.0); CHLORIDE,CL 103 mmol/L (98-107); GLUCOSE RANDOM 115 mg/dL (74-106); LIPASE 273 U/L (73-393); POTASSIUM,K 4.5 mmol/L (3.5-5.1); SODIUM,NA 137 mmol/L (136-148)
[2022-09-28 13:03] LABS: ESTIMATED GFR 92 mL/min (>60)
== END 2022-09-28 14:28 | disposition home or self-care (01) ==
LOC: MW.ED 10:34
DX: F10.239 Alcohol dependence with withdrawal, unspecified (principal); I10 Essential (primary) hypertension; M10.9 Gout, unspecified; Y90.0 Blood alcohol level of less than 20 mg/100 ml; Z79.01 Long term (current) use of anticoagulants; Z79.899 Other long term (current) drug therapy
CPT/HCPCS: 36415; 80053; 80307; 83690; 85025; 96361; 96374; 96375; 99284; J2060; J2405; J7030

== ENCOUNTER 2022-11-02 16:30 | Emergency (ER) | payer SELFPAY ==
[2022-11-02] MEDS ORDERED: Sodium Chloride 0.9% 1,000 ML IV ONE (16:58)
[2022-11-02] MEDS ORDERED: Ondansetron 4 MG/2 ML SDV IVPUSH ONE (16:58)
[2022-11-02 18:25] LABS: CARBON DIOXIDE,CO2 25.6 mmol/L (21.0-32.0); POTASSIUM,K 3.9 mmol/L (3.5-5.1)
[2022-11-02 18:37] VITALS: BP 145/98; PULSE 88
== END 2022-11-02 18:42 | disposition home or self-care (01) ==
LOC: MW.ED 16:30
DX: R11.2 Nausea with vomiting, unspecified (principal); F10.10 Alcohol abuse, uncomplicated; I10 Essential (primary) hypertension; F41.9 Anxiety disorder, unspecified; F32.A Depression, unspecified; Z79.899 Other long term (current) drug therapy
CPT/HCPCS: 36415; 80053; 85025; 96360; 99284; J7030

== ENCOUNTER 2022-12-04 12:47 | Emergency (ER) | payer SELFPAY ==
[2022-12-04] MEDS ORDERED: Sodium Chloride 0.9% 10 ML Syringe FLUSH PRN (13:02)
[2022-12-04] MEDS ORDERED: Sodium Chloride 0.9% 2.5 ML Syringe FLUSH PRN (13:02)
[2022-12-04] MEDS ORDERED: Lactated Ringers 1,000 ML IV ONE (13:02)
[2022-12-04] MEDS ORDERED: PHENobarbitaL sodium 130 MG in Sodium Chloride 0.9% 100 ML IV ONE (13:06)
[2022-12-04] MEDS ORDERED: chlordiazePOXIDE 25 MG Cap PO ONE (13:06)
[2022-12-04] MEDS ORDERED: PHENobarbital Sodium 130 MG/ML SDV ONE (13:36)
[2022-12-04 13:37] LABS: CARBON DIOXIDE,CO2 23.1 mmol/L (21.0-32.0); POTASSIUM,K 3.8 mmol/L (3.5-5.1)
[2022-12-04] MEDS ORDERED: Ketamine 500 mg/10 ML MDV ONE (13:41)
[2022-12-04] MEDS ORDERED: Propofol 200 MG/20 ML SDV ONE (13:42)
[2022-12-04] MEDS ORDERED: PHENobarbital Sodium 130 MG/ML SDV IVPUSH ONE ×2 (13:45→13:46)
[2022-12-04] MEDS ORDERED: propofoL 100 ML ONE (13:49)
[2022-12-04] MEDS ORDERED: fentaNYL 100 MCG/2 ML SDV ONE (13:51)
[2022-12-04] MEDS ORDERED: fentaNYL/Normal Saline 2,500 MCG in Premix Bag 1 BAG IV PRN (13:54)
[2022-12-04] MEDS ORDERED: fentaNYL 100 MCG/2 ML SDV IVPUSH ONE (13:58)
[2022-12-04] MEDS ORDERED: PHENOBARBITAL SODIUM IV ONE (13:59)
[2022-12-04] MEDS ORDERED: SODIUM CHLORIDE 0.9% IV ONE (13:59)
[2022-12-04] MEDS ORDERED: Ketamine 500 mg/10 ML MDV IV ONE ×2 (14:00→15:19)
[2022-12-04] MEDS ORDERED: Propofol 200 MG/20 ML SDV IVPUSH ONE (14:01)
[2022-12-04] MEDS ORDERED: fentaNYL/Normal Saline 2,500 MCG in Premix Bag 1 BAG IV STA (14:06)
[2022-12-04] MEDS ORDERED: propofoL 100 ML IV SCH (14:15)
[2022-12-04] MEDS ORDERED: Sodium Chloride 0.9% 1,000 ML IV ONE (14:23)
[2022-12-04] MEDS ORDERED: Norepinephrine Bit/D5W Premix 250 ML ONE (14:26)
[2022-12-04] MEDS ORDERED: Norepinephrine 4 MG in Dextrose 5% in Water 246 ML IV SCH ×4 (14:30)
[2022-12-04 14:53] VITALS: BP 129/82; PULSE 70
[2022-12-04] MEDS ORDERED: Norepinephrine Bit/D5W Premix 250 ML IV SCH (15:15)
== END 2022-12-04 16:18 ==
LOC: MW.ED 12:47
DX: F10.231 Alcohol dependence with withdrawal delirium (principal); R56.9 Unspecified convulsions; F14.151 Cocaine abuse with cocaine-induced psychotic disorder with hallucinations; R57.1 Hypovolemic shock; J96.00 Acute respiratory failure, unspecified whether with hypoxia or hypercapnia; I10 Essential (primary) hypertension; Z86.16 Personal history of COVID-19; Z79.899 Other long term (current) drug therapy; Y90.8 Blood alcohol level of 240 mg/100 ml or more
CPT/HCPCS: 31500; 36415; 36600; 36620; 70450; 71045; 80053; 80305; 80307; 82550; 82803; 82947; 83605; 83690; 83735; 84100; 84484; 85025; 85610; 85730; 93005; 96365; 96367; 96375; 96376; 99291; A9270; J2250; J2560; J2704; J3010; J3360; J3490; J7030; J7120; 93010; 99292

== ENCOUNTER 2024-05-25 13:13 | Emergency (ER) | payer SELFPAY ==
[2024-05-25 15:35] LABS: BASOPHILS ABSOLUTE AUTO 0.04 K/uL (0.00-0.20); BASOPHILS PERCENT AUTO 0.7 % (0.0-1.0); EOSINOPHILS ABSOLUTE AUTO 0.05 K/uL (0.00-0.45); EOSINOPHILS PERCENT AUTO 0.8 % (0.0-6.0); HEMATOCRIT 48.2 % (42.0-52.0); HEMOGLOBIN 17.5 g/dL (14.0-18.0); IMMATURE GRAN ABSOLUTE AUTO 0.02 K/uL (0.00-0.05); IMMATURE GRAN PERCENT AUTO 0.3 % (0.0-0.4); LYMPHOCYTES ABSOLUTE AUTO 1.59 K/uL (1.00-4.80); LYMPHOCYTES PERCENT AUTO 26.4 % (24.0-44.0); MEAN CORPUSCULAR HEMOGLOBIN 33.8 pg (28.0-32.0); MEAN CORPUSCULAR HGB CONC 36.3 g/dL (32.0-36.0); MEAN CORPUSCULAR VOLUME 93.1 fL (83.0-99.0); MEAN PLATELET VOLUME 9.1 fL (9.4-12.4); MONOCYTES ABSOLUTE AUTO 0.61 K/uL (0.00-0.80); MONOCYTES PERCENT AUTO 10.1 % (0.0-8.0); NEUTROPHILS ABSOLUTE AUTO 3.72 K/uL (1.80-7.70); NEUTROPHILS PERCENT AUTO 61.7 % (41.0-71.0); PLATELET COUNT,PLT 131 K/uL (150-400); RED BLOOD CELL COUNT 5.18 M/uL (4.52-5.90); WHITE BLOOD CELL COUNT,WBC 6.03 K/uL (3.9-11.3)
[2024-05-25] MEDS: Sodium Chloride 0.9% 1,000 ML IV ONE (15:47)
[2024-05-25] MEDS: Acetaminophen 500 MG Tab PO ONE (15:47)
[2024-05-25] MEDS: Ondansetron 4 MG/2 ML SDV IVPUSH ONE (15:47)
[2024-05-25 16:09] LABS: ALBUMIN 3.7 g/dL (3.4-5.0); BILIRUBIN TOTAL 1.2 mg/dL (0.2-1.0); CALCIUM 8.5 mg/dL (8.5-10.1); CARBON DIOXIDE,CO2 24.3 mmol/L (21.0-32.0); CREATININE 1.2 mg/dL (0.8-1.3); EST CRCL DRUG DOSING (CG) 72.01 mL/min; MAGNESIUM 1.6 mg/dL (1.8-2.4); POTASSIUM,K 3.9 mmol/L (3.5-5.1); PROTEIN TOTAL,TP 7.5 g/dL (6.4-8.2); TSH ULTRASENSITIVE 1.05 uIU/mL (0.36-3.74)
[2024-05-25 18:01] LABS: APPEARANCE,URINE CLEAR; BILIRUBIN,URINE NEGATIVE (NEGATIVE); COLOR,URINE YELLOW; GLUCOSE,URINE NEGATIVE (NEGATIVE); KETONES,URINE NEGATIVE (NEGATIVE); LEUKOCYTE ESTERASE,URINE NEGATIVE (NEGATIVE); NITRITE,URINE NEGATIVE (NEGATIVE); OCCULT BLOOD,URINE NEGATIVE (NEGATIVE); PROTEIN,URINE NEGATIVE (NEGATIVE); UROBILINOGEN,URINE 0.2 EU/dL (<2.0)
[2024-05-25 18:12] LABS: AMPHETAMINES SCREEN, URINE PRESUMPTIVE POSITIVE (CUTOFF=500); BARBITURATE SCREEN,URINE NEGATIVE (CUTOFF=200); BENZODIAZEPINES SCREEN,URINE NEGATIVE (CUTOFF=150); BUPRENORPHINE SCREEN,URINE NEGATIVE (CUTOFF=10); METHADONE SCREEN, URINE NEGATIVE (CUTOFF=200); METHAMPHETAMINES SCREEN, URINE PRESUMPTIVE POSITIVE (CUTOFF=500); OXYCODONE SCREEN,URINE NEGATIVE (CUT0FF=100); PCP SCREEN,URINE NEGATIVE (CUTOFF=25); THC SCREEN,URINE 20 NG/ML NEGATIVE (CUTOFF=50)
[2024-05-25 19:08] VITALS: BP 143/98; PULSE 93
== END 2024-05-25 20:11 | disposition left against medical advice (07) ==
LOC: MW.ED 13:13
DX: F10.10 Alcohol abuse, uncomplicated (principal); I10 Essential (primary) hypertension; Z90.49 Acquired absence of other specified parts of digestive tract; Z86.16 Personal history of COVID-19; Z75.8 Other problems related to medical facilities and other health care
CPT/HCPCS: 36415; 80053; 80305; 80307; 81003; 83690; 83735; 84443; 84484; 85025; 93005; 96361; 96374; 99284; A9270; J2405; J7030; 93010

== ENCOUNTER 2024-07-31 13:31 | Emergency (ER) | payer SELFPAY ==
[2024-07-31 13:58] VITALS: BP 168/99; PULSE 103
[2024-07-31] MEDS: Sodium Chloride 0.9% 1,000 ML IV STA (14:07)
[2024-07-31] MEDS: Ondansetron 4 MG/2 ML SDV IVPUSH STA (14:07)
== END 2024-07-31 15:14 | disposition home or self-care (01) ==
LOC: MW.ED 13:31
DX: F10.120 Alcohol abuse with intoxication, uncomplicated (principal); I10 Essential (primary) hypertension; Z75.8 Other problems related to medical facilities and other health care; Z90.49 Acquired absence of other specified parts of digestive tract
CPT/HCPCS: 96361; 96374; 99283; J2405; J7030